=== PATIENT | male | born 1960 | race Hispanic/Latino ===

== ENCOUNTER 2017-11-11 20:33 | Inpatient (IN) | payer MEDICAID, OTHER ==
[2017-11-11 20:34] VITALS: BMI 37.0
--- NOTE | 2017-11-11 21:26 | ED PDOC ---
Arrival/HPI - General Chief Complaint: Psychiatric Evaluation Time Seen by Provider: 11/11/17 20:47 Historian: Patient, Other (med records) - History of Present Illness Narrative History of Present Illness (Text): 57yoM, depression, etoh use, recent evaluation for depression, who stated took mirtazipine 15mg x 15 tabs, and has thoughts to harm himself, feeling sad, but otherwise no thoughts to harm others/sob/chest pain/abdomen pain/numbness/ tingling/loss of limb function/pain with urination. 11/11/17 21:24 11/11/17 21:25 Time/Duration: Other (unknown time of ingestion of mirtazapine) Symptom Onset: Gradual Symptom Course: Unchanged Activities at Onset: Rest Context: Sitting Past Medical History - Provider Review Nursing Documentation Reviewed: Yes - Travel History Have you recently traveled outside [place] w/in the past 3 mons?: No - Infectious Disease Hx of Infectious Diseases: None - Tetanus Immunization Tetanus Immunization: Up to Date - Past Medical History Past Medical History: No Previous - Cardiac Hx Cardiac Disorders: No Hx Angina: No Hx Atrial Fibrillation: No Hx Cardiac Arrhythmia: No Hx Circulatory Problems: No Hx Congestive Heart Failure: No Hx RI: No Hx Heart Murmur: No Hx Heart Transplant: No Hx Hypertension: Yes Hx Hypotension: No Hx Internal Defibrillator: No Hx Mitral Valve Prolapse: No Hx Pacemaker: No Hx Peripheral Edema: No - Pulmonary Hx Respiratory Disorders: Yes Hx Asthma: No Hx Bronchitis: No Hx Chronic Obstructive Pulmonary Disease (COPD): Yes Hx Emphysema: No Hx Lung Cancer: No Hx Pneumonia: No Hx Pulmonary Edema: No Hx Pulmonary Embolism: No Hx Respiratory Aspiration: No Hx Respiratory Tract Infection: No Hx Sleep Apnea: No Hx Tuberculosis: No - Neurological Hx Neurological Disorder: Yes Hx Alzheimer's Disease: No HX Cerebrovascular Accident: No - HEENT Hx HEENT Disorder: Yes Hx Cataracts: No Hx Deafness: No Hx Difficulty Chewing: No Hx Epistaxis: No Hx Glaucoma: No Other/Comment: retina detachment - Renal Hx Renal Disorder: No Hx Dialysis: No Hx Kidney Stones: No Hx Neurogenic Bladder: No Hx Pyelonephritis: No Hx Renal Cancer: No Hx Renal Failure: Yes - Endocrine/Metabolic Hx Endocrine Disorders: No Hx Adrenal Cancer: No Hx Diabetes Insipidus: No Hx Diabetes Mellitus Type 1: No Hx Diabetes Mellitus Type 2: No Hx Hyperthyroidism: No Hx Hypothyroidism: No Hx Systemic Lupus Erythematosus: No - Hematological/Oncological Hx AIDS: No Hx Anemia: No Hx Blood Transfusions: Yes Hx Blood Transfusion Reaction: No Hx Bruising: No Hx Cancer: No Hx Chemotherapy: No Hx Cirrhosis: No Hx Gum Bleeding: No Hx Hemophilia: No Hx Hepatitis B: Yes Hx Hepatitis C: Yes Hx Leukemia: No Hx Metastasis: No Hx Shingles: No Hx Sickle Cell Disease: No Hx Unexplained Bleeding: No Hx von Willebrand's Disease: No - Integumentary Hx Dermatological Disorder: Yes Hx Basal Cell Carcinoma: No Hx Delarosa: No Hx Cellulitis: No Hx Eczema: No Hx Melanoma: No Hx Psoriasis: Yes Hx Squamous Cell Carcinoma: No - Musculoskeletal/Rheumatological Hx Musculoskeletal Disorders: Yes Hx Arthritis: No Hx Back Pain: No Hx Degenerative Joint Disease: No Hx Falls: Yes Hx Fractures: Yes (NASAL SURGERY) Hx Gout: No Hx Herniated Disk: No Hx Myasthenia Gravis: No Hx Osteoarthritis: No Hx Osteomyelitis: No Hx Osteoporosis: No Hx Rhabdomyolysis: No Hx Rheumatoid Arthritis: No Hx Spinal Stenosis: No Hx Unsteady Gait: No - Gastrointestinal Hx Gastrointestinal Disorders: Yes Hx Bowel Surgery: No Hx Clostridium Difficile: No Hx Colitis: No Hx Colostomy: No Hx Constipation: No Hx Crohn's Disease: No Hx Diarrhea: No Hx Diverticulitis: No Hx Esophageal Varices: No Hx Fatty Liver Disease: No Hx Gall Bladder Disease: No Hx Gastritis: No Hx Gastroesophageal Reflux: No Hx Hemorrhoids: No Hx Ileostomy: No Hx Irritable Bowel: No Hx Liver Failure: Yes Hx Nausea: No Hx Pancreatitis: Yes HX Swallowing Problems: No Hx Vomiting: No Other/Comment: ascites - Genitourinary/Gynecological Hx Genitourinary Disorders: No Hx Bladder Cancer: No Hx Bladder Stone: No Hx Hematuria: No Hx Incontinence: No Hx Prostate Cancer: No Hx Prostate Problems: No Hx Reproductive Disorders: No Hx Sexually Transmitted Diseases: No Hx Urinary Tract Infection: No - Psychiatric Hx Psychophysiologic Disorder: Yes Hx Emotional Abuse: No Hx Physical Abuse: No Hx Sexual Abuse: No Hx Substance Use: No (history of alcohol) - Past Surgical History Past Surgical History: No Previous - Surgical History Other/Comment: TIPPS. Nasal surgery. - Anesthesia Hx Anesthesia: Yes Hx Anesthesia Reactions: No Hx Malignant Hyperthermia: No - Suicidal Assessment Feels Threatened In Home Enviroment: No Family/Social History - Physician Review Nursing Documentation Reviewed: Yes Family/Social History: No Known Family HX Smoking Status: Light Smoker < 10 Cigarettes Daily Hx Alcohol Use: Yes (history) Amount per day: 3 Hx Substance Use: No (history of alcohol) Hx Substance Use Treatment: No Allergies/Home Meds Allergies/Adverse Reactions: Allergies No Known Allergies Allergy (Verified 11/08/17 17:35) Home Medications: Home Meds Medication Instructions Recorded Confirmed Tiotropium [Spiriva] 1 cap NEB HS 11/11/17 11/11/17 Review of Systems - Review of Systems Constitutional: Normal Eyes: Normal ENT: Normal Respiratory: Normal Cardiovascular: Normal Gastrointestinal: Normal Genitourinary Male: Normal Musculoskeletal: Normal Skin: Normal Neurological: Normal Endocrine: Normal Hemo/Lymphatic: Normal Psychiatric: Depression, Suicidal Ideation Physical Exam Vital Signs Reviewed: Yes Vital Signs Temp Pulse Resp BP Pulse Ox 11/11/17 22:53 104 H 16 120/69 11/11/17 20:45 97.8 F 120 H 17 143/93 H 95 Temperature: Afebrile Blood Pressure: Hypertensive Pulse: Tachycardic Respiratory Rate: Normal Appearance: Positive for: Unkept Pain Distress: None Mental Status: Positive for: Alert and Oriented X 3 - Systems Exam Head: Present: Atraumatic, Normocephalic Pupils: Present: PERRL Extroacular Muscles: Present: EOMI Conjunctiva: Present: Normal Ears: Present: Normal Mouth: Present: Moist Mucous Membranes Pharnyx: Present: Normal Nose (External): Present: Atraumatic Nose (Internal): Present: Normal Inspection Neck: Present: Normal Range of Motion Respiratory/Chest: Present: Clear to Auscultation, Good Air Exchange Cardiovascular: Present: Regular Rate and Rhythm Abdomen: No: Tenderness, Distention, Normal Bowel Sounds, Peritoneal Signs, Rebound, Guarding, McBurney's Point Tender, Rovsing's Sign Present, Hernias, Feeding Tubes, Ostomy Tubes, Mass/Organomegaly, Scars, Other Back: Present: Normal Inspection Upper Extremity: Present: Normal Inspection Lower Extremity: Present: Normal Inspection Neurological: Present: GCS=15, CN II-XII Intact, Speech Normal, Motor Func Grossly Intact Skin: Present: Warm, Normal Color Psychiatric: Present: Alert, Oriented x 3, Depressed Mood, Suicidal Ideation Medical Decision Making ED Course and Treatment: 57yoM, depression, etoh use, recent evaluation for depression, who stated took mirtazipine 15mg x 15 tabs, and has thoughts to harm himself, feeling sad, but otherwise no thoughts to harm others/sob/chest pain/abdomen pain/numbness/ tingling/loss of limb function/pain with urination. 11/11/17 21:28 nurse Angela called poison control and discussed case and pt to be observed. ECG: sinus tachycardia 11/11/17 21:29 11/12/17 00:59 CXR no acute, similar to 11/05/17 11/12/17 00:59 wbc 11.5 hb 15 plts 213 tox negative ua negative 11/12/17 01:29 tbili 2.4 within range of 1.4 11/09/17, 2.1 11/06/17 trop < 0.01 11/12/17 01:30 awaiting PES - Lab Interpretations Lab Results: 11/11/17 21:37 11/12/17 00:20 Lab Results 11/12/17 00:20: Sodium 145, Potassium 4.4, Chloride 108 H, Carbon Dioxide 22, Anion Gap 19, BUN 10, Creatinine 0.9, Est GFR ( Amer) > 60, Est GFR (Non- Af Amer) > 60, Random Glucose 107, Calcium 10.6 H, Total Bilirubin 2.2 H, AST 74 H, ALT 47, Alkaline Phosphatase 124, Troponin I < 0.01, Total Protein 8.8 H, Albumin 4.2, Globulin 4.6, Albumin/Globulin Ratio 0.9 L 11/11/17 22:57: Urine Opiates Screen Negative, Urine Methadone Screen Negative, Ur Barbiturates Screen Negative, Ur Phencyclidine Scrn Negative, Ur Amphetamines Screen Negative, U Benzodiazepines Scrn Negative, U Oth Cocaine Metabols Negative, U Cannabinoids Screen Negative 11/11/17 22:57: Urine Color Yellow, Urine Appearance Clear, Urine pH 6.5, Ur Specific [place] 1.010, Urine Protein Trace H, Urine Glucose (UA) Negative, Urine Ketones Negative, Urine Blood Negative, Urine Nitrate Negative, Urine Bilirubin Negative, Urine Urobilinogen 0.2, Ur Leukocyte Esterase Negative, Urine RBC 2 - 5, Urine WBC 0 - 2, Ur Epithelial Cells 0 - 2, Urine Bacteria Many , Hyaline Casts 0 - 2 11/11/17 21:37: Alcohol, Quantitative < 10 11/11/17 21:37: Salicylates < 1 L, Acetaminophen < 10.0 L 11/11/17 21:37: WBC 11.5 H D, RBC 5.47, Hgb 15.6 D, Hct 46.7, MCV 85.4, MCH 28.5, MCHC 33.4, RDW 18.1 H, Plt Count 213, MPV 12.2 H, Gran % 75.3 H, Lymph % ( Auto) 13.0 L, [place] % (Auto) 10.6 H, Eos % (Auto) 0.7 L, Baso % (Auto) 0.4, Gran # 8.65 H, Lymph # (Auto) 1.5, [place] # (Auto) 1.2 H, Eos # (Auto) 0.1, Baso # ( Auto) 0.05 - RAD Interpretation Radiology Orders: 11/11/17 21:21 CHEST PORTABLE [RAD] Stat Pocket Setter: ED Physician (CXR no acute, similar to 11/05/17) - EKG Interpretation Interpreted by ED Physician: Yes (sinus tachycardia, flipped t waves avr, v1) Type: 12 lead EKG - Medication Orders Current Medication Orders: Discontinued Medications Sodium Chloride (Sodium Chloride 0.9%) 1,000 mls @ 999 mls/hr IV .Q1H1M STA Stop: 11/11/17 22:29 Last Admin: 11/11/17 21:48 Dose: 999 mls/hr eMAR Start Stop Document 11/11/17 21:48 MS (Rec: 11/11/17 21:49 [place] [facility] [id number] Intravenous Solution Start Date 11/11/17 Start Time 21:48 End Date 11/11/17 End time 22:48 Total Infusion Time 60 Disposition/Present on Arrival - Present on Arrival History of DVT/PE: No History of Uncontrolled Diabetes: No Urinary Catheter: No History of Decub. Ulcer: No History Surgical Site Infection Following: None - Disposition Referrals: [facility] Brenda Mclean, [Primary Care Provider] - Follow up with primary Forms: [employer] (Kazakh)
[2017-11-11] MEDS ORDERED: Sodium Chloride 0.9% 1,000 ML IV STA (21:29)
[2017-11-11 22:22] LABS: ACETAMINOPHEN < 10.0 ug/ml (10.0-20.0)
[2017-11-11 22:25] LABS: BASO # 0.05 K/mm3 (0.0-2.0); BASO % 0.4 % (0.0-3.0); EOS # 0.1 (0.0-0.7); EOS % 0.7 % (1.5-5.0); GRAN # 8.65 (1.4-6.5); GRAN % 75.3 % (50.0-68.0); HEMOGLOBIN 15.6 g/dL (14.0-18.0); LYMPH # 1.5 (1.2-3.4); MEAN CELL VOLUME 85.4 fl (80.0-105.0); MEAN CORPUSCULAR HEMOGLOBIN 28.5 pg (25.0-35.0); MEAN CORPUSCULAR HGB CONC 33.4 g/dl (31.0-37.0); MEAN PLATELET VOLUME 12.2 fl (7.0-11.0); MONO # 1.2 (0.1-0.6); MONO % 10.6 % (1.0-6.0); RBC 5.47 10^6/uL (3.5-6.1); RED CELL DISTRIBUTION WIDTH 18.1 % (11.5-14.5); SALICYLATE < 1 mg/dL (2.0-20.0); WHITE BLOOD COUNT 11.5 10^3/ul (4.5-11.0)
[2017-11-11 23:05] LABS: PH,URINE 6.5 (4.7-8.0); URINE BILIRUBIN NEGATIVE (NEGATIVE); URINE BLOOD NEGATIVE (NEGATIVE); URINE GLUCOSE (UA) NEGATIVE (NEGATIVE); URINE LEUKOCYTE ESTERASE NEGATIVE Leu/uL (NEGATIVE); URINE NITRATE NEGATIVE (NEGATIVE); URINE PROTEIN TRACE mg/dL (<30 mg/dL); URINE UROBILINOGEN 0.2 E.U./dL (<1 E.U./dL)
[2017-11-11 23:10] LABS: URINE APPEARANCE CLEAR (CLEAR); URINE COLOR YELLOW (YELLOW)
[2017-11-11 23:27] LABS: BARBITURATES, UR NEGATIVE (NEGATIVE); BENZODIAZEPINES, UR NEGATIVE (NEGATIVE); OPIATES, UR NEGATIVE (NEGATIVE); PHENCYCLIDINE, UR NEGATIVE (NEGATIVE)
[2017-11-11 23:37] LABS: URINE BACTERIA MANY (NEG); URINE EPITHELIAL CELLS 0 - 2 /hpf (0-5); URINE HYALINE CAST 0 - 2 /hpf; URINE WBC 0 - 2 /hpf (0-6)
[2017-11-12 01:01] LABS: ALB/GLOB RATIO 0.9 (1.1-1.8); ALBUMIN 4.2 g/dL (3.0-4.8); ALT/SGPT 47 U/L (7-56); AST/SGOT 74 U/L (17-59); BLOOD UREA NITROGEN 10 mg/dL (7-21); CALCIUM 10.6 mg/dL (8.4-10.5); GFR AFRICAN-AMERICAN > 60; GFR NON-AFRICAN AMERICAN > 60; TROPONIN I < 0.01 ng/mL
--- NOTE | 2017-11-12 07:40 | ED PDOC ---
Physical Exam Vital Signs Temp Pulse Resp BP Pulse Ox 11/12/17 04:38 96 H 16 120/69 92 L 11/12/17 00:59 94 H 16 126/82 97 11/11/17 22:53 104 H 16 120/69 11/11/17 20:45 97.8 F 120 H 17 143/93 H 95 Medical Decision Making ED Course and Treatment: 11/12/17 07:00 Case signed out to me by Dr. Mckeon. Patient is a 57 year old male, whose past medical history includes epression, and ETOH abuse. Patient presents to the emergency department complaining of SI with no HI. Pending PES. 11/12/17 08:03 Case was discussed with Dr. Meyers who will admit for Depression NOS under Dr. Nilda Merlos - Lab Interpretations Lab Results: 11/11/17 21:37 11/12/17 00:20 Lab Results 11/12/17 00:20: Sodium 145, Potassium 4.4, Chloride 108 H, Carbon Dioxide 22, Anion Gap 19, BUN 10, Creatinine 0.9, Est GFR ( Amer) > 60, Est GFR (Non- Af Amer) > 60, Random Glucose 107, Calcium 10.6 H, Total Bilirubin 2.2 H, AST 74 H, ALT 47, Alkaline Phosphatase 124, Troponin I < 0.01, Total Protein 8.8 H, Albumin 4.2, Globulin 4.6, Albumin/Globulin Ratio 0.9 L 11/11/17 22:57: Urine Opiates Screen Negative, Urine Methadone Screen Negative, Ur Barbiturates Screen Negative, Ur Phencyclidine Scrn Negative, Ur Amphetamines Screen Negative, U Benzodiazepines Scrn Negative, U Oth Cocaine Metabols Negative, U Cannabinoids Screen Negative 11/11/17 22:57: Urine Color Yellow, Urine Appearance Clear, Urine pH 6.5, Ur Specific [place] 1.010, Urine Protein Trace H, Urine Glucose (UA) Negative, Urine Ketones Negative, Urine Blood Negative, Urine Nitrate Negative, Urine Bilirubin Negative, Urine Urobilinogen 0.2, Ur Leukocyte Esterase Negative, Urine RBC 2 - 5, Urine WBC 0 - 2, Ur Epithelial Cells 0 - 2, Urine Bacteria Many , Hyaline Casts 0 - 2 11/11/17 21:37: Alcohol, Quantitative < 10 11/11/17 21:37: Salicylates < 1 L, Acetaminophen < 10.0 L 11/11/17 21:37: WBC 11.5 H D, RBC 5.47, Hgb 15.6 D, Hct 46.7, MCV 85.4, MCH 28.5, MCHC 33.4, RDW 18.1 H, Plt Count 213, MPV 12.2 H, Gran % 75.3 H, Lymph % ( Auto) 13.0 L, [place] % (Auto) 10.6 H, Eos % (Auto) 0.7 L, Baso % (Auto) 0.4, Gran # 8.65 H, Lymph # (Auto) 1.5, [place] # (Auto) 1.2 H, Eos # (Auto) 0.1, Baso # ( Auto) 0.05 - RAD Interpretation Radiology Orders: 11/11/17 21:21 CHEST PORTABLE [RAD] Stat - Medication Orders Current Medication Orders: Discontinued Medications Sodium Chloride (Sodium Chloride 0.9%) 1,000 mls @ 999 mls/hr IV .Q1H1M STA Stop: 11/11/17 22:29 Last Admin: 11/11/17 21:48 Dose: 999 mls/hr eMAR Start Stop Document 11/11/17 21:48 MS (Rec: 11/11/17 21:49 [place] [facility] [id number] Intravenous Solution Start Date 11/11/17 Start Time 21:48 End Date 11/11/17 End time 22:48 Total Infusion Time 60 Disposition/Present on Arrival - Present on Arrival Any Indicators Present on Arrival: No History of DVT/PE: No History of Uncontrolled Diabetes: No Urinary Catheter: No History of Decub. Ulcer: No History Surgical Site Infection Following: None - Disposition Have Diagnosis and Disposition been Completed?: Yes Diagnosis: Depression, Overdose Disposition: HOSPITALIZED Disposition Time: 08:04 Patient Plan: Admission Patient Problems: Current Active Problems Problem Status Onset Depression Acute Overdose Acute Condition: GUARDED
--- NOTE | 2017-11-12 09:45 | RAD ---
HISTORY: Overdose. COMPARISON: . FINDINGS: LUNGS: No active pulmonary disease. PLEURA: No significant pleural effusion identified, no pneumothorax apparent. CARDIOVASCULAR: No radiographic findings to suggest acute or significant cardiovascular disease. OSSEOUS STRUCTURES: No significant abnormalities. VISUALIZED UPPER ABDOMEN: Normal. OTHER FINDINGS: None. IMPRESSION: No active disease. No significant interval change compared to the prior examination(s).
[2017-11-12 10:03] VITALS: O2SAT 95
[2017-11-12] MEDS ORDERED: Alum-Mag Hydrox-Simethicone Susp (30 mL) PO PRN (11:47)
[2017-11-12] MEDS ORDERED: Magnesium Hydroxide Susp 30 ml UD PO PRN (11:48)
--- NOTE | 2017-11-12 15:25 | PCM.BM ---
<Kuldeep Gaming - Last Filed: 11/12/17 15:22> Treatment Plan Problems - Problems identified on initial assessmt depression suicidal ideation Date Initiated: 11/12/17 Time Initiated: 12:00 Assessment reference: AT, NA Status: Active Priority: 1 Comment: suicidal medical issues Date Initiated: 11/12/17 Time Initiated: 12:00 Assessment reference: NA Status: Active Priority: 2 Comment: COPD,Hep b and c Disposition Date Initiated: 11/12/17 Time Initiated: 12:00 Assessment reference: NA Status: Active Priority: 3 Comment: Homeless Treatment assets and liabiliti Patient Assests: cooperative, ADL independent, negotiates basic needs, cognitively intact Patient Liabilities: live alone, poor support system, medical problems - Milieu Protocol Maintain good personal hygiene: daily Encourage regular showers, daily Assist patient to perform ADL's, every shift Remind patient to perform daily oral care Conduct patient checks and document Observation sheet: Q15 minutes Maintain personal safety: every shift Educate patient to report safety concerns to staff, every shift Monitor environment for contraband/sharps Medication safety: Monitor for expected outcome, potential side effects: every shift, Assess barriers to learning: every shift, Assess readiness for medication education: every shift Discharge/Continuing Care - Education Needs Education Needs: Patient Medication, Patient Diagnosis/Disease Process, Patient Coping Skills, Patient Placement options, Patient Community resources, Patient Activities of Daily Living, Patient Nutrition, Patient Health Practices/Safety, Patient Personal Hygiene/Grooming, Patient Aftercare Safety Plan - Discharge Discharge Criteria: Free of Suicidal thoughts, Normal sleep pattern <Chaya Meyers - Last Filed: 11/13/17 16:34> - Diagnosis (1) Depression Status: Chronic Interventions: manager student services and counseling regarding current homelessness 11/13/17 16:34 <Melanie Sanford - Last Filed: 11/14/17 16:14>
--- NOTE | 2017-11-12 16:46 | CARD ---
APPROVED REPORT EKG Measurement Heart [id number] <Conclusion> Sinus tachycardia Cannot rule out Inferior infarct, age undetermined Abnormal ECG
--- NOTE | 2017-11-13 16:34 | PCM.PYCHPN ---
Psychiatric Progress Note - Psychiatric Progress Note Patient seen today, length of contact: 25 min Patient Chief Complaint: "doesn't want to stay at a homeless halfway and would rather , no one wants to help me--they all pass the knight". Problems Identified/Issues Discussed: Patient is a homeless, single 57 year old white male with a history of Major Depressive Disorder who was just discharged from [facility] on , prescribed Remeron 15 mg po HS #14 who returned to [facility] s/p suicide attempt by ingesting supply of Remeron given to him upon discharge earlier in the day. Please refer to Initial Psychiatric Evaluation by Maranda Martínez APN on 11/09/17 for full assessment. Patient was seen in the ER by this provider on 11/12/17 and again at bedside this morning 11/13/17. He is unkempt, irritable and reluctantly engages in my interview. Reports that he is depressed and complains that he was not ready for discharge on Tuesday. Indicates that he was still suicidal (though Maranda Martínez 's discharge note indicates that he was not suicidal or homicidal even at admission). Patient reports that he "doesn't want to stay at a homeless halfway and would rather , no one wants to help me--they all pass the knight". Indicates that shelters are dangerous and fears that his property will get stolen. Denies any drug or alcohol use in the short interim. Patient has been in fair control on the unit thus far, though noted by staff to be irritable, arrogant and entitled (which this provider has also observed). He denies having any further complaints or concerns at this time. He is coherent and doesn't demonstrate any psychotic symptoms. Denies pain or discomfort. Patients sleep was "up and down with sonata last night. Diagnostic Results: Major depressive disorder without psychotic features Likely amplification of symptoms for secondary gain Mental Status Examination - Cognitive Function Orientation: Person, Place, Situation Attention: WNL Concentration: Poor Fund of Knowledge: Poor - Mood Mood: Depressed ("doesn't want to stay at a homeless halfway and would rather , no one wants to help me--they all pass the knight". ) - Affect Affect: Constricted, Other (Irritable) - Speech Speech: Appropriate - Formal Thought Process Formal Thought Process: No Impairment - Suicidal Ideation Suicidal Ideation: No - Homicidal Ideation Homicidal Ideation: No Goal/Treatment Plan - Goal/Treatment Plan Progress Toward Problem(s) and Goals/Treatment Plan: * group, milieu and supportive tx * Sonata 5 mg po HS prn: insomnia * Awaiting medical consult * Vitals reviewed and noted below: Selected Entries 11/12/17 11/12/17 11/13/17 10:35 11:12 07:23 Temperature 98.9 F 98.6 F Pulse Rate 101 H 85 Pulse Rate [ 101 H Right Radial] Respiratory 17 17 20 Rate Blood Pressure 128/68 95/57 L [facility] Laboratory Tests 11/11/17 11/11/17 11/11/17 21:37 21:37 21:37 WBC 11.5 H D RBC 5.47 Hgb 15.6 D Hct 46.7 MCV 85.4 MCH 28.5 MCHC 33.4 RDW 18.1 H Plt Count 213 MPV 12.2 H Gran % 75.3 H Lymph % (Auto) 13.0 L [place] % (Auto) 10.6 H Eos % (Auto) 0.7 L Baso % (Auto) 0.4 Gran # 8.65 H Lymph # (Auto) 1.5 [place] # (Auto) 1.2 H Eos # (Auto) 0.1 Baso # (Auto) 0.05 Sodium Potassium Chloride Carbon Dioxide Anion Gap BUN Creatinine Est GFR ( Amer) Est GFR (Non-Af Amer) Random Glucose Calcium Total Bilirubin AST ALT Alkaline Phosphatase Troponin I Total Protein Albumin Globulin Albumin/Globulin Ratio Urine Color Urine Appearance Urine pH Ur Specific [place] Urine Protein Urine Glucose (UA) Urine Ketones Urine Blood Urine Nitrate Urine Bilirubin Urine Urobilinogen Ur Leukocyte Esterase Urine RBC Urine WBC Ur Epithelial Cells Urine Bacteria Hyaline Casts Salicylates < 1 L Urine Opiates Screen Urine Methadone Screen Acetaminophen < 10.0 L Ur Barbiturates Screen Ur Phencyclidine Scrn Ur Amphetamines Screen U Benzodiazepines Scrn U Oth Cocaine Metabols U Cannabinoids Screen Alcohol, Quantitative < 10 11/11/17 11/11/17 11/12/17 22:57 22:57 00:20 WBC RBC Hgb Hct MCV MCH MCHC RDW Plt Count MPV Gran % Lymph % (Auto) [place] % (Auto) Eos % (Auto) Baso % (Auto) Gran # Lymph # (Auto) [place] # (Auto) Eos # (Auto) Baso # (Auto) Sodium 145 Potassium 4.4 Chloride 108 H Carbon Dioxide 22 Anion Gap 19 BUN 10 Creatinine 0.9 Est GFR ( Amer) > 60 Est GFR (Non-Af Amer) > 60 Random Glucose 107 Calcium 10.6 H Total Bilirubin 2.2 H AST 74 H ALT 47 Alkaline Phosphatase 124 Troponin I < 0.01 Total Protein 8.8 H Albumin 4.2 Globulin 4.6 Albumin/Globulin Ratio 0.9 L Urine Color Yellow Urine Appearance Clear Urine pH 6.5 Ur Specific [place] 1.010 Urine Protein Trace H Urine Glucose (UA) Negative Urine Ketones Negative Urine Blood Negative Urine Nitrate Negative Urine Bilirubin Negative Urine Urobilinogen 0.2 Ur Leukocyte Esterase Negative Urine RBC 2 - 5 Urine WBC 0 - 2 Ur Epithelial Cells 0 - 2 Urine Bacteria Many Hyaline Casts 0 - 2 Salicylates Urine Opiates Screen Negative Urine Methadone Screen Negative Acetaminophen Ur Barbiturates Screen Negative Ur Phencyclidine Scrn Negative Ur Amphetamines Screen Negative U Benzodiazepines Scrn Negative U Oth Cocaine Metabols Negative U Cannabinoids Screen Negative Alcohol, Quantitative
--- NOTE | 2017-11-13 16:53 | CP.PCM.CON ---
History of Present Illness - History of Present Illness History of Present Illness: MEDICINE CONSULT NOTE: Mr. Palacios is a 56 year old male with a past medical history significant for COPD, unclassified prior seizure, hepatitis C with associated liver cirrhosis and questionable hepatitis B who presents for depression and apparent attempted suicide by taking 15 tablets of Mirtazipine. Patient reports that he has suffered from depression his entire life. Of note, patient was largely uncooperative with HPI interview. He denies any complaints at this time, including fevers, chills, headache, sore throat, chest pain, palpitations, syncope, vertigo, SOB, cough, wheezing, abdominal pain, diarrhea, constipation, urinary symptoms, skin changes or any numbness/tingling/weakness of any extremity. PMH: COPD, unclassified prior seizure, hepatitis C with associated liver cirrhosis and questionable hepatitis B PSH: Tonsillectomy, TIPS procedure Family History: Mother-Emphysema Social History: Current smoker with 30 year pack smoking history, history of alcohol abuse but quit 3 years ago, and former user of heroin; Currently homeless Allergies: NKDA Home Medications: As per MAR Review of Systems - Review of Systems Review of Systems: As per HPI, otherwise negative Past Patient History - Infectious Disease Hx of Infectious Diseases: None - Tetanus Immunizations Tetanus Immunization: Up to Date - Past Medical History & Family History Past Medical History?: Yes - Past Social History Smoking Status: Light Smoker < 10 Cigarettes Daily - CARDIAC Hx Cardiac Disorders: No Hx Angina: No Hx Hypertension: Yes - PULMONARY Hx Respiratory Disorders: Yes Hx Chronic Obstructive Pulmonary Disease (COPD): Yes Hx Tuberculosis: No - NEUROLOGICAL Hx Neurological Disorder: No HX Cerebrovascular Accident: No - HEENT Hx HEENT Problems: Yes Hx Cataracts: No Hx Deafness: No Hx Difficulty Chewing: No Hx Epistaxis: No Hx Glaucoma: No Other/Comment: retina detachment - RENAL Hx Chronic Kidney Disease: No Hx Dialysis: No Hx Kidney Stones: No Hx Neurogenic Bladder: No Hx Pyelonephritis: No Hx Renal (Kidney) Cancer: No Hx Renal Failure: Yes - ENDOCRINE/METABOLIC Hx Endocrine Disorders: No Hx Adrenal Cancer: No Hx Diabetes Insipidus: No Hx Diabetes Mellitus Type 1: No Hx Diabetes Mellitus Type 2: No Hx Hyperthyroidism: No Hx Hypothyroidism: No Hx Systemic Lupus Erythematosus: No - HEMATOLOGICAL/ONCOLOGICAL Hx Blood Disorders: No Hx Cancer: No - INTEGUMENTARY Hx Dermatological Problems: Yes Hx Basil Cell: No Hx Delarosa: No Hx Cellulitis: No Hx Eczema: No Hx Melanoma: No Hx Psoriasis: Yes Hx Squamous Cell: No - MUSCULOSKELETAL/RHEUMATOLOGICAL Hx Musculoskeletal Disorders: Yes Hx Arthritis: No Hx Back Pain: No Hx Degenerative Joint Disease: No Hx Falls: Yes Hx Fractures: Yes (NASAL SURGERY) Hx Gout: No Hx Herniated Disk: No Hx Myasthenia Gravis: No Hx Osteoarthritis: No Hx Osteomyelitis: No Hx Osteoporosis: No Hx Rhabdomyolysis: No Hx Rheumatoid Arthritis: No Hx Spinal Stenosis: No Hx Unsteady Gait: No - GASTROINTESTINAL Hx Gastrointestinal Disorders: Yes Hx Bowel Surgery: No Hx Clostridium Difficile: No Hx Colitis: No Hx Colostomy: No Hx Constipation: No Hx Crohn's Disease: No Hx Diarrhea: No Hx Diverticulitis: No Hx Esophageal Varices: No Hx Fatty Liver Disease: No Hx Gall Bladder Disease: No Hx Gastritis: No Hx Gastroesophageal Reflux: No Hx Hemorrhoids: No Hx Ileostomy: No Hx Irritable Bowel: No Hx Liver Failure: Yes Hx Nausea: No Hx Pancreatitis: Yes HX Swallowing Problems: No Hx Vomiting: No Other/Comment: ascites - GENITOURINARY/GYNECOLOGICAL Hx Genitourinary Disorders: No Hx Sexually Transmitted Disorders: No - PSYCHIATRIC Hx Anxiety: Yes Hx Bipolar Disorder: Yes Hx Depression: Yes Hx Substance Use: Yes - SURGICAL HISTORY Hx Surgeries: Yes Other/Comment: TIPPS. Nasal surgery. - ANESTHESIA Hx Anesthesia: Yes Hx Anesthesia Reactions: No Hx Malignant Hyperthermia: No Meds Allergies/Adverse Reactions: Allergies Allergy/AdvReac Type Severity Reaction Status Date / Time No Known Allergies Allergy Verified 11/12/17 10:34 - Medications Medications: Current Medications Acetaminophen (Tylenol 325mg Tab) 650 mg PO Q6H PRN PRN Reason: Pain, moderate (4-7) Al Hydrox/Mg Hydrox/Simethicone (Maalox Plus 30 Ml) 30 ml PO DAILY PRN PRN Reason: Indigestion / Heartburn Albuterol/Ipratropium (Duoneb 3 Mg/0.5 Mg (3 Ml) Ud) 3 ml IH [id number] PRN PRN Reason: Shortness of Breath Magnesium Hydroxide (Milk Of Magnesia) 30 ml PO DAILY PRN PRN Reason: Constipation Zaleplon (Sonata) 5 mg PO HS PRN PRN Reason: Insomnia Last Admin: 11/12/17 21:12 Dose: 5 mg Physical Exam - Constitutional Appears: Well, Non-toxic, No Acute Distress - Head Exam Head Exam: ATRAUMATIC, NORMAL INSPECTION, NORMOCEPHALIC - Eye Exam Eye Exam: EOMI, Normal appearance, PERRL - ENT Exam ENT Exam: Mucous Membranes Moist, Normal Exam - Neck Exam Neck exam: Positive for: Full Rom, Normal Inspection. Negative for: Lymphadenopathy - Respiratory Exam Respiratory Exam: Clear to Auscultation Bilateral, NORMAL BREATHING PATTERN. absent: Rales, Rhonchi, Wheezes - Cardiovascular Exam Cardiovascular Exam: REGULAR RHYTHM, RRR, +S1, +S2 - GI/Abdominal Exam GI & Abdominal Exam: Normal Bowel Sounds, Soft. absent: Tenderness - Extremities Exam Extremities exam: Positive for: full ROM, normal capillary refill, normal inspection, pedal pulses present. Negative for: calf tenderness, joint swelling , pedal edema, tenderness - Back Exam Back exam: NORMAL INSPECTION - Neurological Exam Neurological exam: Alert, CN II-XII Intact, Normal Gait, Oriented x3, Reflexes Normal - Skin Skin Exam: Dry, Intact, Normal Color, Warm Results - Vital Signs Recent Vital Signs: Last Vital Signs Temp 98.6 F 11/13/17 07:23 Pulse 85 11/13/17 07:23 Resp 20 11/13/17 07:23 BP 95/57 L 11/13/17 07:23 Pulse Ox 95 11/12/17 10:02 - Labs Result Diagrams: 11/11/17 21:37 11/12/17 00:20 Assessment & Plan - Assessment and Plan (Free Text) Assessment: 56 year old male with a past medical history significant for COPD, unclassified prior seizure, hepatitis C with associated liver cirrhosis and questionable hepatitis B who presents for depression and apparent attempted suicide by taking 15 tablets of Mirtazipine. Patient found to have mild asymptomatic hypercalcemia to 10.6 on CMP. Plan: 1. Asymptomatic Hypercalcemia -Calcium at 10.6 -Continue and maintain adequate oral hydration -Further interventions not indicated at this time Patient seen and case discussed with attending, Dr. Sewell. Patient medically optimized for inpatient treatment in Behavioral Health Unit. Please reconsult as needed. - Date & Time Date: 11/13/17 Time: 16:55
[2017-11-13] MEDS: Albuterol-Ipratrop 3 mg / 0.5 (3 ml) UD IH PRN (21:22)
--- NOTE | 2017-11-14 11:03 | PCM.PYCHPN ---
Psychiatric Progress Note - Psychiatric Progress Note Patient seen today, length of contact: 25 min Patient Chief Complaint: "This time I won't mess up, I will buy 4-5 bags of dope and that will be it" Problems Identified/Issues Discussed: Patient is a 57 year old male, never , with one grown son, admitted to the unit within 12 hours after discharge from this unit. On his prior admission he had been admitted from the medical unit, then spent 3 days on the psychiatric unit. He was started on an antidepressant and discharged with referrals to the community for shelters and follow up care. Patient indicates this admission he did not even get into the cab to go to his referral, he "walked around" and then took all his mirtazepine that he had picked up from the [facility] pharmacy on his way out of the hospital. He currently has no income, no interpersonal support, and is adamant he does not want to be in a long term. There appears to be a secondary gain to this admission. Patient was seen today in treatment team, is angry and belligerent indicates he is a blind person and they must have a place for him that is not a long term. He denies that he has any family members that would care so will not give permission to speak to anyone for help/ collateral. He was in [facility] once for 8 months due to a placement issue. He was given a guardian and placed in [facility] where he stayed for 3 years before he left there. He petitioned the court to "get rid" of his guardian successfully, but not after he claimed his guardian "messed up" his disability and "stole money" from him. He is angry , takes no responsibility for his present difficulties and is unrealistic regarding his goal for treatment which is that we will find him a place to live. It was clearly explained to him that we can only offer a long term and a connection with a caser up who will work with him on a more permanent solution outpatient but patient refuses this as a treatment plan. Will discuss further with Dr Camarillo, [employer]. Patient started on Seroquel for complaints of anxiety and racing thoughts. Nicotine patch ordered for smoke cessation. He was encouraged to spend time out of his room and take part in groups and activities. Medical Problems: COPD Hep B, Hep C Cirrhosis Diagnostic Results: Laboratory Tests 11/11/17 11/11/17 11/11/17 21:37 21:37 21:37 WBC 11.5 H D RBC 5.47 Hgb 15.6 D Hct 46.7 MCV 85.4 MCH 28.5 MCHC 33.4 RDW 18.1 H Plt Count 213 MPV 12.2 H Gran % 75.3 H Lymph % (Auto) 13.0 L Antelope % (Auto) 10.6 H Eos % (Auto) 0.7 L Baso % (Auto) 0.4 Gran # 8.65 H Lymph # (Auto) 1.5 Antelope # (Auto) 1.2 H Eos # (Auto) 0.1 Baso # (Auto) 0.05 Sodium Potassium Chloride Carbon Dioxide Anion Gap BUN Creatinine Est GFR ( Amer) Est GFR (Non-Af Amer) Random Glucose Calcium Total Bilirubin AST ALT Alkaline Phosphatase Troponin I Total Protein Albumin Globulin Albumin/Globulin Ratio Urine Color Urine Appearance Urine pH Ur Specific [place] Urine Protein Urine Glucose (UA) Urine Ketones Urine Blood Urine Nitrate Urine Bilirubin Urine Urobilinogen Ur Leukocyte Esterase Urine RBC Urine WBC Ur Epithelial Cells Urine Bacteria Hyaline Casts Salicylates < 1 L Urine Opiates Screen Urine Methadone Screen Acetaminophen < 10.0 L Ur Barbiturates Screen Ur Phencyclidine Scrn Ur Amphetamines Screen U Benzodiazepines Scrn U Oth Cocaine Metabols U Cannabinoids Screen Alcohol, Quantitative < 10 11/11/17 11/11/17 11/12/17 22:57 22:57 00:20 WBC RBC Hgb Hct MCV MCH MCHC RDW Plt Count MPV Gran % Lymph % (Auto) [place]elope % (Auto) Eos % (Auto) Baso % (Auto) Gran # Lymph # (Auto) [place]elope # (Auto) Eos # (Auto) Baso # (Auto) Sodium 145 Potassium 4.4 Chloride 108 H Carbon Dioxide 22 Anion Gap 19 BUN 10 Creatinine 0.9 Est GFR ( Amer) > 60 Est GFR (Non-Af Amer) > 60 Random Glucose 107 Calcium 10.6 H Total Bilirubin 2.2 H AST 74 H ALT 47 Alkaline Phosphatase 124 Troponin I < 0.01 Total Protein 8.8 H Albumin 4.2 Globulin 4.6 Albumin/Globulin Ratio 0.9 L Urine Color Yellow Urine Appearance Clear Urine pH 6.5 Ur Specific [place] 1.010 Urine Protein Trace H Urine Glucose (UA) Negative Urine Ketones Negative Urine Blood Negative Urine Nitrate Negative Urine Bilirubin Negative Urine Urobilinogen 0.2 Ur Leukocyte Esterase Negative Urine RBC 2 - 5 Urine WBC 0 - 2 Ur Epithelial Cells 0 - 2 Urine Bacteria Many Hyaline Casts 0 - 2 Salicylates Urine Opiates Screen Negative Urine Methadone Screen Negative Acetaminophen Ur Barbiturates Screen Negative Ur Phencyclidine Scrn Negative Ur Amphetamines Screen Negative U Benzodiazepines Scrn Negative U Oth Cocaine Metabols Negative U Cannabinoids Screen Negative Alcohol, Quantitative Temp Pulse Resp BP Pulse Ox 98.6 F 82 20 113/63 95 11/14/17 07:21 11/14/17 07:21 11/14/17 07:21 11/14/17 07:21 11/12/17 10:02 Medication Change: Yes (Started on Seroquel, nicotine patch ordered) Medical Record Reviewed: Yes Consults ordered or reviewed: Medical consult reviewed, thank you Mental Status Examination - Cognitive Function Orientation: Person, Place, Situation Attention: WNL Concentration: Poor Fund of Knowledge: Poor - Mood Mood: Depressed ("doesn't want to stay at a homeless long term and would rather , no one wants to help me--they all pass the knight". ) - Affect Affect: Constricted, Other (Irritable) - Speech Speech: Appropriate - Formal Thought Process Formal Thought Process: No Impairment - Suicidal Ideation Suicidal Ideation: No - Homicidal Ideation Homicidal Ideation: No
--- NOTE | 2017-11-15 13:24 | PCM.PYCHPN ---
Psychiatric Progress Note - Psychiatric Progress Note Patient seen today, length of contact: 25 min Patient Chief Complaint: "I feel better on this medication " Problems Identified/Issues Discussed: Patient is a 57 year old male, never , with one grown son, admitted to the unit within 12 hours after discharge from this unit. On his prior admission he had been admitted from the medical unit, then spent 3 days on the psychiatric unit. He was started on an antidepressant and discharged with referrals to the community for shelters and follow up care. Patient indicates this admission he did not even get into the cab to go to his referral, he "walked around" and then took all his mirtazepine that he had picked up from the [facility] pharmacy on his way out of the hospital. He currently has no income, no interpersonal support, and is adamant he does not want to be in a prison. There appears to be a secondary gain to this admission. Patient was seen today in a common area of the unit. Hygiene and grooming are adequate, he is not overtly angry or hostile today. He feels the medication change has helped him, he has some range of affect today. He is spending time outside of his room and participating in groups. He continues to resist the idea that there is an alternative to shelters at discharge, I was clear with him that there are no other alternatives available at this time for the homeless and that the discharge plan would be the same whenever he goes. He brings up loss of his fiancee 6 years ago, indicating his time with her was the happiest time of his life, followed by the worst time in his life. He continues suicidal without a plan. Medical Problems: COPD Hep B, Hep C Cirrhosis Diagnostic Results: Laboratory Tests 11/11/17 11/11/17 11/11/17 21:37 21:37 21:37 WBC 11.5 H D RBC 5.47 Hgb 15.6 D Hct 46.7 MCV 85.4 MCH 28.5 MCHC 33.4 RDW 18.1 H Plt Count 213 MPV 12.2 H Gran % 75.3 H Lymph % (Auto) 13.0 L [place] % (Auto) 10.6 H Eos % (Auto) 0.7 L Baso % (Auto) 0.4 Gran # 8.65 H Lymph # (Auto) 1.5 [place] # (Auto) 1.2 H Eos # (Auto) 0.1 Baso # (Auto) 0.05 Sodium Potassium Chloride Carbon Dioxide Anion Gap BUN Creatinine Est GFR ( Amer) Est GFR (Non-Af Amer) Random Glucose Calcium Total Bilirubin AST ALT Alkaline Phosphatase Troponin I Total Protein Albumin Globulin Albumin/Globulin Ratio Urine Color Urine Appearance Urine pH Ur Specific [place] Urine Protein Urine Glucose (UA) Urine Ketones Urine Blood Urine Nitrate Urine Bilirubin Urine Urobilinogen Ur Leukocyte Esterase Urine RBC Urine WBC Ur Epithelial Cells Urine Bacteria Hyaline Casts Salicylates < 1 L Urine Opiates Screen Urine Methadone Screen Acetaminophen < 10.0 L Ur Barbiturates Screen Ur Phencyclidine Scrn Ur Amphetamines Screen U Benzodiazepines Scrn U Oth Cocaine Metabols U Cannabinoids Screen Alcohol, Quantitative < 10 11/11/17 11/11/17 11/12/17 22:57 22:57 00:20 WBC RBC Hgb Hct MCV MCH MCHC RDW Plt Count MPV Gran % Lymph % (Auto) [place] % (Auto) Eos % (Auto) Baso % (Auto) Gran # Lymph # (Auto) [place] # (Auto) Eos # (Auto) Baso # (Auto) Sodium 145 Potassium 4.4 Chloride 108 H Carbon Dioxide 22 Anion Gap 19 BUN 10 Creatinine 0.9 Est GFR ( Amer) > 60 Est GFR (Non-Af Amer) > 60 Random Glucose 107 Calcium 10.6 H Total Bilirubin 2.2 H AST 74 H ALT 47 Alkaline Phosphatase 124 Troponin I < 0.01 Total Protein 8.8 H Albumin 4.2 Globulin 4.6 Albumin/Globulin Ratio 0.9 L Urine Color Yellow Urine Appearance Clear Urine pH 6.5 Ur Specific [place] 1.010 Urine Protein Trace H Urine Glucose (UA) Negative Urine Ketones Negative Urine Blood Negative Urine Nitrate Negative Urine Bilirubin Negative Urine Urobilinogen 0.2 Ur Leukocyte Esterase Negative Urine RBC 2 - 5 Urine WBC 0 - 2 Ur Epithelial Cells 0 - 2 Urine Bacteria Many Hyaline Casts 0 - 2 Salicylates Urine Opiates Screen Negative Urine Methadone Screen Negative Acetaminophen Ur Barbiturates Screen Negative Ur Phencyclidine Scrn Negative Ur Amphetamines Screen Negative U Benzodiazepines Scrn Negative U Oth Cocaine Metabols Negative U Cannabinoids Screen Negative Alcohol, Quantitative Temp Pulse Resp BP Pulse Ox 98.6 F 82 20 113/63 95 11/14/17 07:21 11/14/17 07:21 11/14/17 07:21 11/14/17 07:21 02/10/18 10:02 Medication Change: No Medical Record Reviewed: Yes Consults ordered or reviewed: Medical consult reviewed, thank you Mental Status Examination - Cognitive Function Orientation: Person, Place, Situation Attention: WNL Concentration: Poor Fund of Knowledge: Poor - Mood Mood: Depressed ("doesn't want to stay at a homeless prison and would rather , no one wants to help me--they all pass the knight". ) - Affect Affect: Constricted, Other (Irritable) - Speech Speech: Appropriate - Formal Thought Process Formal Thought Process: No Impairment - Suicidal Ideation Suicidal Ideation: No - Homicidal Ideation Homicidal Ideation: No
[2017-11-15] MEDS: Albuterol-Ipratrop 3 mg / 0.5 (3 ml) UD IH PRN (23:15)
--- NOTE | 2017-11-16 11:04 | PCM.PYCHPN ---
<Maranda Martínez - Last Filed: 11/16/17 11:18> Psychiatric Progress Note - Psychiatric Progress Note Patient seen today, length of contact: 25 min Patient Chief Complaint: "I'm doing ok " Problems Identified/Issues Discussed: Patient is a 57 year old male, never , with one grown son, admitted to the unit within 12 hours after discharge from this unit. On his prior admission he had been admitted from the medical unit, then spent 3 days on the psychiatric unit. He was started on an antidepressant and discharged with referrals to the community for shelters and follow up care. Patient indicates this admission he did not even get into the cab to go to his referral, he "walked around" and then took all his mirtazepine that he had picked up from the [facility] pharmacy on his way out of the hospital. He currently has no income, no interpersonal support, and is adamant he does not want to be in a intermediate. There appears to be a secondary gain to this admission. Patient was seen today in treatment team, Dr Morejon present. Patient indicates that he is doing"OK", continues to express concern about being in a intermediate "as a blind man". Patient was informed that his social service needs other than the immediate, have to be handled by outpatient social service agencies. There is the possibility he will qualify for temporary placement or funds of some type but he needs to actually go to the appointment and see how they can help him and that it will take time for all of his issues to be resolved. He agrees to go to the appointment tomorrow as he will be discharged then. He feels he is still depressed but not suicidal at this time. Continues to blame others for his present difficulties, but also appears to have a better understanding of what services are available to him and what he needs to do to access them. Medical Problems: COPD Hep B, Hep C Cirrhosis Diagnostic Results: Laboratory Tests 11/11/17 11/11/17 11/11/17 21:37 21:37 21:37 WBC 11.5 H D RBC 5.47 Hgb 15.6 D Hct 46.7 MCV 85.4 MCH 28.5 MCHC 33.4 RDW 18.1 H Plt Count 213 MPV 12.2 H Gran % 75.3 H Lymph % (Auto) 13.0 L [place] % (Auto) 10.6 H Eos % (Auto) 0.7 L Baso % (Auto) 0.4 Gran # 8.65 H Lymph # (Auto) 1.5 [place] # (Auto) 1.2 H Eos # (Auto) 0.1 Baso # (Auto) 0.05 Sodium Potassium Chloride Carbon Dioxide Anion Gap BUN Creatinine Est GFR ( Amer) Est GFR (Non-Af Amer) Random Glucose Calcium Total Bilirubin AST ALT Alkaline Phosphatase Troponin I Total Protein Albumin Globulin Albumin/Globulin Ratio Urine Color Urine Appearance Urine pH Ur Specific [place] Urine Protein Urine Glucose (UA) Urine Ketones Urine Blood Urine Nitrate Urine Bilirubin Urine Urobilinogen Ur Leukocyte Esterase Urine RBC Urine WBC Ur Epithelial Cells Urine Bacteria Hyaline Casts Salicylates < 1 L Urine Opiates Screen Urine Methadone Screen Acetaminophen < 10.0 L Ur Barbiturates Screen Ur Phencyclidine Scrn Ur Amphetamines Screen U Benzodiazepines Scrn U Oth Cocaine Metabols U Cannabinoids Screen Alcohol, Quantitative < 10 11/11/17 11/11/17 11/12/17 22:57 22:57 00:20 WBC RBC Hgb Hct MCV MCH MCHC RDW Plt Count MPV Gran % Lymph % (Auto) [place] % (Auto) Eos % (Auto) Baso % (Auto) Gran # Lymph # (Auto) [place] # (Auto) Eos # (Auto) Baso # (Auto) Sodium 145 Potassium 4.4 Chloride 108 H Carbon Dioxide 22 Anion Gap 19 BUN 10 Creatinine 0.9 Est GFR ( Amer) > 60 Est GFR (Non-Af Amer) > 60 Random Glucose 107 Calcium 10.6 H Total Bilirubin 2.2 H AST 74 H ALT 47 Alkaline Phosphatase 124 Troponin I < 0.01 Total Protein 8.8 H Albumin 4.2 Globulin 4.6 Albumin/Globulin Ratio 0.9 L Urine Color Yellow Urine Appearance Clear Urine pH 6.5 Ur Specific [place] 1.010 Urine Protein Trace H Urine Glucose (UA) Negative Urine Ketones Negative Urine Blood Negative Urine Nitrate Negative Urine Bilirubin Negative Urine Urobilinogen 0.2 Ur Leukocyte Esterase Negative Urine RBC 2 - 5 Urine WBC 0 - 2 Ur Epithelial Cells 0 - 2 Urine Bacteria Many Hyaline Casts 0 - 2 Salicylates Urine Opiates Screen Negative Urine Methadone Screen Negative Acetaminophen Ur Barbiturates Screen Negative Ur Phencyclidine Scrn Negative Ur Amphetamines Screen Negative U Benzodiazepines Scrn Negative U Oth Cocaine Metabols Negative U Cannabinoids Screen Negative Alcohol, Quantitative Temp Pulse Resp BP Pulse Ox 98.6 F 82 20 113/63 95 11/14/17 07:21 11/14/17 07:21 11/14/17 07:21 11/14/17 07:21 11/12/17 10:02 Temp Pulse Resp BP Pulse Ox 98.9 F 20 L 19 107/61 95 11/16/17 07:20 11/16/17 07:20 11/15/17 07:06 11/16/17 07:20 11/12/17 10:02 Medication Change: Yes (Medication moved to only, preparation for discharge) Medical Record Reviewed: Yes Consults ordered or reviewed: Medical consult reviewed, thank you Mental Status Examination - Cognitive Function Orientation: Person, Place, Situation Attention: WNL Concentration: Poor Fund of Knowledge: Poor - Mood Mood: Depressed ("doesn't want to stay at a homeless intermediate and would rather , no one wants to help me--they all pass the knight". ) - Affect Affect: Constricted, Other (Irritable) - Speech Speech: Appropriate - Formal Thought Process Formal Thought Process: No Impairment - Suicidal Ideation Suicidal Ideation: No - Homicidal Ideation Homicidal Ideation: No <Nilda Farah - Last Filed: 11/16/17 16:15> Psychiatric Progress Note - Psychiatric Progress Note DSM 5 Symptoms Update: pt was seen at tx team today pt presented to be irritable and annoyed pt said his symptoms are related to the social problems and medical issues. pt said that he does not want to be homeless and his plan is to obtain his disability again pt is looking for comfort, and wants to stay in the hospital as long as possible pt stayed in the [facility] medical side for 4months because of problems to d/c him. as per SW there are nothing could be done in regards of the homelessness or ssd pt needs to f/u with ICMS+try to obtain disability and find and aprt. pt is not suicidal or homicidal when was asked about the reason for this admission "I wanted to overdose on medications", when was asked did he overdosed, pt denied. pt is unreliable historian and secondary gain cannot be excluded. as per staff pt eats "double portions", interested in ONLY watching tv and sleep. pt agreed with d/c plan tomorrow.
[2017-11-16] MEDS: Albuterol-Ipratrop 3 mg / 0.5 (3 ml) UD IH PRN (20:44)
[2017-11-17 07:19] VITALS: BP 137/76; PULSE 84; RESP 20; TEMP 98.2
--- NOTE | 2017-11-17 14:42 | PCM.PYCHDC ---
Mental Status Examination - Mental Status Examination Orientation: Person, Place, Situation, Time Memory: Intact Mood: Neutral Affect: Constricted Speech: Loud Attention: WNL Concentration: WNL Association: WNL Fund of Knowledge: WNL Formal Thought Process: No Impairment Description of patient's judgement and insight: Patient denies being suicidal or homicidal, appears in no imminent danger of hurting himself or others. Psychotic Thoughts and Behaviors: Patient denies the presence of hallucinations, delusions and paranoia. Suicidal Ideation: No Current Homicidal Ideation?: No Discharge Summary - Discharge Note Reason for Hospitalization: Patient is a 57 year old male, never , with one grown son, admitted to the unit within 12 hours after discharge from this unit. On his prior admission he had been admitted from the medical unit, then spent 3 days on the psychiatric unit. He was started on an antidepressant and discharged with referrals to the community for shelters and follow up care. Patient indicates this admission he did not even get into the cab to go to his referral, he "walked around" and then took all his mirtazepine that he had picked up from the [facility] pharmacy on his way out of the hospital. He currently has no income, no interpersonal support, and is adamant he does not want to be in a residential. There appears to be a secondary gain to this admission. Laboratory Data: Laboratory Tests 11/11/17 11/11/17 11/11/17 21:37 21:37 21:37 WBC 11.5 H D RBC 5.47 Hgb 15.6 D Hct 46.7 MCV 85.4 MCH 28.5 MCHC 33.4 RDW 18.1 H Plt Count 213 MPV 12.2 H Gran % 75.3 H Lymph % (Auto) 13.0 L [place] % (Auto) 10.6 H Eos % (Auto) 0.7 L Baso % (Auto) 0.4 Gran # 8.65 H Lymph # (Auto) 1.5 Gaines # (Auto) 1.2 H Eos # (Auto) 0.1 Baso # (Auto) 0.05 Sodium Potassium Chloride Carbon Dioxide Anion Gap BUN Creatinine Est GFR ( Amer) Est GFR (Non-Af Amer) Random Glucose Calcium Total Bilirubin AST ALT Alkaline Phosphatase Troponin I Total Protein Albumin Globulin Albumin/Globulin Ratio Urine Color Urine Appearance Urine pH Ur Specific [place] Urine Protein Urine Glucose (UA) Urine Ketones Urine Blood Urine Nitrate Urine Bilirubin Urine Urobilinogen Ur Leukocyte Esterase Urine RBC Urine WBC Ur Epithelial Cells Urine Bacteria Hyaline Casts Salicylates < 1 L Urine Opiates Screen Urine Methadone Screen Acetaminophen < 10.0 L Ur Barbiturates Screen Ur Phencyclidine Scrn Ur Amphetamines Screen U Benzodiazepines Scrn U Oth Cocaine Metabols U Cannabinoids Screen Alcohol, Quantitative < 10 11/11/17 11/11/17 11/12/17 22:57 22:57 00:20 WBC RBC Hgb Hct MCV MCH MCHC RDW Plt Count MPV Gran % Lymph % (Auto) [place]aines % (Auto) Eos % (Auto) Baso % (Auto) Gran # Lymph # (Auto) [place]aines # (Auto) Eos # (Auto) Baso # (Auto) Sodium 145 Potassium 4.4 Chloride 108 H Carbon Dioxide 22 Anion Gap 19 BUN 10 Creatinine 0.9 Est GFR ( Amer) > 60 Est GFR (Non-Af Amer) > 60 Random Glucose 107 Calcium 10.6 H Total Bilirubin 2.2 H AST 74 H ALT 47 Alkaline Phosphatase 124 Troponin I < 0.01 Total Protein 8.8 H Albumin 4.2 Globulin 4.6 Albumin/Globulin Ratio 0.9 L Urine Color Yellow Urine Appearance Clear Urine pH 6.5 Ur Specific [place] 1.010 Urine Protein Trace H Urine Glucose (UA) Negative Urine Ketones Negative Urine Blood Negative Urine Nitrate Negative Urine Bilirubin Negative Urine Urobilinogen 0.2 Ur Leukocyte Esterase Negative Urine RBC 2 - 5 Urine WBC 0 - 2 Ur Epithelial Cells 0 - 2 Urine Bacteria Many Hyaline Casts 0 - 2 Salicylates Urine Opiates Screen Negative Urine Methadone Screen Negative Acetaminophen Ur Barbiturates Screen Negative Ur Phencyclidine Scrn Negative Ur Amphetamines Screen Negative U Benzodiazepines Scrn Negative U Oth Cocaine Metabols Negative U Cannabinoids Screen Negative Alcohol, Quantitative Temp Pulse Resp BP Pulse Ox 98.2 F 84 20 137/76 95 11/17/17 07:18 11/17/17 07:18 11/17/17 07:18 11/17/17 07:18 11/12/17 10:02 Consultations:: List each consultation separately and include: 1. Reason for request. 2. Findings. 3. Follow-up Consultations: Medical consult reviewed, thank you Summary of Hospital Course include:: 1. Description of specific treatment plan utilized for patients during their course of treatmen. 2. Summarize the time- course for resolution of acute symptoms and/or regressed behaviors. 3. Describe issues identified and worked on during hospitalization. 4. Describe medication utilized. 5. Describe medical problems identified and treated. 6. Reassessment of suicide risk Summary of Hospital Course: Patient is a 57 year old male, never , with one grown son, admitted to the unit within 12 hours after discharge from this unit. On his prior admission he had been admitted from the medical unit, then spent 3 days on the psychiatric unit. He was started on an antidepressant and discharged with referrals to the community for shelters and follow up care. Patient indicates this admission he did not even get into the cab to go to his referral, he "walked around" and then took all his mirtazepine that he had picked up from the [facility] pharmacy on his way out of the hospital. He currently has no income, no interpersonal support, and is adamant he does not want to be in a residential. There appears to be a secondary gain to this admission. During the patient's hospital stay his hygiene was good, he spent time out on the unit socializing with peers and watching TV. Mirtazepine was discontinued and Seroquel was started as patient was angry and hostile on admission which improved his mood and the quality of his interactions. 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 His admission to the unit appears more for secondary gain as when I asked the patient how hospitalization has helped him he indicated that it "kept him out of the weather ". He indicates he has "been depressed his whole life", indicates he is not suicidal or homicidal at this time. On discharge indicates that he was missing some "important papers" that someone in the ER took them and did not return them. Was taken to the ER to ask about these on discharge. He was strongly encouraged to follow up on his referrals. He was given one weeks worth of medication with 3 refills. - Diagnosis (1) Depression Status: Chronic Priority: Medium - Final Diagnosis (DSM 5) Condition upon Discharge: GUARDED Disposition: HOME/ ROUTINE Follow-up Treatment Plan: Patient referred to [facility] for outpatient services for his homelessness and lack of money. Referred also to [facility] for housing and psychiatric follow up. Prescriptions/Medication Reconciliation: Nicotine [Nicoderm Cq] 14 mg TD DAILY #7 ml QUEtiapine [Seroquel] 100 mg PO HS #7 tab - Smoking Cessation Smoking Cessation Medication prescribed: Yes - Antipsychotic Medications Pt discharged on 2 or more routine antipsychotic medications: No
== END 2017-11-17 15:21 | disposition home or self-care (01) | DRG 426 ==
LOC: ED 20:33 → ERH 11-12 07:35 → PSYC 11-12 10:23
PROVIDERS: ADMIT Psychiatry & Neurology Psychiatry; ATTEND Psychiatry & Neurology Psychiatry
PROC: GZ3ZZZZ Medication Management (ICD-10-PCS; principal; 2017-11-14)
DX: F32.9 Major depressive disorder, single episode, unspecified (principal); R56.9 Unspecified convulsions; K74.60 Unspecified cirrhosis of liver; E83.52 Hypercalcemia; B19.20 Unspecified viral hepatitis C without hepatic coma; J44.9 Chronic obstructive pulmonary disease, unspecified; F41.9 Anxiety disorder, unspecified; F17.210 Nicotine dependence, cigarettes, uncomplicated; Z59.0 Homelessness; Z91.5 Personal history of self-harm

== ENCOUNTER 2017-11-17 22:42 | Emergency (ER) | payer MEDICAID ==
[2017-11-17 22:42] VITALS: BMI 37.0
[2017-11-18 00:16] VITALS: TEMP 98.2
--- NOTE | 2017-11-18 00:24 | ED PDOC ---
Arrival/HPI - General Chief Complaint: Abdominal Pain Time Seen by Provider: 11/17/17 23:00 Historian: Patient - History of Present Illness Narrative History of Present Illness (Text): 11/18/17 00:21 A 57 year old male, whose past medical history includes depression and ETOH use , presents to the emergency department complaining of right upper abdominal pain. The patient states that his "liver hurts" and that the pain is worsened when moving from side to side on the stretcher. The patient denies fevers, chills, headache, dizziness, chest pain, shortness of breath, dyspnea on exertion, cough, nausea, vomiting, diarrhea, back pain, neck pain, urinary/ bowel changes, or any other complaint. Time/Duration: Other (Today) Symptom Onset: Sudden Symptom Course: Unchanged Activities at Onset: Rest, Light Context: Home Past Medical History - Provider Review Nursing Documentation Reviewed: Yes - Infectious Disease Hx of Infectious Diseases: None - Tetanus Immunization Tetanus Immunization: Up to Date - Past Medical History Past Medical History: No Previous - Cardiac Hx Cardiac Disorders: No Hx Angina: No Hx Hypertension: Yes - Pulmonary Hx Respiratory Disorders: Yes Hx Chronic Obstructive Pulmonary Disease (COPD): Yes Hx Tuberculosis: No - Neurological Hx Neurological Disorder: No HX Cerebrovascular Accident: No - HEENT Hx HEENT Disorder: Yes Hx Cataracts: No Hx Deafness: No Hx Difficulty Chewing: No Hx Epistaxis: No Hx Glaucoma: No Other/Comment: retina detachment - Renal Hx Renal Disorder: No Hx Dialysis: No Hx Kidney Stones: No Hx Neurogenic Bladder: No Hx Pyelonephritis: No Hx Renal Cancer: No Hx Renal Failure: Yes - Endocrine/Metabolic Hx Endocrine Disorders: No Hx Adrenal Cancer: No Hx Diabetes Insipidus: No Hx Diabetes Mellitus Type 1: No Hx Diabetes Mellitus Type 2: No Hx Hyperthyroidism: No Hx Hypothyroidism: No Hx Systemic Lupus Erythematosus: No - Hematological/Oncological Hx Blood Disorders: No Hx Cancer: No - Integumentary Hx Dermatological Disorder: Yes Hx Basal Cell Carcinoma: No Hx Delarosa: No Hx Cellulitis: No Hx Eczema: No Hx Melanoma: No Hx Psoriasis: Yes Hx Squamous Cell Carcinoma: No - Musculoskeletal/Rheumatological Hx Musculoskeletal Disorders: Yes Hx Arthritis: No Hx Back Pain: No Hx Degenerative Joint Disease: No Hx Falls: Yes Hx Fractures: Yes (NASAL SURGERY) Hx Gout: No Hx Herniated Disk: No Hx Myasthenia Gravis: No Hx Osteoarthritis: No Hx Osteomyelitis: No Hx Osteoporosis: No Hx Rhabdomyolysis: No Hx Rheumatoid Arthritis: No Hx Spinal Stenosis: No Hx Unsteady Gait: No - Gastrointestinal Hx Gastrointestinal Disorders: Yes Hx Bowel Surgery: No Hx Clostridium Difficile: No Hx Colitis: No Hx Colostomy: No Hx Constipation: No Hx Crohn's Disease: No Hx Diarrhea: No Hx Diverticulitis: No Hx Esophageal Varices: No Hx Fatty Liver Disease: No Hx Gall Bladder Disease: No Hx Gastritis: No Hx Gastroesophageal Reflux: No Hx Hemorrhoids: No Hx Ileostomy: No Hx Irritable Bowel: No Hx Liver Failure: Yes Hx Nausea: No Hx Pancreatitis: Yes HX Swallowing Problems: No Hx Vomiting: No Other/Comment: ascites - Genitourinary/Gynecological Hx Genitourinary Disorders: No Hx Sexually Transmitted Diseases: No - Psychiatric Hx Anxiety: Yes Hx Bipolar Disorder: Yes Hx Depression: Yes Hx Substance Use: No - Past Surgical History Past Surgical History: No Previous - Surgical History Other/Comment: TIPPS. Nasal surgery. - Anesthesia Hx Anesthesia: Yes Hx Anesthesia Reactions: No Hx Malignant Hyperthermia: No - Suicidal Assessment Feels Threatened In Home Enviroment: No Family/Social History - Physician Review Nursing Documentation Reviewed: Yes Family/Social History: No Known Family HX Smoking Status: Light Smoker < 10 Cigarettes Daily Hx Alcohol Use: No (Hx) Amount per day: 3 Hx Substance Use: No Hx Substance Use Treatment: No Allergies/Home Meds Allergies/Adverse Reactions: Allergies No Known Allergies Allergy (Verified 11/18/17 22:08) Review of Systems - Physician Review All systems were reviewed & negative as marked: Yes - Review of Systems Constitutional: absent: Fevers, Night Sweats Respiratory: absent: SOB, Cough Cardiovascular: absent: Chest Pain Gastrointestinal: Abdominal Pain (right upper abdominal pain. "Liver pain"). absent: Stool Changes, Diarrhea, Nausea, Vomiting Neurological: absent: Headache, Dizziness Physical Exam Vital Signs Reviewed: Yes Vital Signs Temp Pulse Resp BP Pulse Ox 11/18/17 06:42 79 19 132/75 97 11/18/17 04:42 83 18 134/76 97 11/18/17 02:42 82 19 132/77 96 11/18/17 00:42 85 18 135/78 97 11/18/17 00:06 98.2 F 88 20 143/85 96 Temperature: Afebrile Blood Pressure: Normal Pulse: Regular Respiratory Rate: Normal Appearance: Positive for: Well-Appearing, Non-Toxic, Comfortable Pain Distress: None Mental Status: Positive for: Alert and Oriented X 3 - Systems Exam Head: Present: Atraumatic, Normocephalic Pupils: Present: PERRL Extroacular Muscles: Present: EOMI Conjunctiva: Present: Normal Mouth: Present: Moist Mucous Membranes Neck: Present: Normal Range of Motion Respiratory/Chest: Present: Clear to Auscultation, Good Air Exchange. No: Respiratory Distress, Accessory Muscle Use Cardiovascular: Present: Regular Rate and Rhythm, Normal S1, S2. No: Murmurs Abdomen: Present: Normal Bowel Sounds. No: Tenderness, Distention, Peritoneal Signs Back: Present: Normal Inspection Upper Extremity: Present: Normal Inspection. No: Cyanosis, Edema Lower Extremity: Present: Normal Inspection. No: Edema Neurological: Present: GCS=15, CN II-XII Intact, Speech Normal Skin: Present: Warm, Dry, Normal Color. No: Rashes Psychiatric: Present: Alert, Oriented x 3, Normal Insight, Normal Concentration Medical Decision Making ED Course and Treatment: 11/18/17 00:23 Impression: A 57 year old male presents to the emergency department complaining of right upper abdominal pain. Patient states that his "liver hurts". Plan: -- Abdomen/Pelvis CT -- Labs -- Reassess and disposition Progress Notes: CT Abdomen and Pelvis With Intravenous Contrast Dictated and Authenticated by: Santo Rodriguez MD 11/18/2017 3:59 AM Eastern Time ([place] & [place]) IMPRESSION: 1. Cirrhosis. 2. Mild colitis vs underdistention. Favor underdistention. Clinical correlation is needed. 3. Incidental/non-acute findings are described above. - Lab Interpretations Lab Results: 11/18/17 01:20 11/18/17 01:20 Lab Results 11/18/17 01:20: WBC 10.3, RBC 4.59, Hgb 12.5 L D, Hct 38.6 L, MCV 84.1, MCH 27.2 , MCHC 32.4, RDW 17.8 H, Plt Count 240, MPV 12.5 H, Gran % 66.6, Lymph % (Auto) 20.3 L, [place] % (Auto) 10.0 H, Eos % (Auto) 2.2, Baso % (Auto) 0.9, Gran # 6.84 H , Lymph # (Auto) 2.1, [place] # (Auto) 1.0 H, Eos # (Auto) 0.2, Baso # (Auto) 0.09 11/18/17 01:20: Sodium 139, Potassium 3.9, Chloride 108 H, Carbon Dioxide 23, Anion Gap 12, BUN 10, Creatinine 0.9, Est GFR ( Amer) > 60, Est GFR (Non- Af Amer) > 60, Random Glucose 89, Calcium 9.4, Total Bilirubin 1.4 H, AST 93 H D , ALT 63 H, Alkaline Phosphatase 93, Total Protein 7.3, Albumin 3.4, Globulin 3.9, Albumin/Globulin Ratio 0.9 L, Lipase 132 I have reviewed the lab results: Yes - RAD Interpretation Radiology Orders: 11/18/17 00:22 ABD & PELVIS IV CONTRAST ONLY [CT] Stat - Scribe Statement The provider has reviewed the documentation as recorded by the Scribe Elizabeth Goetz Provider Scribe Attestation: All medical record entries made by the Scribe were at my direction and personally dictated by me. I have reviewed the chart and agree that the record accurately reflects my personal performance of the history, physical exam, medical decision making, and the department course for this patient. I have also personally directed, reviewed, and agree with the discharge instructions and disposition. Disposition/Present on Arrival - Present on Arrival Any Indicators Present on Arrival: No History of DVT/PE: No History of Uncontrolled Diabetes: No Urinary Catheter: No History of Decub. Ulcer: No History Surgical Site Infection Following: None - Disposition Have Diagnosis and Disposition been Completed?: Yes Diagnosis: Abdominal pain Disposition: HOME/ ROUTINE Disposition Time: 07:00 Patient Problems: Current Active Problems Problem Status Onset Suicidal ideation Acute Depression Chronic Condition: GOOD Discharge Instructions (ExitCare): Acute Abdomen (Belly Pain) Referrals: [facility] [Outside] - Follow up with primary Forms: Clinical Data (Swedish)
[2017-11-18 01:51] LABS: ALB/GLOB RATIO 0.9 (1.1-1.8); ALBUMIN 3.4 g/dL (3.0-4.8); ALT/SGPT 63 U/L (7-56); AST/SGOT 93 U/L (17-59); BLOOD UREA NITROGEN 10 mg/dL (7-21); CALCIUM 9.4 mg/dL (8.4-10.5); GFR AFRICAN-AMERICAN > 60; GFR NON-AFRICAN AMERICAN > 60; LIPASE 132 U/L (23-300)
[2017-11-18 01:54] LABS: BASO # 0.09 K/mm3 (0.0-2.0); BASO % 0.9 % (0.0-3.0); EOS # 0.2 (0.0-0.7); EOS % 2.2 % (1.5-5.0); GRAN # 6.84 (1.4-6.5); GRAN % 66.6 % (50.0-68.0); LYMPH # 2.1 (1.2-3.4); LYMPH % 20.3 % (22.0-35.0); MEAN CELL VOLUME 84.1 fl (80.0-105.0); MEAN CORPUSCULAR HEMOGLOBIN 27.2 pg (25.0-35.0); MEAN CORPUSCULAR HGB CONC 32.4 g/dl (31.0-37.0); MEAN PLATELET VOLUME 12.5 fl (7.0-11.0); RBC 4.59 10^6/uL (3.5-6.1); RED CELL DISTRIBUTION WIDTH 17.8 % (11.5-14.5); WHITE BLOOD COUNT 10.3 10^3/ul (4.5-11.0)
[2017-11-18 02:02] LABS: HEMOGLOBIN 12.5 g/dL (14.0-18.0)
[2017-11-18] MEDS ORDERED: Iohexol 350 MG/100 ML VIAL ONE (02:12)
--- NOTE | 2017-11-18 03:59 | CT ---
EXAM: CT Abdomen and Pelvis With Intravenous Contrast CLINICAL HISTORY: 57 years old, male; Pain; Abdominal pain; Additional info: Abd pain TECHNIQUE: Axial computed tomography images of the abdomen and pelvis with intravenous contrast. All CT scans at this facility use one or more dose reduction techniques, viz.: automated exposure control; ma/kV adjustment per patient size (including targeted exams where dose is matched to indication; i.e. head); or iterative reconstruction technique. Coronal and sagittal reformatted images were created and reviewed. CONTRAST: 96 mL of omni 350 administered intravenously. COMPARISON: CT - ABD PELVIS IV CONTRAST ONLY 2017-11-05 18:25 FINDINGS: Limitations: Motion artifact - mild. Lower thorax: Minimal atelectasis/scarring. Mild mural thickening vs underdistention of distal esophagus. ABDOMEN: Liver: Lobulated contour. Stable subcentimeter hypodensity. Patent TIPS. Gallbladder and bile ducts: Tiny gallstone. No significant ductal dilation. Pancreas: No ductal dilation. No mass. Spleen: Mildly enlarged. Adrenals: No mass. Kidneys and ureters: No mass. No hydronephrosis. Stomach and bowel: Segmental areas of mild mural thickening vs underdistention of descending, sigmoid colon. No associated inflammatory stranding. No obstruction. Appendix: Normal caliber. No inflammation. PELVIS: Bladder: Unremarkable. Reproductive: Unremarkable as visualized. ABDOMEN and PELVIS: Intraperitoneal space: No significant fluid collection. No free air. Bones/joints: Mild degenerative changes of spine. No acute fracture. Soft tissues: Small umbilical hernia containing fat. Few small ill-defined nodular densities within anterior abdominal wall, nonspecific. Tiny LEFT inguinal hernia containing fat. Vasculature: Mild atherosclerotic disease. No aneurysm. Retroaortic LEFT renal vein. Lymph nodes: No pathologically enlarged lymph nodes. IMPRESSION: 1. Cirrhosis. 2. Mild colitis vs underdistention. Favor underdistention. Clinical correlation is needed. 3. Incidental/non-acute findings are described above.
[2017-11-18 07:05] VITALS: BP 132/75; PULSE 79; RESP 19; O2SAT 97
== END 2017-11-18 06:56 | disposition home or self-care (01) ==
LOC: ED 22:42
DX: R10.9 Unspecified abdominal pain (principal); I10 Essential (primary) hypertension; F17.210 Nicotine dependence, cigarettes, uncomplicated

== ENCOUNTER 2017-11-18 21:19 | Emergency (ER) | payer MEDICAID ==
[2017-11-18 21:19] VITALS: BMI 37.0
[2017-11-18 22:09] VITALS: BP 135/74; PULSE 86; RESP 18; TEMP 98.4; O2SAT 97
== END 2017-11-19 01:51 | disposition left against medical advice (07) ==
LOC: ED 21:19
DX: Z02.89 Encounter for other administrative examinations (principal); Z00.8 Encounter for other general examination

== ENCOUNTER 2017-11-19 01:52 | Emergency (ER) | payer MEDICAID ==
[2017-11-19 01:53] VITALS: BMI 37.0
--- NOTE | 2017-11-19 02:45 | ED PDOC ---
Arrival/HPI - General Chief Complaint: Medical Clearance Time Seen by Provider: 11/19/17 02:23 Historian: Patient - History of Present Illness Narrative History of Present Illness (Text): 11/19/17 02:39 A 57 year old male, whose past medical history includes depression and alcohol abuse, presents to the emergency department for psych evaluation. Patient states "my body feels fine but my mind is not". Patient notes feeling depressed and suicidal at times.No specific plan at present time. Patient denies any drug or alcohol use. Patient denies any fever, chills, nausea, vomiting, abdominal pain, chest pain, shortness of breath, headache, dizziness, homicidal ideation, hallucinations or any other complaint. Past Medical History - Provider Review Nursing Documentation Reviewed: Yes - Infectious Disease Hx of Infectious Diseases: None - Tetanus Immunization Tetanus Immunization: Up to Date - Past Medical History Past Medical History: No Previous - Cardiac Hx Cardiac Disorders: No Hx Angina: No Hx Hypertension: Yes - Pulmonary Hx Respiratory Disorders: Yes Hx Chronic Obstructive Pulmonary Disease (COPD): Yes Hx Tuberculosis: No - Neurological Hx Neurological Disorder: No HX Cerebrovascular Accident: No - HEENT Hx HEENT Disorder: Yes Hx Cataracts: No Hx Deafness: No Hx Difficulty Chewing: No Hx Epistaxis: No Hx Glaucoma: No Other/Comment: retina detachment - Renal Hx Renal Disorder: No Hx Dialysis: No Hx Kidney Stones: No Hx Neurogenic Bladder: No Hx Pyelonephritis: No Hx Renal Cancer: No Hx Renal Failure: Yes - Endocrine/Metabolic Hx Endocrine Disorders: No Hx Adrenal Cancer: No Hx Diabetes Insipidus: No Hx Diabetes Mellitus Type 1: No Hx Diabetes Mellitus Type 2: No Hx Hyperthyroidism: No Hx Hypothyroidism: No Hx Systemic Lupus Erythematosus: No - Hematological/Oncological Hx Blood Disorders: No Hx Cancer: No - Integumentary Hx Dermatological Disorder: Yes Hx Basal Cell Carcinoma: No Hx Delarosa: No Hx Cellulitis: No Hx Eczema: No Hx Melanoma: No Hx Psoriasis: Yes Hx Squamous Cell Carcinoma: No - Musculoskeletal/Rheumatological Hx Musculoskeletal Disorders: Yes Hx Arthritis: No Hx Back Pain: No Hx Degenerative Joint Disease: No Hx Falls: Yes Hx Fractures: Yes (NASAL SURGERY) Hx Gout: No Hx Herniated Disk: No Hx Myasthenia Gravis: No Hx Osteoarthritis: No Hx Osteomyelitis: No Hx Osteoporosis: No Hx Rhabdomyolysis: No Hx Rheumatoid Arthritis: No Hx Spinal Stenosis: No Hx Unsteady Gait: No - Gastrointestinal Hx Gastrointestinal Disorders: Yes Hx Bowel Surgery: No Hx Clostridium Difficile: No Hx Colitis: No Hx Colostomy: No Hx Constipation: No Hx Crohn's Disease: No Hx Diarrhea: No Hx Diverticulitis: No Hx Esophageal Varices: No Hx Fatty Liver Disease: No Hx Gall Bladder Disease: No Hx Gastritis: No Hx Gastroesophageal Reflux: No Hx Hemorrhoids: No Hx Ileostomy: No Hx Irritable Bowel: No Hx Liver Failure: Yes Hx Nausea: No Hx Pancreatitis: Yes HX Swallowing Problems: No Hx Vomiting: No Other/Comment: ascites - Genitourinary/Gynecological Hx Genitourinary Disorders: No Hx Sexually Transmitted Diseases: No - Psychiatric Hx Anxiety: Yes Hx Bipolar Disorder: Yes Hx Depression: Yes Hx Substance Use: No - Past Surgical History Past Surgical History: No Previous - Surgical History Other/Comment: TIPPS. Nasal surgery. - Anesthesia Hx Anesthesia: Yes Hx Anesthesia Reactions: No Hx Malignant Hyperthermia: No - Suicidal Assessment Feels Threatened In Home Enviroment: No Family/Social History - Physician Review Nursing Documentation Reviewed: Yes Family/Social History: No Known Family HX Smoking Status: Light Smoker < 10 Cigarettes Daily Hx Alcohol Use: No (Hx) Amount per day: 3 Hx Substance Use: No Hx Substance Use Treatment: No Allergies/Home Meds Allergies/Adverse Reactions: Allergies No Known Allergies Allergy (Verified 11/18/17 22:08) Review of Systems - Physician Review All systems were reviewed & negative as marked: Yes - Review of Systems Constitutional: absent: Fevers, Night Sweats Respiratory: absent: SOB Cardiovascular: absent: Chest Pain Gastrointestinal: absent: Abdominal Pain, Nausea, Vomiting Neurological: absent: Headache, Dizziness Psychiatric: Depression, Suicidal Ideation (not currently) Physical Exam Vital Signs Temp Pulse Resp BP Pulse Ox 11/19/17 03:53 97.9 F 79 15 139/72 99 11/19/17 01:53 97.9 F 81 15 143/80 98 Appearance: Positive for: Well-Appearing, Non-Toxic, Comfortable Pain Distress: None Mental Status: Positive for: Alert and Oriented X 3 - Systems Exam Head: Present: Atraumatic, Normocephalic Pupils: Present: PERRL Extroacular Muscles: Present: EOMI Conjunctiva: Present: Normal Mouth: Present: Moist Mucous Membranes Neck: Present: Normal Range of Motion Respiratory/Chest: Present: Clear to Auscultation, Good Air Exchange. No: Respiratory Distress, Accessory Muscle Use Cardiovascular: Present: Regular Rate and Rhythm, Normal S1, S2. No: Murmurs Abdomen: Present: Normal Bowel Sounds. No: Tenderness, Distention, Peritoneal Signs Back: Present: Normal Inspection Upper Extremity: Present: Normal Inspection. No: Cyanosis, Edema Lower Extremity: Present: Normal Inspection. No: Edema Neurological: Present: GCS=15, CN II-XII Intact, Speech Normal Skin: Present: Warm, Dry, Normal Color. No: Rashes Psychiatric: Present: Alert, Oriented x 3, Depressed Mood Medical Decision Making ED Course and Treatment: 11/19/17 02:39 Impression: A 57 year old male with depression Plan: -- Chest xray -- EKG -- Labs -- Reassess and disposition Progress Notes: EKG shows NSR at [address]/T changes. Interpreted by me. Chest xray read and interpreted by me shows no acute process. - Lab Interpretations Lab Results: 11/19/17 03:30 11/19/17 03:30 Lab Results 11/19/17 03:30: WBC 7.0 D, RBC 4.70, Hgb 13.1 L, Hct 39.8 L, MCV 84.7, MCH 27.9 , MCHC 32.9, RDW 17.9 H, Plt Count 233, MPV 11.5 H 11/19/17 03:30: Alcohol, Quantitative < 10 11/19/17 03:30: Sodium 141, Potassium 4.2, Chloride 107, Carbon Dioxide 21, Anion Gap 18, BUN 13, Creatinine 1.0, Est GFR ( Amer) > 60, Est GFR (Non- Af Amer) > 60, Random Glucose 83, Calcium 9.8, Total Bilirubin 2.1 H, AST 82 H, ALT 56, Alkaline Phosphatase 90, Total Protein 7.6, Albumin 3.6, Globulin 4.0, Albumin/Globulin Ratio 0.9 L I have reviewed the lab results: Yes - RAD Interpretation Radiology Orders: 11/19/17 02:45 CHEST PORTABLE [RAD] Stat - Transfer of Care Patient signed out to Dr:: Kelsea Other: PES evaluation/reassess/final disposition - Scribe Statement The provider has reviewed the documentation as recorded by the Scribgloria Contreras Provider Scribe Attestation: All medical record entries made by the Scribe were at my direction and personally dictated by me. I have reviewed the chart and agree that the record accurately reflects my personal performance of the history, physical exam, medical decision making, and the department course for this patient. I have also personally directed, reviewed, and agree with the discharge instructions and disposition. Disposition/Present on Arrival - Present on Arrival Any Indicators Present on Arrival: No History of DVT/PE: No History of Uncontrolled Diabetes: No Urinary Catheter: No History of Decub. Ulcer: No History Surgical Site Infection Following: None - Disposition Have Diagnosis and Disposition been Completed?: No Diagnosis: Depression, Suicidal ideation Disposition Time: 07:00 Patient Problems: Current Active Problems Problem Status Onset Suicidal ideation Acute Depression Chronic Condition: STABLE Forms: [employer] (Turkish)
[2017-11-19 03:41] LABS: HEMOGLOBIN 13.1 g/dL (14.0-18.0); MEAN CELL VOLUME 84.7 fl (80.0-105.0); MEAN CORPUSCULAR HEMOGLOBIN 27.9 pg (25.0-35.0); MEAN CORPUSCULAR HGB CONC 32.9 g/dl (31.0-37.0); MEAN PLATELET VOLUME 11.5 fl (7.0-11.0); RBC 4.7 10^6/uL (3.5-6.1); RED CELL DISTRIBUTION WIDTH 17.9 % (11.5-14.5)
[2017-11-19 04:07] LABS: ALB/GLOB RATIO 0.9 (1.1-1.8); ALBUMIN 3.6 g/dL (3.0-4.8); ALT/SGPT 56 U/L (7-56); AST/SGOT 82 U/L (17-59); BLOOD UREA NITROGEN 13 mg/dL (7-21); CALCIUM 9.8 mg/dL (8.4-10.5); GFR AFRICAN-AMERICAN > 60; GFR NON-AFRICAN AMERICAN > 60
--- NOTE | 2017-11-19 07:13 | ED PDOC ---
Physical Exam Vital Signs Temp Pulse Resp BP Pulse Ox 11/19/17 13:18 97.8 F 81 18 110/63 98 11/19/17 11:10 97.9 F 70 18 110/75 99 11/19/17 08:06 98 F 71 18 106/68 95 11/19/17 05:00 97.8 F 86 16 141/72 98 11/19/17 03:53 97.9 F 79 15 139/72 99 11/19/17 01:53 97.9 F 81 15 143/80 98 Medical Decision Making ED Course and Treatment: 11/19/17 07:12 Patient endorsed to me from previous shift awaiting PES evaluation. On re-evaluation, not tremulous or tachycardic. Resting comfortably. Denies acute pain or discomfort. No respiratory distress. No headache or neuro deficits. Labs reviewed. Denies abdominal pain. Pending PES evaluation. 11/19/17 12:01 Patient is medically cleared for admission for current evaluation. 11/19/17 18:58 Patient not tremulous. No acute neuro deficits. No chest pain or sob. Awaiting disposition by mental health. Case endorsed to Dr. Perez for serial exams, final dispostion. - Lab Interpretations Lab Results: 11/19/17 03:30 11/19/17 03:30 Lab Results 11/19/17 06:40: Urine Opiates Screen Negative, Urine Methadone Screen Negative, Ur Barbiturates Screen Negative, Ur Phencyclidine Scrn Negative, Ur Amphetamines Screen Negative, U Benzodiazepines Scrn Negative, U Oth Cocaine Metabols Negative, U Cannabinoids Screen Negative 11/19/17 03:30: WBC 7.0 D, RBC 4.70, Hgb 13.1 L, Hct 39.8 L, MCV 84.7, MCH 27.9 , MCHC 32.9, RDW 17.9 H, Plt Count 233, MPV 11.5 H 11/19/17 03:30: Alcohol, Quantitative < 10 11/19/17 03:30: Sodium 141, Potassium 4.2, Chloride 107, Carbon Dioxide 21, Anion Gap 18, BUN 13, Creatinine 1.0, Est GFR ( Amer) > 60, Est GFR (Non- Af Amer) > 60, Random Glucose 83, Calcium 9.8, Total Bilirubin 2.1 H, AST 82 H, ALT 56, Alkaline Phosphatase 90, Total Protein 7.6, Albumin 3.6, Globulin 4.0, Albumin/Globulin Ratio 0.9 L - RAD Interpretation Radiology Orders: 11/19/17 02:45 CHEST PORTABLE [RAD] Stat - Medication Orders Current Medication Orders: Quetiapine Fumarate (Seroquel) 50 mg PO HS RORY PRN Reason: Protocol Disposition/Present on Arrival - Present on Arrival Any Indicators Present on Arrival: No History of DVT/PE: No History of Uncontrolled Diabetes: No Urinary Catheter: No History of Decub. Ulcer: No History Surgical Site Infection Following: None - Disposition Have Diagnosis and Disposition been Completed?: No Diagnosis: Depression, Suicidal ideation Disposition Time: 19:00 Patient Problems: Current Active Problems Problem Status Onset Suicidal ideation Acute Depression Chronic Condition: STABLE Forms: [employer] (Kyrgyz)
[2017-11-19 07:28] LABS: BARBITURATES, UR NEGATIVE (NEGATIVE); BENZODIAZEPINES, UR NEGATIVE (NEGATIVE); OPIATES, UR NEGATIVE (NEGATIVE); PHENCYCLIDINE, UR NEGATIVE (NEGATIVE)
--- NOTE | 2017-11-19 08:49 | RAD ---
HISTORY: medical clearance COMPARISON: 11/11/2017 FINDINGS: LUNGS: No active pulmonary disease. PLEURA: No significant pleural effusion identified, no pneumothorax apparent. CARDIOVASCULAR: Normal. OSSEOUS STRUCTURES: No significant abnormalities. VISUALIZED UPPER ABDOMEN: Normal. OTHER FINDINGS: None. IMPRESSION: No active disease.
--- NOTE | 2017-11-19 10:26 | CARD ---
APPROVED REPORT EKG Measurement Heart [id number] <Conclusion> Normal sinus rhythm RVCD PRWP No change except the rate is slower and the QTC is mildly prolonged.
--- NOTE | 2017-11-19 20:08 | ED PDOC ---
Physical Exam - Physical Exam Narrative Physical Exam (Text): 11/19/17 20:06 Pt. reendorsed back to me from .Awaiting completion of PES evaluation.Pt. resting comfortably.No complaints offered. Vital Signs Temp Pulse Resp BP Pulse Ox 11/19/17 22:40 85 18 107/70 95 11/19/17 20:04 98.0 F 79 17 115/62 98 11/19/17 13:18 97.8 F 81 18 110/63 98 11/19/17 11:10 97.9 F 70 18 110/75 99 11/19/17 08:06 98 F 71 18 106/68 95 11/19/17 05:00 97.8 F 86 16 141/72 98 11/19/17 03:53 97.9 F 79 15 139/72 99 11/19/17 01:53 97.9 F 81 15 143/80 98 Medical Decision Making - Lab Interpretations Lab Results: 11/19/17 03:30 11/19/17 03:30 Lab Results 11/20/17 03:50: Urine Color Yellow, Urine Appearance Clear, Urine pH 7.0, Ur Specific [place] 1.010, Urine Protein Negative, Urine Glucose (UA) Negative, Urine Ketones Negative, Urine Blood Negative, Urine Nitrate Negative, Urine Bilirubin Negative, Urine Urobilinogen 1.0 H, Ur Leukocyte Esterase Negative 11/19/17 06:40: Urine Opiates Screen Negative, Urine Methadone Screen Negative, Ur Barbiturates Screen Negative, Ur Phencyclidine Scrn Negative, Ur Amphetamines Screen Negative, U Benzodiazepines Scrn Negative, U Oth Cocaine Metabols Negative, U Cannabinoids Screen Negative 11/19/17 03:30: WBC 7.0 D, RBC 4.70, Hgb 13.1 L, Hct 39.8 L, MCV 84.7, MCH 27.9 , MCHC 32.9, RDW 17.9 H, Plt Count 233, MPV 11.5 H 11/19/17 03:30: Alcohol, Quantitative < 10 11/19/17 03:30: Sodium 141, Potassium 4.2, Chloride 107, Carbon Dioxide 21, Anion Gap 18, BUN 13, Creatinine 1.0, Est GFR ( Amer) > 60, Est GFR (Non- Af Amer) > 60, Random Glucose 83, Calcium 9.8, Total Bilirubin 2.1 H, AST 82 H, ALT 56, Alkaline Phosphatase 90, Total Protein 7.6, Albumin 3.6, Globulin 4.0, Albumin/Globulin Ratio 0.9 L - RAD Interpretation Radiology Orders: 11/19/17 02:45 CHEST PORTABLE [RAD] Stat - Medication Orders Current Medication Orders: Quetiapine Fumarate (Seroquel) 50 mg PO HS RORY PRN Reason: Protocol Last Admin: 11/19/17 22:58 Dose: 50 mg - Transfer of Care Patient signed out to Dr:: TAYLOR Other: Pending bed availability/final disposition Disposition/Present on Arrival - Present on Arrival Any Indicators Present on Arrival: No History of DVT/PE: No History of Uncontrolled Diabetes: No Urinary Catheter: No History of Decub. Ulcer: No History Surgical Site Infection Following: None - Disposition Have Diagnosis and Disposition been Completed?: No Diagnosis: Depression, Suicidal ideation Disposition Time: 07:00 Patient Problems: Current Active Problems Problem Status Onset Suicidal ideation Acute Depression Chronic Condition: STABLE Forms: [employer] (Kiswahili)
[2017-11-20 04:19] LABS: URINE BILIRUBIN NEGATIVE (NEGATIVE); URINE BLOOD NEGATIVE (NEGATIVE); URINE GLUCOSE (UA) NEGATIVE (NEGATIVE); URINE LEUKOCYTE ESTERASE NEGATIVE Leu/uL (NEGATIVE); URINE NITRATE NEGATIVE (NEGATIVE); URINE PROTEIN NEGATIVE mg/dL (<30 mg/dL)
[2017-11-20 04:26] LABS: URINE APPEARANCE CLEAR (CLEAR); URINE COLOR YELLOW (YELLOW)
[2017-11-20 10:57] VITALS: TEMP 98
[2017-11-20 11:23] LABS: ACETAMINOPHEN < 10.0 ug/ml (10.0-20.0); SALICYLATE < 1 mg/dL (2.0-20.0)
--- NOTE | 2017-11-20 11:37 | ED PDOC ---
Physical Exam Vital Signs Temp Pulse Resp BP Pulse Ox 11/20/17 15:30 98 F 79 18 144/88 97 11/20/17 08:00 98 F 79 18 129/78 98 11/20/17 06:43 82 17 112/62 95 11/19/17 22:40 85 18 107/70 95 11/19/17 20:04 98.0 F 79 17 115/62 98 11/19/17 13:18 97.8 F 81 18 110/63 98 11/19/17 11:10 97.9 F 70 18 110/75 99 11/19/17 08:06 98 F 71 18 106/68 95 11/19/17 05:00 97.8 F 86 16 141/72 98 11/19/17 03:53 97.9 F 79 15 139/72 99 11/19/17 01:53 97.9 F 81 15 143/80 98 Medical Decision Making ED Course and Treatment: 11/20/17 11:36 Patient endorsed to me from previous shift. He is sleeping, easily arousable. Denies pain or discomfort. Not tremulous. No vomiting. Not tachycardic. Awaiting final disposition from mental health [facility]. 11/20/17 19:22 Patient comfortable. No vomiting. Not tremulous. Denies pain or dizziness or lightheadedness. Vitals stable. Awaiting final disposition from mental health. 11/20/17 19:[address] Perez pending final disposition, serial exams. - Lab Interpretations Lab Results: 11/19/17 03:30 11/19/17 03:30 Lab Results 11/20/17 10:40: Salicylates < 1 L, Acetaminophen < 10.0 L 11/20/17 03:50: Urine Color Yellow, Urine Appearance Clear, Urine pH 7.0, Ur Specific [place] 1.010, Urine Protein Negative, Urine Glucose (UA) Negative, Urine Ketones Negative, Urine Blood Negative, Urine Nitrate Negative, Urine Bilirubin Negative, Urine Urobilinogen 1.0 H, Ur Leukocyte Esterase Negative 11/19/17 06:40: Urine Opiates Screen Negative, Urine Methadone Screen Negative, Ur Barbiturates Screen Negative, Ur Phencyclidine Scrn Negative, Ur Amphetamines Screen Negative, U Benzodiazepines Scrn Negative, U Oth Cocaine Metabols Negative, U Cannabinoids Screen Negative 11/19/17 03:30: WBC 7.0 D, RBC 4.70, Hgb 13.1 L, Hct 39.8 L, MCV 84.7, MCH 27.9 , MCHC 32.9, RDW 17.9 H, Plt Count 233, MPV 11.5 H 11/19/17 03:30: Alcohol, Quantitative < 10 11/19/17 03:30: Sodium 141, Potassium 4.2, Chloride 107, Carbon Dioxide 21, Anion Gap 18, BUN 13, Creatinine 1.0, Est GFR ( Amer) > 60, Est GFR (Non- Af Amer) > 60, Random Glucose 83, Calcium 9.8, Total Bilirubin 2.1 H, AST 82 H, ALT 56, Alkaline Phosphatase 90, Total Protein 7.6, Albumin 3.6, Globulin 4.0, Albumin/Globulin Ratio 0.9 L - RAD Interpretation Radiology Orders: 11/19/17 02:45 CHEST PORTABLE [RAD] Stat - Medication Orders Current Medication Orders: Quetiapine Fumarate (Seroquel) 50 mg PO HS RORY PRN Reason: Protocol Last Admin: 11/19/17 22:58 Dose: 50 mg Disposition/Present on Arrival - Present on Arrival Any Indicators Present on Arrival: No History of DVT/PE: No History of Uncontrolled Diabetes: No Urinary Catheter: No History of Decub. Ulcer: No History Surgical Site Infection Following: None - Disposition Have Diagnosis and Disposition been Completed?: No Diagnosis: Depression, Suicidal ideation Disposition Time: 19:00 Patient Problems: Current Active Problems Problem Status Onset Suicidal ideation Acute Depression Chronic Condition: STABLE Forms: [employer] (Turkish)
--- NOTE | 2017-11-20 20:13 | ED PDOC ---
Physical Exam - Physical Exam Narrative Physical Exam (Text): 11/20/17 20:12 Case re-endorsed back to me from .Pt. resting comfortably.Still awaiting final disposition from PES. Vital Signs Temp Pulse Resp BP Pulse Ox 11/20/17 15:30 98 F 79 18 144/88 97 11/20/17 08:00 98 F 79 18 129/78 98 11/20/17 06:43 82 17 112/62 95 11/19/17 22:40 85 18 107/70 95 11/19/17 20:04 98.0 F 79 17 115/62 98 11/19/17 13:18 97.8 F 81 18 110/63 98 11/19/17 11:10 97.9 F 70 18 110/75 99 11/19/17 08:06 98 F 71 18 106/68 95 11/19/17 05:00 97.8 F 86 16 141/72 98 11/19/17 03:53 97.9 F 79 15 139/72 99 11/19/17 01:53 97.9 F 81 15 143/80 98 Medical Decision Making ED Course and Treatment: 11/21/17 06:21 Case endorsed to .Pt. resting comfortably awaiting bed availability - Lab Interpretations Lab Results: 11/19/17 03:30 11/19/17 03:30 Lab Results 11/20/17 10:40: Salicylates < 1 L, Acetaminophen < 10.0 L 11/20/17 03:50: Urine Color Yellow, Urine Appearance Clear, Urine pH 7.0, Ur Specific [place] 1.010, Urine Protein Negative, Urine Glucose (UA) Negative, Urine Ketones Negative, Urine Blood Negative, Urine Nitrate Negative, Urine Bilirubin Negative, Urine Urobilinogen 1.0 H, Ur Leukocyte Esterase Negative 11/19/17 06:40: Urine Opiates Screen Negative, Urine Methadone Screen Negative, Ur Barbiturates Screen Negative, Ur Phencyclidine Scrn Negative, Ur Amphetamines Screen Negative, U Benzodiazepines Scrn Negative, U Oth Cocaine Metabols Negative, U Cannabinoids Screen Negative 11/19/17 03:30: WBC 7.0 D, RBC 4.70, Hgb 13.1 L, Hct 39.8 L, MCV 84.7, MCH 27.9 , MCHC 32.9, RDW 17.9 H, Plt Count 233, MPV 11.5 H 11/19/17 03:30: Alcohol, Quantitative < 10 11/19/17 03:30: Sodium 141, Potassium 4.2, Chloride 107, Carbon Dioxide 21, Anion Gap 18, BUN 13, Creatinine 1.0, Est GFR ( Amer) > 60, Est GFR (Non- Af Amer) > 60, Random Glucose 83, Calcium 9.8, Total Bilirubin 2.1 H, AST 82 H, ALT 56, Alkaline Phosphatase 90, Total Protein 7.6, Albumin 3.6, Globulin 4.0, Albumin/Globulin Ratio 0.9 L - RAD Interpretation Radiology Orders: 11/19/17 02:45 CHEST PORTABLE [RAD] Stat - Medication Orders Current Medication Orders: Quetiapine Fumarate (Seroquel) 50 mg PO HS RORY PRN Reason: Protocol Last Admin: 11/21/17 02:12 Dose: 50 mg Disposition/Present on Arrival - Present on Arrival Any Indicators Present on Arrival: No History of DVT/PE: No History of Uncontrolled Diabetes: No Urinary Catheter: No History of Decub. Ulcer: No History Surgical Site Infection Following: None - Disposition Have Diagnosis and Disposition been Completed?: No Diagnosis: Depression, Suicidal ideation Disposition Time: 07:00 Patient Problems: Current Active Problems Problem Status Onset Suicidal ideation Acute Depression Chronic Condition: STABLE Forms: [employer] (Occitan)
--- NOTE | 2017-11-21 07:14 | ED PDOC ---
Physical Exam Vital Signs Reviewed: Yes Vital Signs Temp Pulse Resp BP Pulse Ox 11/20/17 15:30 98 F 79 18 144/88 97 11/20/17 08:00 98 F 79 18 129/78 98 11/20/17 06:43 82 17 112/62 95 11/19/17 22:40 85 18 107/70 95 11/19/17 20:04 98.0 F 79 17 115/62 98 11/19/17 13:18 97.8 F 81 18 110/63 98 11/19/17 11:10 97.9 F 70 18 110/75 99 11/19/17 08:06 98 F 71 18 106/68 95 11/19/17 05:00 97.8 F 86 16 141/72 98 11/19/17 03:53 97.9 F 79 15 139/72 99 11/19/17 01:53 97.9 F 81 15 143/80 98 Temperature: Afebrile Blood Pressure: Normal Pulse: Regular Respiratory Rate: Normal Appearance: Positive for: Well-Appearing, Non-Toxic, Comfortable Pain Distress: None Mental Status: Positive for: Alert and Oriented X 3 Medical Decision Making ED Course and Treatment: 11/21/17 07:13 Case signed out to me by Dr. Perez. Pending bed availability. 11/21/17 15:[address] thong parker. now advised pt will be dc home. - Lab Interpretations Lab Results: 11/19/17 03:30 11/19/17 03:30 Lab Results 11/20/17 10:40: Salicylates < 1 L, Acetaminophen < 10.0 L 11/20/17 03:50: Urine Color Yellow, Urine Appearance Clear, Urine pH 7.0, Ur Specific [place] 1.010, Urine Protein Negative, Urine Glucose (UA) Negative, Urine Ketones Negative, Urine Blood Negative, Urine Nitrate Negative, Urine Bilirubin Negative, Urine Urobilinogen 1.0 H, Ur Leukocyte Esterase Negative 11/19/17 06:40: Urine Opiates Screen Negative, Urine Methadone Screen Negative, Ur Barbiturates Screen Negative, Ur Phencyclidine Scrn Negative, Ur Amphetamines Screen Negative, U Benzodiazepines Scrn Negative, U Oth Cocaine Metabols Negative, U Cannabinoids Screen Negative 11/19/17 03:30: WBC 7.0 D, RBC 4.70, Hgb 13.1 L, Hct 39.8 L, MCV 84.7, MCH 27.9 , MCHC 32.9, RDW 17.9 H, Plt Count 233, MPV 11.5 H 11/19/17 03:30: Alcohol, Quantitative < 10 11/19/17 03:30: Sodium 141, Potassium 4.2, Chloride 107, Carbon Dioxide 21, Anion Gap 18, BUN 13, Creatinine 1.0, Est GFR ( Amer) > 60, Est GFR (Non- Af Amer) > 60, Random Glucose 83, Calcium 9.8, Total Bilirubin 2.1 H, AST 82 H, ALT 56, Alkaline Phosphatase 90, Total Protein 7.6, Albumin 3.6, Globulin 4.0, Albumin/Globulin Ratio 0.9 L I have reviewed the lab results: Yes - RAD Interpretation Radiology Orders: 11/19/17 02:45 CHEST PORTABLE [RAD] Stat - Medication Orders Current Medication Orders: Quetiapine Fumarate (Seroquel) 50 mg PO HS RORY PRN Reason: Protocol Last Admin: 11/21/17 02:12 Dose: 50 mg - Scribe Statement The provider has reviewed the documentation as recorded by the Domitila Foss Provider Scribe Attestation: All medical record entries made by the Domitila were at my direction and personally dictated by me. I have reviewed the chart and agree that the record accurately reflects my personal performance of the history, physical exam, medical decision making, and the department course for this patient. I have also personally directed, reviewed, and agree with the discharge instructions and disposition. Disposition/Present on Arrival - Present on Arrival Any Indicators Present on Arrival: No History of DVT/PE: No History of Uncontrolled Diabetes: No Urinary Catheter: No History of Decub. Ulcer: No History Surgical Site Infection Following: None - Disposition Have Diagnosis and Disposition been Completed?: Yes Diagnosis: Depression, Suicidal ideation Disposition: HOME/ ROUTINE Disposition Time: 03:30 Condition: STABLE Discharge Instructions (ExitCare): Depression Additional Instructions: please follow up with your doctor. return to er with worsening symptoms or concerns. Forms: [employer] (Azeri)
[2017-11-21 11:07] VITALS: BP 126/79; PULSE 79; RESP 17; O2SAT 97
--- NOTE | 2017-11-21 21:52 | CON ---
DATE: HISTORY OF PRESENT ILLNESS: Shortly, the patient is a 57-year-old male with reported history of mood spectrum disorder, possible antisocial personality disorder, alcohol use disorder and polysubstance abuse in the past. The patient has two [id number] admissions to the Psychiatric Inpatient Unit here in [place] in 11/08. The patient was discharged on 11/11. The patient came back to the hospital on 11/12, was discharged on 11/17 with a plan for intensive outpatient program as well as [facility] program. The patient came back to the hospital on 11/17 and was discharged on 11/18. He came back to the hospital on 11/18 and discharged on 11/19 for depression and the patient came back to the hospital on 11/19 saying that he is depressed and requested admission, and at the present moment, the patient is in the emergency room. Over the weekend, [facility] unit was full and decided to transfer the patient in [facility] for observation, but the patient was reluctant to go there, requested to be admitted to [facility]. For hopeless/depressed as well as ?suicidal patient it is highly unlikely to decline help from other facility who was willing to accept patient. This grant writer had [id number] evaluation in the emergency room. The patient presented to be irritable, guarded. The patient seems to be very angry. The patient said that he came to the hospital because he cannot stay on the streets and needs "place to sleep" because he is homeless. At the same time, the patient made decision about signing himself out of the prison, fired his legal guardian and pt was proclaimed to be competent to make his own decisions. At the present moment, the patient is facing a lot of problems including homelessness as well as the patient has multiple medical issues which seems to be chronic and poor social support. The patient was making vague suicidal statements such as overdosing on medication and thoughts of harming himself over the weekend. During the evaluation with this grant writer, the patient denied thoughts of killing himself, denied thoughts of killing others at the moment of the interview. This grant writer educated the patient about discharge from the hospital, but the patient was verbalizing thoughts of harming himself by overdosing on medication. The patient finally agreed to go to [facility] but at the same [facility] wants to have narrative report why pt required admission to the psych unit, that is why this grant writer wanted to observe pt in ED. this grant writer personally assessed pt last admission to psychiatric inpatient unit here at [place] which was less than a week ago, pt had tendency of watching TV all day long, was not interested to go to the groups, had increased appetite and sleep, no signs of psychosis, at the same time was giving attitude to the nurses and SW as well to this grant writer. This grant writer, treatment team as well as BEAN SNAPPER all had impression pt is not in danger to self or others and secondary gain was prominent. Medications adjusted, pt tolerated meds well, no side effects observed or reported. pt was provided with information about temporary rental assistance, [facility] Program and [facility] info was provided, all possible help was offered (see SW previous note). Pt had impression that he needs to be transferred from the hospital to the housing apartment (unfortunately it is not the case). pt was refusing to go to the custodial and was not participating in aftercare plan. Pt was seen again at 3pm to make final decision. as per ED nursing staff pt does not have any aggressive or agitated behavior, pt ate 100% of his meal, pt made statement that "I need to have a place to sleep "[address] . pt was seen with ED director , pt said "I don't want to kill myself or others", at this point this grant writer had impression that pt does not meet a criteria for admission and when this grant writer let pt know about it pt became angry and said "throw me on streets, nobody cares", pt has tendency of blaming others and being unsatisfied with services in psychiatric/medical floor. Pt has future oriented plans to "go to the [facility] program", f/u appt at [facility] on Tuesday11/23/17. said that he has angry feeling towards his previous legal guardian, "I am going to harm him", pt refused to give the name, pt said that he does not know where he lives, moreover pt has visual problems and a lot of medical issues. PES was advised to find the name of a previous legal guardian and notify police to warn that person. ROBLES Moffett contacted previous legal guardian/POA Kaelb Patrick, Esq., as pt. had made threat to harm/kill his "previous legal guardian" but did not provide the name of whom to staff members. Attempted contact at [office] and [cell], no answer at either number, requesting a call back. Police was notified at [phone] to inform of incident. This grant writer spoke to the morals squad police officer Manuela, from this grant writer pt was making angry statements at the moment when was facing discharge out of anger. PHYSICAL EXAMINATION VITAL SIGNS: Stable. The patient is afebrile, 98. Pulse is 80, blood pressure 132/80, respiration 18, oxygen saturation is 96. MEDICATIONS: Reviewed. The patient is on Seroquel 50 mg at the nighttime. LABORATORY DATA: Labs reviewed. Chemistry reviewed. Urinalysis reviewed. Toxicology reviewed. Microbiology reviewed. Reports reviewed. MENTAL STATUS EXAMINATION: The patient seems to be irritable and angry. No eye contact. Speech was loud, underproductive, short answers. Mood described "I am fucking tired". Affect is irritable and angry, mood congruent. Thought process concrete. Thought content; the patient reported being depressed, reported that he had thoughts of harming himself by overdose on medications if he will be discharged from the hospital. Denied hearing voices, denied seeing things. Insight and judgment seems to be fare, impulses are well controlled. IMPRESSION: As per history, mood spectrum disorder, rule out antisocial personality disorder, history of alcohol use disorder, rule out malingering. In conclusion: pt has social stress which cannot be solved by psychiatric admission, but worsen pt's anxiety and dependence on the hospital pt was provided with information for [facility] program, appt 11/22/17 pt has all prescriptions for his meds, only seven days supply was given and three refills At the present moment pt pose no imminent danger to self or others. Pt does not meet a criteria for psych admission or screening pt was observed in ED at least for 48 hours, had good appetite, did not have signs of psychosis, no agitation or aggression. pt will be d/c from the ED I was involved in high complexity decision making with frequent reevaluations, consultations with other physicians, old records. management of this case took more than 1hour. pt has prescriptions for all of his psychotropic and other medications Thank you very much for letting me participate in care of your patient. Should you have any questions, give me a call back. Nilda Farah MD [facility]UE[facility]
== END 2017-11-21 15:20 | disposition home or self-care (01) ==
LOC: ED 01:52
DX: F32.9 Major depressive disorder, single episode, unspecified (principal); R45.851 Suicidal ideations

== ENCOUNTER 2017-11-24 00:35 | Emergency (ER) | payer MEDICAID ==
[2017-11-24 00:35] VITALS: BMI 37.0
[2017-11-24 00:45] VITALS: BP 135/76; PULSE 85; RESP 18; TEMP 98.2; O2SAT 97
--- NOTE | 2017-11-24 01:41 | ED PDOC ---
Arrival/HPI - General Chief Complaint: Medical Clearance Time Seen by Provider: 11/24/17 00:46 Historian: Patient - History of Present Illness Narrative History of Present Illness (Text): 11/24/17 01:39 Hemant Palacios is a 57 year old male, whose past medical history includes alcohol abuse, mood disorder, and antisocial personality disorder, who presents to the Emergency department for alcohol abuse. Patient admits to drinking alcohol this evening, states he needs a place to sleep/stay for the night. Patient denies any suicidal/homicidal ideation,chest pain, shortness of breath, nausea, vomiting, back pain, neck pain, headache, dizziness, or any other complaints. Time/Duration: Other (tonight) Symptom Onset: Gradual Symptom Course: Unchanged Activities at Onset: Light Context: Street Past Medical History - Provider Review Nursing Documentation Reviewed: Yes - Infectious Disease Hx of Infectious Diseases: None - Tetanus Immunization Tetanus Immunization: Up to Date - Past Medical History Past Medical History: No Previous - Cardiac Hx Cardiac Disorders: No Hx Hypertension: Yes - Pulmonary Hx Tuberculosis: No - Neurological HX Cerebrovascular Accident: No - HEENT Hx HEENT Disorder: Yes Hx Cataracts: No Hx Deafness: No Hx Difficulty Chewing: No Hx Epistaxis: No Hx Glaucoma: No Other/Comment: retina detachment - Renal Hx Renal Disorder: No Hx Dialysis: No Hx Kidney Stones: No Hx Neurogenic Bladder: No Hx Pyelonephritis: No Hx Renal Cancer: No Hx Renal Failure: Yes - Endocrine/Metabolic Hx Endocrine Disorders: No Hx Adrenal Cancer: No Hx Diabetes Insipidus: No Hx Diabetes Mellitus Type 1: No Hx Diabetes Mellitus Type 2: No Hx Hyperthyroidism: No Hx Hypothyroidism: No Hx Systemic Lupus Erythematosus: No - Hematological/Oncological Hx Cancer: No - Integumentary Hx Dermatological Disorder: Yes Hx Basal Cell Carcinoma: No Hx Delarosa: No Hx Cellulitis: No Hx Eczema: No Hx Melanoma: No Hx Psoriasis: Yes Hx Squamous Cell Carcinoma: No - Musculoskeletal/Rheumatological Hx Musculoskeletal Disorders: Yes Hx Arthritis: No Hx Back Pain: No Hx Degenerative Joint Disease: No Hx Falls: Yes Hx Fractures: Yes (NASAL SURGERY) Hx Gout: No Hx Herniated Disk: No Hx Myasthenia Gravis: No Hx Osteoarthritis: No Hx Osteomyelitis: No Hx Osteoporosis: No Hx Rhabdomyolysis: No Hx Rheumatoid Arthritis: No Hx Spinal Stenosis: No Hx Unsteady Gait: No - Gastrointestinal Hx Gastrointestinal Disorders: Yes Hx Bowel Surgery: No Hx Clostridium Difficile: No Hx Colitis: No Hx Colostomy: No Hx Constipation: No Hx Crohn's Disease: No Hx Diarrhea: No Hx Diverticulitis: No Hx Esophageal Varices: No Hx Fatty Liver Disease: No Hx Gall Bladder Disease: No Hx Gastritis: No Hx Gastroesophageal Reflux: No Hx Hemorrhoids: No Hx Ileostomy: No Hx Irritable Bowel: No Hx Liver Failure: Yes Hx Nausea: No Hx Pancreatitis: Yes HX Swallowing Problems: No Hx Vomiting: No Other/Comment: ascites - Genitourinary/Gynecological Hx Sexually Transmitted Diseases: No - Psychiatric Hx Anxiety: Yes Hx Bipolar Disorder: Yes Hx Depression: Yes Hx Substance Use: No - Past Surgical History Past Surgical History: No Previous - Surgical History Other/Comment: TIPPS. Nasal surgery. - Anesthesia Hx Anesthesia: Yes Hx Anesthesia Reactions: No Hx Malignant Hyperthermia: No - Suicidal Assessment Feels Threatened In Home Enviroment: No Family/Social History - Physician Review Nursing Documentation Reviewed: Yes Family/Social History: Unknown Family HX Smoking Status: Light Smoker < 10 Cigarettes Daily Hx Alcohol Use: No (Hx) Amount per day: 3 Hx Substance Use: No Hx Substance Use Treatment: No Allergies/Home Meds Allergies/Adverse Reactions: Allergies No Known Allergies Allergy (Verified 11/18/17 22:08) Review of Systems - Physician Review All systems were reviewed & negative as marked: Yes - Review of Systems Constitutional: Normal. absent: Fevers Eyes: Normal ENT: Normal Respiratory: Normal. absent: SOB, Cough Cardiovascular: Normal. absent: Chest Pain Gastrointestinal: Normal. absent: Abdominal Pain, Diarrhea, Nausea, Vomiting Genitourinary Male: Normal. absent: Dysuria, Frequency, Hematuria, Urinary Output Changes Musculoskeletal: Normal. absent: Back Pain, Neck Pain Skin: Normal. absent: Rash Neurological: Normal. absent: Headache, Dizziness Endocrine: Normal Hemo/Lymphatic: Normal Psychiatric: Normal. absent: Suicidal Ideation Physical Exam Vital Signs Reviewed: Yes Vital Signs Temp Pulse Resp BP Pulse Ox 11/24/17 00:44 98.2 F 85 18 135/76 97 Temperature: Afebrile Blood Pressure: Normal Pulse: Regular Respiratory Rate: Normal Appearance: Positive for: Well-Appearing, Comfortable Pain Distress: None Mental Status: Positive for: Alert and Oriented X 3, other (Inebriated) - Systems Exam Head: Present: Atraumatic, Normocephalic Pupils: Present: PERRL Extroacular Muscles: Present: EOMI Conjunctiva: Present: Normal Mouth: Present: Moist Mucous Membranes Neck: Present: Normal Range of Motion. No: Meningeal Signs, MIDLINE TENDERNESS , Paraspinal Tenderness Respiratory/Chest: Present: Clear to Auscultation, Good Air Exchange. No: Respiratory Distress, Accessory Muscle Use Cardiovascular: Present: Regular Rate and Rhythm, Normal S1, S2. No: Murmurs Abdomen: Present: Normal Bowel Sounds. No: Tenderness, Distention, Peritoneal Signs Back: Present: Normal Inspection Upper Extremity: Present: Normal Inspection. No: Cyanosis, Edema Lower Extremity: Present: Normal Inspection. No: Edema Neurological: Present: GCS=15, CN II-XII Intact, Speech Normal Skin: Present: Warm, Dry, Normal Color. No: Rashes Psychiatric: Present: Alert, Oriented x 3, Normal Insight, Normal Concentration , Intoxicated Medical Decision Making ED Course and Treatment: 11/24/17 01:39 Impression: 57 year old male presents for alcohol abuse, requesting place to stay for the night. Plan: -- Reassess and disposition Prior Visits: Notes and results from previous visits were reviewed. Progress Notes: 11/24/17 07:00 Pt. sober for discharge. - Scribe Statement The provider has reviewed the documentation as recorded by the Scribe Nena Bernstein All medical record entries made by the Scribe were at my direction and personally dictated by me. I have reviewed the chart and agree that the record accurately reflects my personal performance of the history, physical exam, medical decision making, and the department course for this patient. I have also personally directed, reviewed, and agree with the discharge instructions and disposition. Disposition/Present on Arrival - Present on Arrival Any Indicators Present on Arrival: No History of DVT/PE: No History of Uncontrolled Diabetes: No Urinary Catheter: No History of Decub. Ulcer: No History Surgical Site Infection Following: None - Disposition Have Diagnosis and Disposition been Completed?: Yes Diagnosis: Alcohol abuse Disposition: HOME/ ROUTINE Disposition Time: 07:00 Patient Plan: Discharge Condition: GOOD Referrals: Alcoholics Anonymous [Outside] - Follow up with primary Forms: [employer] ([employer])
== END 2017-11-24 07:22 | disposition home or self-care (01) ==
LOC: ED 00:35
DX: F10.10 Alcohol abuse, uncomplicated (principal); Y90.9 Presence of alcohol in blood, level not specified

== ENCOUNTER 2017-11-25 23:03 | Emergency (ER) | payer MEDICAID ==
[2017-11-25 23:24] VITALS: BMI 37.9
--- NOTE | 2017-11-25 23:41 | ED PDOC ---
Arrival/HPI <Derek Salinas - Last Filed: 11/26/17 06:02> <Hemant Beaver - Last Filed: 11/26/17 06:16> - General Chief Complaint: Abdominal Pain Time Seen by Provider: 11/25/17 23:31 - History of Present Illness Narrative History of Present Illness (Text): 11/25/17 23:41 Pt is a 57 yo M with PMH of COPD, seizure, cirrhosis s/p TIPS procedure, PUD, GI bleeding, HBV/HCV, esophageal varices and hx of pancreatitis presents to ED with a 1 day history of right sided abdominal pain. 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 Pt complains of nausea and NBNB vomiting x3 and non-bloody loose stools. Pt was recently in ED for similar complaints, workup was negative at that time. Pt denied CB, SOB, fever, GOMEZ, dizziness, or dysuria. (Derek Salinas) Past Medical History - Provider Review Nursing Documentation Reviewed: Yes - Infectious Disease Hx of Infectious Diseases: None - Tetanus Immunization Tetanus Immunization: Up to Date - Past Medical History Past Medical History: No Previous - Cardiac Hx Cardiac Disorders: No Hx Hypertension: Yes - Pulmonary Hx Tuberculosis: No - Neurological HX Cerebrovascular Accident: No - HEENT Hx HEENT Disorder: Yes Hx Cataracts: No Hx Deafness: No Hx Difficulty Chewing: No Hx Epistaxis: No Hx Glaucoma: No Other/Comment: retina detachment - Renal Hx Renal Disorder: No Hx Dialysis: No Hx Kidney Stones: No Hx Neurogenic Bladder: No Hx Pyelonephritis: No Hx Renal Cancer: No Hx Renal Failure: Yes - Endocrine/Metabolic Hx Endocrine Disorders: No Hx Adrenal Cancer: No Hx Diabetes Insipidus: No Hx Diabetes Mellitus Type 1: No Hx Diabetes Mellitus Type 2: No Hx Hyperthyroidism: No Hx Hypothyroidism: No Hx Systemic Lupus Erythematosus: No - Hematological/Oncological Hx Cancer: No - Integumentary Hx Dermatological Disorder: Yes Hx Basal Cell Carcinoma: No Hx Delarosa: No Hx Cellulitis: No Hx Eczema: No Hx Melanoma: No Hx Psoriasis: Yes Hx Squamous Cell Carcinoma: No - Musculoskeletal/Rheumatological Hx Musculoskeletal Disorders: Yes Hx Arthritis: No Hx Back Pain: No Hx Degenerative Joint Disease: No Hx Falls: Yes Hx Fractures: Yes (NASAL SURGERY) Hx Gout: No Hx Herniated Disk: No Hx Myasthenia Gravis: No Hx Osteoarthritis: No Hx Osteomyelitis: No Hx Osteoporosis: No Hx Rhabdomyolysis: No Hx Rheumatoid Arthritis: No Hx Spinal Stenosis: No Hx Unsteady Gait: No - Gastrointestinal Hx Gastrointestinal Disorders: Yes Hx Bowel Surgery: No Hx Clostridium Difficile: No Hx Colitis: No Hx Colostomy: No Hx Constipation: No Hx Crohn's Disease: No Hx Diarrhea: No Hx Diverticulitis: No Hx Esophageal Varices: No Hx Fatty Liver Disease: No Hx Gall Bladder Disease: No Hx Gastritis: No Hx Gastroesophageal Reflux: No Hx Hemorrhoids: No Hx Ileostomy: No Hx Irritable Bowel: No Hx Liver Failure: Yes Hx Nausea: No Hx Pancreatitis: Yes HX Swallowing Problems: No Hx Vomiting: No Other/Comment: ascites - Genitourinary/Gynecological Hx Sexually Transmitted Diseases: No - Psychiatric Hx Anxiety: Yes Hx Bipolar Disorder: Yes Hx Depression: Yes Hx Substance Use: No - Past Surgical History Past Surgical History: No Previous - Surgical History Other/Comment: TIPPS. Nasal surgery. - Anesthesia Hx Anesthesia: Yes Hx Anesthesia Reactions: No Hx Malignant Hyperthermia: No - Suicidal Assessment Feels Threatened In Home Enviroment: No <Derek Salinas - Last Filed: 11/26/17 06:02> Family/Social History - Physician Review Nursing Documentation Reviewed: Yes Family/Social History: No Known Family HX Smoking Status: Light Smoker < 10 Cigarettes Daily Hx Alcohol Use: No (Hx) Amount per day: 3 Hx Substance Use: No Hx Substance Use Treatment: No <Derek Salinas - Last Filed: 11/26/17 06:02> Allergies/Home Meds <Derek Salinas - Last Filed: 11/26/17 06:02> <Hemant Beaver - Last Filed: 11/26/17 06:16> Allergies/Adverse Reactions: Allergies No Known Allergies Allergy (Verified 11/25/17 23:21) Review of Systems - Review of Systems Constitutional: Normal Eyes: Normal ENT: Normal Respiratory: Normal Cardiovascular: Normal Gastrointestinal: Abdominal Pain, Diarrhea, Nausea, Vomiting. absent: Hematochezia, Hematemesis, Food Intolerance Genitourinary Male: Normal Musculoskeletal: Normal Skin: Normal Neurological: Normal Endocrine: Normal Hemo/Lymphatic: Normal Psychiatric: Normal <Derek Salinas - Last Filed: 11/26/17 06:02> Physical Exam Vital Signs Reviewed: Yes Temperature: Afebrile Blood Pressure: Normal Pulse: Tachycardic Respiratory Rate: Normal Appearance: Positive for: Comfortable Pain Distress: Moderate Mental Status: Positive for: Alert and Oriented X 3 - Systems Exam Head: Present: Atraumatic, Normocephalic Extroacular Muscles: Present: EOMI Mouth: Present: Moist Mucous Membranes Nose (External): Present: Atraumatic Neck: Present: Normal Range of Motion Respiratory/Chest: Present: Clear to Auscultation. No: Respiratory Distress, Accessory Muscle Use, Wheezes, Rales, Rhonchi Cardiovascular: Present: Regular Rate and Rhythm, Normal S1, S2. No: Murmurs, Rub, Muffled Abdomen: Present: Tenderness (right sided/flank). No: Distention, Peritoneal Signs, Rebound, Guarding, Hernias Back: Present: Normal Inspection Upper Extremity: Present: Normal Inspection Lower Extremity: Present: Normal Inspection Neurological: Present: GCS=15, CN II-XII Intact, Speech Normal Skin: Present: Warm, Dry, Normal Color Psychiatric: Present: Alert, Oriented x 3 <Derek Salinas - Last Filed: 11/26/17 06:02> Vital Signs Temp Pulse Resp BP Pulse Ox 11/26/17 05:04 96 H 18 119/79 97 11/26/17 01:03 98 F 98 H 18 120/81 100 11/25/17 23:21 98.1 F 102 H 20 121/81 94 L Medical Decision Making <Derek Salinas - Last Filed: 11/26/17 06:02> <Hemant Beaver - Last Filed: 11/26/17 06:16> ED Course and Treatment: 11/25/17 23:52 Assessment: 57 yo male presents with right sided abdominal pain. Pt was recently evaluated multiple times in ED for similar complaint with negative workup. Pt exhibiting drug seeking behavior. Plan: - Observation (Derek Salinas) Impression: Pt seen and evaluated with certified ophthalmic medical technician. Aware and agree with HPI, clinical findings, plan, and management. Pt, whose past medjical history includes COPD, seizure, liver cirrhosis s/p TIPS, peptic ulcer disease, GI bleeding, Hepatitis B/C, esophageal varices, and pancreatitis, presented for right-sided abdominal pain, nausea, and vomiting. Pt well known to ER from multiple previous visits for similar complaint and discharged home following negative work-up. Plan: -- Reassess and disposition (Hemant Beaver) - PA / CONCRETE MIXER / Resident Statement /DO has reviewed & agrees with the documentation as recorded. / has examined the patient and agrees with the treatment plan. <Hemant Beaver - Last Filed: 11/26/17 06:16> Disposition/Present on Arrival - Present on Arrival Any Indicators Present on Arrival: No History of DVT/PE: No History of Uncontrolled Diabetes: No Urinary Catheter: No History of Decub. Ulcer: No History Surgical Site Infection Following: None - Disposition Have Diagnosis and Disposition been Completed?: Yes Disposition Time: 06:03 <Derek Salinas - Last Filed: 11/26/17 06:02> - Present on Arrival Any Indicators Present on Arrival: No - Disposition Have Diagnosis and Disposition been Completed?: Yes <Hemant Beaver - Last Filed: 11/26/17 06:16> - Disposition Diagnosis: Chronic abdominal pain Disposition: HOME/ ROUTINE Patient Problems: Current Active Problems Problem Status Onset Chronic abdominal pain Acute Condition: STABLE Discharge Instructions (ExitCare): Chronic Pain (DC), Acute Abdomen (Belly Pain ), Nausea and Vomiting, Adult Forms: [facility] (Citizen [place])
[2017-11-26 01:45] VITALS: TEMP 98
[2017-11-26 07:03] VITALS: BP 122/84; PULSE 98; RESP 20; O2SAT 98
== END 2017-11-26 07:03 | disposition home or self-care (01) ==
LOC: ED 23:03
DX: R10.9 Unspecified abdominal pain (principal)

== ENCOUNTER 2017-11-27 05:11 | Emergency (ER) | payer MEDICAID ==
[2017-11-27 05:13] VITALS: BMI 37.9
[2017-11-27 05:50] VITALS: BP 142/84; PULSE 84; RESP 18; TEMP 98.2; O2SAT 99
--- NOTE | 2017-11-27 06:29 | ED PDOC ---
Arrival/HPI - General Chief Complaint: Abdominal Pain Time Seen by Provider: 11/27/17 05:23 Historian: Patient - Critical Care Narrative Critical Care (Text): 11/27/17 06:32 RUQ abdominal pain which patient says he knows is from liver disease. Took dilaudid with moderate relief. Patient says he has no place to go and he is suicidal "because that is the surest way to get a bed and something to eat", as per patient's own words. No vomiting. Has had multiple previous evaluations. Patient has no suicidal plan and no attempts. Last alcoholic drink yesterday. Past Medical History - Travel History Have you recently traveled outside [place] w/in the past 3 mons?: No - Patient History Narrative Patient History: alcoholism cirrhosis depression substance abuse - Infectious Disease Hx of Infectious Diseases: None - Tetanus Immunization Tetanus Immunization: Up to Date - Past Medical History Past Medical History: No Previous - Cardiac Hx Cardiac Disorders: No Hx Hypertension: Yes - Pulmonary Hx Tuberculosis: No - Neurological HX Cerebrovascular Accident: No - HEENT Hx HEENT Disorder: Yes Hx Cataracts: No Hx Deafness: No Hx Difficulty Chewing: No Hx Epistaxis: No Hx Glaucoma: No Other/Comment: retina detachment - Renal Hx Renal Disorder: No Hx Dialysis: No Hx Kidney Stones: No Hx Neurogenic Bladder: No Hx Pyelonephritis: No Hx Renal Cancer: No Hx Renal Failure: Yes - Endocrine/Metabolic Hx Endocrine Disorders: No Hx Adrenal Cancer: No Hx Diabetes Insipidus: No Hx Diabetes Mellitus Type 1: No Hx Diabetes Mellitus Type 2: No Hx Hyperthyroidism: No Hx Hypothyroidism: No Hx Systemic Lupus Erythematosus: No - Hematological/Oncological Hx Cancer: No - Integumentary Hx Dermatological Disorder: Yes Hx Basal Cell Carcinoma: No Hx Delarosa: No Hx Cellulitis: No Hx Eczema: No Hx Melanoma: No Hx Psoriasis: Yes Hx Squamous Cell Carcinoma: No - Musculoskeletal/Rheumatological Hx Musculoskeletal Disorders: Yes Hx Arthritis: No Hx Back Pain: No Hx Degenerative Joint Disease: No Hx Falls: Yes Hx Fractures: Yes (NASAL SURGERY) Hx Gout: No Hx Herniated Disk: No Hx Myasthenia Gravis: No Hx Osteoarthritis: No Hx Osteomyelitis: No Hx Osteoporosis: No Hx Rhabdomyolysis: No Hx Rheumatoid Arthritis: No Hx Spinal Stenosis: No Hx Unsteady Gait: No - Gastrointestinal Hx Gastrointestinal Disorders: Yes Hx Bowel Surgery: No Hx Clostridium Difficile: No Hx Colitis: No Hx Colostomy: No Hx Constipation: No Hx Crohn's Disease: No Hx Diarrhea: No Hx Diverticulitis: No Hx Esophageal Varices: No Hx Fatty Liver Disease: No Hx Gall Bladder Disease: No Hx Gastritis: No Hx Gastroesophageal Reflux: No Hx Hemorrhoids: No Hx Ileostomy: No Hx Irritable Bowel: No Hx Liver Failure: Yes Hx Nausea: No Hx Pancreatitis: Yes HX Swallowing Problems: No Hx Vomiting: No Other/Comment: ascites - Genitourinary/Gynecological Hx Sexually Transmitted Diseases: No - Psychiatric Hx Anxiety: Yes Hx Bipolar Disorder: Yes Hx Depression: Yes Hx Substance Use: No - Past Surgical History Past Surgical History: No Previous - Surgical History Other/Comment: TIPPS. Nasal surgery. - Anesthesia Hx Anesthesia: Yes Hx Anesthesia Reactions: No Hx Malignant Hyperthermia: No - Suicidal Assessment Feels Threatened In Home Enviroment: No Family/Social History Family/Social History: No Known Family HX Smoking Status: Heavy Smoker > 10 Cigarettes Daily Hx Alcohol Use: Yes (Hx) Frequency of alcohol use: Daily Amount per day: 3 Hx Substance Use: Yes Hx Substance Use Treatment: No Allergies/Home Meds Allergies/Adverse Reactions: Allergies No Known Allergies Allergy (Verified 11/25/17 23:21) Review of Systems - Physician Review All systems were reviewed & negative as marked: Yes - Review of Systems Constitutional: Fatigue, Weight Change ENT: Normal Respiratory: Cough Cardiovascular: Chest Pain Gastrointestinal: Abdominal Pain Genitourinary Male: Normal Skin: Normal Neurological: Dizziness Hemo/Lymphatic: Normal Psychiatric: Depression, Suicidal Ideation Physical Exam Vital Signs Temp Pulse Resp BP Pulse Ox 11/27/17 05:42 98.2 F 84 18 142/84 99 Temperature: Afebrile Blood Pressure: Normal Pulse: Regular Respiratory Rate: Normal Appearance: Positive for: Unkept Pain Distress: None Mental Status: Positive for: Alert and Oriented X 3 - Systems Exam Head: Present: Atraumatic, Normocephalic Pupils: Present: PERRL Mouth: Present: Moist Mucous Membranes Pharnyx: Present: Normal Neck: Present: Normal Range of Motion Respiratory/Chest: Present: Clear to Auscultation Cardiovascular: Present: Regular Rate and Rhythm Abdomen: No: Tenderness Skin: Present: Warm, Dry. No: Rashes Psychiatric: Present: Alert, Oriented x 3, Normal Concentration, Normal Affect Disposition/Present on Arrival - Present on Arrival Any Indicators Present on Arrival: No History of DVT/PE: No History of Uncontrolled Diabetes: No Urinary Catheter: No History of Decub. Ulcer: No History Surgical Site Infection Following: None - Disposition Have Diagnosis and Disposition been Completed?: Yes Diagnosis: Cirrhosis, Abdominal pain, Substance abuse Disposition: HOME/ ROUTINE Disposition Time: 06:30 Patient Plan: Discharge Patient Problems: Current Active Problems Problem Status Onset Cirrhosis Acute Abdominal pain Acute Substance abuse Acute Condition: STABLE Discharge Instructions (ExitCare): Cirrhosis Referrals: PCP,NO [Primary Care Provider] - Follow up with primary Forms: [employer] (Serbian)
== END 2017-11-27 06:44 | disposition home or self-care (01) ==
LOC: ED 05:11
DX: K74.60 Unspecified cirrhosis of liver (principal); F19.10 Other psychoactive substance abuse, uncomplicated; R10.9 Unspecified abdominal pain

== ENCOUNTER 2017-11-28 20:57 | Emergency (ER) | payer MEDICAID ==
[2017-11-28 20:57] VITALS: BMI 37.9
[2017-11-28 21:26] VITALS: PULSE 78; RESP 18; TEMP 98.1; O2SAT 99
== END 2017-11-28 22:57 | disposition left against medical advice (07) ==
LOC: ED 20:57
DX: Z02.89 Encounter for other administrative examinations (principal); M10.9 Gout, unspecified

== ENCOUNTER 2017-11-29 20:54 | Emergency (ER) | payer MEDICAID ==
[2017-11-29 21:18] VITALS: RESP 18; TEMP 98; BMI 32.5
--- NOTE | 2017-11-29 21:26 | ED PDOC ---
Arrival/HPI - General Historian: Patient - History of Present Illness Time/Duration: Other (see hpi) Context: Home <Macey Taylor - Last Filed: 11/29/17 21:28> <Hong Perez - Last Filed: 11/29/17 23:03> - General Chief Complaint: Lower Extremity Problem/Injury Time Seen by Provider: 11/29/17 21:14 - History of Present Illness Narrative History of Present Illness (Text): 11/29/17 21:23 Pt is a 57 yo M with PMH of COPD, cirrhosis s/p TIPS procedure, esophageal varices and hx of pancreatitis presents to ED c/o chronic bilateral leg pain. Patient denies sob, cp, dizziness, weakness, paresthesias, diplopia, dysarthria , fever, skin rash or abnormal gait. (Macey Taylor) Past Medical History - Provider Review Nursing Documentation Reviewed: Yes - Infectious Disease Hx of Infectious Diseases: None - Tetanus Immunization Tetanus Immunization: Up to Date - Past Medical History Past Medical History: No Previous - Cardiac Hx Cardiac Disorders: No Hx Hypertension: Yes - Pulmonary Hx Tuberculosis: No - Neurological HX Cerebrovascular Accident: No - HEENT Hx HEENT Disorder: Yes Hx Cataracts: No Hx Deafness: No Hx Difficulty Chewing: No Hx Epistaxis: No Hx Glaucoma: No Other/Comment: retina detachment - Renal Hx Renal Disorder: No Hx Dialysis: No Hx Kidney Stones: No Hx Neurogenic Bladder: No Hx Pyelonephritis: No Hx Renal Cancer: No Hx Renal Failure: Yes - Endocrine/Metabolic Hx Endocrine Disorders: No Hx Adrenal Cancer: No Hx Diabetes Insipidus: No Hx Diabetes Mellitus Type 1: No Hx Diabetes Mellitus Type 2: No Hx Hyperthyroidism: No Hx Hypothyroidism: No Hx Systemic Lupus Erythematosus: No - Hematological/Oncological Hx Cancer: No - Integumentary Hx Dermatological Disorder: Yes Hx Basal Cell Carcinoma: No Hx Delarosa: No Hx Cellulitis: No Hx Eczema: No Hx Melanoma: No Hx Psoriasis: Yes Hx Squamous Cell Carcinoma: No - Musculoskeletal/Rheumatological Hx Musculoskeletal Disorders: Yes Hx Arthritis: No Hx Back Pain: No Hx Degenerative Joint Disease: No Hx Falls: Yes Hx Fractures: Yes (NASAL SURGERY) Hx Gout: No Hx Herniated Disk: No Hx Myasthenia Gravis: No Hx Osteoarthritis: No Hx Osteomyelitis: No Hx Osteoporosis: No Hx Rhabdomyolysis: No Hx Rheumatoid Arthritis: No Hx Spinal Stenosis: No Hx Unsteady Gait: No - Gastrointestinal Hx Gastrointestinal Disorders: Yes Hx Bowel Surgery: No Hx Clostridium Difficile: No Hx Colitis: No Hx Colostomy: No Hx Constipation: No Hx Crohn's Disease: No Hx Diarrhea: No Hx Diverticulitis: No Hx Esophageal Varices: No Hx Fatty Liver Disease: No Hx Gall Bladder Disease: No Hx Gastritis: No Hx Gastroesophageal Reflux: No Hx Hemorrhoids: No Hx Ileostomy: No Hx Irritable Bowel: No Hx Liver Failure: Yes Hx Nausea: No Hx Pancreatitis: Yes HX Swallowing Problems: No Hx Vomiting: No Other/Comment: ascites - Genitourinary/Gynecological Hx Sexually Transmitted Diseases: No - Psychiatric Hx Anxiety: Yes Hx Bipolar Disorder: Yes Hx Depression: Yes Hx Substance Use: Yes - Past Surgical History Past Surgical History: No Previous - Surgical History Other/Comment: TIPPS. Nasal surgery. - Anesthesia Hx Anesthesia: Yes Hx Anesthesia Reactions: No Hx Malignant Hyperthermia: No - Suicidal Assessment Feels Threatened In Home Enviroment: No <Macey Taylor - Last Filed: 11/29/17 21:28> Family/Social History - Physician Review Nursing Documentation Reviewed: Yes Family/Social History: Other (noncontributory) Smoking Status: Heavy Smoker > 10 Cigarettes Daily Hx Alcohol Use: Yes (Hx) Amount per day: 3 Hx Substance Use: Yes Hx Substance Use Treatment: No <Macey Taylor - Last Filed: 11/29/17 21:28> Allergies/Home Meds <Macey Taylor - Last Filed: 11/29/17 21:28> <Hong Perez - Last Filed: 11/29/17 23:03> Allergies/Adverse Reactions: Allergies No Known Allergies Allergy (Verified 11/29/17 21:04) Review of Systems - Review of Systems Constitutional: Normal. absent: Fatigue, Weight Change, Fevers Eyes: Normal ENT: Normal. absent: Sore Throat, Rhinorrhea Respiratory: Normal. absent: SOB, Cough Cardiovascular: Normal. absent: Chest Pain Gastrointestinal: Normal. absent: Abdominal Pain, Nausea, Vomiting Genitourinary Male: Normal. absent: Dysuria, Frequency, Hematuria Musculoskeletal: Other (chronic leg pain for several months as per pt) Skin: Normal. absent: Rash, Pruritis, Skin Lesions, Laceration, Abscess, Ulcer , Cellulitis Neurological: Normal. absent: Headache, Dizziness, Focal Weakness, Gait Changes , Speech Changes, Facial Droop, Disequilibrium, Seizure Endocrine: Normal Hemo/Lymphatic: Normal Psychiatric: Normal <Macey Taylor Elma - Last Filed: 11/29/17 21:28> Physical Exam Temperature: Afebrile Blood Pressure: Normal Pulse: Regular Respiratory Rate: Normal Appearance: Positive for: Well-Appearing, Non-Toxic, Comfortable Pain Distress: None Mental Status: Positive for: Alert and Oriented X 3 - Systems Exam Head: Present: Atraumatic, Normocephalic Pupils: Present: PERRL Extroacular Muscles: Present: EOMI Conjunctiva: Present: Normal Mouth: Present: Moist Mucous Membranes Neck: Present: Normal Range of Motion Respiratory/Chest: Present: Clear to Auscultation, Good Air Exchange. No: Respiratory Distress, Accessory Muscle Use Cardiovascular: Present: Regular Rate and Rhythm, Normal S1, S2. No: Murmurs Abdomen: Present: Normal Bowel Sounds. No: Tenderness, Distention, Peritoneal Signs, Rebound, Guarding Back: Present: Normal Inspection. No: CVA Tenderness Upper Extremity: Present: Normal Inspection, Normal ROM, NORMAL PULSES. No: Cyanosis, Edema Lower Extremity: Present: Normal Inspection, Normal ROM. No: Edema, CALF TENDERNESS, Erythema, Temperature Abnormalties Neurological: Present: GCS=15, CN II-XII Intact, Speech Normal, Motor Func Grossly Intact, Normal Sensory Function, Normal Cerebellar Funct, Gait Normal Skin: Present: Warm, Dry, Normal Color. No: Rashes Psychiatric: Present: Alert, Oriented x 3, Normal Insight, Normal Concentration. No: Suicidal Ideation, Homicidal Ideation, Delusional, Hallucinations, Intoxicated <Macey Taylor Elma - Last Filed: 11/29/17 21:28> Vital Signs Temp Pulse Resp BP Pulse Ox 11/29/17 21:04 98.0 F 78 18 130/78 99 Medical Decision Making Re-evaluation Time: 21:28 Reassessment Condition: Re-examined, Improved <Macey Taylor Elma - Last Filed: 11/29/17 21:28> <Hong Perez - Last Filed: 11/29/17 23:03> ED Course and Treatment: 11/29/17 21:28 Re-evaluation. Patient feels better. Discussed results and plan with patient who expresses understanding. All questions answered and there is agreement with the plan to discharge home with instructions. Patient stable for discharge. Return if symptoms persist or worsen. (Macey Taylor) - Medication Orders Current Medication Orders: Discontinued Medications Ketorolac Tromethamine (Toradol) 30 mg IM STAT STA Stop: 11/29/17 21:27 Last Admin: 11/29/17 21:40 Dose: 30 mg MAR Pain Assessment Document 11/29/17 21:40 AD (Rec: 11/29/17 21:40 AD [place] [id number]) Pain Reassessment Is this a pain reassessment? 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 <Hong Perez - Last Filed: 11/29/17 23:03> Disposition/Present on Arrival - Present on Arrival Any Indicators Present on Arrival: No History of DVT/PE: No History of Uncontrolled Diabetes: No Urinary Catheter: No History of Decub. Ulcer: No History Surgical Site Infection Following: None - Disposition Have Diagnosis and Disposition been Completed?: Yes Disposition Time: 21:29 Patient Plan: Discharge <Macey Taylor - Last Filed: 11/29/17 21:28> <Hong Perez - Last Filed: 11/29/17 23:03> - Disposition Diagnosis: Chronic leg pain Disposition: HOME/ ROUTINE Condition: GOOD Discharge Instructions (ExitCare): Chronic Pain (DC) Additional Instructions: You need to call clinic for follow up visit, and for further evaluation of your chronic leg pain. Take medication as instructed. Return to emergency if symptoms worsen. Good luck Prescriptions: Ibuprofen [Motrin] 600 mg PO Q8 PRN #20 tab PRN Reason: Pain, Severe (8-10) Referrals: Suzi Mclean, [Primary Care Provider] - Follow up with primary [facility] [Outside] - Follow up with primary [facility] [Outside] - Follow up with primary Forms: [email or web address] (Tajik)
[2017-11-29] MEDS ORDERED: Promethazine 6.25 MG/5 ML CUP PO STA (21:27)
[2017-11-29 23:19] VITALS: BP 128/82; PULSE 80; O2SAT 100
== END 2017-11-29 22:45 | disposition home or self-care (01) ==
LOC: ED 20:54
DX: M79.605 Pain in left leg (principal); M79.604 Pain in right leg; G89.29 Other chronic pain
CPT/HCPCS: 96372; 99284; J1885

== ENCOUNTER 2017-12-12 23:12 | Emergency (ER) | payer MEDICAID ==
[2017-12-12 23:13] VITALS: BMI 37.9
[2017-12-13 01:45] VITALS: RESP 18; O2SAT 99
[2017-12-13 03:20] VITALS: BP 138/74; PULSE 78; TEMP 98.1
--- NOTE | 2017-12-13 05:01 | ED PDOC ---
Arrival/HPI - General Chief Complaint: Medical Clearance Time Seen by Provider: 12/13/17 02:26 Historian: Patient - History of Present Illness Narrative History of Present Illness (Text): 12/13/17 03:02 57 year old male, whose past medical history includes COPD, alcohol cirrhosis, pancreatitis, and chronic leg pain, presents to the emergency department complaining of chronic leg discomfort. Patient is requesting a place to rest for the night. He denies any alcohol use. Patient denies any fever, chills, chest pain, shortness of breath, nausea, vomiting, diarrhea, urinary symptoms, back pain, neck pain, headache, dizziness, or any other complaints. Symptom Onset: Gradual Symptom Course: Unchanged Activities at Onset: Light Context: Other (homeless) Past Medical History - Provider Review Nursing Documentation Reviewed: Yes - Infectious Disease Hx of Infectious Diseases: None - Tetanus Immunization Tetanus Immunization: Up to Date - Past Medical History Past Medical History: No Previous - Cardiac Hx Cardiac Disorders: No Hx Hypertension: Yes - Pulmonary Hx Tuberculosis: No - Neurological HX Cerebrovascular Accident: No - HEENT Hx HEENT Disorder: Yes Hx Cataracts: No Hx Deafness: No Hx Difficulty Chewing: No Hx Epistaxis: No Hx Glaucoma: No Other/Comment: retina detachment - Renal Hx Renal Disorder: No Hx Dialysis: No Hx Kidney Stones: No Hx Neurogenic Bladder: No Hx Pyelonephritis: No Hx Renal Cancer: No Hx Renal Failure: Yes - Endocrine/Metabolic Hx Endocrine Disorders: No Hx Adrenal Cancer: No Hx Diabetes Insipidus: No Hx Diabetes Mellitus Type 1: No Hx Diabetes Mellitus Type 2: No Hx Hyperthyroidism: No Hx Hypothyroidism: No Hx Systemic Lupus Erythematosus: No - Hematological/Oncological Hx Cancer: No - Integumentary Hx Dermatological Disorder: Yes Hx Basal Cell Carcinoma: No Hx Delarosa: No Hx Cellulitis: No Hx Eczema: No Hx Melanoma: No Hx Psoriasis: Yes Hx Squamous Cell Carcinoma: No - Musculoskeletal/Rheumatological Hx Musculoskeletal Disorders: Yes Hx Arthritis: No Hx Back Pain: No Hx Degenerative Joint Disease: No Hx Falls: Yes Hx Fractures: Yes (NASAL SURGERY) Hx Gout: No Hx Herniated Disk: No Hx Myasthenia Gravis: No Hx Osteoarthritis: No Hx Osteomyelitis: No Hx Osteoporosis: No Hx Rhabdomyolysis: No Hx Rheumatoid Arthritis: No Hx Spinal Stenosis: No Hx Unsteady Gait: No - Gastrointestinal Hx Gastrointestinal Disorders: Yes Hx Bowel Surgery: No Hx Clostridium Difficile: No Hx Colitis: No Hx Colostomy: No Hx Constipation: No Hx Crohn's Disease: No Hx Diarrhea: No Hx Diverticulitis: No Hx Esophageal Varices: No Hx Fatty Liver Disease: No Hx Gall Bladder Disease: No Hx Gastritis: No Hx Gastroesophageal Reflux: No Hx Hemorrhoids: No Hx Ileostomy: No Hx Irritable Bowel: No Hx Liver Failure: Yes Hx Nausea: No Hx Pancreatitis: Yes HX Swallowing Problems: No Hx Vomiting: No Other/Comment: ascites - Genitourinary/Gynecological Hx Sexually Transmitted Diseases: No - Psychiatric Hx Anxiety: Yes Hx Bipolar Disorder: Yes Hx Depression: Yes Hx Substance Use: Yes - Past Surgical History Past Surgical History: No Previous - Surgical History Other/Comment: TIPPS. Nasal surgery. - Anesthesia Hx Anesthesia: Yes Hx Anesthesia Reactions: No Hx Malignant Hyperthermia: No - Suicidal Assessment Feels Threatened In Home Enviroment: No Family/Social History - Physician Review Nursing Documentation Reviewed: Yes Family/Social History: No Known Family HX Smoking Status: Heavy Smoker > 10 Cigarettes Daily Hx Alcohol Use: Yes (Hx) Amount per day: 3 Hx Substance Use: Yes Hx Substance Use Treatment: No Allergies/Home Meds Allergies/Adverse Reactions: Allergies No Known Allergies Allergy (Verified 11/29/17 21:04) Review of Systems - Physician Review All systems were reviewed & negative as marked: Yes - Review of Systems Constitutional: absent: Fevers, Other (Chills) Respiratory: absent: SOB Cardiovascular: absent: Chest Pain Gastrointestinal: absent: Diarrhea, Nausea, Vomiting Genitourinary Male: absent: Dysuria, Frequency, Hematuria Musculoskeletal: Other (Chronic leg pain). absent: Back Pain, Neck Pain Neurological: absent: Headache, Dizziness Physical Exam Vital Signs Reviewed: Yes Vital Signs Temp Pulse Resp BP Pulse Ox 12/13/17 03:18 98.1 F 78 18 138/74 99 12/13/17 01:41 98.2 F 88 18 99 Temperature: Afebrile Blood Pressure: Normal Pulse: Regular Respiratory Rate: Normal Appearance: Positive for: Well-Appearing, Non-Toxic, Comfortable Pain Distress: None Mental Status: Positive for: Alert and Oriented X 3 - Systems Exam Head: Present: Atraumatic, Normocephalic Pupils: Present: PERRL Extroacular Muscles: Present: EOMI Conjunctiva: Present: Normal Mouth: Present: Moist Mucous Membranes Neck: Present: Normal Range of Motion Respiratory/Chest: Present: Clear to Auscultation, Good Air Exchange. No: Respiratory Distress, Accessory Muscle Use Cardiovascular: Present: Regular Rate and Rhythm, Normal S1, S2. No: Murmurs Abdomen: Present: Normal Bowel Sounds. No: Tenderness, Distention, Peritoneal Signs Back: Present: Normal Inspection Upper Extremity: Present: Normal Inspection. No: Cyanosis, Edema Lower Extremity: Present: Normal Inspection, Normal ROM, Neurovascularly Intact. No: Edema, CALF TENDERNESS, Cyanosis Neurological: Present: GCS=15, CN II-XII Intact, Speech Normal. No: Other (No Focal Neurological deficits) Skin: Present: Warm, Dry, Normal Color. No: Rashes Psychiatric: Present: Alert, Oriented x 3, Normal Insight, Normal Concentration Medical Decision Making ED Course and Treatment: 12/13/17 003:12 Impression: 57 year old male presents complaining of chronic leg discomfort and requesting a place to rest for the night. Patient is homeless. Plan: -- Reassess and disposition Prior Visits: Notes and results from previous visits were reviewed. Patient was last seen in the emergency department on 11/29/17 presents complaining of chronic bilateral leg pain. Patient was discharged. Progress Notes: - Scribe Statement The provider has reviewed the documentation as recorded by the Domitila Alves Provider Scribe Attestation: All medical record entries made by the Domitila were at my direction and personally dictated by me. I have reviewed the chart and agree that the record accurately reflects my personal performance of the history, physical exam, medical decision making, and the department course for this patient. I have also personally directed, reviewed, and agree with the discharge instructions and disposition. Disposition/Present on Arrival - Present on Arrival Any Indicators Present on Arrival: No History of DVT/PE: No History of Uncontrolled Diabetes: No Urinary Catheter: No History of Decub. Ulcer: No History Surgical Site Infection Following: None - Disposition Have Diagnosis and Disposition been Completed?: Yes Diagnosis: Chronic leg pain, Muscle strain Disposition: HOME/ ROUTINE Disposition Time: 06:00 Patient Plan: Discharge Patient Problems: Current Active Problems Problem Status Onset Chronic leg pain Acute Muscle strain Acute Condition: GOOD Additional Instructions: Rest/no strenuous physical activity/advil as directed/follow up with your doctor Referrals: PCP,NO [Primary Care Provider] - Follow up with primary Forms: [employer] (Spanish)
== END 2017-12-13 06:41 | disposition home or self-care (01) ==
LOC: ED 23:12
DX: S86.919A Strain of unspecified muscle(s) and tendon(s) at lower leg level, unspecified leg, initial encounter (principal); X58.XXXA Exposure to other specified factors, initial encounter; Y92.9 Unspecified place or not applicable; M79.606 Pain in leg, unspecified; G89.29 Other chronic pain

== ENCOUNTER 2017-12-13 06:42 | Emergency (ER) | payer MEDICAID ==
[2017-12-13 06:42] VITALS: BMI 37.9
[2017-12-13 06:50] VITALS: RESP 18
[2017-12-13] MEDS ORDERED: Albuterol-Ipratrop 3 mg / 0.5 (3 ml) UD IH STA (07:04)
--- NOTE | 2017-12-13 07:07 | ED PDOC ---
Arrival/HPI - General Chief Complaint: Lower Extremity Problem/Injury Time Seen by Provider: 12/13/17 06:55 Historian: Patient - History of Present Illness Narrative History of Present Illness (Text): 12/13/17 07:04 A 57 year old male, whose past medical history includes asthma, emphysema, COPD , pancreatitis, alcohol cirrhosis and chronic leg pain, presents to the emergency department complaining of shortness of breath. Patient notes associated cough and congestion. Patient denies any fever, chills, nausea, vomiting, abdominal pain, chest pain or any other complaints. He has no new complaints with this legs. He had this issue addressed on his previous visit today. No PMD Past Medical History - Provider Review Nursing Documentation Reviewed: Yes - Infectious Disease Hx of Infectious Diseases: None - Tetanus Immunization Tetanus Immunization: Up to Date - Past Medical History Past Medical History: No Previous - Cardiac Hx Cardiac Disorders: No Hx Hypertension: Yes - Pulmonary Hx Tuberculosis: No - Neurological HX Cerebrovascular Accident: No - HEENT Hx HEENT Disorder: Yes Hx Cataracts: No Hx Deafness: No Hx Difficulty Chewing: No Hx Epistaxis: No Hx Glaucoma: No Other/Comment: retina detachment - Renal Hx Renal Disorder: No Hx Dialysis: No Hx Kidney Stones: No Hx Neurogenic Bladder: No Hx Pyelonephritis: No Hx Renal Cancer: No Hx Renal Failure: Yes - Endocrine/Metabolic Hx Endocrine Disorders: No Hx Adrenal Cancer: No Hx Diabetes Insipidus: No Hx Diabetes Mellitus Type 1: No Hx Diabetes Mellitus Type 2: No Hx Hyperthyroidism: No Hx Hypothyroidism: No Hx Systemic Lupus Erythematosus: No - Hematological/Oncological Hx Cancer: No - Integumentary Hx Dermatological Disorder: Yes Hx Basal Cell Carcinoma: No Hx Delarosa: No Hx Cellulitis: No Hx Eczema: No Hx Melanoma: No Hx Psoriasis: Yes Hx Squamous Cell Carcinoma: No - Musculoskeletal/Rheumatological Hx Musculoskeletal Disorders: Yes Hx Arthritis: No Hx Back Pain: No Hx Degenerative Joint Disease: No Hx Falls: Yes Hx Fractures: Yes (NASAL SURGERY) Hx Gout: No Hx Herniated Disk: No Hx Myasthenia Gravis: No Hx Osteoarthritis: No Hx Osteomyelitis: No Hx Osteoporosis: No Hx Rhabdomyolysis: No Hx Rheumatoid Arthritis: No Hx Spinal Stenosis: No Hx Unsteady Gait: No - Gastrointestinal Hx Gastrointestinal Disorders: Yes Hx Bowel Surgery: No Hx Clostridium Difficile: No Hx Colitis: No Hx Colostomy: No Hx Constipation: No Hx Crohn's Disease: No Hx Diarrhea: No Hx Diverticulitis: No Hx Esophageal Varices: No Hx Fatty Liver Disease: No Hx Gall Bladder Disease: No Hx Gastritis: No Hx Gastroesophageal Reflux: No Hx Hemorrhoids: No Hx Ileostomy: No Hx Irritable Bowel: No Hx Liver Failure: Yes Hx Nausea: No Hx Pancreatitis: Yes HX Swallowing Problems: No Hx Vomiting: No Other/Comment: ascites - Genitourinary/Gynecological Hx Sexually Transmitted Diseases: No - Psychiatric Hx Anxiety: Yes Hx Bipolar Disorder: Yes Hx Depression: Yes Hx Substance Use: Yes - Past Surgical History Past Surgical History: No Previous - Surgical History Other/Comment: TIPPS. Nasal surgery. - Anesthesia Hx Anesthesia: Yes Hx Anesthesia Reactions: No Hx Malignant Hyperthermia: No - Suicidal Assessment Feels Threatened In Home Enviroment: No Family/Social History - Physician Review Nursing Documentation Reviewed: Yes Family/Social History: No Known Family HX Smoking Status: Heavy Smoker > 10 Cigarettes Daily Hx Alcohol Use: Yes (Hx) Amount per day: 3 Hx Substance Use: Yes Hx Substance Use Treatment: No Allergies/Home Meds Allergies/Adverse Reactions: Allergies No Known Allergies Allergy (Verified 11/29/17 21:04) Review of Systems - Physician Review All systems were reviewed & negative as marked: Yes - Review of Systems Constitutional: absent: Fevers, Night Sweats ENT: Sinus Congestion Respiratory: SOB, Cough Cardiovascular: absent: Chest Pain Gastrointestinal: absent: Abdominal Pain, Nausea, Vomiting Physical Exam Vital Signs Reviewed: Yes Vital Signs Temp Pulse Resp BP Pulse Ox 12/13/17 08:42 98 F 77 18 107/67 95 12/13/17 07:31 18 100 12/13/17 06:43 98.2 F 84 18 144/86 95 Temperature: Afebrile Blood Pressure: Normal Pulse: Regular Respiratory Rate: Normal Appearance: Positive for: Well-Appearing, Non-Toxic, Comfortable Pain Distress: None Mental Status: Positive for: Alert and Oriented X 3 - Systems Exam Head: Present: Atraumatic, Normocephalic Pupils: Present: PERRL Extroacular Muscles: Present: EOMI Conjunctiva: Present: Normal Mouth: Present: Moist Mucous Membranes Respiratory/Chest: Present: Clear to Auscultation, Good Air Exchange. No: Respiratory Distress, Accessory Muscle Use, Retracting Cardiovascular: Present: Regular Rate and Rhythm, Normal S1, S2. No: Murmurs Abdomen: Present: Normal Bowel Sounds. No: Tenderness, Distention, Peritoneal Signs Upper Extremity: Present: Normal Inspection. No: Cyanosis, Edema Lower Extremity: Present: Normal Inspection. No: Edema Neurological: Present: GCS=15, CN II-XII Intact, Speech Normal Skin: Present: Warm, Dry, Normal Color. No: Rashes Psychiatric: Present: Alert, Oriented x 3, Normal Insight, Normal Concentration Medical Decision Making ED Course and Treatment: 12/13/17 07:04 Impression: A 57 year old male with shortness of breath. Patient notes cough and congestion. No chest pain. Differential Diagnosis included but are not limited to: Bronchitis vs. Asthma Plan: -- Duoneb -- Reassess and disposition Prior Visits: Notes and results from previous visits were reviewed. Patient last seen in the ED on 12/12/17 for chronic leg pain and discharged home. Progress Notes: 12/13/17 08:47 Patient feels better. Lungs clear. No w/r/r. No tachypnea. Speaking in full sentences. He was advised to fill the prescription for his pump and to follow up with the [facility]. He was advised to return to the ED if symptoms worsen or any other concern. - Medication Orders Current Medication Orders: Discontinued Medications Albuterol/Ipratropium (Duoneb 3 Mg/0.5 Mg (3 Ml) Ud) 3 ml IH STAT STA Stop: 12/13/17 07:05 Last Admin: 12/13/17 07:17 Dose: 3 ml - Scribe Statement The provider has reviewed the documentation as recorded by the Domitila Contreras Provider Scribe Attestation: All medical record entries made by the Dionibgloria were at my direction and personally dictated by me. I have reviewed the chart and agree that the record accurately reflects my personal performance of the history, physical exam, medical decision making, and the department course for this patient. I have also personally directed, reviewed, and agree with the discharge instructions and disposition. Disposition/Present on Arrival - Present on Arrival Any Indicators Present on Arrival: No History of DVT/PE: No History of Uncontrolled Diabetes: No Urinary Catheter: No History of Decub. Ulcer: No History Surgical Site Infection Following: None - Disposition Have Diagnosis and Disposition been Completed?: Yes Diagnosis: Asthma, Bronchitis Disposition: HOME/ ROUTINE Disposition Time: 08:48 Patient Plan: Discharge Condition: IMPROVED Discharge Instructions (ExitCare): Acute Bronchitis Additional Instructions: Mr Palacios, thank you for letting us take care of you today. Your provider was Dr. Garcia. You were treated for . The emergency medical care you received today was directed at your acute symptoms. If you were prescribed any medication , please fill it and take as directed. It may take several days for your symptoms to resolve. Return to the Emergency Department if your symptoms worsen , do not improve, or if you have any other problems. Please contact your doctor or call one of the physicians/clinics you have been referred to that are listed on the Patient Visit Information form that is included in your discharge packet. Bring any paperwork you were given at discharge with you along with any medications you are taking to your follow up visit. Our treatment cannot replace ongoing medical care by a primary care provider (PCP) outside of the emergency department. Thank you for allowing the [facility] team to be part of your care today. If you had an X-Ray or CT scan: A Radiologist will review the ED reading if any change in treatment is needed we will contact you. If you had a blood, urine, or wound culture: It will take several days for the results, if any change in treatment is needed we will contact you. If you had an STI test: It will take 48 hours for the results. Please call after 1 week if you have not heard back. Prescriptions: Albuterol HFA [Ventolin HFA 90 mcg/actuation (8 g)] 2 puff IH Q4 #1 puff Referrals: at [facility] [Outside] - Follow up with primary Forms: [employer]
[2017-12-13 08:43] VITALS: BP 107/67; PULSE 77; TEMP 98; O2SAT 95
== END 2017-12-13 08:44 | disposition home or self-care (01) ==
LOC: ED 06:42
DX: J45.909 Unspecified asthma, uncomplicated (principal); F17.210 Nicotine dependence, cigarettes, uncomplicated

== ENCOUNTER 2017-12-16 20:55 | Emergency (ER) | payer MEDICAID ==
[2017-12-16 21:05] VITALS: BMI 27.8
[2017-12-16 21:10] VITALS: RESP 18; TEMP 98.3
--- NOTE | 2017-12-16 21:50 | ED PDOC ---
Arrival/HPI - General Chief Complaint: Lower Extremity Problem/Injury Time Seen by Provider: 12/16/17 21:17 - History of Present Illness Narrative History of Present Illness (Text): 57 y/o M c PMHx COPD, pancreatitis, alcohol cirrhosis, chronic leg pain p/w bilateral lower extremity edema and thickening of toe nails. Patient states he has had these symptoms many times before. He states he does not follow up with any primary care. He is asking for help with his chronic leg edema but does not want any medication. He denies fever, chills, chest pain, dyspnea, nausea, vomiting. Past Medical History - Infectious Disease Hx of Infectious Diseases: None - Tetanus Immunization Tetanus Immunization: Up to Date - Past Medical History Past Medical History: No Previous - Cardiac Hx Cardiac Disorders: No Hx Hypertension: Yes - Pulmonary Hx Tuberculosis: No - Neurological HX Cerebrovascular Accident: No - HEENT Hx HEENT Disorder: Yes Hx Cataracts: No Hx Deafness: No Hx Difficulty Chewing: No Hx Epistaxis: No Hx Glaucoma: No Other/Comment: retina detachment - Renal Hx Renal Disorder: No Hx Dialysis: No Hx Kidney Stones: No Hx Neurogenic Bladder: No Hx Pyelonephritis: No Hx Renal Cancer: No Hx Renal Failure: Yes - Endocrine/Metabolic Hx Endocrine Disorders: No Hx Adrenal Cancer: No Hx Diabetes Insipidus: No Hx Diabetes Mellitus Type 1: No Hx Diabetes Mellitus Type 2: No Hx Hyperthyroidism: No Hx Hypothyroidism: No Hx Systemic Lupus Erythematosus: No - Hematological/Oncological Hx Cancer: No - Integumentary Hx Dermatological Disorder: Yes Hx Basal Cell Carcinoma: No Hx Delarosa: No Hx Cellulitis: No Hx Eczema: No Hx Melanoma: No Hx Psoriasis: Yes Hx Squamous Cell Carcinoma: No - Musculoskeletal/Rheumatological Hx Musculoskeletal Disorders: Yes Hx Arthritis: No Hx Back Pain: No Hx Degenerative Joint Disease: No Hx Falls: Yes Hx Fractures: Yes (NASAL SURGERY) Hx Gout: No Hx Herniated Disk: No Hx Myasthenia Gravis: No Hx Osteoarthritis: No Hx Osteomyelitis: No Hx Osteoporosis: No Hx Rhabdomyolysis: No Hx Rheumatoid Arthritis: No Hx Spinal Stenosis: No Hx Unsteady Gait: No - Gastrointestinal Hx Gastrointestinal Disorders: Yes Hx Bowel Surgery: No Hx Clostridium Difficile: No Hx Colitis: No Hx Colostomy: No Hx Constipation: No Hx Crohn's Disease: No Hx Diarrhea: No Hx Diverticulitis: No Hx Esophageal Varices: No Hx Fatty Liver Disease: No Hx Gall Bladder Disease: No Hx Gastritis: No Hx Gastroesophageal Reflux: No Hx Hemorrhoids: No Hx Ileostomy: No Hx Irritable Bowel: No Hx Liver Failure: Yes Hx Nausea: No Hx Pancreatitis: Yes HX Swallowing Problems: No Hx Vomiting: No Other/Comment: ascites - Genitourinary/Gynecological Hx Sexually Transmitted Diseases: No - Psychiatric Hx Anxiety: Yes Hx Bipolar Disorder: Yes Hx Depression: Yes Hx Substance Use: Yes - Past Surgical History Past Surgical History: No Previous - Surgical History Other/Comment: TIPPS. Nasal surgery. - Anesthesia Hx Anesthesia: Yes Hx Anesthesia Reactions: No Hx Malignant Hyperthermia: No - Suicidal Assessment Feels Threatened In Home Enviroment: No Family/Social History Family/Social History: No Known Family HX Smoking Status: Heavy Smoker > 10 Cigarettes Daily Hx Alcohol Use: Yes (Hx) Amount per day: 3 Hx Substance Use: Yes Hx Substance Use Treatment: No Allergies/Home Meds Allergies/Adverse Reactions: Allergies No Known Allergies Allergy (Verified 12/16/17 21:05) Review of Systems - Physician Review All systems were reviewed & negative as marked: Yes - Review of Systems Constitutional: absent: Fevers Respiratory: absent: SOB Cardiovascular: absent: Chest Pain Physical Exam - Physical Exam Narrative Physical Exam (Text): Gen: NAD Head: NC Eyes: No scleral icterus ENT: MMM Neck: Supple. No JVD. Chest: No tenderness CV: Regular rate. No S3. Lungs: CTA b/l. No crackles. Abd: Soft, NT Back: No CVA tenderness Extremities: Bilateral pitting edema of lower extremities. Toes with thickening and yellow discoloration. Skin: No rash. No erythema of legs. Neuro: Alert, no focal deficit Vital Signs Temp Pulse Resp BP Pulse Ox 12/16/17 21:06 98.3 F 100 H 18 130/84 98 Medical Decision Making ED Course and Treatment: Advised patient to pursue primary care, compressive stockings/socks, elevation. Also educated on diuretics but again, patient does not want medication. HUY wraps applied, referral information given. Disposition/Present on Arrival - Present on Arrival Any Indicators Present on Arrival: No History of DVT/PE: No History of Uncontrolled Diabetes: No Urinary Catheter: No History of Decub. Ulcer: No History Surgical Site Infection Following: None - Disposition Have Diagnosis and Disposition been Completed?: Yes Diagnosis: Pedal edema, Onychomycosis Disposition: HOME/ ROUTINE Disposition Time: 21:52 Patient Plan: Discharge Condition: STABLE Discharge Instructions (ExitCare): Fungal Nail Infections, Dependent Edema (DC) Referrals: [facility] at [facility] [Outside] - Follow up with primary Podiatry Clinic [Outside] - Follow up with primary
[2017-12-16 22:22] VITALS: BP 132/78; PULSE 78; O2SAT 96
== END 2017-12-16 22:22 | disposition home or self-care (01) ==
LOC: ED 20:55
DX: B35.1 Tinea unguium (principal); R60.0 Localized edema; I10 Essential (primary) hypertension; F17.210 Nicotine dependence, cigarettes, uncomplicated

== ENCOUNTER 2017-12-24 01:56 | Emergency (ER) | payer MEDICAID ==
[2017-12-24 02:05] VITALS: BMI 27.9
[2017-12-24 02:10] VITALS: TEMP 97.8
--- NOTE | 2017-12-24 02:23 | ED PDOC ---
Arrival/HPI - General Historian: Patient - History of Present Illness Time/Duration: > week, < month Symptom Onset: Gradual Symptom Course: Worsening Quality: Pressure <Jesse Cheek - Last Filed: 12/24/17 04:44> <Hong Perez - Last Filed: 12/24/17 05:45> - General Chief Complaint: Lower Extremity Problem/Injury Time Seen by Provider: 12/24/17 02:01 - History of Present Illness Narrative History of Present Illness (Text): 12/24/17 02:20 Patient is a 57M with a PMH of COPD, hypertension, Chronic b/l lower extremity edema who presents to Emergency department after two weeks of worsening lower extremity edema. He states that he has been taking a water pill as prescribed but the swelling has not resolved. Patient also complaining in pain in the lower extremity, Left greater than right. Patient has not seen a PMD in 3.5 years. No fever, chills, chest pain, SOB. No nausea, vomiting. 12/24/17 04:38 Doppler negative for DVT. Patient encouraged to wrap leggs with compressive stocking and raise his legs above the level of his heart for 1 hour 4-5x daily. Patient expressed understanding. I wrapped his legs with geraldine wrap in the Emergency department. (Jesse Cheek) Past Medical History - Infectious Disease Hx of Infectious Diseases: None - Tetanus Immunization Tetanus Immunization: Up to Date - Past Medical History Past Medical History: No Previous - Cardiac Hx Cardiac Disorders: No Hx Hypertension: Yes - Pulmonary Hx Tuberculosis: No - Neurological HX Cerebrovascular Accident: No - HEENT Hx HEENT Disorder: Yes Hx Cataracts: No Hx Deafness: No Hx Difficulty Chewing: No Hx Epistaxis: No Hx Glaucoma: No Other/Comment: retina detachment - Renal Hx Renal Disorder: No Hx Dialysis: No Hx Kidney Stones: No Hx Neurogenic Bladder: No Hx Pyelonephritis: No Hx Renal Cancer: No Hx Renal Failure: Yes - Endocrine/Metabolic Hx Endocrine Disorders: No Hx Adrenal Cancer: No Hx Diabetes Insipidus: No Hx Diabetes Mellitus Type 1: No Hx Diabetes Mellitus Type 2: No Hx Hyperthyroidism: No Hx Hypothyroidism: No Hx Systemic Lupus Erythematosus: No - Hematological/Oncological Hx Cancer: No - Integumentary Hx Dermatological Disorder: Yes Hx Basal Cell Carcinoma: No Hx Delarosa: No Hx Cellulitis: No Hx Eczema: No Hx Melanoma: No Hx Psoriasis: Yes Hx Squamous Cell Carcinoma: No - Musculoskeletal/Rheumatological Hx Musculoskeletal Disorders: Yes Hx Arthritis: No Hx Back Pain: No Hx Degenerative Joint Disease: No Hx Falls: Yes Hx Fractures: Yes (NASAL SURGERY) Hx Gout: No Hx Herniated Disk: No Hx Myasthenia Gravis: No Hx Osteoarthritis: No Hx Osteomyelitis: No Hx Osteoporosis: No Hx Rhabdomyolysis: No Hx Rheumatoid Arthritis: No Hx Spinal Stenosis: No Hx Unsteady Gait: No - Gastrointestinal Hx Gastrointestinal Disorders: Yes Hx Bowel Surgery: No Hx Clostridium Difficile: No Hx Colitis: No Hx Colostomy: No Hx Constipation: No Hx Crohn's Disease: No Hx Diarrhea: No Hx Diverticulitis: No Hx Esophageal Varices: No Hx Fatty Liver Disease: No Hx Gall Bladder Disease: No Hx Gastritis: No Hx Gastroesophageal Reflux: No Hx Hemorrhoids: No Hx Ileostomy: No Hx Irritable Bowel: No Hx Liver Failure: Yes Hx Nausea: No Hx Pancreatitis: Yes HX Swallowing Problems: No Hx Vomiting: No Other/Comment: ascites - Genitourinary/Gynecological Hx Sexually Transmitted Diseases: No - Psychiatric Hx Anxiety: Yes Hx Bipolar Disorder: Yes Hx Depression: Yes Hx Substance Use: Yes - Past Surgical History Past Surgical History: No Previous - Surgical History Other/Comment: TIPPS. Nasal surgery. - Anesthesia Hx Anesthesia: Yes Hx Anesthesia Reactions: No Hx Malignant Hyperthermia: No - Suicidal Assessment Feels Threatened In Home Enviroment: No <Jesse Cheek - Last Filed: 12/24/17 04:44> - Provider Review Nursing Documentation Reviewed: Yes <Hong Perez - Last Filed: 12/24/17 05:45> Family/Social History Family/Social History: Unknown Family HX Smoking Status: Heavy Smoker > 10 Cigarettes Daily Hx Alcohol Use: Yes (Hx) Amount per day: 3 Hx Substance Use: Yes Hx Substance Use Treatment: No <Jesse Cheek - Last Filed: 12/24/17 04:44> - Physician Review Nursing Documentation Reviewed: Yes <Hong Perez - Last Filed: 12/24/17 05:45> Allergies/Home Meds <Jesse Cheek - Last Filed: 12/24/17 04:44> <Hong Perez - Last Filed: 12/24/17 05:45> Allergies/Adverse Reactions: Allergies No Known Allergies Allergy (Verified 03/16/18 21:05) Review of Systems - Review of Systems Constitutional: Normal Eyes: Normal ENT: Normal Respiratory: Normal Cardiovascular: Normal. absent: Chest Pain Gastrointestinal: Normal Genitourinary Male: Normal Musculoskeletal: Other (bilateral lower extrem edema) Skin: Normal Neurological: Normal Endocrine: Normal Hemo/Lymphatic: Normal Psychiatric: Normal <HamJesse - Last Filed: 12/24/17 04:44> - Physician Review All systems were reviewed & negative as marked: Yes <ChrisHong - Last Filed: 12/24/17 05:45> Physical Exam Vital Signs Reviewed: Yes Temperature: Afebrile Blood Pressure: Normal Pulse: Tachycardic Respiratory Rate: Normal Appearance: Positive for: Well-Appearing, Non-Toxic, Comfortable Pain Distress: None Mental Status: Positive for: Alert and Oriented X 3 - Systems Exam Head: Present: Atraumatic, Normocephalic Pupils: Present: PERRL Extroacular Muscles: Present: EOMI Conjunctiva: Present: Normal Mouth: Present: Moist Mucous Membranes Neck: Present: Normal Range of Motion Respiratory/Chest: Present: Clear to Auscultation, Good Air Exchange. No: Respiratory Distress, Accessory Muscle Use Cardiovascular: Present: Regular Rate and Rhythm, Normal S1, S2. No: Murmurs Abdomen: Present: Normal Bowel Sounds. No: Tenderness, Distention, Peritoneal Signs Upper Extremity: Present: Normal Inspection. No: Cyanosis, Edema Lower Extremity: Present: Edema (3+ pitting edema bilaterally, no evidence of infection. No skin tears) Neurological: Present: GCS=15, CN II-XII Intact, Speech Normal Skin: Present: Warm, Dry, Rashes, Normal Color Psychiatric: Present: Alert, Oriented x 3 <HamJesse - Last Filed: 12/24/17 04:44> <ChrisHong - Last Filed: 12/24/17 05:45> Vital Signs Temp Pulse Resp BP Pulse Ox 12/24/17 02:09 97.8 F 109 H 18 131/80 95 Medical Decision Making <HamJesse - Last Filed: 12/24/17 04:44> - Lab Interpretations I have reviewed the lab results: Yes <Hong Perez - Last Filed: 12/24/17 05:45> ED Course and Treatment: 12/24/17 02:25 Bilateral LE US to r/o DVT 12/24/17 04:40 Duplex negative for DVT Patient encouraged to wrap legs with compressive stocking and raise his legs above the level of his heart for 1 hour 4-5x daily. Patient expressed understanding. I wrapped his legs with geraldine wrap in the Emergency department. ( Jesse Cheek) Patient Seen With Resident: In agreement with resident note which contains more details about the patient. Patient was seen and evaluated with resident. Came up with plan and treatment together. 57 year old male presents complaining of worsening lower extremity edema. Plan: -- Labs -- Duplex US -- Reassess and disposition (Hong Perez) - Lab Interpretations Lab Results: 12/24/17 02:15 12/24/17 02:15 Lab Results 12/24/17 02:15: Sodium 146, Potassium 3.7, Chloride 108 H, Carbon Dioxide 25, Anion Gap 18, BUN 10, Creatinine 0.9, Est GFR ( Amer) > 60, Est GFR (Non- Af Amer) > 60, Random Glucose 91, Calcium 9.6, Magnesium 1.7, Total Bilirubin 1.0, AST 122 H D, ALT 54, Alkaline Phosphatase 121, Total Protein 8.2, Albumin 3.9, Globulin 4.3, Albumin/Globulin Ratio 0.9 L 12/24/17 02:15: WBC 5.3 D, RBC 4.62, Hgb 12.9 L, Hct 38.6 L, MCV 83.5, MCH 27.9 , MCHC 33.4, RDW 17.4 H, Plt Count 117 L, MPV 10.2, Gran % 38.8 L, Lymph % (Auto ) 41.6 H, [place] % (Auto) 13.9 H, Eos % (Auto) 4.6, Baso % (Auto) 1.1, Gran # 2.04 , Lymph # (Auto) 2.2, [place] # (Auto) 0.7 H, Eos # (Auto) 0.2, Baso # (Auto) 0.06 - RAD Interpretation Radiology Orders: 12/24/17 02:17 DUPLEX LOWER EXTRM VEIN BILAT [US] Stat 12/24/17 03:56 CHEST PORTABLE [RAD] Stat - PA / WAITER/WAITRESS CLUB / Resident Statement LAN has reviewed & agrees with the documentation as recorded. / has examined the patient and agrees with the treatment plan. <Jesse Cheek - Last Filed: 12/24/17 04:44> - PA / WAITER/WAITRESS CLUB / Resident Statement LAN has reviewed & agrees with the documentation as recorded. / has examined the patient and agrees with the treatment plan. - Scribe Statement The provider has reviewed the documentation as recorded by the Scribe <Hong Perez - Last Filed: 12/24/17 05:45> - Scribe Statement [place] Provider Scribe Attestation: All medical record entries made by the Scribe were at my direction and personally dictated by me. I have reviewed the chart and agree that the record accurately reflects my personal performance of the history, physical exam, medical decision making, and the department course for this patient. I have also personally directed, reviewed, and agree with the discharge instructions and disposition. (Hong Perez) Disposition/Present on Arrival - Present on Arrival Any Indicators Present on Arrival: No History of DVT/PE: No History of Uncontrolled Diabetes: No Urinary Catheter: No History of Decub. Ulcer: No History Surgical Site Infection Following: None - Disposition Have Diagnosis and Disposition been Completed?: Yes Disposition Time: 04:59 Patient Plan: Discharge <Jesse Cheek - Last Filed: 12/24/17 04:44> <Hong Perez - Last Filed: 12/24/17 05:45> - Disposition Diagnosis: Lower extremity edema Disposition: HOME/ ROUTINE Patient Problems: Current Active Problems Problem Status Onset Lower extremity edema Acute Condition: STABLE Additional Instructions: Compressive stocking/geraldine wrap daily from the ankle to below the knee Elevated the legs to above the level of your heart for 1 hour 3-4 times daily If you develop a fever, chest pain or shortness of breath, please seek medical attention Mr. Palacios, thank you for letting us take care of you today. The emergency medical care you received today was directed at your acute symptoms. If you were prescribed any medication, please fill it and take as directed. It may take several days for your symptoms to resolve. Return to the Emergency Department if your symptoms worsen, do not improve, or if you have any other problems. Please contact your doctor or call one of the physicians/clinics you have been referred to that are listed on the Patient Visit Information form that is included in your discharge packet. Bring any paperwork you were given at discharge with you along with any medications you are taking to your follow up visit. Our treatment cannot replace ongoing medical care by a primary care provider (PCP) outside of the emergency department. Thank you for allowing the [facility] team to be part of your care today. If you had an X-Ray or CT scan: A Radiologist will review the ED reading if any change in treatment is needed we will contact you. If you had a blood, urine, or wound culture: It will take several days for the results, if any change in treatment is needed we will contact you. If you had an STI test: It will take 48 hours for the results. Please call after 1 week if you have not heard back. Forms: [employer] (Yi)
[2017-12-24 02:45] LABS: BASO # 0.06 K/mm3 (0.0-2.0); BASO % 1.1 % (0.0-3.0); EOS # 0.2 (0.0-0.7); EOS % 4.6 % (1.5-5.0); GRAN # 2.04 (1.4-6.5); GRAN % 38.8 % (50.0-68.0); HEMOGLOBIN 12.9 g/dL (14.0-18.0); LYMPH # 2.2 (1.2-3.4); LYMPH % 41.6 % (22.0-35.0); MEAN CELL VOLUME 83.5 fl (80.0-105.0); MEAN CORPUSCULAR HEMOGLOBIN 27.9 pg (25.0-35.0); MEAN CORPUSCULAR HGB CONC 33.4 g/dl (31.0-37.0); MEAN PLATELET VOLUME 10.2 fl (7.0-11.0); MONO # 0.7 (0.1-0.6); MONO % 13.9 % (1.0-6.0); RBC 4.62 10^6/uL (3.5-6.1); RED CELL DISTRIBUTION WIDTH 17.4 % (11.5-14.5); WHITE BLOOD COUNT 5.3 10^3/ul (4.5-11.0)
[2017-12-24 02:58] LABS: ALB/GLOB RATIO 0.9 (1.1-1.8); ALBUMIN 3.9 g/dL (3.0-4.8); ALT/SGPT 54 U/L (7-56); AST/SGOT 122 U/L (17-59); BLOOD UREA NITROGEN 10 mg/dL (7-21); CALCIUM 9.6 mg/dL (8.4-10.5); GFR AFRICAN-AMERICAN > 60; GFR NON-AFRICAN AMERICAN > 60
[2017-12-24 06:35] VITALS: BP 142/88; PULSE 98; RESP 16; O2SAT 99
--- NOTE | 2017-12-24 08:37 | RAD ---
HISTORY: Worsening peripheral edema COMPARISON: Portable chest 11/19/2017. FINDINGS: LUNGS: No active pulmonary disease. PLEURA: No significant pleural effusion identified, no pneumothorax apparent. CARDIOVASCULAR: Cardiac silhouette appears prominent. Frontal technique magnifies true size though cardiomegaly is not completely excluded. No definite pulmonary vascular derangement appreciable. OSSEOUS STRUCTURES: No significant abnormalities. VISUALIZED UPPER ABDOMEN: Normal. OTHER FINDINGS: None. IMPRESSION: No acute infiltrate or pleural effusion bilaterally. Cardiac silhouette appears somewhat prominent as discussed above. No pulmonary vascular derangement.
--- NOTE | 2017-12-25 09:50 | US ---
HISTORY: Leg pain and swelling. Evaluate for DVT PHYSICIAN(S): Scott Aden MD. TECHNIQUE: Duplex sonography and color-flow Doppler with graded compression were used to evaluate the deep venous systems of both lower extremities. FINDINGS: The visualized deep venous systems of both lower extremities are sonographically normal and compressible. Normal wave forms and augmentation are seen. There is no sonographic evidence for deep venous thrombosis in the visualized segments of both lower extremities. IMPRESSION: No sonographic evidence for deep venous thrombosis in the visualized segments of both lower extremities.
== END 2017-12-24 06:35 | disposition home or self-care (01) ==
LOC: ED 01:56
DX: R60.0 Localized edema (principal); I10 Essential (primary) hypertension; F17.210 Nicotine dependence, cigarettes, uncomplicated

== ENCOUNTER 2017-12-31 02:07 | Emergency (ER) | payer MEDICAID ==
[2017-12-31 02:24] VITALS: BMI 35.7
[2017-12-31 02:28] VITALS: RESP 18; O2SAT 96
--- NOTE | 2017-12-31 02:28 | ED PDOC ---
Arrival/HPI - General Chief Complaint: Trauma Time Seen by Provider: 12/31/17 02:23 - History of Present Illness Narrative History of Present Illness (Text): 12/31/17 02:27 57 year old male, whose past medical history includes asthma, emphysema, COPD, pancreatitis, alcohol cirrhosis, chronic leg pain presents to the emergency department s/p tripping over the sidewalk and falling. Patient reports he hit his head. Patient reports vomiting and thoracic pain after the fall and notes he did drink alcohol today, but denies any fever, chills, abdominal pain, LOC, neck pain, dizziness, or any other complaints/injuries. Past Medical History - Provider Review Nursing Documentation Reviewed: Yes - Infectious Disease Hx of Infectious Diseases: None - Tetanus Immunization Tetanus Immunization: Up to Date - Past Medical History Past Medical History: No Previous - Cardiac Hx Cardiac Disorders: No Hx Hypertension: Yes - Pulmonary Hx Tuberculosis: No - Neurological HX Cerebrovascular Accident: No - HEENT Hx HEENT Disorder: Yes Hx Cataracts: No Hx Deafness: No Hx Difficulty Chewing: No Hx Epistaxis: No Hx Glaucoma: No Other/Comment: retina detachment - Renal Hx Renal Disorder: No Hx Dialysis: No Hx Kidney Stones: No Hx Neurogenic Bladder: No Hx Pyelonephritis: No Hx Renal Cancer: No Hx Renal Failure: Yes - Endocrine/Metabolic Hx Endocrine Disorders: No Hx Adrenal Cancer: No Hx Diabetes Insipidus: No Hx Diabetes Mellitus Type 1: No Hx Diabetes Mellitus Type 2: No Hx Hyperthyroidism: No Hx Hypothyroidism: No Hx Systemic Lupus Erythematosus: No - Hematological/Oncological Hx Cancer: No - Integumentary Hx Dermatological Disorder: Yes Hx Basal Cell Carcinoma: No Hx Delarosa: No Hx Cellulitis: No Hx Eczema: No Hx Melanoma: No Hx Psoriasis: Yes Hx Squamous Cell Carcinoma: No - Musculoskeletal/Rheumatological Hx Musculoskeletal Disorders: Yes Hx Arthritis: No Hx Back Pain: No Hx Degenerative Joint Disease: No Hx Falls: Yes Hx Fractures: Yes (NASAL SURGERY) Hx Gout: No Hx Herniated Disk: No Hx Myasthenia Gravis: No Hx Osteoarthritis: No Hx Osteomyelitis: No Hx Osteoporosis: No Hx Rhabdomyolysis: No Hx Rheumatoid Arthritis: No Hx Spinal Stenosis: No Hx Unsteady Gait: No - Gastrointestinal Hx Gastrointestinal Disorders: Yes Hx Bowel Surgery: No Hx Clostridium Difficile: No Hx Colitis: No Hx Colostomy: No Hx Constipation: No Hx Crohn's Disease: No Hx Diarrhea: No Hx Diverticulitis: No Hx Esophageal Varices: No Hx Fatty Liver Disease: No Hx Gall Bladder Disease: No Hx Gastritis: No Hx Gastroesophageal Reflux: No Hx Hemorrhoids: No Hx Ileostomy: No Hx Irritable Bowel: No Hx Liver Failure: Yes Hx Nausea: No Hx Pancreatitis: Yes HX Swallowing Problems: No Hx Vomiting: No Other/Comment: ascites - Genitourinary/Gynecological Hx Sexually Transmitted Diseases: No - Psychiatric Hx Anxiety: Yes Hx Bipolar Disorder: Yes Hx Depression: Yes Hx Substance Use: Yes - Past Surgical History Past Surgical History: No Previous - Surgical History Other/Comment: TIPPS. Nasal surgery. - Anesthesia Hx Anesthesia: Yes Hx Anesthesia Reactions: No Hx Malignant Hyperthermia: No - Suicidal Assessment Feels Threatened In Home Enviroment: No Family/Social History - Physician Review Nursing Documentation Reviewed: Yes Family/Social History: No Known Family HX Smoking Status: Heavy Smoker > 10 Cigarettes Daily Hx Alcohol Use: Yes (Hx) Amount per day: 3 Hx Substance Use: Yes Hx Substance Use Treatment: No Allergies/Home Meds Allergies/Adverse Reactions: Allergies No Known Allergies Allergy (Verified 12/16/17 21:05) Home Medications: Home Meds Medication Instructions Recorded Confirmed No Known Home Med 12/31/17 12/31/17 Review of Systems - Physician Review All systems were reviewed & negative as marked: Yes - Review of Systems Constitutional: absent: Fevers Respiratory: absent: SOB Gastrointestinal: Vomiting Physical Exam - Physical Exam Narrative Physical Exam (Text): Constitutional: No acute distress. Head: Normocephalic. Atraumatic. No tenderness of bilateral zygomatic arches. Eyes: PERRL. ENT: Moist mucous membranes. Neck: Supple. No midline tenderness. Cardiovascular: Regular rate. Chest: Right sided reproducible tenderness Respiratory: Clear to auscultation bilaterally. GI: Soft. Nontender. Nondistended. Back: No CVA tenderness. No midline tenderness. Musculoskeletal: FROM x 4. No tenderness or swelling of extremities. Skin: No rash. Neurologic: Alert, no focal deficit. Vital Signs Temp Pulse Resp BP Pulse Ox 12/31/17 02:28 97.9 F 112 H 18 142/92 H 96 Medical Decision Making ED Course and Treatment: 12/31/17 02:36 Plan: -- CT Head w/o contrast -- Chest two views -- Reassess and disposition Progress Notes: 12/31/17 02:53 CXR Impression: As read by me, no pneumothorax, no rib fracture, no pleural effusion, no pneumomediastinum. 12/31/17 02:55 EXAM:CT Head Without Intravenous Contrast Dictated and Authenticated by: Chichi Valerio MD 12/31/2017 2:52 AM IMPRESSION: 1. No acute intracranial findings. 2. Deformity of the right zygomatic arch is suspicious for a fracture. The age is unknown Discharged home, f/u primary care, return to ED for worsening pain, vision change, vomiting, dyspnea, or any other problem. - RAD Interpretation Radiology Orders: 12/31/17 02:24 HEAD W/O CONTRAST [CT] Stat CHEST TWO VIEWS (PA/LAT) [RAD] Stat Disposition/Present on Arrival - Present on Arrival Any Indicators Present on Arrival: No History of DVT/PE: No History of Uncontrolled Diabetes: No Urinary Catheter: No History of Decub. Ulcer: No History Surgical Site Infection Following: None - Disposition Have Diagnosis and Disposition been Completed?: Yes Diagnosis: Fall Disposition: HOME/ ROUTINE Disposition Time: 03:19 Patient Plan: Discharge Condition: STABLE Discharge Instructions (ExitCare): Preventing Falls Forms: [email or web address] ([place])
[2017-12-31 03:58] VITALS: BP 142/89; PULSE 98; TEMP 98.2
--- NOTE | 2017-12-31 09:28 | CT ---
PROCEDURE: CT HEAD WITHOUT CONTRAST. HISTORY: fall,headstrike COMPARISON: 08/10/2014 TECHNIQUE: Axial computed tomography images were obtained through the head/brain without intravenous contrast. Coronal and sagittal reconstructed images. Radiation dose: Total exam DLP = 905.69 mGy-cm. This CT exam was performed using one or more of the following dose reduction techniques: Automated exposure control, adjustment of the mA and/or kV according to patient size, and/or use of iterative reconstruction technique. FINDINGS: HEMORRHAGE: No intracranial hemorrhage. BRAIN: No mass effect or edema. No atrophy or chronic microvascular ischemic changes. VENTRICLES: Unremarkable. No hydrocephalus. CALVARIUM: Unremarkable. PARANASAL SINUSES: Unremarkable as visualized. No significant inflammatory changes. MASTOID AIR CELLS: Unremarkable as visualized. No inflammatory changes. OTHER FINDINGS: None. IMPRESSION: No acute intracranial abnormalities. No significant findings to account for the clinical presentation. No significant interval change compared to the prior examination(s). Concordant results (preliminary interpretation) provided by [employer] Procedure Completed: 02:38 Preliminary (vRad) Report: Dictated and Authenticated: 02:52 Final Interpretation: 09:27 December 31, 2017.
--- NOTE | 2017-12-31 10:30 | RAD ---
HISTORY: fall, R sided thoracic pain COMPARISON: 12/24/2017 TECHNIQUE: Chest PA and lateral FINDINGS: LUNGS: No active pulmonary disease. PLEURA: No significant pleural effusion identified. No pneumothorax apparent. CARDIOVASCULAR: No radiographic findings to suggest acute or significant cardiovascular disease. OSSEOUS STRUCTURES: No significant abnormalities. VISUALIZED UPPER ABDOMEN: Normal. OTHER FINDINGS: None. IMPRESSION: No active disease. No significant interval change compared to the prior examination(s).
== END 2017-12-31 03:58 | disposition home or self-care (01) ==
LOC: ED 02:07
DX: Z04.3 Encounter for examination and observation following other accident (principal); W01.0XXA Fall on same level from slipping, tripping and stumbling without subsequent striking against object, initial encounter; Y92.480 Sidewalk as the place of occurrence of the external cause

== ENCOUNTER 2018-01-05 02:34 | Emergency (ER) | payer MEDICAID ==
[2018-01-05 03:09] VITALS: TEMP 98.3; O2SAT 95; BMI 36.6
--- NOTE | 2018-01-05 03:22 | ED PDOC ---
Arrival/HPI - General Chief Complaint: Lower Extremity Problem/Injury Time Seen by Provider: 01/05/18 02:35 Historian: Patient - History of Present Illness Narrative History of Present Illness (Text): 01/05/18 03:22 Hemant Palacios is a 57 year old male, whose past medical history includes alcohol abuse, mood disorder, COPD, chronic leg pain, and antisocial personality disorder, who presents to the Emergency department requesting a place to sleep for tonight. Patient is well-known to ER staff with multiple evaluations for chronic leg pain, most recent on 12/24/2017. Labs and US of Duplex Lower Extremities were performed and were unremarkable. Patient currently sleeping, was seen ambulating in ER earlier in no acute distress. Patient denies any fever , chills, chest pain, shortness of breath, nausea, vomiting, diarrhea, urinary symptoms, back pain, neck pain, headache, dizziness, or any other complaints. Time/Duration: Other (tonight) Symptom Onset: Gradual Symptom Course: Unchanged Activities at Onset: Light Past Medical History - Provider Review Nursing Documentation Reviewed: Yes - Infectious Disease Hx of Infectious Diseases: None - Tetanus Immunization Tetanus Immunization: Up to Date - Past Medical History Past Medical History: No Previous - Cardiac Hx Cardiac Disorders: Yes Hx Hypertension: Yes - Pulmonary Hx Respiratory Disorders: No - Neurological Hx Neurological Disorder: No - HEENT Hx HEENT Disorder: Yes Other/Comment: retina detachment - Renal Hx Renal Disorder: Yes Hx Renal Failure: Yes - Endocrine/Metabolic Hx Endocrine Disorders: No - Hematological/Oncological Hx Blood Disorders: No - Integumentary Hx Dermatological Disorder: Yes Hx Psoriasis: Yes - Musculoskeletal/Rheumatological Hx Musculoskeletal Disorders: Yes Hx Falls: Yes Hx Fractures: Yes (NASAL SURGERY) - Gastrointestinal Hx Gastrointestinal Disorders: Yes Hx Liver Failure: Yes Other/Comment: ascites - Genitourinary/Gynecological Hx Genitourinary Disorders: No - Psychiatric Hx Psychophysiologic Disorder: Yes Hx Anxiety: Yes Hx Bipolar Disorder: Yes Hx Depression: Yes Hx Substance Use: Yes - Past Surgical History Past Surgical History: No Previous - Surgical History Other/Comment: TIPPS. Nasal surgery. - Anesthesia Hx Anesthesia: Yes Hx Anesthesia Reactions: No Hx Malignant Hyperthermia: No - Suicidal Assessment Feels Threatened In Home Enviroment: No Family/Social History - Physician Review Nursing Documentation Reviewed: Yes Family/Social History: Unknown Family HX Smoking Status: Heavy Smoker > 10 Cigarettes Daily Hx Alcohol Use: Yes (Hx) Amount per day: 3 Hx Substance Use: Yes Hx Substance Use Treatment: No Allergies/Home Meds Allergies/Adverse Reactions: Allergies No Known Allergies Allergy (Verified 01/05/18 03:09) Home Medications: Home Meds Medication Instructions Recorded Confirmed No Known Home Med 12/31/17 01/05/18 Review of Systems - Physician Review All systems were reviewed & negative as marked: Yes - Review of Systems Constitutional: Normal. absent: Fevers Eyes: Normal ENT: Normal Respiratory: Normal. absent: SOB, Cough Cardiovascular: Normal. absent: Chest Pain Gastrointestinal: Normal. absent: Abdominal Pain, Diarrhea, Nausea, Vomiting Genitourinary Male: Normal. absent: Dysuria, Frequency, Hematuria, Urinary Output Changes Musculoskeletal: Normal. absent: Back Pain, Neck Pain Skin: Normal. absent: Rash Neurological: Normal. absent: Headache, Dizziness Endocrine: Normal Hemo/Lymphatic: Normal Psychiatric: Normal Physical Exam Vital Signs Reviewed: Yes Vital Signs Temp Pulse Resp BP Pulse Ox 01/05/18 04:05 106 H 18 137/76 95 01/05/18 03:08 98.3 F 122 H 20 157/76 H 95 Temperature: Afebrile Blood Pressure: Normal Pulse: Regular Respiratory Rate: Normal Appearance: Positive for: Well-Appearing, Non-Toxic, Comfortable Pain Distress: None Mental Status: Positive for: Alert and Oriented X 3 - Systems Exam Head: Present: Atraumatic, Normocephalic Pupils: Present: PERRL Extroacular Muscles: Present: EOMI Conjunctiva: Present: Normal Mouth: Present: Moist Mucous Membranes Neck: Present: Normal Range of Motion Respiratory/Chest: Present: Clear to Auscultation, Good Air Exchange. No: Respiratory Distress, Accessory Muscle Use Cardiovascular: Present: Regular Rate and Rhythm, Normal S1, S2. No: Murmurs Abdomen: No: Tenderness, Distention, Peritoneal Signs Back: Present: Normal Inspection Upper Extremity: Present: Normal Inspection. No: Cyanosis, Edema Lower Extremity: Present: Normal Inspection. No: Edema Neurological: Present: GCS=15, CN II-XII Intact, Speech Normal Skin: Present: Warm, Dry, Normal Color. No: Rashes Psychiatric: Present: Alert, Oriented x 3, Normal Insight, Normal Concentration Medical Decision Making ED Course and Treatment: 01/05/18 03:22 Impression: 57 year old male requesting a place to stay for tonight. Plan: -- Reassess and disposition Prior Visits: Notes and results from previous visits were reviewed. On 12/24/2017, pt was seen in the Emergency department for bilateral lower extremity pain. US Duplex Lower Extremities performed were negative for DVT, labs were unremarkable. Pt was d/c home. Progress Notes: Pt is well-known to ER staff. Evaluated multiple times for chronic leg pain. Evaluation on 12/24/2017 was unremarkable. Pt sleeping, seen ambulating in Emergency department with no difficulty. 01/05/18 19:25 pt ambulated out of er in [facility]. - Lab Interpretations Lab Results: Lab Results 01/05/18 04:30: POC Glucose (mg/dL) 101 - Scribe Statement The provider has reviewed the documentation as recorded by the Domitila Bernstein Provider Scribe Attestation: All medical record entries made by the Scribe were at my direction and personally dictated by me. I have reviewed the chart and agree that the record accurately reflects my personal performance of the history, physical exam, medical decision making, and the department course for this patient. I have also personally directed, reviewed, and agree with the discharge instructions and disposition. Disposition/Present on Arrival - Present on Arrival Any Indicators Present on Arrival: No History of DVT/PE: No History of Uncontrolled Diabetes: No Urinary Catheter: No History of Decub. Ulcer: No History Surgical Site Infection Following: None - Disposition Have Diagnosis and Disposition been Completed?: Yes Diagnosis: Homeless Disposition: HOME/ ROUTINE Disposition Time: 07:00 Condition: STABLE Discharge Instructions (ExitCare): Lower Extremity Muscle Strain Referrals: Kaleb Guidry DO [Primary Care Provider] - Follow up with primary Forms: [employer] (Syriac)
[2018-01-05 05:18] VITALS: BP 137/76; PULSE 106; RESP 18
== END 2018-01-05 06:04 | disposition home or self-care (01) ==
LOC: ED 02:34
DX: Z59.0 Homelessness (principal); I10 Essential (primary) hypertension; F41.9 Anxiety disorder, unspecified; F17.210 Nicotine dependence, cigarettes, uncomplicated

== ENCOUNTER 2018-01-06 07:06 | Emergency (ER) | payer MEDICAID ==
--- NOTE | 2018-01-06 07:33 | ED PDOC ---
Arrival/HPI - General Time Seen by Provider: 01/06/18 07:17 Historian: Patient - History of Present Illness Narrative History of Present Illness (Text): 01/06/18 07:25 57 year old male, whose past medical history includes COPD, alcohol cirrhosis, pancreatitis, and chronic leg pain, presents to the emergency department complaining of chronic bilateral leg swelling, associated with difficulty ambulating. Patient notes he ran out of Lasix and is unsure of the last time he took his Lasix (40mg). Patient denies any fever, shortness of breath, chest pain , abdominal pain, or other complaints. PMD: None Time/Duration: Other (chronic) Symptom Onset: Gradual Symptom Course: Unchanged Past Medical History - Provider Review Nursing Documentation Reviewed: Yes - Infectious Disease Hx of Infectious Diseases: None - Tetanus Immunization Tetanus Immunization: Up to Date - Past Medical History Past Medical History: No Previous - Cardiac Hx Cardiac Disorders: Yes Hx Hypertension: Yes - Pulmonary Hx Respiratory Disorders: No - Neurological Hx Neurological Disorder: No - HEENT Hx HEENT Disorder: Yes Other/Comment: retina detachment - Renal Hx Renal Disorder: Yes Hx Renal Failure: Yes - Endocrine/Metabolic Hx Endocrine Disorders: No - Hematological/Oncological Hx Blood Disorders: No - Integumentary Hx Dermatological Disorder: Yes Hx Psoriasis: Yes - Musculoskeletal/Rheumatological Hx Musculoskeletal Disorders: Yes Hx Falls: Yes Hx Fractures: Yes (NASAL SURGERY) - Gastrointestinal Hx Gastrointestinal Disorders: Yes Hx Liver Failure: Yes Other/Comment: ascites - Genitourinary/Gynecological Hx Genitourinary Disorders: No - Psychiatric Hx Psychophysiologic Disorder: Yes Hx Anxiety: Yes Hx Bipolar Disorder: Yes Hx Depression: Yes Hx Substance Use: Yes - Past Surgical History Past Surgical History: No Previous - Surgical History Other/Comment: TIPPS. Nasal surgery. - Anesthesia Hx Anesthesia: Yes Hx Anesthesia Reactions: No Hx Malignant Hyperthermia: No - Suicidal Assessment Feels Threatened In Home Enviroment: No Family/Social History - Physician Review Nursing Documentation Reviewed: Yes Family/Social History: Unknown Family HX Smoking Status: Heavy Smoker > 10 Cigarettes Daily Hx Alcohol Use: Yes (Hx) Amount per day: 3 Hx Substance Use: Yes Hx Substance Use Treatment: No Allergies/Home Meds Allergies/Adverse Reactions: Allergies No Known Allergies Allergy (Verified 01/05/18 03:09) Review of Systems - Review of Systems Constitutional: absent: Fevers ENT: absent: Sore Throat Respiratory: absent: SOB Cardiovascular: absent: Chest Pain Gastrointestinal: absent: Abdominal Pain Genitourinary Male: absent: Dysuria, Frequency Musculoskeletal: Other (bilateral leg pain and swelling). absent: Back Pain Skin: absent: Rash Neurological: absent: Headache Endocrine: absent: Diaphoresis Physical Exam Vital Signs Reviewed: Yes Vital Signs Temp Pulse Resp BP Pulse Ox 01/06/18 07:39 155/84 H 01/06/18 07:29 98.2 F 106 H 18 155/94 H 95 Temperature: Afebrile Blood Pressure: Hypertensive Pulse: Tachycardic Respiratory Rate: Normal Appearance: Positive for: Non-Toxic, Comfortable, Unkept (foul odor) Pain Distress: None Mental Status: Positive for: Alert and Oriented X 3 - Systems Exam Head: Present: Atraumatic, Normocephalic Pupils: Present: PERRL Extroacular Muscles: Present: EOMI Conjunctiva: Present: Normal Mouth: Present: Moist Mucous Membranes Respiratory/Chest: Present: Clear to Auscultation, Good Air Exchange. No: Respiratory Distress, Accessory Muscle Use, Wheezes, Rales, Retracting, Rhonchi Cardiovascular: Present: Regular Rate and Rhythm, Normal S1, S2. No: Murmurs Abdomen: No: Tenderness, Distention, Peritoneal Signs, Rebound, Guarding Lower Extremity: Present: Edema, NORMAL PULSES (+2 pedal pulses), Normal ROM, Swelling, Neurovascularly Intact. No: Normal Inspection, Erythema, Deformity, Temperature Abnormalties Neurological: Present: GCS=15, CN II-XII Intact, Speech Normal Skin: Present: Warm, Dry, Normal Color. No: Rashes Psychiatric: Present: Alert, Oriented x 3, Normal Insight, Normal Concentration Medical Decision Making ED Course and Treatment: 01/06/18 Impression: 57 year old male with bilateral +2 edema in lower extremities complaining of chronic bilateral leg swelling and discomfort. Differential Diagnosis included but are not limited to: Chronic leg pain and swelling Plan: -- Lasix and Motrin -- Reassess and disposition Prior Visits: Notes and results from previous visits were reviewed. Patient was last seen in the emergency department on 01/05/18. Progress Notes: 01/06/18 lower extremity ultrasound was negative on 12/24/17. Patient was advised that he needs to make sure he takes his medications and to follow up with clinic. - Medication Orders Current Medication Orders: Discontinued Medications Furosemide (Lasix) 40 mg PO STAT STA Stop: 01/06/18 07:33 Last Admin: 01/06/18 07:39 Dose: 40 mg MAR Blood Pressure Document 01/06/18 07:39 SRE (Rec: 01/06/18 07:40 [id number] [id number]) Blood Pressure Blood Pressure (100/60-150/90) 155/84 Ibuprofen (Motrin Tab) 600 mg PO STAT STA Stop: 01/06/18 07:36 Last Admin: 01/06/18 07:41 Dose: 600 mg MAR Pain/Vitals Document 01/06/18 07:41 SRE (Rec: 01/06/18 07:42 SRE [id number]) Pain Reassessment Is This A Pain ReAssessment? Yes Sleep Is patient sleeping during reassessment? No Presence of Pain Presence of Pain Yes Pain Scale Used Pain Scale Used Numeric Location Left, Right or Bilateral Bilateral Pain Location Body Site legs Description Intermittent - Scribe Statement The provider has reviewed the documentation as recorded by the Darie Padmini Turpin Provider Scribe Attestation: All medical record entries made by the Scribe were at my direction and personally dictated by me. I have reviewed the chart and agree that the record accurately reflects my personal performance of the history, physical exam, medical decision making, and the department course for this patient. I have also personally directed, reviewed, and agree with the discharge instructions and disposition. Disposition/Present on Arrival - Present on Arrival Any Indicators Present on Arrival: No History of DVT/PE: No History of Uncontrolled Diabetes: No Urinary Catheter: No History Surgical Site Infection Following: None - Disposition Have Diagnosis and Disposition been Completed?: Yes Diagnosis: Leg pain, Leg swelling Disposition: HOME/ ROUTINE Disposition Time: 07:49 Patient Plan: Discharge Condition: IMPROVED Additional Instructions: Mr Palacios, thank you for letting us take care of you today. Your provider was Dr. Garcia. You were treated for Leg Pain and Swelling. The emergency medical care you received today was directed at your acute symptoms. If you were prescribed any medication, please fill it and take as directed. It may take several days for your symptoms to resolve. Return to the Emergency Department if your symptoms worsen, do not improve, or if you have any other problems. Please contact your doctor or call one of the physicians/clinics you have been referred to that are listed on the Patient Visit Information form that is included in your discharge packet. Bring any paperwork you were given at discharge with you along with any medications you are taking to your follow up visit. Our treatment cannot replace ongoing medical care by a primary care provider (PCP) outside of the emergency department. Thank you for allowing the [facility] team to be part of your care today. If you had an X-Ray or CT scan: A Radiologist will review the ED reading if any change in treatment is needed we will contact you. If you had a blood, urine, or wound culture: It will take several days for the results, if any change in treatment is needed we will contact you. If you had an STI test: It will take 48 hours for the results. Please call after 1 week if you have not heard back. Prescriptions: Furosemide [Lasix] 40 mg PO DAILY #20 tablet Referrals: [facility] at [facility] [Outside] - Follow up with primary Forms: [employer] (Telugu)
[2018-01-06 07:35] VITALS: PULSE 106; RESP 18; TEMP 98.2; O2SAT 95; BMI 36.3
[2018-01-06 07:43] VITALS: BP 155/84
== END 2018-01-06 07:49 | disposition home or self-care (01) ==
LOC: ED 07:06
DX: M79.89 Other specified soft tissue disorders (principal); M79.605 Pain in left leg; M79.604 Pain in right leg

== ENCOUNTER 2018-01-07 03:48 | Inpatient (IN) | payer MEDICAID ==
[2018-01-07 04:00] VITALS: BMI 36.6
--- NOTE | 2018-01-07 04:21 | ED PDOC ---
Arrival/HPI - General Chief Complaint: Alcohol Ingestion Time Seen by Provider: 01/07/18 03:59 Historian: Patient - History of Present Illness Narrative History of Present Illness (Text): 01/07/18 04:17 A 57 year old male, whose past medical history includes COPD, alcohol cirrhosis , pancreatitis, and chronic leg pain, presents to the emergency department expressing suicidal ideation. The patient notes that he feels like he wants to jump in front of a light rail train. He admits to alcohol use this evening. The patient denies fevers, chills, headache, dizziness, chest pain, shortness of breath, dyspnea on exertion, cough, abdominal pain, nausea, vomiting, diarrhea, back pain, neck pain, urinary/bowel changes, or any other complaint. Time/Duration: Prior to Arrival Symptom Onset: Sudden Symptom Course: Unchanged Activities at Onset: Rest, Light Context: Home Past Medical History - Provider Review Nursing Documentation Reviewed: Yes - Infectious Disease Hx of Infectious Diseases: None - Tetanus Immunization Tetanus Immunization: Up to Date - Past Medical History Past Medical History: No Previous - Cardiac Hx Cardiac Disorders: Yes Hx Hypertension: Yes - Pulmonary Hx Respiratory Disorders: No - Neurological Hx Neurological Disorder: No - HEENT Hx HEENT Disorder: Yes Other/Comment: retina detachment - Renal Hx Renal Disorder: Yes Hx Renal Failure: Yes - Endocrine/Metabolic Hx Endocrine Disorders: No - Hematological/Oncological Hx Blood Disorders: No - Integumentary Hx Dermatological Disorder: Yes Hx Psoriasis: Yes - Musculoskeletal/Rheumatological Hx Musculoskeletal Disorders: Yes Hx Falls: Yes Hx Fractures: Yes (NASAL SURGERY) - Gastrointestinal Hx Gastrointestinal Disorders: Yes Hx Liver Failure: Yes Other/Comment: ascites - Genitourinary/Gynecological Hx Genitourinary Disorders: No - Psychiatric Hx Psychophysiologic Disorder: Yes Hx Anxiety: Yes Hx Bipolar Disorder: Yes Hx Depression: Yes Hx Substance Use: Yes - Past Surgical History Past Surgical History: No Previous - Surgical History Other/Comment: TIPPS. Nasal surgery. - Anesthesia Hx Anesthesia: Yes Hx Anesthesia Reactions: No Hx Malignant Hyperthermia: No - Suicidal Assessment Feels Threatened In Home Enviroment: No Family/Social History - Physician Review Nursing Documentation Reviewed: Yes Family/Social History: No Known Family HX Smoking Status: Heavy Smoker > 10 Cigarettes Daily Hx Alcohol Use: Yes (Hx) Amount per day: 3 Hx Substance Use: Yes Hx Substance Use Treatment: No Allergies/Home Meds Allergies/Adverse Reactions: Allergies No Known Allergies Allergy (Verified 01/05/18 03:09) Review of Systems - Physician Review All systems were reviewed & negative as marked: Yes - Review of Systems Respiratory: absent: SOB, Cough Cardiovascular: absent: Chest Pain, PASTRANA Gastrointestinal: absent: Abdominal Pain, Diarrhea, Nausea, Vomiting Musculoskeletal: absent: Back Pain, Neck Pain Neurological: absent: Headache, Dizziness Psychiatric: Suicidal Ideation Physical Exam Vital Signs Reviewed: Yes Vital Signs Temp Pulse Resp BP Pulse Ox 01/07/18 17:26 118/72 01/07/18 16:16 82 18 126/80 96 01/07/18 13:38 94 H 18 112/65 94 L 01/07/18 11:29 82 18 108/70 96 01/07/18 08:50 72 18 108/71 96 01/07/18 07:00 70 18 110/70 97 01/07/18 04:16 97.9 F 71 18 108/67 97 Temperature: Afebrile Blood Pressure: Normal Pulse: Regular Respiratory Rate: Normal Appearance: Positive for: Well-Appearing, Non-Toxic, Comfortable Pain Distress: None Mental Status: Positive for: Alert and Oriented X 3 - Systems Exam Head: Present: Atraumatic, Normocephalic Pupils: Present: PERRL Extroacular Muscles: Present: EOMI Conjunctiva: Present: Normal Mouth: Present: Moist Mucous Membranes Neck: Present: Normal Range of Motion Respiratory/Chest: Present: Clear to Auscultation, Good Air Exchange. No: Respiratory Distress, Accessory Muscle Use Cardiovascular: Present: Regular Rate and Rhythm, Normal S1, S2. No: Murmurs Abdomen: No: Tenderness, Distention, Peritoneal Signs Back: Present: Normal Inspection Upper Extremity: Present: Normal Inspection. No: Cyanosis, Edema Lower Extremity: Present: Normal Inspection. No: Edema Neurological: Present: GCS=15, CN II-XII Intact, Speech Normal Skin: Present: Warm, Dry, Normal Color. No: Rashes Psychiatric: Present: Alert, Oriented x 3, Normal Insight, Normal Concentration Medical Decision Making ED Course and Treatment: 01/07/18 04:20 Impression: A 57 year old male presents to the emergency department expressing suicidal ideation and admitting to alcohol use this evening. Plan: -- Labs -- Urinalysis -- Reassess and disposition Progress Notes: 01/07/18 04:20: PES worker has been paged. - Lab Interpretations Lab Results: 01/07/18 04:23 01/07/18 04:23 Lab Results 01/07/18 14:55: Urine Opiates Screen Negative, Urine Methadone Screen Negative, Ur Barbiturates Screen Negative, Ur Phencyclidine Scrn Negative, Ur Amphetamines Screen Negative, U Benzodiazepines Scrn Negative, U Oth Cocaine Metabols Negative, U Cannabinoids Screen Negative 01/07/18 13:34: Lactate Dehydrogenase 731 H, Total Creatine Kinase 366 H, CK-MB (CK-2) 3.0, CK-MB (CK-2) % Cancelled, Troponin I < 0.01, NT-Pro-B Natriuret Pep 48.7 01/07/18 04:23: Alcohol, Quantitative 294 H 01/07/18 04:23: Salicylates < 1 L, Acetaminophen < 10.0 L 01/07/18 04:23: Sodium 144, Potassium 3.6, Chloride 106, Carbon Dioxide 24, Anion Gap 18, BUN 10, Creatinine 0.9, Est GFR ( Amer) > 60, Est GFR (Non- Af Amer) > 60, Random Glucose 87, Calcium 9.3, Total Bilirubin 1.1, AST 148 H D , ALT 60 H, Alkaline Phosphatase 107, Total Protein 8.0, Albumin 3.7, Globulin 4.3, Albumin/Globulin Ratio 0.9 L 01/07/18 04:23: Urine Color Yellow, Urine Appearance Sl cloudy, Urine pH 6.0, Ur Specific [place] 1.015, Urine Protein 100 H, Urine Glucose (UA) Negative, Urine Ketones Negative, Urine Blood Small H, Urine Nitrate Negative, Urine Bilirubin Negative, Urine Urobilinogen 0.2, Ur Leukocyte Esterase Negative, Urine RBC 1 - 3, Urine WBC 0 - 2, Ur Epithelial Cells 0 - 2, Urine Bacteria Occ 01/07/18 04:23: WBC 4.0 L D, RBC 4.52, Hgb 12.4 L, Hct 37.1 L, MCV 82.1, MCH 27.4, MCHC 33.4, RDW 16.1 H, Plt Count 90 L, MPV 10.4, Gran % 36.7 L, Lymph % ( Auto) 39.6 H, [place] % (Auto) 15.8 H, Eos % (Auto) 6.2 H, Baso % (Auto) 1.7, Gran # 1.48, Lymph # (Auto) 1.6, [place] # (Auto) 0.6, Eos # (Auto) 0.3, Baso # (Auto) 0.07 01/07/18 04:10: POC Glucose (mg/dL) 71 I have reviewed the lab results: Yes - RAD Interpretation Radiology Orders: 01/07/18 12:15 CHEST PORTABLE [RAD] Stat - Medication Orders Current Medication Orders: Diphenhydramine HCl (Benadryl) 25 mg PO HS PRN PRN Reason: Insomnia Enoxaparin Sodium (Lovenox) 40 mg SC DAILY RORY PRN Reason: Protocol Last Admin: 01/08/18 09:08 Dose: 40 mg Subcutaneous Administrations Document 01/08/18 09:08 BOBBY (Rec: 01/08/18 09:09 [facility] Injection Site MAR Injection Site Right Abdomen Charges for Administration # of Subcutaneous Administrations 1 Furosemide (Lasix) 40 mg PO DAILY [facility] Last Admin: 01/08/18 09:12 Dose: 40 mg MAR Blood Pressure Document 01/08/18 09:12 BOBBY (Rec: 01/08/18 09:12 [facility]) Blood Pressure Blood Pressure (100/60-150/90) 142/82 Lorazepam (Ativan) 1 mg IVP Q4H RORY PRN Reason: Protocol Last Admin: 01/09/18 08:05 Dose: 1 mg IVP Administration Document 01/09/18 08:05 SOUSV (Rec: 01/09/18 08:06 SOUSV [id number]) Charges for Administration # of IVP Administrations 1 Behavioural Document 01/09/18 08:05 SOUSV (Rec: 01/09/18 08:06 SOUSV [id number]) Maintenance Maintenance Dose No Nonmedicinal Nonmedicinal Interventions Redirect Therapeutic Communication Behavior Behavior for Medication: Continuous pacing/restlessness Behavior Comment ETOH WD tremors Pantoprazole Sodium (Protonix Ec Tab) 40 mg PO 0600 [facility] Last Admin: 01/09/18 05:21 Dose: 40 mg Potassium Chloride (K-Dur 20 Meq Er Tab) 40 meq PO BRK [facility] Last Admin: 04/09/18 08:05 Dose: 40 meq Ziprasidone (Geodon Inj) 20 mg IM Q12H PRN; Protocol PRN Reason: Agitation Discontinued Medications Chlordiazepoxide (Librium) 50 mg PO STAT STA PRN Reason: Protocol Stop: 01/07/18 17:15 Last Admin: 01/07/18 17:27 Dose: 50 mg Re-Assess: Reassess Psych Meds Document 01/07/18 18:27 BOBBY (Rec: 01/07/18 18:35 BOBBY [id number]) Reassess Psych Med Effective Furosemide (Lasix) 40 mg PO STAT STA Stop: 01/07/18 17:12 Last Admin: 01/07/18 17:26 Dose: 40 mg MAR Blood Pressure Document 01/07/18 17:26 RR (Rec: 01/07/18 17:27 RR [id number]) Blood Pressure Blood Pressure (100/60-150/90) 118/72 Multivitamins/Vitamin C 10 ml/Thiamine HCl 100 mg/ Folic Acid 1 mg/ Dextrose 1, 011.2 mls @ 1,000 mls/hr IV .Q1H1M ONE Stop: 01/07/18 13:57 Last Admin: 01/07/18 13:36 Dose: 1,000 mls/hr eMAR Start Stop Document 01/07/18 13:36 RR (Rec: 01/07/18 13:36 RR [id number]) Intravenous Solution Start Date 01/07/18 Start Time 13:36 End Date 01/07/18 End time 14:36 Total Infusion Time 60 Multivitamins/Vitamin C 10 ml/Thiamine HCl 100 mg/ Folic Acid 1 mg/ Sodium Chloride 1,011.2 mls @ 100 mls/hr IV .Q10H7M ONE Stop: 01/08/18 04:47 Last Admin: 01/07/18 21:00 Dose: 100 mls/hr eMAR Start Stop Document 01/07/18 21:00 SG (Rec: 01/07/18 23:16 SG [id number]) Intravenous Solution Start Date 01/07/18 Start Time 21:00 Lorazepam (Ativan) 1 mg IVP Q4H PRN; Protocol PRN Reason: Symptoms of alcohol withdrawl Last Admin: 01/08/18 09:09 Dose: 1 mg IVP Administration Document 01/08/18 09:09 BOBBY (Rec: 01/08/18 09:09 [facility] Charges for Administration # of IVP Administrations 1 Behavioural Document 01/08/18 09:09 BOBBY (Rec: 01/08/18 09:09 BOBBY [facility]) Maintenance Maintenance Dose Yes Behavior Behavior for Medication: Anxiety Re-Assess: Reassess Psych Meds Document 01/08/18 09:39 BOBBY (Rec: 01/08/18 10:25 BOBBY [facility]) Reassess Psych Med Effective Lorazepam (Ativan) 1 mg IVP Q4H RORY PRN Reason: Protocol Ondansetron HCl (Zofran Inj) 4 mg IVP ONCE ONE Stop: 01/08/18 05:06 Last Admin: 01/08/18 05:15 Dose: 4 mg IVP Administration Document 01/08/18 05:15 SG (Rec: 01/08/18 05:15 SG [facility]) Charges for Administration # of IVP Administrations 1 - Scribe Statement The provider has reviewed the documentation as recorded by the Dionibgloria Goetz Provider Scribe Attestation: All medical record entries made by the Scribe were at my direction and personally dictated by me. I have reviewed the chart and agree that the record accurately reflects my personal performance of the history, physical exam, medical decision making, and the department course for this patient. I have also personally directed, reviewed, and agree with the discharge instructions and disposition. Disposition/Present on Arrival - Present on Arrival Any Indicators Present on Arrival: No History of DVT/PE: No History of Uncontrolled Diabetes: No Urinary Catheter: No History of Decub. Ulcer: No History Surgical Site Infection Following: None - Disposition Have Diagnosis and Disposition been Completed?: Yes Diagnosis: Alcohol intoxication, Depression, Alcohol withdrawal, Leg pain, Leg edema Disposition: HOSPITALIZED Disposition Time: 07:00 Patient Problems: Current Active Problems Problem Status Onset Alcohol intoxication Acute Alcohol withdrawal syndrome Acute Depression Acute Leg edema Acute Leg pain Acute Condition: FAIR
[2018-01-07 04:46] LABS: URINE BILIRUBIN NEGATIVE (NEGATIVE); URINE BLOOD SMALL (NEGATIVE); URINE GLUCOSE (UA) NEGATIVE (NEGATIVE); URINE LEUKOCYTE ESTERASE NEGATIVE Leu/uL (NEGATIVE); URINE PROTEIN 100 mg/dL (<30 mg/dL); URINE UROBILINOGEN 0.2 E.U./dL (<1 E.U./dL)
[2018-01-07 04:52] LABS: ACETAMINOPHEN < 10.0 ug/ml (10.0-20.0); SALICYLATE < 1 mg/dL (2.0-20.0)
[2018-01-07 04:53] LABS: BASO # 0.07 K/mm3 (0.0-2.0); BASO % 1.7 % (0.0-3.0); EOS # 0.3 (0.0-0.7); EOS % 6.2 % (1.5-5.0); GRAN # 1.48 (1.4-6.5); GRAN % 36.7 % (50.0-68.0); HEMOGLOBIN 12.4 g/dL (14.0-18.0); LYMPH # 1.6 (1.2-3.4); LYMPH % 39.6 % (22.0-35.0); MEAN CELL VOLUME 82.1 fl (80.0-105.0); MEAN CORPUSCULAR HEMOGLOBIN 27.4 pg (25.0-35.0); MEAN CORPUSCULAR HGB CONC 33.4 g/dl (31.0-37.0); MEAN PLATELET VOLUME 10.4 fl (7.0-11.0); MONO # 0.6 (0.1-0.6); MONO % 15.8 % (1.0-6.0); RBC 4.52 10^6/uL (3.5-6.1); RED CELL DISTRIBUTION WIDTH 16.1 % (11.5-14.5)
[2018-01-07 04:54] LABS: URINE APPEARANCE SL CLOUDY (CLEAR); URINE COLOR YELLOW (YELLOW)
[2018-01-07 05:08] LABS: URINE EPITHELIAL CELLS 0 - 2 /hpf (0-5); URINE WBC 0 - 2 /hpf (0-6)
[2018-01-07 05:09] LABS: URINE BACTERIA OCC (NEG)
[2018-01-07 05:22] LABS: ALB/GLOB RATIO 0.9 (1.1-1.8); ALBUMIN 3.7 g/dL (3.0-4.8); ALT/SGPT 60 U/L (7-56); AST/SGOT 148 U/L (17-59); BLOOD UREA NITROGEN 10 mg/dL (7-21); CALCIUM 9.3 mg/dL (8.4-10.5); GFR AFRICAN-AMERICAN > 60; GFR NON-AFRICAN AMERICAN > 60
[2018-01-07] MEDS ORDERED: Multivitamin (MVI) 10 ML, Thiamine 100 MG, Folic Acid 1 MG in Dextrose 5% In Water 1,00... IV ONE (12:57)
--- NOTE | 2018-01-07 13:10 | RAD ---
HISTORY: sob COMPARISON: 12/31/2017 FINDINGS: LUNGS: No active pulmonary disease. PLEURA: No significant pleural effusion identified, no pneumothorax apparent. CARDIOVASCULAR: Mild cardiomegaly OSSEOUS STRUCTURES: No significant abnormalities. VISUALIZED UPPER ABDOMEN: Normal. OTHER FINDINGS: None. IMPRESSION: No active disease.
[2018-01-07 14:03] LABS: B-TYPE NATRIURETIC PEPTIDE 48.7 pg/mL (0-450); TROPONIN I < 0.01 ng/mL
--- NOTE | 2018-01-07 14:45 | ED PDOC ---
Physical Exam Vital Signs Temp Pulse Resp BP Pulse Ox 01/07/18 16:16 82 18 126/80 96 01/07/18 13:38 94 H 18 112/65 94 L 01/07/18 11:29 82 18 108/70 96 01/07/18 08:50 72 18 108/71 96 01/07/18 07:00 70 18 110/70 97 01/07/18 04:16 97.9 F 71 18 108/67 97 Medical Decision Making ED Course and Treatment: 01/07/18 14:42 Patient endorsed to me from previous shift. I re-examined patient a 0730 he is sleeping, easily arousable, states that he has been feeling depressed and drinking. Given elevated alcohol level, patient monitored in ED with serial exams. At 1100, patient sleeping, easily arousable. Denies headache or chest pain or shortness of breath. Denies ACUTE visual symptoms. Reports pain to both legs "for years", denies worsening of pain or swelling. I did review RECENT ultrasound report last month which was negative for DVT. He denies any change in character or location of leg pain. Denies cough or shortness of breath. At 14:00, alert, no slurred speech. Denies chest pain or shortness of breath. For CURRENT exam, patient was medically cleared for PES evaluation. 01/07/18 13:12 Chest X-ray Creator : Frank Hsieh MD FINDINGS: LUNGS: No active pulmonary disease. PLEURA: No significant pleural effusion identified, no pneumothorax apparent. CARDIOVASCULAR: Mild cardiomegaly OSSEOUS STRUCTURES: No significant abnormalities. VISUALIZED UPPER ABDOMEN: Normal. IMPRESSION: No active disease. 01/07/18 17:16 Re-exam. Patient awake, conversive. Tachycardic. Mildly tremulous. Denies chest pain or abdominal pain. Denies acute visual changes. Afebrile. Has not taken his lasix. Oral lasix ordered. Librium ordered. Case d/w hospitalist will admit for impending alcohol withdrawal, monitoring of symptoms, psychiatric consultation. - Lab Interpretations Lab Results: 01/07/18 04:23 01/07/18 04:23 Lab Results 01/07/18 14:55: Urine Opiates Screen Negative, Urine Methadone Screen Negative, Ur Barbiturates Screen Negative, Ur Phencyclidine Scrn Negative, Ur Amphetamines Screen Negative, U Benzodiazepines Scrn Negative, U Oth Cocaine Metabols Negative, U Cannabinoids Screen Negative 01/07/18 13:34: Lactate Dehydrogenase 731 H, Total Creatine Kinase 366 H, CK-MB (CK-2) 3.0, CK-MB (CK-2) % Cancelled, Troponin I < 0.01, NT-Pro-B Natriuret Pep 48.7 01/07/18 04:23: Alcohol, Quantitative 294 H 01/07/18 04:23: Salicylates < 1 L, Acetaminophen < 10.0 L 01/07/18 04:23: Sodium 144, Potassium 3.6, Chloride 106, Carbon Dioxide 24, Anion Gap 18, BUN 10, Creatinine 0.9, Est GFR ( Amer) > 60, Est GFR (Non- Af Amer) > 60, Random Glucose 87, Calcium 9.3, Total Bilirubin 1.1, AST 148 H D , ALT 60 H, Alkaline Phosphatase 107, Total Protein 8.0, Albumin 3.7, Globulin 4.3, Albumin/Globulin Ratio 0.9 L 01/07/18 04:23: Urine Color Yellow, Urine Appearance Sl cloudy, Urine pH 6.0, Ur Specific [place] 1.015, Urine Protein 100 H, Urine Glucose (UA) Negative, Urine Ketones Negative, Urine Blood Small H, Urine Nitrate Negative, Urine Bilirubin Negative, Urine Urobilinogen 0.2, Ur Leukocyte Esterase Negative, Urine RBC 1 - 3, Urine WBC 0 - 2, Ur Epithelial Cells 0 - 2, Urine Bacteria Occ 01/07/18 04:23: WBC 4.0 L D, RBC 4.52, Hgb 12.4 L, Hct 37.1 L, MCV 82.1, MCH 27.4, MCHC 33.4, RDW 16.1 H, Plt Count 90 L, MPV 10.4, Gran % 36.7 L, Lymph % ( Auto) 39.6 H, [place] % (Auto) 15.8 H, Eos % (Auto) 6.2 H, Baso % (Auto) 1.7, Gran # 1.48, Lymph # (Auto) 1.6, [place] # (Auto) 0.6, Eos # (Auto) 0.3, Baso # (Auto) 0.07 01/07/18 04:10: POC Glucose (mg/dL) 71 - RAD Interpretation Radiology Orders: 01/07/18 12:15 CHEST PORTABLE [RAD] Stat Watch Dial Printer: Radiologist - EKG Interpretation EKG Interpretation (Text): 01/07/18 14:44 EKG sinus tachycardia with premature atrial complexes Interpreted by ED Physician: Yes Type: 12 lead EKG - Medication Orders Current Medication Orders: Chlordiazepoxide (Librium) 50 mg PO STAT STA PRN Reason: Protocol Stop: 01/07/18 17:15 Discontinued Medications Furosemide (Lasix) 40 mg PO STAT STA Stop: 01/07/18 17:12 Multivitamins/Vitamin C 10 ml/Thiamine HCl 100 mg/ Folic Acid 1 mg/ Dextrose 1, 011.2 mls @ 1,000 mls/hr IV .Q1H1M ONE Stop: 01/07/18 13:57 Last Admin: 01/07/18 13:36 Dose: 1,000 mls/hr eMAR Start Stop Document 01/07/18 13:36 RR (Rec: 01/07/18 13:36 RR [id number]) Intravenous Solution Start Date 01/07/18 Start Time 13:36 End Date 01/07/18 End time 14:36 Total Infusion Time 60 Disposition/Present on Arrival - Present on Arrival Any Indicators Present on Arrival: No History of DVT/PE: No History of Uncontrolled Diabetes: No Urinary Catheter: No History of Decub. Ulcer: No History Surgical Site Infection Following: None - Disposition Have Diagnosis and Disposition been Completed?: Yes Diagnosis: Alcohol intoxication, Depression, Alcohol withdrawal, Leg pain, Leg edema Disposition: HOSPITALIZED Disposition Time: 17:18 Patient Plan: Admission, Telemetry Patient Problems: Current Active Problems Problem Status Onset Alcohol intoxication Acute Depression Acute Condition: FAIR Referrals: Kaleb Guidry DO [Primary Care Provider] - Follow up with primary Forms: [employer] ([place])
--- NOTE | 2018-01-07 15:59 | CARD ---
APPROVED REPORT EKG Measurement Heart [id number] CT [id number] <Conclusion> Sinus tachycardia with PVCs Indeterminate axis Borderline ECG
[2018-01-07 16:00] LABS: BARBITURATES, UR NEGATIVE (NEGATIVE); BENZODIAZEPINES, UR NEGATIVE (NEGATIVE); OPIATES, UR NEGATIVE (NEGATIVE); PHENCYCLIDINE, UR NEGATIVE (NEGATIVE)
--- NOTE | 2018-01-07 18:22 | CP.PCM.HP ---
<Cristiano Trevino - Last Filed: 01/07/18 18:33> History of Present Illness - History of Present Illness History of Present Illness: 56 year old male, whose past medical history includes COPD, cirrhosis s/p TIPS procedure, PUD, GI bleeding, HBV/HCV, esophageal varices, pancreatitis, chronic lower extremity edema/venous stasis, alcohol abuse, homelessness who presented to the ED after a long stay on the streets. Patient reports leg pain, drinking 10 beers and a pint of vodka, and feeling depressed enough to think about jumping on a train track. He denies any nausea, vomiting, palpitations, chest pain, diaphoresis, cough, fever, chills, diarrhea, blood per rectum. In the ED he was found to have an blood alcohol level of 250+. He admits to being a burden on society and waiting for his checks to come through from the [employer] government. Otherwise 12 point review is negative. PMH: COPD, seizure, hepatitis C, hepatitis B, alcohol abuse, pancreatitis, and chronic lower extremity edema PSH: Tonsillectomy, TIPPS procedure Family: Mother- emphysema Social: Reports 20 year pack history, history of chronic alcohol abuse, and denies illicit drug use currently but admits to using in the past; [place] [address] Allergy: NKDA Home Meds: Denies, but chart review indicated Lasix 40 mg PO daily Present on Admission - Present on Admission Any Indicators Present on Admission: No Review of Systems - Review of Systems All systems: reviewed and no additional remarkable complaints except (as per HPI ) Past Patient History - Infectious Disease Hx of Infectious Diseases: None - Tetanus Immunizations Tetanus Immunization: Up to Date - Past Medical History & Family History Past Medical History?: Yes - Past Social History Smoking Status: Heavy Smoker > 10 Cigarettes Daily - CARDIAC Hx Cardiac Disorders: Yes Hx Hypertension: Yes - PULMONARY Hx Respiratory Disorders: No - NEUROLOGICAL Hx Neurological Disorder: No - HEENT Hx HEENT Problems: Yes Other/Comment: retina detachment - RENAL Hx Chronic Kidney Disease: Yes Hx Renal Failure: Yes - ENDOCRINE/METABOLIC Hx Endocrine Disorders: No - HEMATOLOGICAL/ONCOLOGICAL Hx Blood Disorders: No - INTEGUMENTARY Hx Dermatological Problems: Yes Hx Psoriasis: Yes - MUSCULOSKELETAL/RHEUMATOLOGICAL Hx Musculoskeletal Disorders: Yes Hx Falls: Yes Hx Fractures: Yes (NASAL SURGERY) - GASTROINTESTINAL Hx Gastrointestinal Disorders: Yes Hx Liver Failure: Yes Other/Comment: ascites - GENITOURINARY/GYNECOLOGICAL Hx Genitourinary Disorders: No - PSYCHIATRIC Hx Psychophysiologic Disorder: Yes Hx Anxiety: Yes Hx Bipolar Disorder: Yes Hx Depression: Yes Hx Substance Use: Yes - SURGICAL HISTORY Other/Comment: TIPPS. Nasal surgery. - ANESTHESIA Hx Anesthesia: Yes Hx Anesthesia Reactions: No Hx Malignant Hyperthermia: No Meds Allergies/Adverse Reactions: Allergies Allergy/AdvReac Type Severity Reaction Status Date / Time No Known Allergies Allergy Verified 01/05/18 03:09 Physical Exam - Constitutional Appears: Unkempt - Head Exam Head Exam: ATRAUMATIC, NORMOCEPHALIC - Eye Exam Eye Exam: EOMI, Periorbital swelling - ENT Exam ENT Exam: Mucous Membranes Moist, Normal Oropharynx - Neck Exam Additional comments: JVD - Respiratory Exam Respiratory Exam: Prolonged Expiratory Phase, NORMAL BREATHING PATTERN. absent : Accessory Muscle Use - Cardiovascular Exam Cardiovascular Exam: Tachycardia, +S1, +S2 - GI/Abdominal Exam GI & Abdominal Exam: Normal Bowel Sounds, Soft. absent: Guarding - Extremities Exam Extremities exam: Negative for: calf tenderness Additional comments: non-pitting edema, swollen and chronic venous stasis - Back Exam Back exam: NORMAL INSPECTION. absent: CVA tenderness (L), CVA tenderness (R) - Neurological Exam Neurological exam: Alert, Oriented x3 - Psychiatric Exam Psychiatric exam: Normal Affect, Normal Mood - Skin Skin Exam: Dry, Intact, Normal Color, Warm Results - Vital Signs Recent Vital Signs: Last Vital Signs Temp 97.9 F 01/07/18 04:16 Pulse 82 01/07/18 16:16 Resp 18 01/07/18 16:16 BP 118/72 01/07/18 17:26 Pulse Ox 96 01/07/18 16:16 - Labs Result Diagrams: 01/07/18 04:23 01/07/18 04:23 Assessment & Plan - Assessment and Plan (Free Text) Assessment: 57 year old homeless male presenting acutely intoxicated with a blood alcohol level of 294 and with claims of suicidal ideation. He will be monitored for alcohol withdrawal, depression, and suicidal ideation. Plan: 1) Alcohol Withdrawal with suicidal ideation in a homeless male - 1:1 for suicide prevention - Psychiatry consulted - Ativan 1 mg q4h PRN - CIWA, fall, seizure precautions - Geodon PRN for agitation - Thiamine, folic acid, multivitamin 2) Chronic lower extremity edema - Lasix 40 - HHD 3) DVT/GI prophylaxis - Lovenox - Protonix - Date & Time Date: 01/07/18 Time: 18:46 <Camila Sewell - Last Filed: 01/08/18 13:58> Results - Vital Signs Recent Vital Signs: Last Vital Signs Temp 99.3 F 01/08/18 07:26 Pulse 102 H 01/08/18 07:26 Resp 22 01/08/18 07:26 BP 142/82 01/08/18 09:12 Pulse Ox 93 L 01/08/18 07:26 - Labs Result Diagrams: 01/08/18 06:00 01/08/18 06:00 Labs: Laboratory Results - last 24 hr 01/08/18 01/08/18 06:00 06:00 WBC 4.4 L RBC 4.34 Hgb 11.7 L Hct 36.0 L MCV 82.9 MCH 27.0 MCHC 32.5 RDW 15.9 H Plt Count 85 L Gran % 52.7 Lymph % (Auto) 23.4 [place] % (Auto) 20.5 H Eos % (Auto) 2.3 Baso % (Auto) 1.1 Gran # 2.32 Lymph # (Auto) 1.0 L [place] # (Auto) 0.9 H Eos # (Auto) 0.1 Baso # (Auto) 0.05 Neutrophils % (Manual) 49 L Lymphocytes % (Manual) 22 Monocytes % (Manual) 24 H Eosinophils % (Manual) 4 H Basophils % (Manual) 1 Platelet Evaluation Low Sodium 139 Potassium 3.2 L Chloride 102 Carbon Dioxide 29 Anion Gap 11 BUN 11 Creatinine 0.8 Est GFR ( Amer) > 60 Est GFR (Non-Af Amer) > 60 Random Glucose 91 Calcium 8.7 Total Bilirubin 1.7 H AST 133 H ALT 52 Alkaline Phosphatase 112 Total Protein 7.2 Albumin 3.3 Globulin 4.0 Albumin/Globulin Ratio 0.8 L Attending/Attestation - Attestation I have personally seen and examined this patient.: Yes I have fully participated in the care of the patient.: Yes I have reviewed all pertinent clinical information: Yes Notes (Text): 01/08/18 13:56 Medical record note made by the resident after discussion with my direction and input after the patient was personally seen and examined by me. I have reviewed the chart and agree that the record accurately reflects by personal performance of the history, physical exam, data review, and medical decision-making, in the course for the patient. I have also personally directed the plan of care. 56 year old homeless male with past medical history of COPD, hepatitis C, cirrhosis s/p TIPS, history of alcohol abuse, chronic venous stasis of both lower legs and non compliance is admitted for alcohol withdrawal and depression , he is on 1.1 due to suicidal ideation. We will monitor patient for alcohol withdrawal. We will also get .Psych evaluation . Management plan was discussed in detail with patient. Education was provided.
[2018-01-07] MEDS ORDERED: Multivitamin (MVI) 10 ML, Thiamine 100 MG, Folic Acid 1 MG in Sodium Chloride 0.9% 1,00... IV ONE (18:41)
[2018-01-07] MEDS ORDERED: DiphenhydrAMINE 12.5 mg/5 ml LIQ UD (5 ml) PO PRN (18:43)
[2018-01-08] MEDS: Pantoprazole 40 mg EC Tab PO SCH (04:59)
[2018-01-08 07:30] LABS: BASO # 0.05 K/mm3 (0.0-2.0); BASO % 1.1 % (0.0-3.0); EOS # 0.1 (0.0-0.7); EOS % 2.3 % (1.5-5.0); GRAN # 2.32 (1.4-6.5); GRAN % 52.7 % (50.0-68.0); HEMOGLOBIN 11.7 g/dL (14.0-18.0); LYMPH % 23.4 % (22.0-35.0); MEAN CELL VOLUME 82.9 fl (80.0-105.0); MEAN CORPUSCULAR HGB CONC 32.5 g/dl (31.0-37.0); MONO # 0.9 (0.1-0.6); MONO % 20.5 % (1.0-6.0); PLATELET COUNT 85 10^3/uL (120.0-450.0); RBC 4.34 10^6/uL (3.5-6.1); RED CELL DISTRIBUTION WIDTH 15.9 % (11.5-14.5); WHITE BLOOD COUNT 4.4 10^3/ul (4.5-11.0)
[2018-01-08 07:37] LABS: ALB/GLOB RATIO 0.8 (1.1-1.8); ALBUMIN 3.3 g/dL (3.0-4.8); ALT/SGPT 52 U/L (7-56); AST/SGOT 133 U/L (17-59); BLOOD UREA NITROGEN 11 mg/dL (7-21); CALCIUM 8.7 mg/dL (8.4-10.5); GFR AFRICAN-AMERICAN > 60; GFR NON-AFRICAN AMERICAN > 60
[2018-01-08 08:02] LABS: BASOPHIL 1 % (0.0-1.0); EOSINOPHIL 4 % (0.0-3.0); LYMPHOCYTE 22 % (22.0-35.0); MONOCYTE 24 % (1.0-6.0); NEUTROPHIL 49 % (50.0-70.0); PLATELET ESTIMATE LOW (NORMAL)
[2018-01-08] MEDS: Enoxaparin 40 mg Syringe SC SCH (09:08)
[2018-01-08] MEDS: Potassium Chloride 20 mEq ER Tab PO SCH (10:26)
--- NOTE | 2018-01-08 16:45 | CP.PCM.PN ---
Subjective - Date & Time of Evaluation Date of Evaluation: 01/08/18 Time of Evaluation: 08:30 - Subjective Subjective: Patient required doses of Ativan overnight. Patient is resting comfortably, endorses no complaints. Nurse reports no events overnight. Objective - Vital Signs/Intake and Output Vital Signs (last 24 hours): Temp Pulse Resp BP Pulse Ox 99.3 F 102 H 22 142/82 93 L 01/08/18 07:26 01/08/18 07:26 01/08/18 07:26 01/08/18 09:12 01/08/18 07:26 Intake and Output: 01/08/18 01/08/18 06:59 18:59 Intake Total 840 Balance 840 - Medications Medications: Current Medications Diphenhydramine HCl (Benadryl) 25 mg PO HS PRN PRN Reason: Insomnia Enoxaparin Sodium (Lovenox) 40 mg SC DAILY [facility] PRN Reason: Protocol Last Admin: 01/08/18 09:08 Dose: 40 mg Furosemide (Lasix) 40 mg PO DAILY [facility] Last Admin: 01/08/18 09:12 Dose: 40 mg Lorazepam (Ativan) 1 mg IVP Q4H [facility] PRN Reason: Protocol Last Admin: 01/08/18 16:25 Dose: 1 mg Pantoprazole Sodium (Protonix Ec Tab) 40 mg PO 0600 [facility] Last Admin: 01/08/18 04:59 Dose: 40 mg Potassium Chloride (K-Dur 20 Meq Er Tab) 40 meq PO BRK [facility] Last Admin: 01/08/18 10:26 Dose: 40 meq Ziprasidone (Geodon Inj) 20 mg IM Q12H PRN; Protocol PRN Reason: Agitation - Labs Labs: 01/08/18 06:00 01/08/18 06:00 - Constitutional Appears: Well, Non-toxic - Head Exam Head Exam: ATRAUMATIC, NORMOCEPHALIC - Eye Exam Eye Exam: Periorbital swelling - ENT Exam ENT Exam: Mucous Membranes Moist, Normal Oropharynx - Neck Exam Neck Exam: Normal Inspection - Respiratory Exam Respiratory Exam: Clear to Ausculation Bilateral, NORMAL BREATHING PATTERN. absent: Accessory Muscle Use - Cardiovascular Exam Cardiovascular Exam: RRR, +S1, +S2 - GI/Abdominal Exam GI & Abdominal Exam: Soft, Normal Bowel Sounds - Extremities Exam Additional comments: swollen, non-pitting edema - Neurological Exam Neurological Exam: Awake - Psychiatric Exam Psychiatric exam: Normal Affect, Normal Mood - Skin Skin Exam: Dry, Normal Color, Warm Assessment and Plan - Assessment and Plan (Free Text) Assessment: 57 year old homeless male presenting acutely intoxicated with a blood alcohol level of 294 and with claims of suicidal ideation. He will be monitored for alcohol withdrawal, depression, and suicidal ideation. Plan: 1) Alcohol Withdrawal with suicidal ideation in a homeless male - 1:1 for suicide prevention - Psychiatry consulted - Ativan 1 mg q4h PRN - CIWA, fall, seizure precautions - Geodon PRN for agitation - Thiamine, folic acid, multivitamin 2) Chronic lower extremity edema - Lasix 40 - HHD 3) DVT/GI prophylaxis - Lovenox - Protonix
[2018-01-09] MEDS: Pantoprazole 40 mg EC Tab PO SCH (05:21)
[2018-01-09 06:41] LABS: BASO # 0.06 K/mm3 (0.0-2.0); BASO % 1.4 % (0.0-3.0); EOS # 0.2 (0.0-0.7); EOS % 5.6 % (1.5-5.0); GRAN # 1.77 (1.4-6.5); GRAN % 42.8 % (50.0-68.0); HEMOGLOBIN 11.7 g/dL (14.0-18.0); LYMPH # 1.3 (1.2-3.4); LYMPH % 30.4 % (22.0-35.0); MEAN CELL VOLUME 83.6 fl (80.0-105.0); MEAN CORPUSCULAR HEMOGLOBIN 27.1 pg (25.0-35.0); MEAN CORPUSCULAR HGB CONC 32.4 g/dl (31.0-37.0); MONO # 0.8 (0.1-0.6); MONO % 19.8 % (1.0-6.0); PLATELET COUNT 85 10^3/uL (120.0-450.0); RBC 4.32 10^6/uL (3.5-6.1); RED CELL DISTRIBUTION WIDTH 15.8 % (11.5-14.5); WHITE BLOOD COUNT 4.1 10^3/ul (4.5-11.0)
[2018-01-09 07:34] LABS: ALBUMIN 3.2 g/dL (3.0-4.8); BLOOD UREA NITROGEN 13 mg/dL (7-21); CALCIUM 8.9 mg/dL (8.4-10.5); GFR AFRICAN-AMERICAN > 60; GFR NON-AFRICAN AMERICAN > 60
[2018-01-09 07:35] LABS: ALB/GLOB RATIO 0.8 (1.1-1.8); ALT/SGPT 44 U/L (7-56); AST/SGOT 103 U/L (17-59)
[2018-01-09] MEDS: Potassium Chloride 20 mEq ER Tab PO SCH (08:05)
[2018-01-09] MEDS: Enoxaparin 40 mg Syringe SC SCH (09:44)
--- NOTE | 2018-01-09 11:28 | CON ---
DATE: 01/08/2018 HISTORY OF PRESENT ILLNESS: The patient is a 57-year-old homeless white male, was admitted to the medical floor for treatment of chronic lower extremity edema, leg pain as well as alcohol withdrawal with reported suicidal thoughts. Psychiatry was consulted on this patient who is very well known for abusing psychiatric services due to his homelessness and alcohol addiction. I reviewed the notes and met with patient at bedside. Apparently, the patient was admitted to the ER on 01/05/2018 [address] a [address] to sleep, then on 01/06/2018 again he went to the ER requesting evaluation of lower extremity pain and then presented to the ER on 01/07/2018, indicating that he was suicidal with plan to jumping from a light rail train. Presently, the patient is in alcohol withdrawal; however, he is superficially cooperative with my questionings, he knows that it is January 2018, he is in [facility] and he knows the circumstances of his current admission. The patient reports that he is grateful for having a bed to sleep on since he has been sleeping on the street for the last month, any [facility], [facility] as well as [facility]. He states that his body has worn out. He has been homeless since his father kicked him out over "something stupidly argued about," about a month ago. The patient has been drinking pretty regularly, approximately ten 24-ounce beers daily as well as half a pint to a pint of vodka daily. He denies any drugs. He reports that he has issues, he does not have a place to stay. The patient wants to quit drinking; however, does not have a lot rumination . Right now, he is going through withdrawals and is requesting help for this discomfort. He reports he has a history of hallucination and withdrawal in the past. Currently, feeling nauseated and tired and a little confused. He also complaints about the shakes and very poor sleep. Presently, he denies having any suicidal thoughts. He denies having any homicidal thoughts. He feels safe on the medical floor. His anxiety levels are high due to his current homelessness and alcohol addiction. PHYSICAL EXAMINATION: Vital signs reviewed by this provider at 7:26 a.m., they are 99.3, 102, 138/83, and oxygen saturation is 93. LABORATORY DATA: Labs are also reviewed by this provider. UDS was negative on 01/07/2018 and the patient presented with an alcohol level of 294 4:00 am on 01/07/2018. PSYCHIATRY HISTORY: As noted, the patient has numerous psychiatric hospitalizations. Generally, does not follow up with recommended outpatient treatment or medications and when he is admitted he is abusive to staff members. Prior notes indicate that he has a tendency of watching TV all day long, not interested in groups, increased appetite with no signs of psychosis and giving an attitude to the staff members. This telegraphic typewriter operator chief's impression as well as the impression of the Dr. Farah's treatment team as well as DIABETOLOGIST that the patient was not a danger to himself or others and his primary reason to be on psychiatric unit was secondary gain. SOCIAL HISTORY: The patient was born and raised in [place]. He is single. He has never been . He has a 34-year-old son, who he speaks "here and there." Son owns a missile pad mechanic shop and does not speak to patient frequently. The patient used to live with his father; however, got in some argument with his father and father kicked him out and patient has been sleeping on the streets since then, which was approximately a month ago. The patient has a very long personal history of alcohol use and most recently has been drinking ten 24-ounce beers daily and about a half a pint to a pint of vodka daily. He denies any drug issues. Relevant psychiatric medications on the unit include Ativan 1 mg every 4 hours p.r.n., Geodon 20 mg IM every 12 hours p.r.n., and Benadryl 25 mg at bedtime p.r.n. IMPRESSION: Severe alcohol use disorder, alcohol withdrawal, mood disorder and a less likely substance induced mood disorder, likely amplification of symptoms for secondary gain consistent with malingering. RECOMMENDATIONS: I recommended the patient's alcohol use be treated around the clock with standing medications with hold parameters of systolic blood pressure less than a 100. I also recommend that the patient be treated with multivitamins, thiamine and folic acid supplements. There is no acute indication for an antidepressant at this time. The patient is being affected by alcoholism and the nature of the patient's mood disturbance cannot be elucidated until the patient has been sober for a period of time. I recommend the patient Dr. Farah. I do not believe that patient's source of stress can be solved by psychiatric admission and it might actually worsen his anxiety and dependence on the hospital and resources. I strongly recommend that the social sciences lecturer follow up with the patient and the patient be discharged into an extended rehab facility to deal with alcohol use considering his mood issues and likely presentation. The patient presented with chronic issues interventions at this time. Again, social sciences lecturer should follow up with the patient alcohol dependence. Chyaa Meyers MD
--- NOTE | 2018-01-09 13:59 | US ---
HISTORY: Leg pain and swelling. Evaluate for DVT PHYSICIAN(S): Scott Aden MD. TECHNIQUE: Duplex sonography and color-flow Doppler with graded compression were used to evaluate the deep venous systems of both lower extremities. The exam is somewhat limited by body habitus and edema. FINDINGS: The visualized deep venous systems of both lower extremities are sonographically normal and compressible. Normal wave forms and augmentation are seen. There is no sonographic evidence for deep venous thrombosis in the visualized segments of both lower extremities. IMPRESSION: No sonographic evidence for deep venous thrombosis in the visualized segments of both lower extremities.
--- NOTE | 2018-01-09 14:28 | CP.PCM.PN ---
<Derek Chirinos - Last Filed: 01/09/18 14:23> Subjective - Date & Time of Evaluation Date of Evaluation: 01/09/18 Time of Evaluation: 14:23 - Subjective Subjective: Patient seen and examined this AM at bedside. No acute events reported overnight. Patient with one to one sitter secondary to continued thoughts of suicidal ideation. Patient reports mid abdominal pain, depressive symptoms. Patient denies visual and auditory hallucinations. Patient denies sweats, chills , tremors. Objective - Vital Signs/Intake and Output Vital Signs (last 24 hours): Temp Pulse Resp BP Pulse Ox 99.3 F 95 H 19 144/84 90 L 01/09/18 07:48 01/09/18 10:00 01/09/18 07:48 01/09/18 09:45 01/09/18 07:48 Intake and Output: 01/09/18 01/09/18 06:59 18:59 Intake Total 840 Balance 840 - Medications Medications: Current Medications Diphenhydramine HCl (Benadryl) 25 mg PO HS PRN PRN Reason: Insomnia Enoxaparin Sodium (Lovenox) 40 mg SC DAILY [facility] PRN Reason: Protocol Last Admin: 01/09/18 09:44 Dose: 40 mg Furosemide (Lasix) 40 mg PO DAILY [facility] Last Admin: 01/09/18 09:45 Dose: 40 mg Lorazepam (Ativan) 0.5 mg IVP Q4 [facility] PRN Reason: Protocol Last Admin: 01/09/18 12:35 Dose: 0.5 mg Pantoprazole Sodium (Protonix Ec Tab) 40 mg PO 0600 [facility] Last Admin: 01/09/18 05:21 Dose: 40 mg Potassium Chloride (K-Dur 20 Meq Er Tab) 40 meq PO BRK [facility] Last Admin: 01/09/18 08:05 Dose: 40 meq Ziprasidone (Geodon Inj) 20 mg IM Q12H PRN; Protocol PRN Reason: Agitation - Labs Labs: 01/09/18 05:45 01/09/18 05:45 - Constitutional Appears: Non-toxic - Head Exam Head Exam: ATRAUMATIC, NORMAL INSPECTION, NORMOCEPHALIC - Eye Exam Eye Exam: EOMI, PERRL - ENT Exam ENT Exam: Mucous Membranes Moist - Respiratory Exam Respiratory Exam: Clear to Ausculation Bilateral, NORMAL BREATHING PATTERN. absent: Rhonchi, Wheezes - Cardiovascular Exam Cardiovascular Exam: REGULAR RHYTHM, +S1, +S2 - GI/Abdominal Exam GI & Abdominal Exam: Distended, Soft, Tenderness (mid epigastric ). absent: Guarding, Rigid - Extremities Exam Extremities Exam: Pedal Edema, Tenderness Additional comments: patient with bilateral swelling and darker redness of lower extremities - Neurological Exam Neurological Exam: Alert, Awake, Normal Gait, Oriented x3 - Psychiatric Exam Psychiatric exam: Depressed - Skin Skin Exam: Dry, Intact, Warm. absent: Diaphoretic, Pallor, Petechiae Assessment and Plan - Assessment and Plan (Free Text) Assessment: Patient is a 57 year old male with past medical history significant for COPD, Cirrhosis s/p TIPS, PUD, Gi bleeding, HBV, HCV, chronic pancreatitis , chronic LE edema, venous insufficiency, chronic alcohol abuse who presented [place] [facility] for acute alcohol intoxication and suicidal ideation. Patient was admitted for suicidal ideation and monitoring for alcohol withdrawal. Plan: Alcohol withdrawal Details: - On admission alcohol level of 294 - [facility] protocol in place, noted to be 4 this AM - continues to require Ativan Plan: - Ativan 0.5mg Q4H - [facility] protocol - Thiamine, Folic Acid, MV - Fall, Seizure precautions - Psych consulted, appreciate recs Suicidal Ideation Details: - Patient reports suicidal ideation - Psychiatry consulted with Dr. Meyers, psych signed off - Patient continues to complain of suicidal ideation Plan: - Psych re-consulted for further dispo planning - Continue 1:1 sitter Chronic Lower Extremity Edema - Lasix 40mg PO Hypokalemia - Replace potassium - Check Mg on morning labs Hx of Hypomagnesium - check levels and follow up Cirrhosis - Chronic in nature likely secondary to HBV/HCV hx vs. ETOH - INR f/u continue to monitor GI/DVT ppx - Lovenox - Protonix Case and plan discussed with attending Ana Rosa Chirinos PGY-1 <Antonio Ramirez - Last Filed: 01/09/18 16:07> Objective - Vital Signs/Intake and Output Vital Signs (last 24 hours): Temp Pulse Resp BP Pulse Ox 99.3 F 93 H 19 144/84 90 L 01/09/18 07:48 01/09/18 14:00 01/09/18 07:48 01/09/18 09:45 01/09/18 07:48 Intake and Output: 01/09/18 01/09/18 06:59 18:59 Intake Total 840 Balance 840 - Medications Medications: Current Medications Diphenhydramine HCl (Benadryl) 25 mg PO HS PRN PRN Reason: Insomnia Enoxaparin Sodium (Lovenox) 40 mg SC DAILY [facility] PRN Reason: Protocol Last Admin: 01/09/18 09:44 Dose: 40 mg Furosemide (Lasix) 40 mg PO DAILY [facility] Last Admin: 01/09/18 09:45 Dose: 40 mg Lorazepam (Ativan) 0.5 mg IVP Q4 [facility] PRN Reason: Protocol Last Admin: 01/09/18 12:35 Dose: 0.5 mg Pantoprazole Sodium (Protonix Ec Tab) 40 mg PO 0600 [facility] Last Admin: 01/09/18 05:21 Dose: 40 mg Potassium Chloride (K-Dur 20 Meq Er Tab) 40 meq PO BRK [facility] Last Admin: 01/09/18 08:05 Dose: 40 meq Ziprasidone (Geodon Inj) 20 mg IM Q12H PRN; Protocol PRN Reason: Agitation - Labs Labs: 01/09/18 05:45 01/09/18 05:45 Attending/Attestation - Attestation I have personally seen and examined this patient.: Yes I have fully participated in the care of the patient.: Yes I have reviewed all pertinent clinical information, including history, physical exam and plan: Yes Notes (Text): 01/09/18 16:03 57 year old male with past medical history of COPD, cirrhosis s/p TIPS, hepatitis B/C, and chronic ETOH abuse who presented with alcohol intoxication and SI. He is currently being treated for alcohol withdrawal. He is on ativan taper. Continue with multivitamin, folic acid and thiamine. He was counselled on alcohol abstinence. He was started on 1:1 and seen by psychiatrist. Will follow up with recommendations. PT evaluation is requested as well as hospital social worker for d/c planning. Antonio Ramirez MD Hospitalist.
[2018-01-10] MEDS: Pantoprazole 40 mg EC Tab PO SCH (05:22)
[2018-01-10 06:49] LABS: BASO # 0.07 K/mm3 (0.0-2.0); BASO % 1.5 % (0.0-3.0); EOS # 0.3 (0.0-0.7); EOS % 5.5 % (1.5-5.0); GRAN # 2.02 (1.4-6.5); GRAN % 42.8 % (50.0-68.0); LYMPH # 1.4 (1.2-3.4); LYMPH % 29.4 % (22.0-35.0); MEAN CELL VOLUME 83.4 fl (80.0-105.0); MEAN CORPUSCULAR HEMOGLOBIN 26.9 pg (25.0-35.0); MEAN CORPUSCULAR HGB CONC 32.3 g/dl (31.0-37.0); MONO % 20.8 % (1.0-6.0); RBC 4.46 10^6/uL (3.5-6.1); WHITE BLOOD COUNT 4.7 10^3/ul (4.5-11.0)
[2018-01-10 07:13] LABS: ALB/GLOB RATIO 0.8 (1.1-1.8); ALBUMIN 3.2 g/dL (3.0-4.8); ALT/SGPT 41 U/L (7-56); AST/SGOT 91 U/L (17-59); BLOOD UREA NITROGEN 13 mg/dL (7-21); CALCIUM 8.8 mg/dL (8.4-10.5); GFR AFRICAN-AMERICAN > 60; GFR NON-AFRICAN AMERICAN > 60
[2018-01-10 07:23] LABS: INR 1.18 (0.93-1.08); PROTHROMBIN TIME 13.6 SECONDS (9.4-12.5)
[2018-01-10] MEDS ORDERED: Potassium Chloride 20 mEq ER Tab PO ONE (08:11)
[2018-01-10] MEDS ORDERED: Magnesium Sulfate 2 GM in Sodium Chloride 0.9% 100 ML IVPB ONE (08:12)
[2018-01-10 08:45] LABS: PLATELET COUNT 110 10^3/uL (120.0-450.0)
[2018-01-10] MEDS: Multivitamin Therapeutic Tab PO SCH (09:25)
[2018-01-10] MEDS: Enoxaparin 40 mg Syringe SC SCH (09:25)
--- NOTE | 2018-01-10 15:42 | CP.PCM.PN ---
<Derek Chirinos - Last Filed: 01/10/18 15:39> Subjective - Date & Time of Evaluation Date of Evaluation: 01/10/18 Time of Evaluation: 15:39 - Subjective Subjective: Patient seen and examined this AM. No acute events reported overnight. Patient denies suicidal ideation at the time of interview. Reports continued mid- epigastric pain and bilateral lower extremitiy discomfort unchanged from admission. Patient denies visual and auditory hallucinations, sweats, chills, tremors. Patient appears more sedated and calm during this visit. Objective - Vital Signs/Intake and Output Vital Signs (last 24 hours): Temp Pulse Resp BP Pulse Ox 98.1 F 87 20 135/80 95 01/10/18 07:59 01/10/18 07:59 01/10/18 07:59 01/10/18 09:25 01/10/18 07:59 Intake and Output: 01/10/18 01/10/18 06:59 18:59 Intake Total 1200 800 Output Total 1300 3000 Balance -100 -2200 - Medications Medications: Current Medications Diphenhydramine HCl (Benadryl) 25 mg PO HS PRN PRN Reason: Insomnia Enoxaparin Sodium (Lovenox) 40 mg SC DAILY [facility] PRN Reason: Protocol Last Admin: 01/10/18 09:25 Dose: 40 mg Folic Acid (Folic Acid) 1 mg PO DAILY [facility] Last Admin: 01/10/18 09:25 Dose: 1 mg Furosemide (Lasix) 40 mg PO DAILY [facility] Last Admin: 01/10/18 09:25 Dose: 40 mg Ibuprofen (Motrin Tab) 600 mg PO Q6H PRN PRN Reason: Pain, moderate (4-7) Last Admin: 01/10/18 05:23 Dose: 600 mg Lorazepam (Ativan) 0.5 mg IVP Q6 PRN; Protocol PRN Reason: Agitation Multivitamins (Thera Tab) 1 tab PO 0800 [facility] Last Admin: 01/10/18 09:25 Dose: 1 tab Pantoprazole Sodium (Protonix Ec Tab) 40 mg PO 0600 [facility] Last Admin: 01/10/18 05:22 Dose: 40 mg Thiamine HCl (Vitamin B1 Tab) 100 mg PO DAILY [facility] Last Admin: 01/10/18 09:27 Dose: 100 mg Ziprasidone (Geodon Inj) 20 mg IM Q12H PRN; Protocol PRN Reason: Agitation - Labs Labs: 01/10/18 06:00 01/10/18 06:00 PT 13.6 SECONDS (9.4-12.5) H 01/10/18 06:00 INR 1.18 (0.93-1.08) H 01/10/18 06:00 - Constitutional Appears: No Acute Distress - Head Exam Head Exam: ATRAUMATIC, NORMAL INSPECTION, NORMOCEPHALIC - Eye Exam Eye Exam: EOMI, PERRL - ENT Exam ENT Exam: Mucous Membranes Moist - Respiratory Exam Respiratory Exam: Clear to Ausculation Bilateral, NORMAL BREATHING PATTERN. absent: Rhonchi, Wheezes - Cardiovascular Exam Cardiovascular Exam: REGULAR RHYTHM, +S1, +S2 - GI/Abdominal Exam GI & Abdominal Exam: Distended, Soft, Tenderness (mild mid epigastric ), Normal Bowel Sounds - Extremities Exam Extremities Exam: Calf Tenderness, Pedal Edema Additional comments: erythema noted bilaterally - Neurological Exam Neurological Exam: Alert, Awake, Normal Gait (with assistance), Oriented x3 - Psychiatric Exam Psychiatric exam: Normal Affect, Normal Mood - Skin Skin Exam: Dry, Intact Assessment and Plan - Assessment and Plan (Free Text) Assessment: Patient is a 57 year old male with past medical history significant for COPD, Cirrhosis s/p TIPS, PUD, Gi bleeding, HBV, HCV, chronic pancreatitis , chronic LE edema, venous insufficiency, chronic alcohol abuse who presented [place] [facility] for acute alcohol intoxication and suicidal ideation. Patient was admitted for suicidal ideation and monitoring for alcohol withdrawal. Patient no longer reporting suicidal ideation. Plan: Alcohol withdrawal Details: - On admission alcohol level of 294 - [facility] protocol in place, noted to be 4 this AM - continues to require Ativan Plan: - Ativan 0.5mg Q6h prn - [facility] protocol - Thiamine, Folic Acid, MV - Fall, Seizure precautions - Psych consulted, appreciate recs Suicidal Ideation Details: - Patient reports suicidal ideation - Psychiatry consulted with Dr. Meyers, psych signed off - Patient denies suicidal ideation Plan: - Psych re-consulted for further dispo planning - discontinue 1:1 sitter Deconditioning - PT evaluation today recommending continued PT work with eventual home with services - conversation with PT indicates more time needed for adequate assessment due to patient presenting symptoms Chronic Lower Extremity Edema - Lasix 40mg PO Hypokalemia - Replace potassium - Check Mg on morning labs Hx of Hypomagnesium - check levels and follow up Cirrhosis - Chronic in nature likely secondary to HBV/HCV hx vs. ETOH - INR f/u continue to monitor GI/DVT ppx - Lovenox - Protonix dispo: PT evaluation showing patient appears to be unsteady on feet and Case and plan discussed with attending Ana Rosa Chirinos PGY-1 <Antonio Ramirez - Last Filed: 01/10/18 16:17> Objective - Vital Signs/Intake and Output Vital Signs (last 24 hours): Temp Pulse Resp BP Pulse Ox 98.1 F 86 20 135/80 95 01/10/18 07:59 01/10/18 14:00 01/10/18 07:59 01/10/18 09:25 01/10/18 07:59 Intake and Output: 01/10/18 01/10/18 06:59 18:59 Intake Total 1200 800 Output Total 1300 3000 Balance -100 -2200 - Medications Medications: Current Medications Diphenhydramine HCl (Benadryl) 25 mg PO HS PRN PRN Reason: Insomnia Enoxaparin Sodium (Lovenox) 40 mg SC DAILY [facility] PRN Reason: Protocol Last Admin: 01/10/18 09:25 Dose: 40 mg Folic Acid (Folic Acid) 1 mg PO DAILY [facility] Last Admin: 01/10/18 09:25 Dose: 1 mg Furosemide (Lasix) 40 mg PO DAILY [facility] Last Admin: 01/10/18 09:25 Dose: 40 mg Ibuprofen (Motrin Tab) 600 mg PO Q6H PRN PRN Reason: Pain, moderate (4-7) Last Admin: 01/10/18 05:23 Dose: 600 mg Lorazepam (Ativan) 0.5 mg IVP Q6 PRN; Protocol PRN Reason: Agitation Multivitamins (Thera Tab) 1 tab PO 0800 [facility] Last Admin: 01/10/18 09:25 Dose: 1 tab Pantoprazole Sodium (Protonix Ec Tab) 40 mg PO 0600 [facility] Last Admin: 01/10/18 05:22 Dose: 40 mg Thiamine HCl (Vitamin B1 Tab) 100 mg PO DAILY [facility] Last Admin: 01/10/18 09:27 Dose: 100 mg Ziprasidone (Geodon Inj) 20 mg IM Q12H PRN; Protocol PRN Reason: Agitation - Labs Labs: 01/10/18 06:00 01/10/18 06:00 PT 13.6 SECONDS (9.4-12.5) H 01/10/18 06:00 INR 1.18 (0.93-1.08) H 01/10/18 06:00 Attending/Attestation - Attestation I have personally seen and examined this patient.: Yes I have fully participated in the care of the patient.: Yes I have reviewed all pertinent clinical information, including history, physical exam and plan: Yes Notes (Text): 01/10/18 16:15 57 year old male with past medical history of COPD, cirrhosis s/p TIPS, hepatitis B/C, and chronic ETOH abuse who presented with alcohol intoxication and SI. He is currently being treated for alcohol withdrawal. Will continue to taper his ativan. He is also on multivitamin, folic acid and thiamine. He was counselled on alcohol abstinence. He is no longer complaining of suicidal ideation today. Discussed with psychiatrist; will discontinue 1:1. Will follow up with PT recommendations and discuss with test case developer / public health social worker regarding d/c planning. Antonio Ramirez MD Hospitalist.
[2018-01-11] MEDS: Pantoprazole 40 mg EC Tab PO SCH (05:54)
[2018-01-11] MEDS ORDERED: Magnesium Sulfate 2 GM in Sodium Chloride 0.9% 100 ML IVPB ONE (08:28)
[2018-01-11] MEDS ORDERED: Potassium Chloride 20 mEq ER Tab PO ONE (08:29)
[2018-01-11 08:38] LABS: BLOOD UREA NITROGEN 14 mg/dL (7-21); CALCIUM 8.9 mg/dL (8.4-10.5); GFR AFRICAN-AMERICAN > 60; GFR NON-AFRICAN AMERICAN > 60
[2018-01-11] MEDS: Enoxaparin 40 mg Syringe SC SCH (09:19)
[2018-01-11] MEDS: Multivitamin Therapeutic Tab PO SCH (09:20)
--- NOTE | 2018-01-11 15:49 | CP.PCM.PN ---
<TaranDerek - Last Filed: 01/11/18 15:44> Subjective - Date & Time of Evaluation Date of Evaluation: 01/11/18 Time of Evaluation: 07:30 - Subjective Subjective: Patient seen and evaluated today at bedside. Patient appears to be slightly lethargic. Patient continues to express mid abdominal discomfort. Overnight patient noted to have trouble getting to bathroom for evacuation of urine and subsequently urinated on himself. A condom catheter was placed. Patient denies any pain with urination, hematuria, difficulty starting or stoping his stream. Objective - Vital Signs/Intake and Output Vital Signs (last 24 hours): Temp Pulse Resp BP Pulse Ox 98 F 87 20 151/82 H 96 01/10/18 16:00 01/11/18 05:16 01/10/18 16:00 01/11/18 09:18 01/10/18 23:48 Intake and Output: 01/11/18 01/11/18 06:59 18:59 Intake Total 600 120 Output Total 500 Balance 600 -380 - Medications Medications: Current Medications Diphenhydramine HCl (Benadryl) 25 mg PO HS PRN PRN Reason: Insomnia Enoxaparin Sodium (Lovenox) 40 mg SC DAILY [facility] PRN Reason: Protocol Last Admin: 01/11/18 09:19 Dose: 40 mg Folic Acid (Folic Acid) 1 mg PO DAILY [facility] Last Admin: 01/11/18 09:17 Dose: 1 mg Furosemide (Lasix) 40 mg PO DAILY [facility] Last Admin: 01/11/18 09:18 Dose: 40 mg Ibuprofen (Motrin Tab) 600 mg PO Q6H PRN PRN Reason: Pain, moderate (4-7) Last Admin: 01/10/18 05:23 Dose: 600 mg Lorazepam (Ativan) 0.5 mg IVP Q6 PRN; Protocol PRN Reason: Agitation Last Admin: 01/11/18 06:04 Dose: 0.5 mg Multivitamins (Thera Tab) 1 tab PO 0800 [facility] Last Admin: 01/11/18 09:20 Dose: 1 tab Pantoprazole Sodium (Protonix Ec Tab) 40 mg PO 0600 [facility] Last Admin: 01/11/18 05:54 Dose: 40 mg Thiamine HCl (Vitamin B1 Tab) 100 mg PO DAILY [facility] Last Admin: 01/11/18 09:20 Dose: 100 mg Ziprasidone (Geodon Inj) 20 mg IM Q12H PRN; Protocol PRN Reason: Agitation - Labs Labs: 01/10/18 06:00 01/11/18 08:17 PT 13.6 SECONDS (9.4-12.5) H 01/10/18 06:00 INR 1.18 (0.93-1.08) H 01/10/18 06:00 - Constitutional Appears: No Acute Distress - Head Exam Head Exam: ATRAUMATIC, NORMAL INSPECTION, NORMOCEPHALIC - Eye Exam Eye Exam: EOMI, PERRL - ENT Exam ENT Exam: Mucous Membranes Moist - Respiratory Exam Respiratory Exam: Clear to Ausculation Bilateral, NORMAL BREATHING PATTERN - Cardiovascular Exam Cardiovascular Exam: REGULAR RHYTHM, +S1, +S2 - GI/Abdominal Exam GI & Abdominal Exam: Soft, Tenderness (mid abdominal mild ), Normal Bowel Sounds - Neurological Exam Neurological Exam: Alert, Awake, Oriented x3 - Psychiatric Exam Psychiatric exam: Normal Affect, Normal Mood - Skin Skin Exam: Dry, Intact Assessment and Plan - Assessment and Plan (Free Text) Assessment: Patient is a 57 year old male with past medical history significant for COPD, Cirrhosis s/p TIPS, PUD, Gi bleeding, HBV, HCV, chronic pancreatitis , chronic LE edema, venous insufficiency, chronic alcohol abuse who presented to [facility] ED for acute alcohol intoxication and suicidal ideation. Patient was admitted for suicidal ideation and monitoring for alcohol withdrawal. Patient no longer reporting suicidal ideation. Plan: Alcohol withdrawal Details: - On admission alcohol level of 294 - [facility] protocol - Ativan taper tolerated Plan: - Ativan 0.5mg Q6h prn - [facility] protocol - Thiamine, Folic Acid, MV - Fall, Seizure precautions Deconditioning - PT evaluation today continues to recommend continued PT work with eventual home with services - Patient able to ambulate with assistance with cane today - PT reports continued instability on feet - Plan for dispo once PT ok for discharge Chronic Lower Extremity Edema - Lasix 40mg PO Hypokalemia - Replace potassium - Check Mg on morning labs Hx of Hypomagnesium - check levels and follow up Cirrhosis - Chronic in nature likely secondary to HBV/HCV hx vs. ETOH - INR f/u continue to monitor GI/DVT ppx - Lovenox - Protonix dispo: PT evaluation showing patient appears to be unsteady on feet, will plan for discharge once patient deemed to be steady on feet and able to ambulate Case and plan discussed with attending Ana Rosa Chirinos PGY-1 <Antonio Ramirez - Last Filed: 01/11/18 15:57> Objective - Vital Signs/Intake and Output Vital Signs (last 24 hours): Temp Pulse Resp BP Pulse Ox 98 F 87 20 151/82 H 96 01/10/18 16:00 01/11/18 05:16 01/10/18 16:00 01/11/18 09:18 01/10/18 23:48 Intake and Output: 01/11/18 01/11/18 06:59 18:59 Intake Total 600 120 Output Total 500 Balance 600 -380 - Medications Medications: Current Medications Diphenhydramine HCl (Benadryl) 25 mg PO HS PRN PRN Reason: Insomnia Enoxaparin Sodium (Lovenox) 40 mg SC DAILY [facility] PRN Reason: Protocol Last Admin: 01/11/18 09:19 Dose: 40 mg Folic Acid (Folic Acid) 1 mg PO DAILY [facility] Last Admin: 01/11/18 09:17 Dose: 1 mg Furosemide (Lasix) 40 mg PO DAILY [facility] Last Admin: 01/11/18 09:18 Dose: 40 mg Ibuprofen (Motrin Tab) 600 mg PO Q6H PRN PRN Reason: Pain, moderate (4-7) Last Admin: 01/10/18 05:23 Dose: 600 mg Lorazepam (Ativan) 0.5 mg IVP Q6 PRN; Protocol PRN Reason: Agitation Last Admin: 01/11/18 06:04 Dose: 0.5 mg Multivitamins (Thera Tab) 1 tab PO 0800 [facility] Last Admin: 01/11/18 09:20 Dose: 1 tab Pantoprazole Sodium (Protonix Ec Tab) 40 mg PO 0600 [facility] Last Admin: 01/11/18 05:54 Dose: 40 mg Thiamine HCl (Vitamin B1 Tab) 100 mg PO DAILY [facility] Last Admin: 01/11/18 09:20 Dose: 100 mg Ziprasidone (Geodon Inj) 20 mg IM Q12H PRN; Protocol PRN Reason: Agitation - Labs Labs: 01/10/18 06:00 01/11/18 08:17 PT 13.6 SECONDS (9.4-12.5) H 01/10/18 06:00 INR 1.18 (0.93-1.08) H 01/10/18 06:00 Attending/Attestation - Attestation I have personally seen and examined this patient.: Yes I have fully participated in the care of the patient.: Yes I have reviewed all pertinent clinical information, including history, physical exam and plan: Yes Notes (Text): 01/11/18 15:55 57 year old male with past medical history of COPD, cirrhosis s/p TIPS, hepatitis B/C, and chronic ETOH abuse who presented with alcohol intoxication and SI. He is currently being treated for alcohol withdrawal which has improved with tapering ativan. He is also on multivitamin, folic acid and thiamine and was counselled on alcohol abstinence. He was seen by psychiatry for depressed mood and SI, which he is no longer complaining of. Will replete and repeat lytes. Continue with physical therapy for gait instability. D/c planning once patient is more steady. Antonio Ramirez MD Hospitalist.
[2018-01-12] MEDS: Pantoprazole 40 mg EC Tab PO SCH (06:04)
[2018-01-12 06:28] LABS: MEAN CELL VOLUME 83.3 fl (80.0-105.0); MEAN CORPUSCULAR HEMOGLOBIN 26.8 pg (25.0-35.0); MEAN CORPUSCULAR HGB CONC 32.2 g/dl (31.0-37.0); MEAN PLATELET VOLUME 11.4 fl (7.0-11.0); RBC 4.85 10^6/uL (3.5-6.1); WHITE BLOOD COUNT 6.2 10^3/ul (4.5-11.0)
[2018-01-12 06:46] LABS: BLOOD UREA NITROGEN 15 mg/dL (7-21); CALCIUM 9.1 mg/dL (8.4-10.5); GFR AFRICAN-AMERICAN > 60; GFR NON-AFRICAN AMERICAN > 60
[2018-01-12] MEDS: Multivitamin Therapeutic Tab PO SCH (07:55)
[2018-01-12 08:22] VITALS: RESP 20; TEMP 99.1; O2SAT 93
[2018-01-12] MEDS: Enoxaparin 40 mg Syringe SC SCH (09:25)
[2018-01-12 09:31] VITALS: BP 126/74
[2018-01-12 13:52] VITALS: PULSE 87
--- NOTE | 2018-01-12 14:10 | CP.PCM.DIS ---
<NancybeatrizDerek - Last Filed: 01/12/18 14:46> Provider - Provider Date of Admission: 01/07/18 17:20 Attending physician: Antonio Ramirez MD Primary care physician: Kaleb Guidry DO Consults: Psychiatry: Dr. Meyers Time Spent in preparation of Discharge (in minutes): 40 Diagnosis - Discharge Diagnosis (1) Alcohol intoxication Status: Acute (2) Alcohol withdrawal syndrome Status: Acute (3) Leg edema Status: Acute (4) Leg pain Status: Acute (5) Suicidal ideation Status: Acute Hospital Course - Lab Results Lab Results: Most Recent Lab Values WBC 6.2 10^3/ul (4.5-11.0) D 01/12/18 05:30 RBC 4.85 10^6/uL (3.5-6.1) 01/12/18 05:30 Hgb 13.0 g/dL (14.0-18.0) L 01/12/18 05:30 Hct 40.4 % (42.0-52.0) L 01/12/18 05:30 MCV 83.3 fl (80.0-105.0) 01/12/18 05:30 MCH 26.8 pg (25.0-35.0) 01/12/18 05:30 MCHC 32.2 g/dl (31.0-37.0) 01/12/18 05:30 RDW 16.0 % (11.5-14.5) H 01/12/18 05:30 Plt Count 166 10^3/uL (120.0-450.0) 01/12/18 05:30 MPV 11.4 fl (7.0-11.0) H 01/12/18 05:30 Gran % 42.8 % (50.0-68.0) L 01/10/18 06:00 Lymph % (Auto) 29.4 % (22.0-35.0) 01/10/18 06:00 [place] % (Auto) 20.8 % (1.0-6.0) H 01/10/18 06:00 Eos % (Auto) 5.5 % (1.5-5.0) H 01/10/18 06:00 Baso % (Auto) 1.5 % (0.0-3.0) 01/10/18 06:00 Gran # 2.02 (1.4-6.5) 01/10/18 06:00 Lymph # (Auto) 1.4 (1.2-3.4) 01/10/18 06:00 [place] # (Auto) 1.0 (0.1-0.6) H 01/10/18 06:00 Eos # (Auto) 0.3 (0.0-0.7) 01/10/18 06:00 Baso # (Auto) 0.07 K/mm3 (0.0-2.0) 01/10/18 06:00 Neutrophils % (Manual) 49 % (50.0-70.0) L 01/08/18 06:00 Lymphocytes % (Manual) 22 % (22.0-35.0) 01/08/18 06:00 Monocytes % (Manual) 24 % (1.0-6.0) H 01/08/18 06:00 Eosinophils % (Manual) 4 % (0.0-3.0) H 01/08/18 06:00 Basophils % (Manual) 1 % (0.0-1.0) 01/08/18 06:00 Platelet Evaluation Low (NORMAL) 01/08/18 06:00 PT 13.6 SECONDS (9.4-12.5) H 01/10/18 06:00 INR 1.18 (0.93-1.08) H 01/10/18 06:00 Sodium 141 mmol/L (132-148) 01/12/18 05:30 Potassium 3.8 mmol/L (3.6-5.0) 01/12/18 05:30 Chloride 106 mmol/L (98-107) 01/12/18 05:30 Carbon Dioxide 26 mmol/L (21-33) 01/12/18 05:30 Anion Gap 13 (10-20) 01/12/18 05:30 BUN 15 mg/dL (7-21) 01/12/18 05:30 Creatinine 1.0 mg/dl (0.8-1.5) 01/12/18 05:30 Est GFR ( Amer) > 60 01/12/18 05:30 Est GFR (Non-Af Amer) > 60 01/12/18 05:30 POC Glucose (mg/dL) 71 mg/dL (65-110) 01/07/18 04:10 Random Glucose 82 mg/dL (70-110) 01/12/18 05:30 Calcium 9.1 mg/dL (8.4-10.5) 01/12/18 05:30 Phosphorus 3.0 mg/dL (2.5-4.5) 01/10/18 06:00 Magnesium 1.7 mg/dL (1.7-2.2) 01/12/18 05:30 Total Bilirubin 1.3 mg/dL (0.2-1.3) 01/10/18 06:00 AST 91 U/L (17-59) H 01/10/18 06:00 ALT 41 U/L (7-56) 01/10/18 06:00 Alkaline Phosphatase 99 U/L (38-126) 01/10/18 06:00 Lactate Dehydrogenase 731 U/L (333-699) H 01/07/18 13:34 Total Creatine Kinase 366 U/L (35-230) H 01/07/18 13:34 CK-MB (CK-2) 3.0 ng/mL (0.0-3.6) 01/07/18 13:34 CK-MB (CK-2) % Cancelled 01/07/18 13:34 Troponin I < 0.01 ng/mL 01/07/18 13:34 NT-Pro-B Natriuret Pep 48.7 pg/mL (0-450) 01/07/18 13:34 Total Protein 7.4 g/dL (5.8-8.3) 01/10/18 06:00 Albumin 3.2 g/dL (3.0-4.8) 01/10/18 06:00 Globulin 4.2 gm/dL 01/10/18 06:00 Albumin/Globulin Ratio 0.8 (1.1-1.8) L 01/10/18 06:00 Urine Color Yellow (YELLOW) 01/07/18 04:23 Urine Appearance Sl cloudy (CLEAR) 01/07/18 04:23 Urine pH 6.0 (4.7-8.0) 01/07/18 04:23 Ur Specific [place] 1.015 (1.005-1.035) 01/07/18 04:23 Urine Protein 100 mg/dL (<30 mg/dL) H 01/07/18 04:23 Urine Glucose (UA) Negative mg/dL (NEGATIVE) 01/07/18 04:23 Urine Ketones Negative mg/dL (NEGATIVE) 01/07/18 04:23 Urine Blood Small (NEGATIVE) H 01/07/18 04:23 Urine Nitrate Negative (NEGATIVE) 01/07/18 04:23 Urine Bilirubin Negative (NEGATIVE) 01/07/18 04:23 Urine Urobilinogen 0.2 E.U./dL (<1 E.U./dL) 01/07/18 04:23 Ur Leukocyte Esterase Negative Mendel/uL (NEGATIVE) 01/07/18 04:23 Urine RBC 1 - 3 /hpf (0-2) 01/07/18 04:23 Urine WBC 0 - 2 /hpf (0-6) 01/07/18 04:23 Ur Epithelial Cells 0 - 2 /hpf (0-5) 01/07/18 04:23 Urine Bacteria Occ (NEG) 01/07/18 04:23 Salicylates < 1 mg/dL (2.0-20.0) L 01/07/18 04:23 Urine Opiates Screen Negative (NEGATIVE) 01/07/18 14:55 Urine Methadone Screen Negative (NEGATIVE) 01/07/18 14:55 Acetaminophen < 10.0 ug/ml (10.0-20.0) L 01/07/18 04:23 Ur Barbiturates Screen Negative (NEGATIVE) 01/07/18 14:55 Ur Phencyclidine Scrn Negative (NEGATIVE) 01/07/18 14:55 Ur Amphetamines Screen Negative (NEGATIVE) 01/07/18 14:55 U Benzodiazepines Scrn Negative (NEGATIVE) 01/07/18 14:55 U Oth Cocaine Metabols Negative (NEGATIVE) 01/07/18 14:55 U Cannabinoids Screen Negative (NEGATIVE) 01/07/18 14:55 Alcohol, Quantitative 294 mg/dL (0-10) H 01/07/18 04:23 - Hospital Course Hospital Course: Patient is a 56 year old male with past medical history that includes COPD, cirrhosis s/p TIPS procedure, PUD, GI bleeding, HBV/HCV, esophageal varices, pancreatitis, chronic lower extremity edema/venous stasis, alcohol abuse and homelessness who presented to the [facility] ED with suicidal ideation and alcoholic intoxication/withdrawal. Patient was evaluated by psychiatry and deemed to not qualify for inpatient admission and recommended outpatient care with [facility] for alcohol counseling and rehab. Patient was placed on 1:1 sitter while admitted. After 24 hours of admission patient denied suicidal ideation, homicidal ideation. 1;1 sitter was discontinued for patient. Patient was placed on CIWA protocol and medicated and monitored appropriately for withdrawal symptoms. Physical therapist evaluated the patient with recommendations of inpatient physical therapy work due to gait instability. After working with physical therapy patient was able to gain stability with the assistance of a cane and was recommended outpatient physical therapy. Patient was given a script for physical therapy upon discharge. Patient was educated on alcohol cessation. Patients medication were reconciled with utilization of medications to bed via [facility] pharmacy. Patient's discharge planning was discussed with patient in detail. At time of discharge patient was noted to be hemodynamically stable, without tremors, visual or auditory hallucinations and able to ambulate with assistance of cane. - Date & Time of H&P Date of H&P: 01/07/18 Time of H&P: 18:22 Discharge Exam - Head Exam Head Exam: ATRAUMATIC, NORMAL INSPECTION, NORMOCEPHALIC - Eye Exam Eye Exam: EOMI, PERRL - Respiratory Exam Respiratory Exam: Clear to PA & Lateral. absent: Rhonchi, Wheezes - Cardiovascular Exam Cardiovascular Exam: REGULAR RHYTHM, +S1, +S2 - GI/Abdominal Exam GI & Abdominal Exam: Normal Bowel Sounds, Soft, Tenderness (mild mid epigastric pain on palpation). absent: Firm, Guarding, Rigid - Extremities Exam Extremities exam: pedal edema (bilaterally, chronic), tenderness (bilaterally anterior lower extremities, chronic) - Neurological Exam Neurological exam: Alert, Oriented x3 - Psychiatric Exam Psychiatric exam: Normal Affect, Normal Mood - Skin Skin Exam: Dry, Intact, Warm Additional comments: chronic venous insufficiency discoloration noted bilaterally on lower extremities Discharge Plan - Discharge Medications Prescriptions: Folic Acid 1 mg PO DAILY #30 tab Furosemide [Lasix] 40 mg PO DAILY #20 tablet Multivitamin Therapeutic Tab [Thera Tab] 1 tab PO 0800 #30 tab Thiamine [Vitamin B1 Tab] 100 mg PO DAILY #30 tab - Follow Up Plan Condition: FAIR Disposition: HOME/ ROUTINE Instructions: Alcohol Withdrawal (DC), Alcohol Abuse and Alcoholism (DC), Effects of Alcohol on Your Health Additional Instructions: 1. Please refrain from alcohol use. 2. Take medication as prescribed. Referrals: Kaleb Guidry DO [Primary Care Provider] - <Antonio Ramirez - Last Filed: 01/13/18 08:13> Provider - Provider Date of Admission: 01/07/18 17:20 Attending physician: Antonio Ramirez MD Primary care physician: Kaleb Guidry DO Hospital Course - Lab Results Lab Results: Most Recent Lab Values WBC 6.2 10^3/ul (4.5-11.0) D 01/12/18 05:30 RBC 4.85 10^6/uL (3.5-6.1) 01/12/18 05:30 Hgb 13.0 g/dL (14.0-18.0) L 01/12/18 05:30 Hct 40.4 % (42.0-52.0) L 01/12/18 05:30 MCV 83.3 fl (80.0-105.0) 01/12/18 05:30 MCH 26.8 pg (25.0-35.0) 01/12/18 05:30 MCHC 32.2 g/dl (31.0-37.0) 01/12/18 05:30 RDW 16.0 % (11.5-14.5) H 01/12/18 05:30 Plt Count 166 10^3/uL (120.0-450.0) 01/12/18 05:30 MPV 11.4 fl (7.0-11.0) H 01/12/18 05:30 Gran % 42.8 % (50.0-68.0) L 01/10/18 06:00 Lymph % (Auto) 29.4 % (22.0-35.0) 01/10/18 06:00 [place] % (Auto) 20.8 % (1.0-6.0) H 01/10/18 06:00 Eos % (Auto) 5.5 % (1.5-5.0) H 01/10/18 06:00 Baso % (Auto) 1.5 % (0.0-3.0) 01/10/18 06:00 Gran # 2.02 (1.4-6.5) 01/10/18 06:00 Lymph # (Auto) 1.4 (1.2-3.4) 01/10/18 06:00 [place] # (Auto) 1.0 (0.1-0.6) H 01/10/18 06:00 Eos # (Auto) 0.3 (0.0-0.7) 01/10/18 06:00 Baso # (Auto) 0.07 K/mm3 (0.0-2.0) 01/10/18 06:00 Neutrophils % (Manual) 49 % (50.0-70.0) L 01/08/18 06:00 Lymphocytes % (Manual) 22 % (22.0-35.0) 01/08/18 06:00 Monocytes % (Manual) 24 % (1.0-6.0) H 01/08/18 06:00 Eosinophils % (Manual) 4 % (0.0-3.0) H 01/08/18 06:00 Basophils % (Manual) 1 % (0.0-1.0) 01/08/18 06:00 Platelet Evaluation Low (NORMAL) 01/08/18 06:00 PT 13.6 SECONDS (9.4-12.5) H 01/10/18 06:00 INR 1.18 (0.93-1.08) H 01/10/18 06:00 Sodium 141 mmol/L (132-148) 01/12/18 05:30 Potassium 3.8 mmol/L (3.6-5.0) 01/12/18 05:30 Chloride 106 mmol/L (98-107) 01/12/18 05:30 Carbon Dioxide 26 mmol/L (21-33) 01/12/18 05:30 Anion Gap 13 (10-20) 01/12/18 05:30 BUN 15 mg/dL (7-21) 01/12/18 05:30 Creatinine 1.0 mg/dl (0.8-1.5) 01/12/18 05:30 Est GFR ( Amer) > 60 01/12/18 05:30 Est GFR (Non-Af Amer) > 60 01/12/18 05:30 POC Glucose (mg/dL) 71 mg/dL (65-110) 01/07/18 04:10 Random Glucose 82 mg/dL (70-110) 01/12/18 05:30 Calcium 9.1 mg/dL (8.4-10.5) 01/12/18 05:30 Phosphorus 3.0 mg/dL (2.5-4.5) 01/10/18 06:00 Magnesium 1.7 mg/dL (1.7-2.2) 01/12/18 05:30 Total Bilirubin 1.3 mg/dL (0.2-1.3) 01/10/18 06:00 AST 91 U/L (17-59) H 01/10/18 06:00 ALT 41 U/L (7-56) 01/10/18 06:00 Alkaline Phosphatase 99 U/L (38-126) 01/10/18 06:00 Lactate Dehydrogenase 731 U/L (333-699) H 01/07/18 13:34 Total Creatine Kinase 366 U/L (35-230) H 01/07/18 13:34 CK-MB (CK-2) 3.0 ng/mL (0.0-3.6) 01/07/18 13:34 CK-MB (CK-2) % Cancelled 01/07/18 13:34 Troponin I < 0.01 ng/mL 01/07/18 13:34 NT-Pro-B Natriuret Pep 48.7 pg/mL (0-450) 01/07/18 13:34 Total Protein 7.4 g/dL (5.8-8.3) 01/10/18 06:00 Albumin 3.2 g/dL (3.0-4.8) 01/10/18 06:00 Globulin 4.2 gm/dL 01/10/18 06:00 Albumin/Globulin Ratio 0.8 (1.1-1.8) L 01/10/18 06:00 Urine Color Yellow (YELLOW) 01/07/18 04:23 Urine Appearance Sl cloudy (CLEAR) 01/07/18 04:23 Urine pH 6.0 (4.7-8.0) 01/07/18 04:23 Ur Specific [place] 1.015 (1.005-1.035) 01/07/18 04:23 Urine Protein 100 mg/dL (<30 mg/dL) H 01/07/18 04:23 Urine Glucose (UA) Negative mg/dL (NEGATIVE) 01/07/18 04:23 Urine Ketones Negative mg/dL (NEGATIVE) 01/07/18 04:23 Urine Blood Small (NEGATIVE) H 01/07/18 04:23 Urine Nitrate Negative (NEGATIVE) 01/07/18 04:23 Urine Bilirubin Negative (NEGATIVE) 01/07/18 04:23 Urine Urobilinogen 0.2 E.U./dL (<1 E.U./dL) 01/07/18 04:23 Ur Leukocyte Esterase Negative [place]el/uL (NEGATIVE) 01/07/18 04:23 Urine RBC 1 - 3 /hpf (0-2) 01/07/18 04:23 Urine WBC 0 - 2 /hpf (0-6) 01/07/18 04:23 Ur Epithelial Cells 0 - 2 /hpf (0-5) 01/07/18 04:23 Urine Bacteria Occ (NEG) 01/07/18 04:23 Salicylates < 1 mg/dL (2.0-20.0) L 01/07/18 04:23 Urine Opiates Screen Negative (NEGATIVE) 01/07/18 14:55 Urine Methadone Screen Negative (NEGATIVE) 01/07/18 14:55 Acetaminophen < 10.0 ug/ml (10.0-20.0) L 01/07/18 04:23 Ur Barbiturates Screen Negative (NEGATIVE) 01/07/18 14:55 Ur Phencyclidine Scrn Negative (NEGATIVE) 01/07/18 14:55 Ur Amphetamines Screen Negative (NEGATIVE) 01/07/18 14:55 U Benzodiazepines Scrn Negative (NEGATIVE) 01/07/18 14:55 U Oth Cocaine Metabols Negative (NEGATIVE) 01/07/18 14:55 U Cannabinoids Screen Negative (NEGATIVE) 01/07/18 14:55 Alcohol, Quantitative 294 mg/dL (0-10) H 01/07/18 04:23 Attending/Attestation - Attestation I have personally seen and examined this patient.: Yes I have fully participated in the care of the patient.: Yes I have reviewed all pertinent clinical information, including history, physical exam and plan: Yes Notes (Text): 01/12/18 57 year old male with past medical history of COPD, cirrhosis s/p TIPS, hepatitis B/C, and chronic ETOH abuse who presented with alcohol intoxication and SI. He was treated for alcohol withdrawal which improved with ativan taper. He was on multivitamin, folic acid and thiamine. He was counselled on alcohol abstinence. He was seen by psychiatry for depressed mood and SI, which he is no longer complaining of. He was being followed by physical therapy for gait instability which improved. Patient is discharged. Follow up with pmd. Counselled on alcohol abstinence. Follow up with [facility]. Antonio Ramirez MD Hospitalist.
== END 2018-01-12 16:44 | disposition home or self-care (01) | DRG 750 ==
LOC: ED 03:48 → ERH 17:20 → 3RNO 18:04
PROVIDERS: ADMIT Internal Medicine; ATTEND Internal Medicine
DX: F10.229 Alcohol dependence with intoxication, unspecified (principal); F10.239 Alcohol dependence with withdrawal, unspecified; K70.30 Alcoholic cirrhosis of liver without ascites; J44.9 Chronic obstructive pulmonary disease, unspecified; B19.20 Unspecified viral hepatitis C without hepatic coma; B19.10 Unspecified viral hepatitis B without hepatic coma; E87.6 Hypokalemia; G89.29 Other chronic pain; M79.606 Pain in leg, unspecified; I85.10 Secondary esophageal varices without bleeding; R45.851 Suicidal ideations; K86.1 Other chronic pancreatitis; I87.2 Venous insufficiency (chronic) (peripheral); E83.42 Hypomagnesemia; Y90.8 Blood alcohol level of 240 mg/100 ml or more; K27.9 Peptic ulcer, site unspecified, unspecified as acute or chronic, without hemorrhage or perforation; R26.9 Unspecified abnormalities of gait and mobility; F41.9 Anxiety disorder, unspecified; Z59.0 Homelessness

== ENCOUNTER 2018-01-12 23:21 | Emergency (ER) | payer MEDICAID ==
[2018-01-12 23:22] VITALS: BMI 36.6
== END 2018-01-13 01:33 | disposition left against medical advice (07) ==
LOC: ED 23:21
DX: Z02.89 Encounter for other administrative examinations (principal); Z00.00 Encounter for general adult medical examination without abnormal findings

== ENCOUNTER 2018-01-13 22:18 | Emergency (ER) | payer MEDICAID ==
[2018-01-13 22:40] VITALS: BMI 35.7
[2018-01-13 22:46] VITALS: TEMP 98.7
--- NOTE | 2018-01-14 00:15 | ED PDOC ---
Arrival/HPI <Hong Perez - Last Filed: 01/14/18 04:56> - General Historian: Patient - History of Present Illness Time/Duration: > month Symptom Course: Unchanged, Intermittent Quality: Aching, Pressure, Tightness Activities at Onset: Rest, Light, Significant Context: Sitting, Standing, Walking <JerrodKey - Last Filed: 01/14/18 06:54> - General Chief Complaint: Chest Pain Time Seen by Provider: 01/13/18 22:54 - History of Present Illness Narrative History of Present Illness (Text): 01/14/18 00:08 Patient is a 56 year old male with past medical history that includes COPD, cirrhosis s/p TIPS procedure, PUD, GI bleeding, HBV/HCV, esophageal varices, pancreatitis, chronic lower extremity edema/venous stasis, alcohol abuse and homelessness who presents to [facility] department brought by his nephew complaining of chest pain. Patient was recently discharged from [facility] 2 days ago, and reports that his pain has been constant since before he was discharged. Pain changes in location, occasionally right axillary, left axillary, mid- sternal, RUQ, LUQ, epigastric, and diffuse. Pain is worse with deep breaths. Pain is reproducible on palpation. He has this pain at baseline. Patient also reports baseline shortness of breath, unchanged. Patient reports mechanical fall , yesterday, after discharge, which exacerbated his pain. He denies diaphoresis , radiation of pain. He has not tried anything for the pain. Patient also complaining of homelessness, requesting to stay the night. He was reportedly kicked out by his 93 year old father, who he used to stay with. Later, upon reevaluation, patient's nephew and nephew's friend were at bedside, who provided same history as above. Patient also reports drinking two 24 oz beers today, last drink 4 hours prior to presentation (Key Elder) Past Medical History - Provider Review Nursing Documentation Reviewed: Yes - Travel History Have you recently traveled outside [place] w/in the past 3 mons?: No - Infectious Disease Hx of Infectious Diseases: None - Tetanus Immunization Tetanus Immunization: Up to Date - Past Medical History Past Medical History: No Previous - Cardiac Hx Cardiac Disorders: Yes Hx Hypertension: Yes Hx Peripheral Edema: Yes Hx Peripheral Vascular Disease: Yes - Pulmonary Hx Respiratory Disorders: Yes Hx Chronic Obstructive Pulmonary Disease (COPD): Yes - Neurological Hx Neurological Disorder: No - HEENT Hx HEENT Disorder: Yes Other/Comment: retina detachment - Renal Hx Renal Failure: Yes - Endocrine/Metabolic Hx Endocrine Disorders: No - Hematological/Oncological Hx Blood Disorders: Yes Hx Hepatitis B: Yes Hx Hepatitis C: Yes - Integumentary Hx Dermatological Disorder: Yes Hx Psoriasis: Yes - Musculoskeletal/Rheumatological Hx Musculoskeletal Disorders: Yes Hx Falls: Yes Hx Fractures: Yes (NASAL SURGERY) - Gastrointestinal Hx Gastrointestinal Disorders: Yes Hx Liver Failure: Yes Hx Pancreatitis: Yes Other/Comment: ascites - Genitourinary/Gynecological Hx Genitourinary Disorders: No - Psychiatric Hx Psychophysiologic Disorder: Yes Hx Anxiety: Yes Hx Bipolar Disorder: Yes Hx Depression: Yes Hx Substance Use: Yes - Surgical History Other/Comment: TIPPS. Nasal surgery. - Anesthesia Hx Anesthesia: Yes Hx Anesthesia Reactions: No Hx Malignant Hyperthermia: No <Key Elder - Last Filed: 01/14/18 06:54> Family/Social History - Physician Review Nursing Documentation Reviewed: Yes Family/Social History: Unknown Family HX Smoking Status: Heavy Smoker > 10 Cigarettes Daily Hx Alcohol Use: Yes (Hx) Amount per day: 3 Hx Substance Use: Yes Hx Substance Use Treatment: No <Key Elder - Last Filed: 01/14/18 06:54> Allergies/Home Meds <Hong Perez - Last Filed: 01/14/18 04:56> <Key Elder - Last Filed: 01/14/18 06:54> Allergies/Adverse Reactions: Allergies No Known Allergies Allergy (Verified 01/13/18 22:40) Home Medications: Home Meds Medication Instructions Recorded Confirmed Unobtainable 01/13/18 01/13/18 Review of Systems - Review of Systems Constitutional: Fatigue Eyes: Normal ENT: Normal Respiratory: SOB, Cough Cardiovascular: Chest Pain, Palpitations, Edema, Calf Pain, PASTRANA Gastrointestinal: Normal Genitourinary Male: Normal Musculoskeletal: Normal Skin: Normal Neurological: Disequilibrium Endocrine: Normal Hemo/Lymphatic: Normal Psychiatric: Normal <Key Elder - Last Filed: 01/14/18 06:54> Physical Exam Vital Signs Reviewed: Yes Temperature: Afebrile Blood Pressure: Hypertensive Pulse: Regular Respiratory Rate: Normal Appearance: Positive for: Well-Appearing, Non-Toxic, Comfortable, Unkept Pain Distress: Mild Mental Status: Positive for: Alert and Oriented X 3 - Systems Exam Head: Present: Atraumatic, Normocephalic Pupils: Present: PERRL Extroacular Muscles: Present: EOMI Conjunctiva: Present: Normal Mouth: Present: Moist Mucous Membranes Neck: Present: Normal Range of Motion Respiratory/Chest: Present: Decreased Breath Sounds, Tender to Palpation. No: Good Air Exchange, Respiratory Distress, Accessory Muscle Use, Wheezes, Rales, Rhonchi Cardiovascular: Present: Regular Rate and Rhythm, Normal S1, S2. No: Murmurs Abdomen: Present: Normal Bowel Sounds. No: Tenderness, Distention, Peritoneal Signs Upper Extremity: Present: Normal Inspection. No: Cyanosis, Edema Lower Extremity: Present: Edema, Erythema, Other (Warm. Chronic venous stasis changes). No: CALF TENDERNESS, Gloria's Sign Neurological: Present: GCS=15, CN II-XII Intact, Speech Normal Skin: Present: Warm, Dry, Normal Color Psychiatric: Present: Alert, Oriented x 3, Normal Insight, Normal Concentration. No: Suicidal Ideation, Homicidal Ideation <Key Elder - Last Filed: 01/14/18 06:54> Vital Signs Temp Pulse Resp BP Pulse Ox 01/14/18 02:18 72 18 123/72 96 01/14/18 00:18 84 18 120/70 95 01/13/18 22:41 98.7 F 87 19 121/73 93 L Medical Decision Making <Hong Perez - Last Filed: 01/14/18 04:56> - Lab Interpretations Interpretation: No sign. chg./baseline - EKG Interpretation Type: 12 lead EKG Comparison: Similar to previous EKG <Key Elder - Last Filed: 01/14/18 06:54> ED Course and Treatment: Impression: Pt seen and evaluated with medical technologist clinical. Aware and agree with HPI, clinical findings, plan, and management. Pt, whose past medical history includes COPD, cirrhosis s/p TIPS procedure, PUD, GI bleed, hepatitis B/C, esophageal varies, pancreatitis, and alcohol abuse, presented for chest pain. Pt also requesting a place to stay tonight. Plan: -- EKG -- CXR -- Labs, cardiac enzymes -- Reassess and disposition Progress Notes: (Hong Perez) 01/14/18 01:23 Impression: Chest pain Differential Diagnosis included but are not limited to: ACS, costochondritis 2/ 2 trauma or increased work of breathing 2/2 COPD Plan: -- Labs -- CXR -- Reassess and disposition Prior Visits: Notes and results from previous visits were reviewed. Patient was last seen in the emergency department on 01/07/18, admitted for alcohol withdrawal, psychiatric referral. Progress Notes: - Patient refusing CXR 01/14/18 06:48 - Patient resting comfortably, no further complaints of pain - Labs and EKG unremarkable - Patient reports new insurance, which he previously did not have. Patient will be discharged to home, instructed to follow up with PMD within one week, continue all medications as previously prescribed. (Key Elder) - Lab Interpretations Lab Results: 01/13/18 23:30 01/13/18 23:30 Lab Results 01/13/18 23:30: Sodium 134, Potassium 4.2, Chloride 102, Carbon Dioxide 18 L, Anion Gap 18, BUN 24 H, Creatinine 1.4, Est GFR ( Amer) > 60, Est GFR ( Non-Af Amer) 53, Random Glucose 94, Calcium 9.4, Total Bilirubin Cancelled, AST Cancelled, ALT Cancelled, Alkaline Phosphatase Cancelled, Lactate Dehydrogenase 727 H, Total Creatine Kinase 464 H, CK-MB (CK-2) 3.2, CK-MB (CK-2) % TEST NOT PERFORMED, Troponin I < 0.01, Total Protein Cancelled, Albumin Cancelled, Globulin Cancelled, Albumin/Globulin Ratio Cancelled 01/13/18 23:30: WBC 8.4 D, RBC 4.92, Hgb 13.4 L, Hct 39.9 L, MCV 81.1, MCH 27.2 , MCHC 33.6, RDW 15.9 H, Plt Count 195, MPV 10.9, Gran % 50.1, Lymph % (Auto) 32.7, Sterling % (Auto) 13.0 H, Eos % (Auto) 2.9, Baso % (Auto) 1.3, Gran # 4.20, Lymph # (Auto) 2.7, Sterling # (Auto) 1.1 H, Eos # (Auto) 0.2, Baso # (Auto) 0.11 - PA / OVERHEAD IRRIGATOR / Resident Statement / has reviewed & agrees with the documentation as recorded. / has examined the patient and agrees with the treatment plan. <Hong Perez - Last Filed: 01/14/18 04:56> Disposition/Present on Arrival <Hong Perez - Last Filed: 01/14/18 04:56> - Present on Arrival Any Indicators Present on Arrival: No History of DVT/PE: No History of Uncontrolled Diabetes: No Urinary Catheter: No History of Decub. Ulcer: No History Surgical Site Infection Following: None - Disposition Have Diagnosis and Disposition been Completed?: Yes Disposition Time: 06:51 Patient Plan: Discharge <Key Elder - Last Filed: 01/14/18 06:54> - Disposition Diagnosis: Musculoskeletal chest pain Disposition: HOME/ ROUTINE Condition: GUARDED Discharge Instructions (ExitCare): Chest Pain (ED) Additional Instructions: Follow up with PMD of your choice within one week Continue all medications as previously prescribed Use NSAIDs for musculoskeletal chest pain Referrals: Kaleb Guidry DO [Primary Care Provider] - Follow up with primary Forms: [employer] (Danish)
[2018-01-14 00:22] LABS: BLOOD UREA NITROGEN 24 mg/dL (7-21); CALCIUM 9.4 mg/dL (8.4-10.5); GFR AFRICAN-AMERICAN > 60; GFR NON-AFRICAN AMERICAN 53
[2018-01-14 00:50] LABS: BASO # 0.11 K/mm3 (0.0-2.0); BASO % 1.3 % (0.0-3.0); EOS # 0.2 (0.0-0.7); EOS % 2.9 % (1.5-5.0); GRAN # 4.2 (1.4-6.5); GRAN % 50.1 % (50.0-68.0); HEMOGLOBIN 13.4 g/dL (14.0-18.0); LYMPH # 2.7 (1.2-3.4); LYMPH % 32.7 % (22.0-35.0); MEAN CELL VOLUME 81.1 fl (80.0-105.0); MEAN CORPUSCULAR HEMOGLOBIN 27.2 pg (25.0-35.0); MEAN CORPUSCULAR HGB CONC 33.6 g/dl (31.0-37.0); MEAN PLATELET VOLUME 10.9 fl (7.0-11.0); MONO # 1.1 (0.1-0.6); RBC 4.92 10^6/uL (3.5-6.1); RED CELL DISTRIBUTION WIDTH 15.9 % (11.5-14.5); WHITE BLOOD COUNT 8.4 10^3/ul (4.5-11.0)
[2018-01-14 01:07] LABS: CK-MB 3.2 ng/mL (0.0-3.6)
[2018-01-14 01:35] LABS: TROPONIN I < 0.01 ng/mL
[2018-01-14 03:33] VITALS: RESP 18
[2018-01-14 06:41] VITALS: PULSE 88
[2018-01-14 07:19] VITALS: BP 126/72; O2SAT 97
--- NOTE | 2018-01-14 09:52 | CARD ---
APPROVED REPORT EKG Measurement Heart [id number] <Conclusion> Normal sinus rhythm Left axis deviation/LAHB RVCD No change
== END 2018-01-14 07:19 | disposition home or self-care (01) ==
LOC: ED 22:18
DX: R07.89 Other chest pain (principal); F17.210 Nicotine dependence, cigarettes, uncomplicated; I10 Essential (primary) hypertension; Z59.0 Homelessness

== ENCOUNTER 2018-01-14 23:46 | Emergency (ER) | payer MEDICAID ==
[2018-01-15 02:00] VITALS: BMI 29.3
[2018-01-15 02:16] VITALS: O2SAT 96
--- NOTE | 2018-01-15 04:21 | ED PDOC ---
Arrival/HPI - General Chief Complaint: Alcohol Ingestion Time Seen by Provider: 01/15/18 02:05 Historian: Patient - History of Present Illness Narrative History of Present Illness (Text): you were treated in the ED today for alcohol detoxification and had last drink about 2 days ago but otherwise without any nausea/vomiting/headache/dizziness/ abdomen pain/numbness/tingling/loss of limb function/pain with urination/drug use/travel/prior blood clots/prior cancer/thoughts to harm yourself or others or hallucinations. 01/15/18 04:18 01/15/18 04:20 Past Medical History - Provider Review Nursing Documentation Reviewed: Yes - Travel History Have you recently traveled outside [place] w/in the past 3 mons?: No - Infectious Disease Hx of Infectious Diseases: None - Tetanus Immunization Tetanus Immunization: Up to Date - Past Medical History Past Medical History: No Previous - Cardiac Hx Cardiac Disorders: Yes Hx Hypertension: Yes Hx Peripheral Edema: Yes Hx Peripheral Vascular Disease: Yes - Pulmonary Hx Respiratory Disorders: Yes Hx Chronic Obstructive Pulmonary Disease (COPD): Yes - Neurological Hx Neurological Disorder: No - HEENT Hx HEENT Disorder: Yes Other/Comment: retina detachment - Renal Hx Renal Failure: Yes - Endocrine/Metabolic Hx Endocrine Disorders: No - Hematological/Oncological Hx Blood Disorders: Yes Hx Hepatitis B: Yes Hx Hepatitis C: Yes - Integumentary Hx Dermatological Disorder: Yes Hx Psoriasis: Yes - Musculoskeletal/Rheumatological Hx Musculoskeletal Disorders: Yes Hx Falls: Yes Hx Fractures: Yes (NASAL SURGERY) - Gastrointestinal Hx Gastrointestinal Disorders: Yes Hx Liver Failure: Yes Hx Pancreatitis: Yes Other/Comment: ascites - Genitourinary/Gynecological Hx Genitourinary Disorders: No - Psychiatric Hx Psychophysiologic Disorder: Yes Hx Anxiety: Yes Hx Bipolar Disorder: Yes Hx Depression: Yes Hx Substance Use: Yes - Past Surgical History Past Surgical History: No Previous - Surgical History Other/Comment: TIPPS. Nasal surgery. - Anesthesia Hx Anesthesia: Yes Hx Anesthesia Reactions: No Hx Malignant Hyperthermia: No - Suicidal Assessment Feels Threatened In Home Enviroment: No Family/Social History - Physician Review Nursing Documentation Reviewed: Yes Family/Social History: No Known Family HX Smoking Status: Heavy Smoker > 10 Cigarettes Daily Hx Alcohol Use: Yes (Hx) Amount per day: 3 Hx Substance Use: Yes Hx Substance Use Treatment: No Allergies/Home Meds Allergies/Adverse Reactions: Allergies No Known Allergies Allergy (Verified 01/15/18 02:00) Home Medications: Home Meds Medication Instructions Recorded Confirmed Unobtainable 01/13/18 01/15/18 Review of Systems - Review of Systems Constitutional: Normal Eyes: Normal ENT: Normal Respiratory: Normal Cardiovascular: Normal Gastrointestinal: Normal Genitourinary Male: Normal Musculoskeletal: Normal Skin: Normal Neurological: Normal Endocrine: Normal Hemo/Lymphatic: Normal Psychiatric: Normal Physical Exam Vital Signs Reviewed: Yes Vital Signs Temp Pulse Resp BP Pulse Ox 01/15/18 01:00 98.0 F 70 16 144/74 96 Temperature: Afebrile Blood Pressure: Hypertensive Pulse: Regular Respiratory Rate: Normal Appearance: Positive for: Well-Appearing, Non-Toxic, Comfortable Pain Distress: None Mental Status: Positive for: Alert and Oriented X 3 - Systems Exam Head: Present: Atraumatic, Normocephalic Pupils: Present: PERRL Extroacular Muscles: Present: EOMI Conjunctiva: Present: Normal Mouth: Present: Moist Mucous Membranes Pharnyx: Present: Normal Nose (External): Present: Atraumatic Nose (Internal): Present: Normal Inspection, Other (no c-t-l spinal or paraspinal tenderness) Neck: Present: Normal Range of Motion Respiratory/Chest: Present: Clear to Auscultation, Good Air Exchange Cardiovascular: Present: Regular Rate and Rhythm Abdomen: No: Tenderness, Distention, Normal Bowel Sounds, Peritoneal Signs, Rebound, Guarding, McBurney's Point Tender, Rovsing's Sign Present, Hernias, Feeding Tubes, Ostomy Tubes, Mass/Organomegaly, Scars, Other Back: Present: Normal Inspection Upper Extremity: Present: Normal Inspection Lower Extremity: Present: Normal Inspection Neurological: Present: GCS=15, CN II-XII Intact, Speech Normal, Motor Func Grossly Intact Skin: Present: Warm, Dry, Rashes, Normal Color Psychiatric: Present: Alert, Oriented x 3, Normal Insight, Normal Concentration Medical Decision Making ED Course and Treatment: you were treated in the ED today for alcohol detoxification and had last drink about 2 days ago but otherwise without any nausea/vomiting/headache/dizziness/ abdomen pain/numbness/tingling/loss of limb function/pain with urination/drug use/travel/prior blood clots/prior cancer/thoughts to harm yourself or others or hallucinations. You were otherwise breathing easily, pink moist lips, talking easily, good strength/sensation, alert/oriented, walking easily, clear lungs, no abdomen tenderness, no spinal tenderness, no fever temp 98, stable heart rate 70, stable breathing rate 16, excellent oxygen level 96% room air, stable blood pressure 1044/74 which we recommend repeat in 2 days primary care office to determine further treatment, observation done in the ED with improvement, counselled to stop drinking alcohol and follow-up detoxification unit to stop drinking alcohol. 1. Recommend follow-up primary care 1-2 days to review symptoms, referral to alcohol detoxification clinic and counselled to stop drinking alcohol. 2. If any worsening pain, fever, chills, nausea, vomiting , difficulty breathing, numbness, loss of limb function, pain with urination or any medical condition then return to the ED. 01/15/18 04:22 Reassessment Condition: Re-examined, Improved Disposition/Present on Arrival - Present on Arrival Any Indicators Present on Arrival: No History of DVT/PE: No History of Uncontrolled Diabetes: No Urinary Catheter: No History of Decub. Ulcer: No History Surgical Site Infection Following: None - Disposition Have Diagnosis and Disposition been Completed?: Yes Diagnosis: Alcohol use disorder Disposition: HOME/ ROUTINE Disposition Time: 04:23 Patient Plan: Discharge Condition: IMPROVED Discharge Instructions (ExitCare): Alcohol Abuse and Alcoholism (DC) Additional Instructions: you were treated in the ED today for alcohol detoxification and had last drink about 2 days ago but otherwise without any nausea/vomiting/headache/dizziness/ abdomen pain/numbness/tingling/loss of limb function/pain with urination/drug use/travel/prior blood clots/prior cancer/thoughts to harm yourself or others or hallucinations. You were otherwise breathing easily, pink moist lips, talking easily, good strength/sensation, alert/oriented, walking easily, clear lungs, no abdomen tenderness, no spinal tenderness, no fever temp 98, stable heart rate 70, stable breathing rate 16, excellent oxygen level 96% room air, stable blood pressure 1044/74 which we recommend repeat in 2 days primary care office to determine further treatment, observation done in the ED with improvement, counselled to stop drinking alcohol and follow-up detoxification unit to stop drinking alcohol. 1. Recommend follow-up primary care 1-2 days to review symptoms, referral to alcohol detoxification clinic and counselled to stop drinking alcohol. 2. If any worsening pain, fever, chills, nausea, vomiting , difficulty breathing, numbness, loss of limb function, pain with urination or any medical condition then return to the ED. Referrals: Kaleb Guidry DO [Primary Care Provider] - Follow up with primary
[2018-01-15 06:25] VITALS: BP 132/78; PULSE 68; RESP 18; TEMP 98.2
== END 2018-01-15 06:35 | disposition home or self-care (01) ==
LOC: ED 23:46
DX: Z72.89 Other problems related to lifestyle (principal); F17.210 Nicotine dependence, cigarettes, uncomplicated; I10 Essential (primary) hypertension; J44.9 Chronic obstructive pulmonary disease, unspecified

== ENCOUNTER 2018-01-16 01:25 | Emergency (ER) | payer MEDICAID ==
[2018-01-16 01:49] VITALS: BMI 20.7
[2018-01-16 01:59] VITALS: TEMP 98
--- NOTE | 2018-01-16 03:12 | ED PDOC ---
Arrival/HPI - General Chief Complaint: Pain, Chronic Time Seen by Provider: 01/16/18 02:46 Historian: Patient - History of Present Illness Narrative History of Present Illness (Text): you were treated in the ED today for clarification of alcohol use and stated have had long standing lower extremity swelling without calf pain and you admitted wanting a place to rest/sleep and otherwise without any trauma/injury/ nausea/vomiting/headache/dizziness/difficulty breathing/chest pain/abdomen pain/ numbness/tingling/loss of limb function/pain with urination. 01/16/18 03:09 01/16/18 03:15 01/16/18 03:15 Time/Duration: 4-6 hours Symptom Onset: Gradual Symptom Course: Resolved Quality: Other (no pain) Activities at Onset: Rest Context: Sitting Past Medical History - Provider Review Nursing Documentation Reviewed: Yes - Travel History Have you recently traveled outside [place] w/in the past 3 mons?: No - Infectious Disease Hx of Infectious Diseases: None - Tetanus Immunization Tetanus Immunization: Up to Date - Past Medical History Past Medical History: No Previous - Cardiac Hx Cardiac Disorders: Yes Hx Hypertension: Yes Hx Peripheral Edema: Yes Hx Peripheral Vascular Disease: Yes - Pulmonary Hx Respiratory Disorders: Yes Hx Chronic Obstructive Pulmonary Disease (COPD): Yes - Neurological Hx Neurological Disorder: No - HEENT Hx HEENT Disorder: Yes Other/Comment: retina detachment - Renal Hx Renal Failure: Yes - Endocrine/Metabolic Hx Endocrine Disorders: No - Hematological/Oncological Hx Blood Disorders: Yes Hx Hepatitis B: Yes Hx Hepatitis C: Yes - Integumentary Hx Dermatological Disorder: Yes Hx Psoriasis: Yes - Musculoskeletal/Rheumatological Hx Musculoskeletal Disorders: Yes Hx Falls: Yes Hx Fractures: Yes (NASAL SURGERY) - Gastrointestinal Hx Gastrointestinal Disorders: Yes Hx Liver Failure: Yes Hx Pancreatitis: Yes Other/Comment: ascites - Genitourinary/Gynecological Hx Genitourinary Disorders: No - Psychiatric Hx Psychophysiologic Disorder: Yes Hx Anxiety: Yes Hx Bipolar Disorder: Yes Hx Depression: Yes Hx Substance Use: Yes - Past Surgical History Past Surgical History: No Previous - Surgical History Other/Comment: TIPPS. Nasal surgery. - Anesthesia Hx Anesthesia: Yes Hx Anesthesia Reactions: No Hx Malignant Hyperthermia: No - Suicidal Assessment Feels Threatened In Home Enviroment: No Family/Social History - Physician Review Nursing Documentation Reviewed: Yes Family/Social History: No Known Family HX Smoking Status: Heavy Smoker > 10 Cigarettes Daily Hx Alcohol Use: Yes (Hx) Amount per day: 3 Hx Substance Use: Yes Hx Substance Use Treatment: No Allergies/Home Meds Allergies/Adverse Reactions: Allergies No Known Allergies Allergy (Verified 01/16/18 01:49) Home Medications: Home Meds Medication Instructions Recorded Confirmed No Known Home Med 01/16/18 01/16/18 Review of Systems - Review of Systems Constitutional: Normal Eyes: Normal ENT: Normal Respiratory: Normal Cardiovascular: Normal Gastrointestinal: Normal Genitourinary Male: Normal Musculoskeletal: Arthralgias Skin: Normal Neurological: Normal Endocrine: Normal Hemo/Lymphatic: Normal Psychiatric: Normal Physical Exam Vital Signs Reviewed: Yes Vital Signs Temp Pulse Resp BP Pulse Ox 01/16/18 01:59 98 F 84 16 134/75 99 Temperature: Afebrile Blood Pressure: Hypertensive Pulse: Regular Respiratory Rate: Normal Appearance: Positive for: Well-Appearing, Non-Toxic, Comfortable Pain Distress: None Mental Status: Positive for: Alert and Oriented X 3 - Systems Exam Head: Present: Atraumatic, Normocephalic Pupils: Present: PERRL Extroacular Muscles: Present: EOMI Conjunctiva: Present: Normal Ears: Present: Normal Mouth: Present: Moist Mucous Membranes Pharnyx: Present: Normal Nose (External): Present: Atraumatic Nose (Internal): Present: Normal Inspection Neck: Present: Normal Range of Motion Respiratory/Chest: Present: Clear to Auscultation, Good Air Exchange Cardiovascular: Present: Regular Rate and Rhythm Abdomen: No: Tenderness, Distention, Normal Bowel Sounds, Peritoneal Signs, Rebound, Guarding, McBurney's Point Tender, Rovsing's Sign Present, Hernias, Feeding Tubes, Ostomy Tubes, Mass/Organomegaly, Scars, Other Back: Present: Normal Inspection Upper Extremity: Present: Normal Inspection Lower Extremity: Present: Edema, Other (b/l le mild swelling wo calf tenderness/ erythema/fluctuance/crepitus and otherwise pink/good distal pulses.) Neurological: Present: GCS=15, CN II-XII Intact, Speech Normal, Motor Func Grossly Intact Skin: Present: Warm, Normal Color Psychiatric: Present: Alert, Oriented x 3, Normal Insight, Normal Concentration Medical Decision Making ED Course and Treatment: you were treated in the ED today for clarification of alcohol use and stated have had long standing lower extremity swelling without calf pain and you admitted wanting a place to rest/sleep and otherwise without any trauma/injury/ nausea/vomiting/headache/dizziness/difficulty breathing/chest pain/abdomen pain/ numbness/tingling/loss of limb function/pain with urination/recent travel/prior blood clots/prior cancer/thoughts to harm yourself or others or hallucinations. You were otherwise breathing easily, pink moist lips, talking easily, good strength/sensation, alert/oriented, walking easily, clear lungs, no abdomen tenderness, no spinal tenderness, both lower extremities mild swelling without redness/calf tenderness and otherwise warm/sensation/good distal pulses, no fever temp 98, stable heart rate 84, stable breathing rate 16, excellent oxygen level 99% room air, elevated blood pressure 134/75 which we recommend repeat in 2-3 days primary care office to determine further treatment, radiology ultrasound negative for deep vein clot 12/24/17, observation done in the ED with improvement, counselled to stop drinking alcohol and thus discharged home. 1. Recommend follow-up primary care 2 days to review symptoms, referral to vascular surgery clinic and cardiology clinic to review symptoms. 4. If any worsening pain, fever, chills, nausea, vomiting, difficulty breathing, numbness , loss of limb function, pain with urination or any medical condition then return to the ED. 01/16/18 03:17 01/16/18 05:01 Reassessment Condition: Re-examined, Improved - RAD Interpretation [employer] Specialist: Radiologist (12/24/17 US b/l LE negative DVT) Disposition/Present on Arrival - Present on Arrival Any Indicators Present on Arrival: No History of DVT/PE: No History of Uncontrolled Diabetes: No Urinary Catheter: No History of Decub. Ulcer: No History Surgical Site Infection Following: None - Disposition Have Diagnosis and Disposition been Completed?: Yes Diagnosis: Alcohol abuse Disposition: HOME/ ROUTINE Disposition Time: 05:03 Patient Plan: Discharge Patient Problems: Current Active Problems Problem Status Onset Alcohol abuse Acute Condition: IMPROVED Additional Instructions: you were treated in the ED today for clarification of alcohol use and stated have had long standing lower extremity swelling without calf pain and you admitted wanting a place to rest/sleep and otherwise without any trauma/injury/ nausea/vomiting/headache/dizziness/difficulty breathing/chest pain/abdomen pain/ numbness/tingling/loss of limb function/pain with urination/recent travel/prior blood clots/prior cancer/thoughts to harm yourself or others or hallucinations. You were otherwise breathing easily, pink moist lips, talking easily, good strength/sensation, alert/oriented, walking easily, clear lungs, no abdomen tenderness, no spinal tenderness, both lower extremities mild swelling without redness/calf tenderness and otherwise warm/sensation/good distal pulses, no fever temp 98, stable heart rate 84, stable breathing rate 16, excellent oxygen level 99% room air, elevated blood pressure 134/75 which we recommend repeat in 2-3 days primary care office to determine further treatment, radiology ultrasound negative for deep vein clot 12/24/17, observation done in the ED with improvement, counselled to stop drinking alcohol and thus discharged home. 1. Recommend follow-up primary care 2 days to review symptoms, referral to vascular surgery clinic and cardiology clinic to review symptoms. 4. If any worsening pain, fever, chills, nausea, vomiting, difficulty breathing, numbness , loss of limb function, pain with urination or any medical condition then return to the ED. Forms: [employer] ([place])
[2018-01-16 05:05] VITALS: BP 154/80; PULSE 75; RESP 17; O2SAT 97
== END 2018-01-16 05:30 | disposition home or self-care (01) ==
LOC: ED 01:25
DX: F10.10 Alcohol abuse, uncomplicated (principal); F17.210 Nicotine dependence, cigarettes, uncomplicated; I10 Essential (primary) hypertension

== ENCOUNTER 2018-01-17 01:10 | Emergency (ER) | payer MEDICAID ==
[2018-01-17 01:11] VITALS: BMI 20.7
[2018-01-17 01:56] VITALS: BP 136/72; PULSE 77; RESP 20; TEMP 98.3; O2SAT 97
== END 2018-01-17 02:52 | disposition left against medical advice (07) ==
LOC: ED 01:10
DX: Z02.89 Encounter for other administrative examinations (principal); F10.129 Alcohol abuse with intoxication, unspecified

== ENCOUNTER 2018-01-17 04:57 | Emergency (ER) | payer MEDICAID ==
[2018-01-17 04:58] VITALS: BMI 20.7
[2018-01-17 06:50] VITALS: BP 137/76; PULSE 77; RESP 18; TEMP 98.2; O2SAT 96
--- NOTE | 2018-01-17 07:24 | ED PDOC ---
Arrival/HPI - General Chief Complaint: Lower Extremity Problem/Injury Time Seen by Provider: 01/17/18 07:15 - History of Present Illness Narrative History of Present Illness (Text): 01/17/18 07:23 A 57 year old male, with no significant past medical history, brought in for chronic leg pain. pt well known to er for malingering, bed seeking behavior. Patient is currently asleep at this time. No PMD 01/17/18 08:47 Past Medical History - Provider Review Nursing Documentation Reviewed: Yes - Infectious Disease Hx of Infectious Diseases: None - Tetanus Immunization Tetanus Immunization: Up to Date - Past Medical History Past Medical History: No Previous - Cardiac Hx Cardiac Disorders: Yes Hx Hypertension: Yes Hx Peripheral Edema: Yes Hx Peripheral Vascular Disease: Yes - Pulmonary Hx Respiratory Disorders: Yes Hx Chronic Obstructive Pulmonary Disease (COPD): Yes - Neurological Hx Neurological Disorder: No - HEENT Hx HEENT Disorder: Yes Other/Comment: retina detachment - Renal Hx Renal Failure: Yes - Endocrine/Metabolic Hx Endocrine Disorders: No - Hematological/Oncological Hx Blood Disorders: Yes Hx Hepatitis B: Yes Hx Hepatitis C: Yes - Integumentary Hx Dermatological Disorder: Yes Hx Psoriasis: Yes - Musculoskeletal/Rheumatological Hx Musculoskeletal Disorders: Yes Hx Falls: Yes Hx Fractures: Yes (NASAL SURGERY) - Gastrointestinal Hx Gastrointestinal Disorders: Yes Hx Liver Failure: Yes Hx Pancreatitis: Yes Other/Comment: ascites - Genitourinary/Gynecological Hx Genitourinary Disorders: No - Psychiatric Hx Psychophysiologic Disorder: Yes Hx Anxiety: Yes Hx Bipolar Disorder: Yes Hx Depression: Yes Hx Substance Use: Yes - Past Surgical History Past Surgical History: No Previous - Surgical History Other/Comment: TIPPS. Nasal surgery. - Anesthesia Hx Anesthesia: Yes Hx Anesthesia Reactions: No Hx Malignant Hyperthermia: No - Suicidal Assessment Feels Threatened In Home Enviroment: No Family/Social History - Physician Review Nursing Documentation Reviewed: Yes Family/Social History: No Known Family HX Smoking Status: Heavy Smoker > 10 Cigarettes Daily Hx Alcohol Use: Yes (Hx) Amount per day: 3 Hx Substance Use: Yes Hx Substance Use Treatment: No Allergies/Home Meds Allergies/Adverse Reactions: Allergies No Known Allergies Allergy (Verified 01/16/18 01:49) Home Medications: Home Meds Medication Instructions Recorded Confirmed No Known Home Med 01/16/18 01/17/18 Review of Systems - Review of Systems Systems not reviewed;Unavailable: Other (patient is asleep) Physical Exam - Physical Exam Physical Exam Limitations: Other (patient is asleep) Vital Signs Reviewed: Yes Vital Signs Temp Pulse Resp BP Pulse Ox 01/17/18 05:25 98.2 F 77 18 137/76 96 Temperature: Afebrile Blood Pressure: Normal Pulse: Regular Respiratory Rate: Normal Appearance: Positive for: Well-Appearing Pain Distress: None Mental Status: Positive for: other (patient is asleep ) Medical Decision Making ED Course and Treatment: 01/17/18 07:24 Impression: 57 year old male brought in . Patient is current asleep at this time and will be discharged. Plan: -- Reassess and disposition Progress Notes: 01/17/18 08:47 pt sleeping in nad. malingering. will dc - Scribe Statement The provider has reviewed the documentation as recorded by the Scribe Alejandrina Handy Provider Scribe Attestation: All medical record entries made by the Scribe were at my direction and personally dictated by me. I have reviewed the chart and agree that the record accurately reflects my personal performance of the history, physical exam, medical decision making, and the department course for this patient. I have also personally directed, reviewed, and agree with the discharge instructions and disposition. Disposition/Present on Arrival - Present on Arrival Any Indicators Present on Arrival: No History of DVT/PE: No History of Uncontrolled Diabetes: No Urinary Catheter: No History of Decub. Ulcer: No History Surgical Site Infection Following: None - Disposition Have Diagnosis and Disposition been Completed?: Yes Diagnosis: Malingering Disposition: HOME/ ROUTINE Disposition Time: 08:00 Patient Problems: Current Active Problems Problem Status Onset Malingering Acute Condition: STABLE Additional Instructions: return to er with worsening symptoms or concerns. Referrals: [facility] [Outside] - Follow up with primary [facility] [place] [facility] [place]] - Follow up with primary [facility] at [facility] [Outside] - Follow up with primary Forms: [employer] (Georgian)
== END 2018-01-17 08:00 | disposition home or self-care (01) ==
LOC: ED 04:57
DX: Z76.5 Malingerer [conscious simulation] (principal); F17.210 Nicotine dependence, cigarettes, uncomplicated; I10 Essential (primary) hypertension

== ENCOUNTER 2018-01-18 01:49 | Emergency (ER) | payer MEDICAID ==
[2018-01-18 01:50] VITALS: BMI 20.7
[2018-01-18 05:53] VITALS: TEMP 98.2; O2SAT 99
--- NOTE | 2018-01-18 05:59 | ED PDOC ---
Arrival/HPI - General Chief Complaint: Medical Clearance Time Seen by Provider: 01/18/18 02:31 Historian: Patient - History of Present Illness Narrative History of Present Illness (Text): 01/18/18 02:30 Hemant Palacios is a 57 year old male, whose past medical history chronic alcohol abuse and chronic leg pain, who presents to the Emergency department for alcohol intoxication tonight. Patient with a history of recurrent visits to the Emergency Department with malingering tenderness. Patient currently resting comfortably, in no acute distress. Patient denies any fever, chills, chest pain , shortness of breath, nausea, vomiting, back pain, neck pain, headache, dizziness, or any other complaints at this time. Time/Duration: Other (tonight) Symptom Onset: Gradual Symptom Course: Unchanged Activities at Onset: Light Past Medical History - Provider Review Nursing Documentation Reviewed: Yes - Infectious Disease Hx of Infectious Diseases: None - Tetanus Immunization Tetanus Immunization: Up to Date - Past Medical History Past Medical History: No Previous - Cardiac Hx Cardiac Disorders: Yes Hx Hypertension: Yes Hx Peripheral Edema: Yes Hx Peripheral Vascular Disease: Yes - Pulmonary Hx Respiratory Disorders: Yes Hx Chronic Obstructive Pulmonary Disease (COPD): Yes - Neurological Hx Neurological Disorder: No - HEENT Hx HEENT Disorder: Yes Other/Comment: retina detachment - Renal Hx Renal Failure: Yes - Endocrine/Metabolic Hx Endocrine Disorders: No - Hematological/Oncological Hx Blood Disorders: Yes Hx Hepatitis B: Yes Hx Hepatitis C: Yes - Integumentary Hx Dermatological Disorder: Yes Hx Psoriasis: Yes - Musculoskeletal/Rheumatological Hx Musculoskeletal Disorders: Yes Hx Falls: Yes Hx Fractures: Yes (NASAL SURGERY) - Gastrointestinal Hx Gastrointestinal Disorders: Yes Hx Liver Failure: Yes Hx Pancreatitis: Yes Other/Comment: ascites - Genitourinary/Gynecological Hx Genitourinary Disorders: No - Psychiatric Hx Psychophysiologic Disorder: Yes Hx Anxiety: Yes Hx Bipolar Disorder: Yes Hx Depression: Yes Hx Substance Use: Yes - Past Surgical History Past Surgical History: No Previous - Surgical History Other/Comment: TIPPS. Nasal surgery. - Anesthesia Hx Anesthesia: Yes Hx Anesthesia Reactions: No Hx Malignant Hyperthermia: No - Suicidal Assessment Feels Threatened In Home Enviroment: No Family/Social History - Physician Review Nursing Documentation Reviewed: Yes Family/Social History: Unknown Family HX Smoking Status: Heavy Smoker > 10 Cigarettes Daily Hx Alcohol Use: Yes (Hx) Amount per day: 3 Hx Substance Use: Yes Hx Substance Use Treatment: No Allergies/Home Meds Allergies/Adverse Reactions: Allergies No Known Allergies Allergy (Verified 01/16/18 01:49) Home Medications: Home Meds Medication Instructions Recorded Confirmed No Known Home Med 01/16/18 01/17/18 Review of Systems - Physician Review All systems were reviewed & negative as marked: Yes - Review of Systems Constitutional: Normal. absent: Fevers Eyes: Normal ENT: Normal Respiratory: Normal. absent: SOB, Cough Cardiovascular: Normal. absent: Chest Pain Gastrointestinal: Normal. absent: Abdominal Pain, Diarrhea, Nausea, Vomiting Genitourinary Male: Normal. absent: Dysuria, Frequency, Hematuria, Urinary Output Changes Musculoskeletal: Normal. absent: Back Pain, Neck Pain Skin: Normal. absent: Rash Neurological: Normal. absent: Headache, Dizziness Endocrine: Normal Hemo/Lymphatic: Normal Psychiatric: Normal Physical Exam Vital Signs Reviewed: Yes Vital Signs Temp Pulse Resp BP Pulse Ox 01/18/18 06:00 87 16 128/73 99 01/18/18 05:50 86 18 142/79 100 01/18/18 02:22 98.2 F 84 18 136/76 99 Temperature: Afebrile Blood Pressure: Normal Pulse: Regular Respiratory Rate: Normal Appearance: Positive for: Well-Appearing, Non-Toxic, Comfortable, Unkept Pain Distress: None Mental Status: Positive for: Alert and Oriented X 3 - Systems Exam Head: Present: Atraumatic, Normocephalic Pupils: Present: PERRL Extroacular Muscles: Present: EOMI Conjunctiva: Present: Normal Mouth: Present: Moist Mucous Membranes Neck: Present: Normal Range of Motion. No: Meningeal Signs, MIDLINE TENDERNESS , Paraspinal Tenderness Respiratory/Chest: Present: Clear to Auscultation, Good Air Exchange. No: Respiratory Distress, Accessory Muscle Use Cardiovascular: Present: Regular Rate and Rhythm, Normal S1, S2. No: Murmurs Abdomen: No: Tenderness, Distention, Peritoneal Signs Back: Present: Normal Inspection Upper Extremity: Present: Normal Inspection. No: Cyanosis, Edema Lower Extremity: Present: NORMAL PULSES, Normal ROM, Swelling (Chronic lower leg swelling), Neurovascularly Intact, Capillary Refill < 2 s. No: Edema, CALF TENDERNESS, Cyanosis, Gloria's Sign, Tenderness, Erythema, Deformity, Temperature Abnormalties Neurological: Present: GCS=15, CN II-XII Intact, Speech Normal Skin: Present: Warm, Dry, Normal Color. No: Rashes Psychiatric: Present: Alert, Oriented x 3, Normal Insight, Normal Concentration Medical Decision Making ED Course and Treatment: 01/18/18 02:30 Impression: 57 year old male brought in for alcohol intoxication tonight. Plan: -- Reassess and disposition Prior Visits: Notes and results from previous visits were reviewed. Pt well known to ER staff, pt seen on multiple occasions for similar complaint. Progress Notes: 01/18/18 06:00 Pt awake, alert, ambulating with steady gait. Clinically sober, in no acute distress. Pt stable for d/c. - Scribe Statement The provider has reviewed the documentation as recorded by the Domitila Bernstein Provider Scribe Attestation: All medical record entries made by the Scribe were at my direction and personally dictated by me. I have reviewed the chart and agree that the record accurately reflects my personal performance of the history, physical exam, medical decision making, and the department course for this patient. I have also personally directed, reviewed, and agree with the discharge instructions and disposition. Disposition/Present on Arrival - Present on Arrival Any Indicators Present on Arrival: No History of DVT/PE: No History of Uncontrolled Diabetes: No Urinary Catheter: No History of Decub. Ulcer: No History Surgical Site Infection Following: None - Disposition Have Diagnosis and Disposition been Completed?: Yes Diagnosis: Leg pain, Alcohol intoxication Disposition: HOME/ ROUTINE Disposition Time: 06:07 Patient Plan: Discharge Patient Problems: Current Active Problems Problem Status Onset Alcohol intoxication Acute Leg pain Acute Condition: GOOD Additional Instructions: Advil as directed/follow up in clinic this week Referrals: Kaleb Guidry DO [Primary Care Provider] - Follow up with primary [facility] [Outside] - Follow up with primary [facility] [Outside] - Follow up with primary Forms: [employer] (Serbian)
[2018-01-18 06:02] VITALS: BP 128/73; PULSE 87; RESP 16
== END 2018-01-18 06:28 | disposition home or self-care (01) ==
LOC: ED 01:49
DX: F10.129 Alcohol abuse with intoxication, unspecified (principal); M79.606 Pain in leg, unspecified; F17.210 Nicotine dependence, cigarettes, uncomplicated; I10 Essential (primary) hypertension

== ENCOUNTER 2018-01-21 00:50 | Emergency (ER) | payer MEDICAID ==
[2018-01-21 03:44] VITALS: BMI 35.4
[2018-01-21 03:49] VITALS: TEMP 98.2
[2018-01-21 05:31] VITALS: RESP 16; O2SAT 98
--- NOTE | 2018-01-21 06:03 | ED PDOC ---
Arrival/HPI - General Chief Complaint: Alcohol Ingestion Time Seen by Provider: 01/21/18 05:56 Historian: Patient - History of Present Illness Narrative History of Present Illness (Text): 01/21/18 05:57 57 year old male, whose past medical history chronic alcohol abuse and chronic leg pain, who presents to the Emergency department for alcohol intoxication tonight. Patient is well known to the Emergency room. Patient admits to drinking tonight. Patient is resting comfortably and denies any fever, chills, chest pain, shortness of breath, nausea, vomiting, diarrhea, urinary symptoms, back pain, neck pain, headache, dizziness, or any other complaints. Symptom Onset: Gradual Activities at Onset: Light Context: Street Past Medical History - Provider Review Nursing Documentation Reviewed: Yes - Infectious Disease Hx of Infectious Diseases: None - Tetanus Immunization Tetanus Immunization: Up to Date - Past Medical History Past Medical History: No Previous - Cardiac Hx Cardiac Disorders: Yes Hx Hypertension: Yes Hx Peripheral Edema: Yes Hx Peripheral Vascular Disease: Yes - Pulmonary Hx Respiratory Disorders: Yes Hx Chronic Obstructive Pulmonary Disease (COPD): Yes - Neurological Hx Neurological Disorder: No - HEENT Hx HEENT Disorder: Yes Other/Comment: retina detachment - Renal Hx Renal Failure: Yes - Endocrine/Metabolic Hx Endocrine Disorders: No - Hematological/Oncological Hx Blood Disorders: Yes Hx Hepatitis B: Yes Hx Hepatitis C: Yes - Integumentary Hx Dermatological Disorder: Yes Hx Psoriasis: Yes - Musculoskeletal/Rheumatological Hx Musculoskeletal Disorders: Yes Hx Falls: Yes Hx Fractures: Yes (NASAL SURGERY) - Gastrointestinal Hx Gastrointestinal Disorders: Yes Hx Liver Failure: Yes Hx Pancreatitis: Yes Other/Comment: ascites - Genitourinary/Gynecological Hx Genitourinary Disorders: No - Psychiatric Hx Psychophysiologic Disorder: Yes Hx Anxiety: Yes Hx Bipolar Disorder: Yes Hx Depression: Yes Hx Substance Use: Yes - Past Surgical History Past Surgical History: No Previous - Surgical History Other/Comment: TIPPS. Nasal surgery. - Anesthesia Hx Anesthesia: Yes Hx Anesthesia Reactions: No Hx Malignant Hyperthermia: No - Suicidal Assessment Feels Threatened In Home Enviroment: No Family/Social History - Physician Review Nursing Documentation Reviewed: Yes Family/Social History: No Known Family HX Smoking Status: Heavy Smoker > 10 Cigarettes Daily Hx Alcohol Use: Yes (Hx) Amount per day: 3 Hx Substance Use: Yes Hx Substance Use Treatment: No Allergies/Home Meds Allergies/Adverse Reactions: Allergies No Known Allergies Allergy (Verified 01/21/18 03:45) Home Medications: Home Meds Medication Instructions Recorded Confirmed No Known Home Med 01/16/18 01/21/18 Review of Systems - Physician Review All systems were reviewed & negative as marked: Yes - Review of Systems Constitutional: absent: Fevers, Other (Chills) Respiratory: absent: SOB Cardiovascular: absent: Chest Pain Gastrointestinal: absent: Diarrhea, Nausea, Vomiting Genitourinary Male: absent: Dysuria, Frequency, Hematuria Musculoskeletal: absent: Back Pain, Neck Pain Neurological: absent: Headache, Dizziness Physical Exam Vital Signs Reviewed: Yes Vital Signs Temp Pulse Resp BP Pulse Ox 01/21/18 05:00 98.2 F 75 16 129/75 98 01/21/18 02:00 98.2 F 81 15 144/75 96 Temperature: Afebrile Blood Pressure: Normal Pulse: Regular Respiratory Rate: Normal Appearance: Positive for: Well-Appearing, Non-Toxic, Comfortable, Other (AOB) Pain Distress: None Mental Status: Positive for: Alert and Oriented X 3 - Systems Exam Head: Present: Atraumatic, Normocephalic Pupils: Present: PERRL Extroacular Muscles: Present: EOMI Conjunctiva: Present: Normal Mouth: Present: Moist Mucous Membranes Neck: Present: Normal Range of Motion Respiratory/Chest: Present: Clear to Auscultation, Good Air Exchange. No: Respiratory Distress, Accessory Muscle Use Cardiovascular: Present: Regular Rate and Rhythm, Normal S1, S2. No: Murmurs Abdomen: No: Tenderness, Distention, Peritoneal Signs Back: Present: Normal Inspection Upper Extremity: Present: Normal Inspection. No: Cyanosis, Edema Lower Extremity: Present: Normal Inspection. No: Edema Neurological: Present: GCS=15, CN II-XII Intact, Speech Normal Skin: Present: Warm, Dry, Normal Color. No: Rashes Psychiatric: Present: Alert, Oriented x 3, Normal Insight, Normal Concentration Medical Decision Making ED Course and Treatment: 01/21/18 06:00 Impression: 57 year old male presents for alcohol intoxication. No other complaints present. Differential Diagnosis included but are not limited to: Alcohol dependency Plan: -- Reassess and disposition Prior Visits: Notes and results from previous visits were reviewed. Patient was last seen in the emergency department on 01/18/18 presents for alcohol intoxication. Patient was discharged. Progress Notes: 01/21/18 07:00 On re-evaluation, patient feels better and is in no acute distress. Patient is A &Ox3 and ambulatory with a steady gait. I have discussed the plan with the patient, who expresses understanding. Patient in agreement with plan to be discharged home. Patient is stable for discharge. Patient was instructed to follow up with physician or return if symptoms worsen or new concerning symptoms arise. - Scribe Statement The provider has reviewed the documentation as recorded by the Dionibgloria Alves Provider Scribe Attestation: All medical record entries made by the Dionibgloria were at my direction and personally dictated by me. I have reviewed the chart and agree that the record accurately reflects my personal performance of the history, physical exam, medical decision making, and the department course for this patient. I have also personally directed, reviewed, and agree with the discharge instructions and disposition. Disposition/Present on Arrival - Present on Arrival Any Indicators Present on Arrival: No History of DVT/PE: No History of Uncontrolled Diabetes: No Urinary Catheter: No History of Decub. Ulcer: No History Surgical Site Infection Following: None - Disposition Have Diagnosis and Disposition been Completed?: Yes Diagnosis: Alcohol intoxication Disposition: HOME/ ROUTINE Disposition Time: 06:33 Patient Plan: Discharge Condition: FAIR Forms: [employer] (Guatemalan)
[2018-01-21 06:56] VITALS: BP 122/72; PULSE 82
== END 2018-01-21 07:03 | disposition home or self-care (01) ==
LOC: ED 00:50
DX: F10.129 Alcohol abuse with intoxication, unspecified (principal)

== ENCOUNTER 2018-01-21 22:42 | Emergency (ER) | payer MEDICAID ==
[2018-01-21 22:49] VITALS: BMI 35.7
[2018-01-21 22:53] VITALS: TEMP 98.6
--- NOTE | 2018-01-21 23:24 | ED PDOC ---
Arrival/HPI - General Historian: Patient EM Caveat: Acuity of Condition - History of Present Illness Time/Duration: > month Symptom Onset: Gradual Symptom Course: Unchanged Quality: Aching, Pressure Severity Level: 6 Activities at Onset: Rest Context: Standing, Walking, Home <Deneen Cohen - Last Filed: 01/22/18 04:00> <Hong Perez - Last Filed: 01/22/18 05:27> - General Chief Complaint: Lower Extremity Problem/Injury Time Seen by Provider: 01/21/18 23:12 - History of Present Illness Narrative History of Present Illness (Text): Pt is a 57 year old male, whose past medical history includes chronic alcohol abuse, pancreatitis, and CHF, presents to the ER with bilateral leg pain x 1 day. Pt states he takes Lasix for his leg edema but ran out about 2 days ago. Patient is well known to the Emergency room and was evaluated a few days ago. Patient admits to difficulty walking because of his heavy, painful legs and drinking 2-3 large beer today. Patient denies fever, chills, chest pain, shortness of breath, nausea, vomiting, diarrhea, urinary symptoms, back pain, neck pain, headache, dizziness, or any other complaints. (Deneen Cohen) Past Medical History - Provider Review Nursing Documentation Reviewed: Yes - Travel History Have you recently traveled outside [place] w/in the past 3 mons?: No - Infectious Disease Hx of Infectious Diseases: None - Tetanus Immunization Tetanus Immunization: Up to Date - Past Medical History Past Medical History: No Previous - Cardiac Hx Cardiac Disorders: Yes Hx Hypertension: Yes Hx Peripheral Edema: Yes Hx Peripheral Vascular Disease: Yes - Pulmonary Hx Respiratory Disorders: Yes Hx Chronic Obstructive Pulmonary Disease (COPD): Yes - Neurological Hx Neurological Disorder: No - HEENT Hx HEENT Disorder: Yes Other/Comment: retina detachment - Renal Hx Renal Failure: Yes - Endocrine/Metabolic Hx Endocrine Disorders: No - Hematological/Oncological Hx Blood Disorders: Yes Hx Hepatitis B: Yes Hx Hepatitis C: Yes - Integumentary Hx Dermatological Disorder: Yes Hx Psoriasis: Yes - Musculoskeletal/Rheumatological Hx Musculoskeletal Disorders: Yes Hx Falls: Yes Hx Fractures: Yes (NASAL SURGERY) - Gastrointestinal Hx Gastrointestinal Disorders: Yes Hx Liver Failure: Yes Hx Pancreatitis: Yes Other/Comment: ascites - Genitourinary/Gynecological Hx Genitourinary Disorders: No - Psychiatric Hx Psychophysiologic Disorder: Yes Hx Anxiety: Yes Hx Bipolar Disorder: Yes Hx Depression: Yes Hx Substance Use: Yes - Past Surgical History Past Surgical History: No Previous - Surgical History Other/Comment: TIPPS. Nasal surgery. - Anesthesia Hx Anesthesia: Yes Hx Anesthesia Reactions: No Hx Malignant Hyperthermia: No - Suicidal Assessment Feels Threatened In Home Enviroment: No <Deneen Cohen - Last Filed: 01/22/18 04:00> Family/Social History - Physician Review Nursing Documentation Reviewed: Yes Family/Social History: Unknown Family HX Smoking Status: Heavy Smoker > 10 Cigarettes Daily Hx Alcohol Use: Yes (Hx) Amount per day: 3 Hx Substance Use: Yes Hx Substance Use Treatment: No <Deneen Cohen - Last Filed: 01/22/18 04:00> Allergies/Home Meds <Deneen Cohen - Last Filed: 01/22/18 04:00> <Hong Perez - Last Filed: 01/22/18 05:27> Allergies/Adverse Reactions: Allergies No Known Allergies Allergy (Verified 01/21/18 03:45) Home Medications: Home Meds Medication Instructions Recorded Confirmed No Known Home Med 01/16/18 01/21/18 Review of Systems - Physician Review All systems were reviewed & negative as marked: Yes - Review of Systems Systems not reviewed;Unavailable: Intoxicated Constitutional: Normal Eyes: Normal ENT: Normal Respiratory: Cough Cardiovascular: Normal, Edema, Calf Pain Gastrointestinal: Abdominal Pain Genitourinary Male: Normal Musculoskeletal: Normal Skin: Normal Neurological: Normal Endocrine: Normal Hemo/Lymphatic: Normal Psychiatric: Normal <Deneen Cohen - Last Filed: 01/22/18 04:00> Physical Exam Vital Signs Reviewed: Yes Temperature: Afebrile Blood Pressure: Normal Pulse: Tachycardic Respiratory Rate: Normal Appearance: Positive for: Ill-Appearing, Unkept, Uncomfortable Pain Distress: Mild Mental Status: Positive for: Alert and Oriented X 3 - Systems Exam Head: Present: Atraumatic, Normocephalic Pupils: Present: PERRL Extroacular Muscles: Present: EOMI Conjunctiva: Present: Injected Mouth: Present: Moist Mucous Membranes Neck: Present: Normal Range of Motion Respiratory/Chest: Present: Clear to Auscultation, Good Air Exchange, Rhonchi. No: Respiratory Distress, Accessory Muscle Use Cardiovascular: Present: Regular Rate and Rhythm, Normal S1, S2. No: Murmurs Abdomen: Present: Tenderness, Distention, Normal Bowel Sounds. No: Peritoneal Signs Genitourinary Male: Present: Normal External Genitalia, Circumcised Penis Back: Present: Normal Inspection Upper Extremity: Present: Normal Inspection. No: Cyanosis, Edema Lower Extremity: Present: Normal Inspection, CALF TENDERNESS, Tenderness, Swelling, Erythema, Temperature Abnormalties. No: Edema Neurological: Present: GCS=15, CN II-XII Intact Skin: Present: Warm, Dry, Normal Color. No: Rashes Psychiatric: Present: Alert, Oriented x 3, Normal Insight, Normal Concentration , Intoxicated <Deneen Cohen - Last Filed: 01/22/18 04:00> Vital Signs Temp Pulse Resp BP Pulse Ox 01/22/18 00:30 127/62 01/21/18 22:49 98.6 F 105 H 20 134/92 H 95 Medical Decision Making <Deneen Cohen - Last Filed: 01/22/18 04:00> <Hong Perez - Last Filed: 01/22/18 05:27> ED Course and Treatment: 01/21/18 23:59 Impression Pt is a 57 year old male, whose past medical history includes chronic alcohol abuse, pancreatitis, and CHF, presents to the ER intoxicated and with bilateral leg pain x 1 day. On exam, bilateral LE edema and erythema, mild rhonchi on lung auscultation, abdominal distension/ascites likely d/t cirrhosis. CIWA-AR score of 2; medication for w/d not indicated Plan Lasix and pain control assess and dispo 01/22/18 00:11 Progress note 01/22/18 01:59 Pt admits to wanting to stay here overnight as he is homeless Pt voided significant amt after Lasix given; Will monitor and assess for dispo in the morning Endorsed to Dr. Perez at 02:00 (Deneen Cohen) - Medication Orders Current Medication Orders: Discontinued Medications Furosemide (Lasix) 40 mg IVP STAT STA Stop: 01/22/18 00:11 Last Admin: 01/22/18 00:30 Dose: 40 mg MAR Blood Pressure Document 01/22/18 00:30 JOL (Rec: 01/22/18 00:44 JOL [id number]) Blood Pressure Blood Pressure (100/60-150/90 mm Hg) 127/62 IVP Administration Document 01/22/18 00:30 JOL (Rec: 01/22/18 00:44 JOL [id number]) Charges for Administration # of IVP Administrations 1 Ibuprofen (Motrin Tab) 600 mg PO STAT STA Stop: 01/22/18 00:11 Last Admin: 01/22/18 00:30 Dose: 600 mg MAR Pain/Vitals Document 01/22/18 00:30 JOL (Rec: 01/22/18 00:44 JOL [id number]) Pain Reassessment Is This A Pain ReAssessment? No Sleep Is patient sleeping during reassessment? No Presence of Pain Presence of Pain Yes Pain Scale Used Pain Scale Used Numeric Location Left, Right or Bilateral Bilateral Upper or Lower Lower Pain Location Body Site leg Description Constant Intensity 6 Scale Used Numeric - PA / SUSTAINABLE AGRICULTURE SPECIALIST / Resident Statement [facility] has reviewed & agrees with the documentation as recorded. / has examined the patient and agrees with the treatment plan. <Hong Perez - Last Filed: 01/22/18 05:27> Disposition/Present on Arrival - Present on Arrival Any Indicators Present on Arrival: Yes History of DVT/PE: No History of Uncontrolled Diabetes: No Urinary Catheter: No History of Decub. Ulcer: No History Surgical Site Infection Following: None - Disposition Have Diagnosis and Disposition been Completed?: Yes Disposition Time: 06:00 Patient Plan: Discharge <Deneen Cohen - Last Filed: 01/22/18 04:00> - Present on Arrival Any Indicators Present on Arrival: No - Disposition Have Diagnosis and Disposition been Completed?: Yes Patient Plan: Discharge <Hong Perez - Last Filed: 01/22/18 05:27> - Disposition Diagnosis: Leg edema, Leg pain, Alcohol intoxication Disposition: HOME/ ROUTINE Patient Problems: Current Active Problems Problem Status Onset Alcohol intoxication Acute Leg edema Acute Leg pain Acute Condition: STABLE Discharge Instructions (ExitCare): Dependent Edema (DC), Alcohol Abuse and Alcoholism (DC) Referrals: Kaleb Guidry DO [Primary Care Provider] - Follow up with primary Forms: [employer] (Croatian)
[2018-01-22 05:58] VITALS: RESP 18
[2018-01-22 06:45] VITALS: BP 125/74; PULSE 73; O2SAT 97
== END 2018-01-22 06:42 | disposition home or self-care (01) ==
LOC: ED 22:42
DX: R60.0 Localized edema (principal); M79.605 Pain in left leg; M79.604 Pain in right leg; F10.129 Alcohol abuse with intoxication, unspecified
CPT/HCPCS: 96374; 99285; J1940

== ENCOUNTER 2018-01-22 21:39 | Emergency (ER) | payer MEDICAID ==
[2018-01-22 21:39] VITALS: BMI 35.7
[2018-01-22 22:21] VITALS: TEMP 98.1
--- NOTE | 2018-01-22 23:15 | ED PDOC ---
Arrival/HPI - General Chief Complaint: Lower Extremity Problem/Injury Time Seen by Provider: 01/22/18 21:43 Historian: Patient - History of Present Illness Narrative History of Present Illness (Text): 01/22/18 23:14 Hemant Palacios is a 57 year old male, whose past medical history chronic alcohol abuse and chronic leg pain, who presents to the Emergency department requesting a place to stay for the night. Patient well known to ER, states he is homeless and is requesting a place to sleep tonight. Patient denies any fever, chills, chest pain, shortness of breath, nausea, vomiting, diarrhea, urinary symptoms, back pain, neck pain, headache, dizziness, or any other complaints. Patient denies any alcohol use. Symptom Onset: Gradual Symptom Course: Unchanged Activities at Onset: Light Context: Street Past Medical History - Provider Review Nursing Documentation Reviewed: Yes - Infectious Disease Hx of Infectious Diseases: None - Tetanus Immunization Tetanus Immunization: Up to Date - Past Medical History Past Medical History: No Previous - Cardiac Hx Cardiac Disorders: Yes Hx Hypertension: Yes Hx Peripheral Edema: Yes Hx Peripheral Vascular Disease: Yes - Pulmonary Hx Respiratory Disorders: Yes Hx Chronic Obstructive Pulmonary Disease (COPD): Yes - Neurological Hx Neurological Disorder: No - HEENT Hx HEENT Disorder: Yes Other/Comment: retina detachment - Renal Hx Renal Failure: Yes - Endocrine/Metabolic Hx Endocrine Disorders: No - Hematological/Oncological Hx Blood Disorders: Yes Hx Hepatitis B: Yes Hx Hepatitis C: Yes - Integumentary Hx Dermatological Disorder: Yes Hx Psoriasis: Yes - Musculoskeletal/Rheumatological Hx Musculoskeletal Disorders: Yes Hx Falls: Yes Hx Fractures: Yes (NASAL SURGERY) - Gastrointestinal Hx Gastrointestinal Disorders: Yes Hx Liver Failure: Yes Hx Pancreatitis: Yes Other/Comment: ascites - Genitourinary/Gynecological Hx Genitourinary Disorders: No - Psychiatric Hx Psychophysiologic Disorder: Yes Hx Anxiety: Yes Hx Bipolar Disorder: Yes Hx Depression: Yes Hx Substance Use: Yes - Past Surgical History Past Surgical History: No Previous - Surgical History Other/Comment: TIPPS. Nasal surgery. - Anesthesia Hx Anesthesia: Yes Hx Anesthesia Reactions: No Hx Malignant Hyperthermia: No - Suicidal Assessment Feels Threatened In Home Enviroment: No Family/Social History - Physician Review Nursing Documentation Reviewed: Yes Family/Social History: Unknown Family HX Smoking Status: Heavy Smoker > 10 Cigarettes Daily Hx Alcohol Use: Yes (Hx) Amount per day: 3 Hx Substance Use: Yes Hx Substance Use Treatment: No Allergies/Home Meds Allergies/Adverse Reactions: Allergies No Known Allergies Allergy (Verified 01/22/18 21:57) Home Medications: Home Meds Medication Instructions Recorded Confirmed No Known Home Med 01/16/18 01/22/18 Review of Systems - Physician Review All systems were reviewed & negative as marked: Yes - Review of Systems Constitutional: Normal. absent: Fevers Eyes: Normal ENT: Normal Respiratory: Normal. absent: SOB, Cough Cardiovascular: Normal. absent: Chest Pain Gastrointestinal: Normal. absent: Abdominal Pain, Diarrhea, Nausea, Vomiting Genitourinary Male: Normal. absent: Dysuria, Frequency, Hematuria, Urinary Output Changes Musculoskeletal: Normal. absent: Back Pain, Neck Pain Skin: Normal. absent: Rash Neurological: Normal. absent: Headache, Dizziness Endocrine: Normal Hemo/Lymphatic: Normal Psychiatric: Normal Physical Exam Vital Signs Reviewed: Yes Vital Signs Temp Pulse Resp BP Pulse Ox 01/23/18 03:00 89 18 112/75 97 01/23/18 01:00 82 18 112/82 96 01/22/18 21:39 98.1 F 89 20 118/79 95 Temperature: Afebrile Blood Pressure: Normal Pulse: Regular Respiratory Rate: Normal Appearance: Positive for: Well-Appearing, Non-Toxic, Comfortable Pain Distress: None Mental Status: Positive for: Alert and Oriented X 3 - Systems Exam Head: Present: Atraumatic, Normocephalic Pupils: Present: PERRL Extroacular Muscles: Present: EOMI Conjunctiva: Present: Normal Mouth: Present: Moist Mucous Membranes Neck: Present: Normal Range of Motion Respiratory/Chest: Present: Clear to Auscultation, Good Air Exchange. No: Respiratory Distress, Accessory Muscle Use Cardiovascular: Present: Regular Rate and Rhythm, Normal S1, S2. No: Murmurs Abdomen: No: Tenderness, Distention, Peritoneal Signs Back: Present: Normal Inspection Upper Extremity: Present: Normal Inspection. No: Cyanosis, Edema Lower Extremity: Present: NORMAL PULSES, Normal ROM, Swelling (Chronic bilateral leg swelling), Neurovascularly Intact. No: Edema, Cyanosis, Tenderness, Deformity, Temperature Abnormalties Neurological: Present: GCS=15, CN II-XII Intact, Speech Normal Skin: Present: Warm, Dry, Normal Color. No: Rashes Psychiatric: Present: Alert, Oriented x 3, Normal Insight, Normal Concentration Medical Decision Making ED Course and Treatment: 01/22/18 23:14 Impression: 57 year old male requesting a place to sleep tonight. Plan: -- Reassess and disposition Prior Visits: Notes and results from previous visits were reviewed. Progress Notes: - Scribe Statement The provider has reviewed the documentation as recorded by the Dionibgloria Bernstein Provider Scribe Attestation: All medical record entries made by the Scribe were at my direction and personally dictated by me. I have reviewed the chart and agree that the record accurately reflects my personal performance of the history, physical exam, medical decision making, and the department course for this patient. I have also personally directed, reviewed, and agree with the discharge instructions and disposition. Disposition/Present on Arrival - Present on Arrival Any Indicators Present on Arrival: No History of DVT/PE: No History of Uncontrolled Diabetes: No Urinary Catheter: No History of Decub. Ulcer: No History Surgical Site Infection Following: None - Disposition Have Diagnosis and Disposition been Completed?: Yes Diagnosis: Alcohol abuse, Chronic leg pain Disposition: HOME/ ROUTINE Disposition Time: 06:00 Patient Plan: Discharge Condition: GOOD Referrals: Alcoholics Anonymous [Outside] - Follow up with primary [facility] [Outside] - Follow up with primary Forms: [employer] ([place]rian)
[2018-01-23 05:34] VITALS: RESP 18
[2018-01-23 06:14] VITALS: BP 112/78; PULSE 78; O2SAT 96
== END 2018-01-23 06:14 | disposition home or self-care (01) ==
LOC: ED 21:39
DX: F10.10 Alcohol abuse, uncomplicated (principal); M79.605 Pain in left leg; M79.604 Pain in right leg; G89.29 Other chronic pain

== ENCOUNTER 2018-01-23 22:36 | Emergency (ER) | payer MEDICAID ==
[2018-01-23 22:36] VITALS: BMI 35.7
== END 2018-01-24 05:22 | disposition left against medical advice (07) ==
LOC: ED 22:36
DX: Z02.89 Encounter for other administrative examinations (principal); F10.10 Alcohol abuse, uncomplicated

== ENCOUNTER 2018-01-24 16:25 | Inpatient (IN) | payer MEDICAID ==
--- NOTE | 2018-01-24 17:09 | ED PDOC ---
Arrival/HPI - General Chief Complaint: Palpitations Time Seen by Provider: 01/24/18 16:51 Historian: Patient - History of Present Illness Narrative History of Present Illness (Text): 01/24/18 17:08 A 57 year old male, whose past medical history includes COPD, liver cirrhosis s/ p TIPS procedure, GI bleed, pancreatitis, chronic lower extremity edema, EtOH abuse, presents to the emergency department complaining of shortness of breath, bilateral leg swelling, and palpitations for 2 weeks. Patient has been in the ER for similar complaints multiple visits. Patient notes also experiencing intermittent pressure-like chest pain (worse when ambulating), and vomiting, but denies any fever, chills, or any other complaints at this time. Also, patient mentions having taken water pills at 10:00AM once every day, but has had no relief of symptoms. No PMD Past Medical History - Provider Review Nursing Documentation Reviewed: Yes - Infectious Disease Hx of Infectious Diseases: None - Tetanus Immunization Tetanus Immunization: Up to Date - Past Medical History Past Medical History: No Previous - Cardiac Hx Cardiac Disorders: Yes Hx Hypertension: Yes Hx Peripheral Edema: Yes Hx Peripheral Vascular Disease: Yes - Pulmonary Hx Respiratory Disorders: Yes Hx Chronic Obstructive Pulmonary Disease (COPD): Yes - Neurological Hx Neurological Disorder: No - HEENT Hx HEENT Disorder: Yes Other/Comment: retina detachment - Renal Hx Renal Failure: Yes - Endocrine/Metabolic Hx Endocrine Disorders: No - Hematological/Oncological Hx Blood Disorders: Yes Hx Hepatitis B: Yes Hx Hepatitis C: Yes - Integumentary Hx Dermatological Disorder: Yes Hx Psoriasis: Yes - Musculoskeletal/Rheumatological Hx Musculoskeletal Disorders: Yes Hx Falls: Yes Hx Fractures: Yes (NASAL SURGERY) - Gastrointestinal Hx Gastrointestinal Disorders: Yes Hx Liver Failure: Yes Hx Pancreatitis: Yes Other/Comment: ascites - Genitourinary/Gynecological Hx Genitourinary Disorders: No - Psychiatric Hx Psychophysiologic Disorder: Yes Hx Anxiety: Yes Hx Bipolar Disorder: Yes Hx Depression: Yes Hx Substance Use: Yes Other/Comment: ETOH - Past Surgical History Past Surgical History: No Previous - Surgical History Other/Comment: TIPPS. Nasal surgery. - Anesthesia Hx Anesthesia: Yes Hx Anesthesia Reactions: No Hx Malignant Hyperthermia: No - Suicidal Assessment Feels Threatened In Home Enviroment: No Family/Social History - Physician Review Nursing Documentation Reviewed: Yes Family/Social History: No Known Family HX Smoking Status: Heavy Smoker > 10 Cigarettes Daily Hx Alcohol Use: Yes Frequency of alcohol use: Daily Amount per day: 3 Hx Substance Use: Yes Hx Substance Use Treatment: No Allergies/Home Meds Allergies/Adverse Reactions: Allergies No Known Allergies Allergy (Verified 01/22/18 21:57) Home Medications: Home Meds Medication Instructions Recorded Confirmed Folic Acid [Folic Acid] 1 tab PO DAILY 01/24/18 01/24/18 Furosemide [Lasix] 1 tab PO DAILY 01/24/18 01/24/18 Lisinopril [Zestril] 1 tab PO DAILY 01/24/18 01/24/18 Mirtazapine [Remeron] 1 tab PO HS 01/24/18 01/24/18 Multivitamin [Honey Bears] 1 tab PO DAILY 01/24/18 01/24/18 QUEtiapine [SEROquel] 100 mg PO DAILY 01/24/18 01/24/18 Thiamine Mononitrate [Vitamin B-1] 1 tab PO DAILY 01/24/18 01/24/18 Tiotropium [Spiriva] 1 cap IH DAILY 01/24/18 01/24/18 Review of Systems - Physician Review All systems were reviewed & negative as marked: Yes - Review of Systems Constitutional: absent: Fevers, Night Sweats Cardiovascular: Chest Pain, Palpitations Gastrointestinal: Vomiting Musculoskeletal: Other (bilateral leg swelling) Physical Exam Vital Signs Reviewed: Yes Vital Signs Temp Pulse Resp BP Pulse Ox 01/24/18 17:37 145/81 01/24/18 17:00 98.9 F 100 H 25 H 145/81 95 Temperature: Afebrile Blood Pressure: Normal Pulse: Regular Respiratory Rate: Normal Appearance: Positive for: Well-Appearing Pain Distress: None Mental Status: Positive for: Alert and Oriented X 3 - Systems Exam Head: Present: Atraumatic, Normocephalic Pupils: Present: PERRL Extroacular Muscles: Present: EOMI Conjunctiva: Present: Normal Mouth: Present: Moist Mucous Membranes Neck: Present: Normal Range of Motion Respiratory/Chest: Present: Clear to Auscultation, Good Air Exchange. No: Respiratory Distress, Accessory Muscle Use Cardiovascular: Present: Regular Rate and Rhythm, Normal S1, S2. No: Murmurs Abdomen: No: Tenderness, Distention, Peritoneal Signs Back: Present: Normal Inspection Upper Extremity: Present: Normal Inspection. No: Cyanosis, Edema Lower Extremity: Present: Edema (+2 edema), Erythema (bilaterally lower legs). No: NORMAL PULSES (trace pulses bilaterally) Neurological: Present: GCS=15, CN II-XII Intact, Speech Normal Skin: Present: Warm (bilaterally lower legs) Psychiatric: Present: Alert, Oriented x 3, Normal Insight, Normal Concentration Medical Decision Making ED Course and Treatment: 01/24/18 17:10 Impression: 57 year old male with chest pain, palpitations, and bilateral leg swelling. Physical exam shows +2 bilateral lower extremity edema, bilateral leg warmth and redness to lower legs, trace pulses bilaterally. Differential Diagnosis included but are not limited to: Alcohol Induced CHF r/ o ACS vs. Chronic Lower Extremity Edema r/o Cellulitis Plan: -- EKG -- Chest X-ray -- Labs -- Blood Culture -- Venous Blood Gas -- Aspirin -- Lasix -- Reassess and disposition Prior Visits: Notes and results from previous visits were reviewed. Patient was last seen in the emergency department on Progress Notes: EKG: Ordered, reviewed, and independently interpreted the EKG. Rate : 98 BPM Rhythm : NSR Interpretation : With PACs. Comparison : No previous EKG for comparison. 01/24/2018 17:49 Chest X-ray IMPRESSION: No active disease. Dictator: Frank Fair MD 01/24/18 18:49 Labs reviewed. Chemistry pending. Signed out to Dr. Beaver to f/u labs and admit. - Lab Interpretations Lab Results: 01/24/18 17:38 Lab Results 01/24/18 17:38: pO2 95 H, VBG pH 7.39, VBG pCO2 44.0, VBG HCO3 26.6, VBG Total CO2 28.0, VBG O2 Sat (Calc) 98.6 H, VBG Base Excess 1.2, VBG Potassium 11.3 H*, Sodium 137.0, Chloride 110.0 H, Glucose 104, Lactate 2.2 H, FiO2 21.0, Venous Blood Potassium 11.3 H* 01/24/18 17:38: PT 12.1, INR 1.06, APTT 32.3 01/24/18 17:38: WBC 6.2 D, RBC 4.48, Hgb 12.1 L, Hct 36.5 L, MCV 81.5, MCH 27.0 , MCHC 33.2, RDW 17.3 H, Plt Count 323, MPV 11.7 H, Gran % 46.3 L, Lymph % (Auto ) 32.8, Loving % (Auto) 13.1 H, Eos % (Auto) 6.5 H, Baso % (Auto) 1.3, Gran # 2.85 , Lymph # (Auto) 2.0, Loving # (Auto) 0.8 H, Eos # (Auto) 0.4, Baso # (Auto) 0.08 - RAD Interpretation Radiology Orders: 01/24/18 17:11 CHEST PORTABLE [RAD] Stat - Medication Orders Current Medication Orders: Sodium Chloride (Sodium Chloride 0.9%) 500 mls @ 999 mls/hr IV .Q31M STA Stop: 01/24/18 19:20 Discontinued Medications Aspirin (Aspirin) 325 mg PO STAT STA Stop: 01/24/18 17:13 Last Admin: 01/24/18 17:37 Dose: 325 mg Furosemide (Lasix) 40 mg IVP STAT STA Stop: 01/24/18 17:10 Last Admin: 01/24/18 17:37 Dose: 40 mg MAR Blood Pressure Document 01/24/18 17:37 LA (Rec: 01/24/18 17:37 LA [id number]) Blood Pressure Blood Pressure (100/60-150/90) 145/81 IVP Administration Document 01/24/18 17:37 LA (Rec: 01/24/18 17:37 LA [id number]) Charges for Administration # of IVP Administrations 1 - Scribe Statement The provider has reviewed the documentation as recorded by the Domitila Handy Provider Scribe Attestation: All medical record entries made by the Scribgloria were at my direction and personally dictated by me. I have reviewed the chart and agree that the record accurately reflects my personal performance of the history, physical exam, medical decision making, and the department course for this patient. I have also personally directed, reviewed, and agree with the discharge instructions and disposition. Disposition/Present on Arrival - Present on Arrival Any Indicators Present on Arrival: No History of DVT/PE: No History of Uncontrolled Diabetes: No Urinary Catheter: No History of Decub. Ulcer: No History Surgical Site Infection Following: None - Disposition Have Diagnosis and Disposition been Completed?: No Diagnosis: Alcohol intoxication, Chest pain, Leg edema Disposition Time: 18:51 Patient Problems: Current Active Problems Problem Status Onset Chest pain Acute Alcohol intoxication Acute Leg edema Acute Condition: FAIR Discharge Instructions (ExitCare): Chest Pain (ED) Referrals: Suzi Mclean, [Primary Care Provider] - Follow up with primary Forms: [employer] (Persian)
--- NOTE | 2018-01-24 17:51 | RAD ---
HISTORY: sob COMPARISON: 01/07/2018 FINDINGS: LUNGS: No active pulmonary disease. PLEURA: No significant pleural effusion identified, no pneumothorax apparent. CARDIOVASCULAR: Normal. OSSEOUS STRUCTURES: No significant abnormalities. VISUALIZED UPPER ABDOMEN: Normal. OTHER FINDINGS: None. IMPRESSION: No active disease.
[2018-01-24 17:52] LABS: VENOUS BLOOD GAS BASE EXCESS 1.2 mmol/L (0.0-2.0); VENOUS BLOOD GAS PO2 95 mm/Hg (30-55); VENOUS BLOOD PH 7.39 (7.32-7.43)
[2018-01-24 17:54] LABS: BASO # 0.08 K/mm3 (0.0-2.0); BASO % 1.3 % (0.0-3.0); EOS # 0.4 (0.0-0.7); EOS % 6.5 % (1.5-5.0); GRAN # 2.85 (1.4-6.5); GRAN % 46.3 % (50.0-68.0); HEMOGLOBIN 12.1 g/dL (14.0-18.0); LYMPH % 32.8 % (22.0-35.0); MEAN CELL VOLUME 81.5 fl (80.0-105.0); MEAN CORPUSCULAR HGB CONC 33.2 g/dl (31.0-37.0); MEAN PLATELET VOLUME 11.7 fl (7.0-11.0); MONO # 0.8 (0.1-0.6); MONO % 13.1 % (1.0-6.0); RBC 4.48 10^6/uL (3.5-6.1); RED CELL DISTRIBUTION WIDTH 17.3 % (11.5-14.5); WHITE BLOOD COUNT 6.2 10^3/ul (4.5-11.0)
[2018-01-24 18:05] LABS: INR 1.06 (0.93-1.08); PARTIAL THROMBOPLASTIN TIME 32.3 Seconds (25.1-36.5); PROTHROMBIN TIME 12.1 SECONDS (9.4-12.5)
[2018-01-24] MEDS ORDERED: Sodium Chloride 0.9% 500 ML IV STA (18:50)
[2018-01-24 18:53] LABS: ALB/GLOB RATIO 0.9 (1.1-1.8); ALBUMIN 3.8 g/dL (3.0-4.8); ALT/SGPT 45 U/L (7-56); AST/SGOT 89 U/L (17-59); BLOOD UREA NITROGEN 6 mg/dL (7-21); CALCIUM 9.3 mg/dL (8.4-10.5); GFR AFRICAN-AMERICAN > 60; GFR NON-AFRICAN AMERICAN > 60
[2018-01-24 19:02] LABS: TROPONIN I < 0.01 ng/mL
[2018-01-24 19:19] LABS: B-TYPE NATRIURETIC PEPTIDE 20.5 pg/mL (0-450)
--- NOTE | 2018-01-24 22:29 | CP.PCM.HP ---
"History of Present Illness - History of Present Illness History of Present Illness: This patient is a 57 year old male with a PMHx of COPD, Hepatitis B & C w/ Cirrhosis, PUD, esophageal varices, pancreatitis, Chronic Lower Extremity Edema , Venous insufficiency, EtOH abuse, GI bleed, medical non-compliance, depression with suicidal ideation, and homelessness who presents with two complaints. Patient first complaint is chronic, sharp, 9/10 chest pain that radiates to his chest. Patient states he has had this pain for several months intermittently at rest. Associated with the pain is palpitations. Patient denied any chest pain at the time of examination. Patient also complains of worsening lower extremity edema and erythema. Patient states he takes only lasix once a day and has been complaint with it. He denies any fever, chills, headache, dizziness, SOB, nausea, vomiting, diarrhea, constipation, or any urinary symptoms. Of note, patient is a poor historian. Patient states he drank 3 beers before coming to the E.R ROS: As stated above. PMHx: COPD, Hepatitis B & C w/ Cirrhosis, PUD, esophageal varices, pancreatitis , Chronic Lower Extremity Edema, Venous insufficiency, EtOH abuse, GI bleed, medical non-compliance, depression with suicidal ideation, and homelessness PSHx: Right eye surgery, Nose surgery Allergies: NKDA SocialHx: PPD for 37 years, states he drinks about 3 beers daily, Denies illicit drug use Hos: Patient was admitted 01/07/2018 to [facility] for EtoH withdrawal and suicidal ideation. FamHx: Denies Medication: Lasix. Patient does not know the dose. Present on Admission - Present on Admission Any Indicators Present on Admission: No Review of Systems - Review of Systems All systems: reviewed and no additional remarkable complaints except (As per HPI ) Review of Systems: As per HPI Past Patient History - Infectious Disease Hx of Infectious Diseases: None - Tetanus Immunizations Tetanus Immunization: Up to Date - Past Medical History & Family History Past Medical History?: Yes - Past Social History Smoking Status: Heavy Smoker > 10 Cigarettes Daily - CARDIAC Hx Cardiac Disorders: Yes Hx Hypertension: Yes Hx Peripheral Edema: Yes Hx Peripheral Vascular Disease: Yes - PULMONARY Hx Respiratory Disorders: Yes Hx Chronic Obstructive Pulmonary Disease (COPD): Yes - NEUROLOGICAL Hx Neurological Disorder: No - HEENT Hx HEENT Problems: Yes Other/Comment: retina detachment - RENAL Hx Renal Failure: Yes - ENDOCRINE/METABOLIC Hx Endocrine Disorders: No - HEMATOLOGICAL/ONCOLOGICAL Hx Blood Disorders: Yes Hx Hepatitis B: Yes Hx Hepatitis C: Yes - INTEGUMENTARY Hx Dermatological Problems: Yes Hx Psoriasis: Yes - MUSCULOSKELETAL/RHEUMATOLOGICAL Hx Musculoskeletal Disorders: Yes Hx Falls: Yes Hx Fractures: Yes (NASAL SURGERY) - GASTROINTESTINAL Hx Gastrointestinal Disorders: Yes Hx Liver Failure: Yes Hx Pancreatitis: Yes Other/Comment: ascites - GENITOURINARY/GYNECOLOGICAL Hx Genitourinary Disorders: No - PSYCHIATRIC Hx Psychophysiologic Disorder: Yes Hx Anxiety: Yes Hx Bipolar Disorder: Yes Hx Depression: Yes Hx Substance Use: Yes Other/Comment: ETOH - SURGICAL HISTORY Other/Comment: TIPPS. Nasal surgery. - ANESTHESIA Hx Anesthesia: Yes Hx Anesthesia Reactions: No Hx Malignant Hyperthermia: No Meds Allergies/Adverse Reactions: Allergies Allergy/AdvReac Type Severity Reaction Status Date / Time No Known Allergies Allergy Verified 01/22/18 21:57 Physical Exam - Constitutional Appears: Well, Non-toxic, No Acute Distress - Head Exam Head Exam: ATRAUMATIC, NORMAL INSPECTION, NORMOCEPHALIC - Eye Exam Eye Exam: EOMI, Normal appearance, PERRL - ENT Exam ENT Exam: Mucous Membranes Moist - Neck Exam Neck exam: Positive for: Normal Inspection - Respiratory Exam Respiratory Exam: Clear to Auscultation Bilateral, NORMAL BREATHING PATTERN. absent: Rales - Cardiovascular Exam Cardiovascular Exam: RRR, +S1, +S2. absent: JVD - GI/Abdominal Exam GI & Abdominal Exam: Normal Bowel Sounds, Organomegaly (Hepatomegaly), Soft. absent: Distended, Firm, Rebound, Rigid, Tenderness - Extremities Exam Extremities exam: Positive for: pedal edema (3+), tenderness Additional comments: Bilateral lower extremity erythema Diminished Lower Extremity Pulses B/L. - Neurological Exam Neurological exam: Alert, CN II-XII Intact, Oriented x3 - Psychiatric Exam Psychiatric exam: Normal Affect, Normal Mood - Skin Skin Exam: Dry, Intact, Warm Results - Vital Signs Recent Vital Signs: Last Vital Signs Temp 98 F 01/24/18 19:06 Pulse 88 01/24/18 19:06 Resp 19 01/24/18 19:06 BP 135/80 01/24/18 19:06 Pulse Ox 99 01/24/18 19:06 - Labs Result Diagrams: 01/24/18 17:38 01/24/18 18:18 Assessment & Plan - Assessment and Plan (Free Text) Assessment: 57 year old male with a PMHx of COPD, Hepatitis B & C w/ Cirrhosis, PUD, esophageal varices, pancreatitis, Chronic Lower Extremity Edema, Venous insufficiency, EtOH abuse, GI bleed, medical non-compliance, depression with suicidal ideation, Plan: Chest Pain (Chronic) DDx: ACS, Costochondritis, Malingering EKG: Sinus w/ PAC's ECHO (05/13/17): Normal EF, Grade I abnormal Relaxaton, moderate Pulm HTN. ED Course: ASA, NS 500L Bolus, IV lasix Serial Troponins EKG in the Morning ECHO Cardiology Consult Lower Extremity Edema/Tenderness (Acute on Chronic) Ddx: Cellulitis, Venous insufficiency, PVD, Diastolic CHF. Aldactone 25 Once Given ECHO as stated above Daily Weights | Strict I/O's | Lower Extremity Arterial Dopplers PT Fall Precautions Podiatry Consult Vancomycin 1gm RORY daily Home Lasix 40 PO Daily Hx of HTN Home Lisinopril 10 Daily Hx of COPD Home Spiriva Hx of EtOH Abuse UDS/EtOH lvl CIWA protocol PRN Ativan Hx of Pancreatitis Amylase/Lipase Hx of Hepatitis B/C Monitor liver enzymes. Hx of Medical Non-Compliance Reinforced the importance of establishing care with primary medical physician Patient states his father recently got him a physician that will come to the hospital. He does not know this physicians name. Note: Patient is a poor historian so pharmacy may need to be called in the morning for a medication reconciliation. Patient is showing signs of malingering. Social Work consult was order for homelessness. Patient seen and discussed with Attending Tigre Adams, PGY-1"
[2018-01-24 23:26] LABS: VENOUS BLOOD GAS BASE EXCESS 4.3 mmol/L (0.0-2.0); VENOUS BLOOD GAS PO2 190 mm/Hg (30-55); VENOUS BLOOD PH 7.43 (7.32-7.43)
[2018-01-24 23:27] LABS: VENOUS BLOOD FIO2 21 %
[2018-01-25] MEDS: Vancomycin 1gm in NS 250ml 1 GM/250 ML BAG IVPB SCH ×3 (01:30→16:23)
[2018-01-25 02:21] LABS: AMYLASE 105 U/L (35-125); LIPASE 221 U/L (23-300)
[2018-01-25 02:25] LABS: TROPONIN I < 0.01 ng/mL
[2018-01-25 02:51] VITALS: BMI 37.8
[2018-01-25] MEDS ORDERED: Folic Acid 1 MG, Thiamine 100 MG, Multivitamin (MVI) 10 ML in Dextrose 5% In Water 1,00... IV SCH (03:00)
[2018-01-25] MEDS ORDERED: Folic Acid 1 MG, Thiamine 100 MG, Multivitamin (MVI) 10 ML in Dextrose 5% In Water 1,00... IV ONE (03:09)
[2018-01-25 06:54] LABS: ALB/GLOB RATIO 0.9 (1.1-1.8); ALBUMIN 3.5 g/dL (3.0-4.8); ALT/SGPT 37 U/L (7-56); AST/SGOT 80 U/L (17-59); BLOOD UREA NITROGEN 6 mg/dL (7-21); CALCIUM 8.5 mg/dL (8.4-10.5); GFR AFRICAN-AMERICAN > 60; GFR NON-AFRICAN AMERICAN > 60
[2018-01-25 07:00] LABS: BASO # 0.13 K/mm3 (0.0-2.0); BASO % 2.7 % (0.0-3.0); EOS # 0.3 (0.0-0.7); EOS % 6.5 % (1.5-5.0); GRAN # 2.37 (1.4-6.5); GRAN % 50.1 % (50.0-68.0); HEMOGLOBIN 11.9 g/dL (14.0-18.0); LYMPH # 1.4 (1.2-3.4); LYMPH % 30.2 % (22.0-35.0); MEAN CELL VOLUME 81.3 fl (80.0-105.0); MEAN CORPUSCULAR HEMOGLOBIN 26.4 pg (25.0-35.0); MEAN CORPUSCULAR HGB CONC 32.5 g/dl (31.0-37.0); MEAN PLATELET VOLUME 10.6 fl (7.0-11.0); MONO # 0.5 (0.1-0.6); MONO % 10.5 % (1.0-6.0); RBC 4.5 10^6/uL (3.5-6.1); RED CELL DISTRIBUTION WIDTH 16.6 % (11.5-14.5); WHITE BLOOD COUNT 4.7 10^3/ul (4.5-11.0)
[2018-01-25 07:01] LABS: TROPONIN I < 0.01 ng/mL
[2018-01-25 07:09] LABS: BARBITURATES, UR NEGATIVE (NEGATIVE); BENZODIAZEPINES, UR POSITIVE (NEGATIVE); OPIATES, UR NEGATIVE (NEGATIVE); PHENCYCLIDINE, UR NEGATIVE (NEGATIVE)
--- NOTE | 2018-01-25 08:05 | CP.PCM.PN ---
<Derek Chirinos - Last Filed: 01/25/18 13:22> Subjective - Date & Time of Evaluation Date of Evaluation: 01/25/18 Time of Evaluation: 07:15 - Subjective Subjective: Patient seen and evaluated this AM. Patient is resting comfortably in bed. Patient reports mid sternal chest pain that is described as needle like pain. He reports feeling slightly tremulous secondary to his etoh. Patient endorses mid epigastric discomfort which he states is due to his pancreatitis. He denies any shortness of breath. Objective - Vital Signs/Intake and Output Vital Signs (last 24 hours): Temp Pulse Resp BP Pulse Ox 97.8 F 102 H 20 140/80 93 L 01/25/18 04:43 01/25/18 06:00 01/25/18 04:43 01/25/18 04:43 01/25/18 04:43 Intake and Output: 01/25/18 01/25/18 06:59 18:59 Intake Total 420 Output Total 500 Balance -80 - Medications Medications: Current Medications Albuterol/Ipratropium (Duoneb 3 Mg/0.5 Mg (3 Ml) Ud) 3 ml IH Q4H PRN PRN Reason: Shortness of Breath Enoxaparin Sodium (Lovenox) 40 mg SC DAILY RORY PRN Reason: Protocol Folic Acid (Folic Acid) 1 mg PO DAILY RORY Furosemide (Lasix) 40 mg PO DAILY RORY Vancomycin HCl (Vancomycin 1gm) 1 gm in 250 mls @ 167 mls/hr IVPB DAILY RORY PRN Reason: Protocol Last Admin: 01/25/18 01:30 Dose: 167 mls/hr Folic Acid 1 mg/ Thiamine HCl 100 mg/ Multivitamins/Vitamin C 10 ml/ Dextrose 1 ,011.2 mls @ 75 mls/hr IV .[id number] ONE Stop: 01/25/18 16:28 Last Admin: 01/25/18 03:36 Dose: 75 mls/hr Potassium Chloride (Potassium Chloride 20 Meq/100 Ml) 20 meq in 100 mls @ 50 mls/hr IVPB Q2H RORY Stop: 01/25/18 11:44 Lisinopril (Zestril) 10 mg PO DAILY RORY Lorazepam (Ativan) 1 mg IVP Q4H PRN; Protocol PRN Reason: Symptoms of alcohol withdrawl Lorazepam (Ativan) 1 mg IVP Q6H PRN; Protocol PRN Reason: Symptoms of alcohol withdrawl - Labs Labs: 01/25/18 06:25 01/25/18 06:25 PT 12.1 SECONDS (9.4-12.5) 01/24/18 17:38 INR 1.06 (0.93-1.08) 01/24/18 17:38 APTT 32.3 Seconds (25.1-36.5) 01/24/18 17:38 - Constitutional Appears: No Acute Distress, Older Than Stated Age - Head Exam Head Exam: ATRAUMATIC, NORMAL INSPECTION, NORMOCEPHALIC - Eye Exam Eye Exam: EOMI, PERRL - Respiratory Exam Respiratory Exam: Chest Wall Tenderness (anterior mid sternal), Decreased Breath Sounds, Wheezes (expiratory minimal bilateral ), NORMAL BREATHING PATTERN. absent: Rales, Respiratory Distress, Stridor - Cardiovascular Exam Cardiovascular Exam: Tachycardia, REGULAR RHYTHM, +S1, +S2 - GI/Abdominal Exam GI & Abdominal Exam: Distended, Soft, Tenderness (mid epigastric and lower quadrant bilaterally ), Normal Bowel Sounds. absent: Firm, Guarding, Rigid - Extremities Exam Extremities Exam: Pedal Edema Additional comments: Patient with bilateral lower extremity edema 3+, erythema, warmth, to mid/upper anterior palacios - Back Exam Back Exam: absent: CVA tenderness (L), CVA tenderness (R) - Neurological Exam Neurological Exam: Alert, Awake, Oriented x3 - Psychiatric Exam Psychiatric exam: absent: Agitated, Anxious Additional comments: slightly intoxicated, normal affect for patient - Skin Skin Exam: Dry, Warm Assessment and Plan - Assessment and Plan (Free Text) Assessment: 57 year old male with a past medical history of COPD, Hepatitis B & C w/ Cirrhosis, PUD, esophageal varices, pancreatitis, Chronic Lower Extremity Edema , Venous insufficiency, EtOH abuse, GI bleed, medical non-compliance and depression who presented to [facility] ED intoxicated with EOTH level of 319 complaining of chest pain and lower extremity edema. Patient admitted to telemetry for chest pain rule out and monitoring for etoh withdrawal. Plan: ETOH intoxication/withdrawal Details: - ETOH level 319 on admission, Last drink 1600 01/25/18, "3 beers" - Chronic history of ETOH abuse - CIWA 1 this morning Plan: - pest control worker helper consult - Ativan 1mg Q4H PRN - Ativan 1mg Q6H PRN - CIWA protocol Blood Clx positive for Gram positive cocci Details: - blc clx positive G + Cocci x2 - Afebrile, tachycardic, hypertensive, no leukocytosis Plan: - Continue Vancomycin and cefazolin - ID consulted, appreciate recs Chest Pain Details: - EKG showing NSR, LAD, RVCD, unchanged from previous ekg - Cardiology consulted - Troponin negative x3 Plan: - Echocardiogram - f/u Cardiology recs Possible Cellulitis in setting of Chronic Lower extremity Edema Details: - Previous admissions for LE edema - Chronic venous insufficiency - Tender/warm on palpation, no WBC, afebrile Plan: - Lasix - Vancomyocin and cefazolin - Echocardiogram f/u HTN Details: - elevated BP 150s/80's Plan: - Continue home Lisinopril COPD: - Spiriva - O2 NC DVT ppx: Lovenox GI ppx: Pepcid Case and plan discussed with attending, Dr. Ramirez <Antonio Ramirez - Last Filed: 01/25/18 14:10> Objective - Vital Signs/Intake and Output Vital Signs (last 24 hours): Temp Pulse Resp BP Pulse Ox 97.8 F 110 H 20 140/80 93 L 01/25/18 04:43 01/25/18 10:00 01/25/18 04:43 01/25/18 04:43 01/25/18 04:43 Intake and Output: 01/25/18 01/25/18 06:59 18:59 Intake Total 420 Output Total 500 Balance -80 - Medications Medications: Current Medications Albuterol/Ipratropium (Duoneb 3 Mg/0.5 Mg (3 Ml) Ud) 3 ml IH Q4H PRN PRN Reason: Shortness of Breath Enoxaparin Sodium (Lovenox) 40 mg SC DAILY RORY PRN Reason: Protocol Last Admin: 01/25/18 09:21 Dose: 40 mg Folic Acid (Folic Acid) 1 mg PO DAILY [facility] Last Admin: 01/25/18 09:21 Dose: 1 mg Furosemide (Lasix) 40 mg PO DAILY [facility] Vancomycin HCl (Vancomycin 1gm) 1 gm in 250 mls @ 167 mls/hr IVPB DAILY RORY PRN Reason: Protocol Last Admin: 01/25/18 09:21 Dose: 167 mls/hr Folic Acid 1 mg/ Thiamine HCl 100 mg/ Multivitamins/Vitamin C 10 ml/ Dextrose 1 ,011.2 mls @ 75 mls/hr IV .[id number] ONE Stop: 01/25/18 16:28 Last Admin: 01/25/18 03:36 Dose: 75 mls/hr Cefazolin Sodium (Ancef 1gm In Ns) 1 gm in 100 mls @ 100 mls/hr IVPB Q8 RORY Lisinopril (Zestril) 10 mg PO DAILY RORY Lorazepam (Ativan) 1 mg IVP Q4H PRN; Protocol PRN Reason: Symptoms of alcohol withdrawl Last Admin: 01/25/18 09:34 Dose: 1 mg Lorazepam (Ativan) 1 mg IVP Q6H PRN; Protocol PRN Reason: Symptoms of alcohol withdrawl - Labs Labs: 01/25/18 06:25 01/25/18 06:25 PT 12.1 SECONDS (9.4-12.5) 01/24/18 17:38 INR 1.06 (0.93-1.08) 01/24/18 17:38 APTT 32.3 Seconds (25.1-36.5) 01/24/18 17:38 Attending/Attestation - Attestation I have personally seen and examined this patient.: Yes I have fully participated in the care of the patient.: Yes I have reviewed all pertinent clinical information, including history, physical exam and plan: Yes Notes (Text): 01/25/18 14:05 57 year old with past medical history of COPD, Hepatitis C, cirrhosis, esophageal varices, chronic LE edema, and chronic alcohol abuse who presented with alcohol intoxication, chest pain and LE edema/erythema. Serial cardiac enzymes were negative and ACS has been ruled out. He was evaluated by cardiology and underwent stress test today; will follow. Echocardiogram was ordered as well. He is on iv antibiotics for LE cellulitis. He is lasix as well. Recent LE dopplers were negative for DVT. Blood cultures x 2 +ve for gram positive cocci. He is on iv antibiotics as above. Repeat cultures are ordered and ID evaluation is requested. He was counselled on alcohol abstinence. Continue with banana bag. Continue with ativan prn for withdrawal symptoms. Antonio Ramirez MD Hospitalist.
--- NOTE | 2018-01-25 08:50 | CARD ---
APPROVED REPORT EKG Measurement Heart [id number] [place] [id number] <Conclusion> Sinus rhythm with premature atrial complexes Left axis deviation Clockwisw Rotation.
[2018-01-25] MEDS: Enoxaparin 40 mg Syringe SC SCH (09:21)
[2018-01-25 09:46] LABS: HDL CHOLESTEROL 54 mg/dL (29-60)
[2018-01-25 09:56] LABS: LDL CHOLESTEROL 82 mg/dL (0-129)
[2018-01-25] MEDS ORDERED: Tiotropium 18 mcg Cap For Inhalation IH SCH ×2 (10:00)
--- NOTE | 2018-01-25 10:53 | CARD ---
APPROVED REPORT EKG Measurement Heart [id number] MD [id number] <Conclusion> Sinus tachycardia Right superior axis deviation
[2018-01-25] MEDS ORDERED: Aminophylline 25 mg/ml Inj ONE (12:13)
--- NOTE | 2018-01-25 14:12 | PN ---
DATE: REASON FOR CONSULTATION AND FOLLOWUP: Cardiac evaluation, chest pain, lower extremity swelling. BRIEF CLINICAL HISTORY: This is a 57-year-old male with past medical history significant for COPD, hepatitis B and C, cirrhosis, peptic ulcer disease, esophageal varices, pancreatitis, chronic leg edema, venous insufficiency, alcohol abuse, tobacco abuse, non-compliance to the medication, came in with complaining of sharp chest pain and leg edema. The patient walks with a cane, but denies any chest pain on exertion. PAST HISTORY: Significant for peptic ulcer disease, cirrhosis, COPD, pancreatitis, chronic leg edema, chronic venous stasis, history of alcohol abuse, multiple ER admissions with the same complaint and was sent back. Denies ever having a chest pain. Denies having stress test or echo was done. PREVIOUS CARDIAC WORKUP: As follows: The patient had echo done on 08/16/2016, that shows normal valve thickness and normal motion, moderate tricuspid regurgitation, [id number] pulmonary hypertension, read by Dr. Randall. Ejection fraction calculated at 65%, RVSP 64 mmHg reported. Then, the patient had repeat echo done on 05/13/2017, that showed normal LV function, normal segmental wall motion, moderate pulmonary hypertension. Ejection fraction 73%. RV systolic pressure 57 mmHg. CURRENT MEDICATIONS: The patient at home is taking Spiriva, lisinopril, Lasix, folic acid. REVIEW OF SYSTEMS: As per HPI. Past history as mentioned, history of cirrhosis, history of hepatitis B, history of hepatitis C, peptic ulcer disease, esophageal varices, pancreatitis, alcohol abuse, tobacco abuse, chronic venous stasis, GI bleed, history of some suicidal ideation in the past, COPD, and obesity. PHYSICAL EXAMINATION: GENERAL: Height of the patient is 5 feet 9 inches, weight of the patient is 257 pounds, body mass index of 38.8 kg/m2. VITAL SIGNS: Temperature afebrile, heart rate 102, blood pressure 140/80. HEENT: PERRLA. Extraocular muscles intact. NECK: Supple. No carotid bruit or thyromegaly. CHEST: Clear to auscultation. HEART: S1 and S2, regular. ABDOMEN: Soft. EXTREMITIES: 1+ pedal edema noted. EKG shows normal sinus, heart rate of 80, left axis deviation, no acute ST-T changes noted. LABORATORY DATA: Blood workup as follows: WBC 4.7, hemoglobin 11.9, hematocrit 36.6, and platelet count 192. Chemistry shows sodium 145, potassium 3.3, chloride 107, carbon dioxide 28, anion gap of 14. BUN 6, creatinine 0.8. Troponin is 0.01 x2 negative. IMPRESSION: Atypical chest pain, so far no evidence of acute myocardial infarction, cirrhosis, hepatitis C, chronic venous stasis, peptic ulcer disease, esophageal varices, alcohol abuse, tobacco abuse, multiple vessel coronary artery disease, suggest stress test. Further recommendation after the stress test. We will follow with you. We will get the lipid profile, TSH and hemoglobin A1c. We will keep n.p.o. for stress test today. Thank you Dr. Ramirez, for providing us the opportunity in taking care of the patient, Hemant Palacios. Camila Larose MD
[2018-01-25] MEDS: ceFAZolin 1 gm in NS 1 GM/100 ML BAG IVPB SCH ×2 (14:14→21:29)
--- NOTE | 2018-01-25 15:43 | US ---
PROCEDURE: Lower extremity JAIME exam HISTORY: Peripheral vascular disease with pain and claudication. Smoker PHYSICIAN(S): Scott Aden MD. FINDINGS: The resting JAIME's are normal: right, 1.17and left, 1.14. The brachial systolic pressures are symmetric. The low thigh pressures and waveforms are relatively normal. The calf PVR waveforms augment normally. No significant gradients are noted across the thighs. The ankle and metatarsal waveforms are relatively normal and symmetric. No significant pressure gradients are noted across the lower legs. IMPRESSION: 1. Normal JAIME and PVR examination at rest.
[2018-01-25] MEDS: Vancomycin 1.5 GM in Sodium Chloride 0.9% 500 ML IVPB SCH (17:23)
--- NOTE | 2018-01-25 21:00 | CARD ---
APPROVED REPORT Protocol: LEXISCAN Test Type: Lexiscan Sestamibi Stress Test Attending Physician: Dr. Camila Underwood Referring Physician: Dr. Bossman Fowler Test Indications: Chest pain Height:5 ft 9 in Weight:256lbs Medications: Duoneb, Lovenox, Folic Acid, Lasix, Zestril Ativan, Potassium, Vanco, ASA Medical History: 57 y/o male with a history of COPD, lower extremity edema, Hep B & C, liver cirrhosis, GI bleed, ETOH abuse Target HR: 165 bpm Resting ECG: RSR. Resting Heart Rate: 98 bpm Resting Blood Pressure: 162/90mmHg Submaximum (85%): 140 bpm PROCEDURE Pharmacologic stress testing was performed using 0.4mg per 5ml of regadenoson given intravenously over 7-10 seconds. POST EXERCISE Reason for Termination: Protocol completed Target HR: No Max HR: 100 bpm 68% of Maximum Predicted HR: 165 bpm Exercise duration: 00:47 min:sec, 0 Stage Exercise capacity: 1.0METs Max Blood Pressure: 162/90mmHg Blood Pressure response to exercise: normal resting BP - appropriate response Heart Rate response to exercise: appropriate Chest Pain: No, none Angina index: 0 Arrhythmia: No, none ST Change: No, none Deviation: 0 mm TEST SUMMARY [id number]. INFUSIONDOSE 100:[id number]/.0. [id number]. INTERPRETATION Stress EKG Conclusion: IV LEXISCAN NUCLEAR STRESS TEST NEGATIVE FOR CHEST PAIN AND NEGATIVE FOR ST-T CHANGES. NUCLEAR SCAN REPORT PENDING. Signed by Camila Underwood Electronically Approved: 01/25/2018 13:41:53 EXAM: Myocardial Perfusion REST/STRESS Stress Test Type: Pharmacologic Imaging Protocol Rest Spect myocardial perfusion imaging was performed in supine position 45 minutes following the injection of 10.5 mCi of Tc-99 Myoview. At peak stress, the patient was injected intravenously with 30.9mCi of Tc-99 tetrofosmin after an infusion time of 0 minutes and 10 seconds. Gated Stress Spect was performed 65 minutes after intravenous Tc-99 Myoview injection. The images were gated to evaluate regional wall motion and calculate ventricular ejection fraction.Images were reconstructed using backfilter projection method in short horizontal and verticle long axis. Spect slices were generated. LV Perfusion The quality of the study is good. The left ventricle is mildly enlarged in size. The right ventricle is unremarkable. The lung uptake is normal. The distribution of tracer reveals moderately and diffusely decreased perfusion in the inferior wall on the stress study. The remainder of the LV myocardium is unremarkable. The rest myocardial perfusion study shows no significant change. Wall Motion Wall motion study shows good contractility of the left ventricle. LVEF = 72%. Conclusion 1. Essentially normal SPECT myocardial perfusion study. 2. Fixed, inferior defect is most likely due to diaphrgmatic attenuation. 3. Normal gated wall motion and thicknening of the left ventricle.
[2018-01-26] MEDS: Vancomycin 1.5 GM in Sodium Chloride 0.9% 500 ML IVPB SCH ×2 (04:45→16:54)
[2018-01-26] MEDS: ceFAZolin 1 gm in NS 1 GM/100 ML BAG IVPB SCH ×2 (06:02→14:07)
[2018-01-26 07:01] LABS: BASO # 0.13 K/mm3 (0.0-2.0); BASO % 2.1 % (0.0-3.0); EOS # 0.4 (0.0-0.7); GRAN # 3.53 (1.4-6.5); GRAN % 57.2 % (50.0-68.0); HEMOGLOBIN 12.3 g/dL (14.0-18.0); LYMPH # 1.1 (1.2-3.4); LYMPH % 18.5 % (22.0-35.0); MEAN CELL VOLUME 80.7 fl (80.0-105.0); MEAN CORPUSCULAR HEMOGLOBIN 26.4 pg (25.0-35.0); MEAN CORPUSCULAR HGB CONC 32.7 g/dl (31.0-37.0); MEAN PLATELET VOLUME 11.2 fl (7.0-11.0); MONO % 16.2 % (1.0-6.0); RBC 4.66 10^6/uL (3.5-6.1); RED CELL DISTRIBUTION WIDTH 16.4 % (11.5-14.5); WHITE BLOOD COUNT 6.2 10^3/ul (4.5-11.0)
[2018-01-26 07:42] LABS: ALB/GLOB RATIO 0.8 (1.1-1.8); ALBUMIN 3.4 g/dL (3.0-4.8); ALT/SGPT 28 U/L (7-56); AST/SGOT 70 U/L (17-59); BLOOD UREA NITROGEN 7 mg/dL (7-21); CALCIUM 8.5 mg/dL (8.4-10.5); GFR AFRICAN-AMERICAN > 60; GFR NON-AFRICAN AMERICAN > 60
[2018-01-26] MEDS ORDERED: Potassium Chloride 20 mEq ER Tab PO STA ×2 (08:04→12:51)
[2018-01-26] MEDS ORDERED: Magnesium Sulfate 2 GM in Sodium Chloride 0.9% 100 ML IVPB ONE ×4 (09:11→19:59)
--- NOTE | 2018-01-26 09:53 | CP.PCM.PN ---
Subjective - Date & Time of Evaluation Date of Evaluation: 01/26/18 Time of Evaluation: 09:00 - Subjective Subjective: I am okay. I have some abdominal pain, denies shortness of breath, feels tired going to the bathroom Reason for consult and follow up: Cardiac evaluation, chest pain, history of COPD,ETOH abuse Seen and examined by me and Dr. Larose Objective - Vital Signs/Intake and Output Vital Signs (last 24 hours): Temp Pulse Resp BP Pulse Ox 99.8 F H 95 H 18 124/75 92 L 01/26/18 06:00 01/26/18 06:00 01/26/18 06:00 01/26/18 06:00 01/26/18 06:00 Intake and Output: 01/26/18 01/26/18 06:59 18:59 Intake Total 1400 Output Total 1250 Balance 150 - Medications Medications: Current Medications Albuterol/Ipratropium (Duoneb 3 Mg/0.5 Mg (3 Ml) Ud) 3 ml IH Q4H PRN PRN Reason: Shortness of Breath Chlordiazepoxide (Librium) 25 mg PO BID [facility] PRN Reason: Protocol Enoxaparin Sodium (Lovenox) 40 mg SC DAILY [facility] PRN Reason: Protocol Last Admin: 01/25/18 09:21 Dose: 40 mg Folic Acid (Folic Acid) 1 mg PO DAILY [facility] Last Admin: 01/25/18 09:21 Dose: 1 mg Furosemide (Lasix) 40 mg PO DAILY [facility] Last Admin: 01/25/18 14:15 Dose: 40 mg Cefazolin Sodium (Ancef 1gm In Ns) 1 gm in 100 mls @ 100 mls/hr IVPB Q8 [facility] Last Admin: 01/26/18 06:02 Dose: 100 mls/hr Vancomycin HCl 1.5 gm/ Sodium (Chloride) 500 mls @ 167 mls/hr IVPB Q12H [facility] PRN Reason: Protocol Last Admin: 01/26/18 04:45 Dose: 167 mls/hr Potassium Chloride (Potassium Chloride 20 Meq/100 Ml) 20 meq in 100 mls @ 50 mls/hr IVPB ONCE ONE Stop: 01/26/18 10:04 Last Admin: 01/26/18 08:44 Dose: 50 mls/hr Magnesium Sulfate 2 gm/ Sodium (Chloride) 104 mls @ 102 mls/hr IVPB ONCE ONE Stop: 01/26/18 10:12 Lisinopril (Zestril) 10 mg PO DAILY [facility] Last Admin: 01/25/18 14:15 Dose: 10 mg Lorazepam (Ativan) 1 mg IVP Q6H PRN; Protocol PRN Reason: Symptoms of alcohol withdrawl Nicotine (Nicoderm Cq) 1 patch TD DAILY [facility] Last Admin: 01/25/18 16:56 Dose: 1 patch - Labs Labs: 01/26/18 06:00 01/26/18 06:00 PT 12.1 SECONDS (9.4-12.5) 01/24/18 17:38 INR 1.06 (0.93-1.08) 01/24/18 17:38 APTT 32.3 Seconds (25.1-36.5) 01/24/18 17:38 - Constitutional Appears: No Acute Distress - Head Exam Head Exam: NORMAL INSPECTION - ENT Exam ENT Exam: Mucous Membranes Moist - Respiratory Exam Respiratory Exam: Decreased Breath Sounds, Clear to Ausculation Bilateral - Cardiovascular Exam Cardiovascular Exam: REGULAR RHYTHM, +S1, +S2 - GI/Abdominal Exam GI & Abdominal Exam: Soft, Normal Bowel Sounds - Extremities Exam Extremities Exam: Normal Capillary Refill Additional comments: uses cane, 3-4+ pedal edema,venous insufficiency - Neurological Exam Neurological Exam: Alert, Awake, Oriented x3 - Psychiatric Exam Psychiatric exam: Normal Affect, Normal Mood - Skin Skin Exam: Dry, Intact, Normal Color, Warm Assessment and Plan - Assessment and Plan (Free Text) Assessment: A 57year old male who came in to the ER due to leg swelling and chest pain, liver cirrhosis, Hep C history of COPD, tobacco and ETOH abuse, lower extremity venous insufficiency, GI bleeding, pancreatitis, depression with suicidal ideation, non compliant with medications. Plan: Had Stress test yesterday- LVEF 72 %, normal result (full report in chart) No evidence of myocardial ischemia, Atypical chest pain Telemetry NSR 80's On Lasix 40 mg daily, Zestril 10 mg daily,Nicotine patch and Librium and Lorazepam PRN. Continue current treatment Continue current medications K-2.9 covered with 40 meq po KCl and 20 meq IV KCl. Will follow up Plan and treatment discussed with Dr. Larose
[2018-01-26] MEDS: Enoxaparin 40 mg Syringe SC SCH (09:57)
--- NOTE | 2018-01-26 11:50 | CP.PCM.PN ---
<Derek Chirinos - Last Filed: 01/26/18 12:44> Subjective - Date & Time of Evaluation Date of Evaluation: 01/26/18 Time of Evaluation: 07:30 - Subjective Subjective: Patient seen and examined this AM. Complains of continued chest discomfort, abdominal pain and difficulty breathing. Patient reports some improvement in his symptoms from admission and that they are chronic in nature. Patient reports poor appetite. Denies palpitations, vomiting, constipation, fever, chills. Patient indicates he has been having a few episodes of diarrhea. Objective - Vital Signs/Intake and Output Vital Signs (last 24 hours): Temp Pulse Resp BP Pulse Ox 99.8 F H 92 H 18 124/75 92 L 01/26/18 06:00 01/26/18 10:00 01/26/18 06:00 01/26/18 09:57 01/26/18 06:00 Intake and Output: 01/26/18 01/26/18 06:59 18:59 Intake Total 1400 Output Total 1250 Balance 150 - Medications Medications: Current Medications Albuterol/Ipratropium (Duoneb 3 Mg/0.5 Mg (3 Ml) Ud) 3 ml IH Q4H PRN PRN Reason: Shortness of Breath Chlordiazepoxide (Librium) 25 mg PO BID RORY PRN Reason: Protocol Enoxaparin Sodium (Lovenox) 40 mg SC DAILY [facility] PRN Reason: Protocol Last Admin: 01/26/18 09:57 Dose: 40 mg Folic Acid (Folic Acid) 1 mg PO DAILY [facility] Last Admin: 01/26/18 09:57 Dose: 1 mg Furosemide (Lasix) 40 mg PO DAILY [facility] Last Admin: 01/26/18 09:57 Dose: 40 mg Cefazolin Sodium (Ancef 1gm In Ns) 1 gm in 100 mls @ 100 mls/hr IVPB Q8 [facility] Last Admin: 01/26/18 06:02 Dose: 100 mls/hr Vancomycin HCl 1.5 gm/ Sodium (Chloride) 500 mls @ 167 mls/hr IVPB Q12H [facility] PRN Reason: Protocol Last Admin: 01/26/18 04:45 Dose: 167 mls/hr Lisinopril (Zestril) 10 mg PO DAILY [facility] Last Admin: 01/26/18 09:57 Dose: 10 mg Lorazepam (Ativan) 1 mg IVP Q6H PRN; Protocol PRN Reason: Symptoms of alcohol withdrawl Nicotine (Nicoderm Cq) 1 patch TD DAILY [facility] Last Admin: 01/26/18 09:56 Dose: 1 patch - Labs Labs: 01/26/18 06:00 01/26/18 06:00 PT 12.1 SECONDS (9.4-12.5) 01/24/18 17:38 INR 1.06 (0.93-1.08) 01/24/18 17:38 APTT 32.3 Seconds (25.1-36.5) 01/24/18 17:38 - Constitutional Appears: No Acute Distress - Head Exam Head Exam: ATRAUMATIC, NORMAL INSPECTION, NORMOCEPHALIC - Eye Exam Eye Exam: EOMI, PERRL - Respiratory Exam Respiratory Exam: Clear to Ausculation Bilateral, NORMAL BREATHING PATTERN. absent: Rales, Wheezes - Cardiovascular Exam Cardiovascular Exam: REGULAR RHYTHM, +S1, +S2 - GI/Abdominal Exam GI & Abdominal Exam: Distended, Guarding, Soft, Tenderness (mid epigastric and lower quadrant b/l) - Extremities Exam Extremities Exam: Pedal Edema Additional comments: erythematous lower extremity, improved from admission, chronic swelling noted to be 2+ on exam b/l - Neurological Exam Neurological Exam: Alert, Awake, Normal Gait, Oriented x3 - Psychiatric Exam Psychiatric exam: Normal Affect - Skin Skin Exam: Dry, Erythema (lower extremity b/l), Warm Assessment and Plan - Assessment and Plan (Free Text) Assessment: 57 year old male with a PMHx of COPD, Hepatitis B & C w/ Cirrhosis, PUD, esophageal varices, pancreatitis, Chronic Lower Extremity Edema, Venous insufficiency, EtOH abuse, GI bleed, medical non-compliance and depression who presented to [facility] ED complaining of chest pain and lower extremity edema/pain. Patient admitted for chest pain r/o ACS and ETOH withdrawal symptoms. Patient noted to have negative stress test and negative troponins. Patient currently being monitred for ETOH withdrawl and treatment for lower extremity cellulitis/ gram positive cocci blood culture. Plan: Chest Pain Details: - Cardiology consulted and following, recommending - Stress test negative - Echocardiogram pending - Troponin negative x3 - Chest pain clinically improved Plan: - Monitor - DC remote telemetry - Continue Chronic Lower Extremity Edema with suspected acute cellulitis Details: - Chronic LE edema - Gram positive cocci Positive blood culture - On Lasix at home - Afebrile without leukocytosis Plan: - Continue IV abx - Continue lasix Etoh Withdrawal Details: - Chronic history of ETOH abuse - [facility] protocol - Clinically stable Plan: - Librium 25mg PO BID - Ativan 1mg Q6h prn - Continue [facility] protocol - MV, Thiamine, Folic acid Acute Diarrhea - Diarrhea, acute - No leukocytosis, afebrile - C. Diff ordered Hypomagnesium - Likely secondary to gi loss/chronic alcohol usage - Repleted - Recheck this PM Hypokalemia - Likely secondary to gi loss/lasix/chonic alcohol usage - Repleted - Recheck this PM Case and plan discussed with attending <Antonio Ramirez - Last Filed: 01/26/18 14:49> Objective - Vital Signs/Intake and Output Vital Signs (last 24 hours): Temp Pulse Resp BP Pulse Ox 98.7 F 94 H 18 149/79 92 L 01/26/18 12:00 01/26/18 12:00 01/26/18 12:00 01/26/18 12:00 01/26/18 06:00 Intake and Output: 01/26/18 01/26/18 06:59 18:59 Intake Total 1400 Output Total 1250 Balance 150 - Medications Medications: Current Medications Albuterol/Ipratropium (Duoneb 3 Mg/0.5 Mg (3 Ml) Ud) 3 ml IH Q4H PRN PRN Reason: Shortness of Breath Chlordiazepoxide (Librium) 25 mg PO BID RORY PRN Reason: Protocol Last Admin: 01/26/18 13:55 Dose: 25 mg Enoxaparin Sodium (Lovenox) 40 mg SC DAILY [facility] PRN Reason: Protocol Last Admin: 01/26/18 09:57 Dose: 40 mg Folic Acid (Folic Acid) 1 mg PO DAILY [facility] Last Admin: 01/26/18 09:57 Dose: 1 mg Furosemide (Lasix) 40 mg PO DAILY [facility] Last Admin: 01/26/18 09:57 Dose: 40 mg Vancomycin HCl 1.5 gm/ Sodium (Chloride) 500 mls @ 167 mls/hr IVPB Q12H [facility] PRN Reason: Protocol Last Admin: 01/26/18 04:45 Dose: 167 mls/hr Ceftriaxone Sodium (Rocephin 1 Gram Ivpb) 1 gm in 100 mls @ 100 mls/hr IVPB DAILY [facility] PRN Reason: Protocol Lisinopril (Zestril) 10 mg PO DAILY [facility] Last Admin: 01/26/18 09:57 Dose: 10 mg Lorazepam (Ativan) 1 mg IVP Q6H PRN; Protocol PRN Reason: Symptoms of alcohol withdrawl Multivitamins (Thera Tab) 1 tab PO 0800 [facility] Nicotine (Nicoderm Cq) 1 patch TD DAILY [facility] Last Admin: 01/26/18 09:56 Dose: 1 patch Thiamine HCl (Vitamin B1 Tab) 50 mg PO DAILY [facility] - Labs Labs: 01/26/18 06:00 01/26/18 11:55 PT 12.1 SECONDS (9.4-12.5) 01/24/18 17:38 INR 1.06 (0.93-1.08) 01/24/18 17:38 APTT 32.3 Seconds (25.1-36.5) 01/24/18 17:38 Attending/Attestation - Attestation I have personally seen and examined this patient.: Yes I have fully participated in the care of the patient.: Yes I have reviewed all pertinent clinical information, including history, physical exam and plan: Yes Notes (Text): 01/26/18 14:46 57 year old with past medical history of COPD, Hepatitis C, cirrhosis, esophageal varices, chronic LE edema, and chronic alcohol abuse who presented with alcohol intoxication, chest pain and LE edema/erythema. Serial cardiac enzymes were negative and ACS has been ruled out. He was evaluated by cardiology and underwent stress test which was essentially negative. Echocardiogram was done yesterday with report pending. He is on iv antibiotics for LE cellulitis which is improving. He is lasix as well. Recent LE dopplers were negative for DVT. JAIME was negative as well. Blood cultures x 2 +ve for gram positive cocci. Repeat blood cultures are pending. Continue with iv antibiotics as above. ID evaluation was requested. He was counselled on alcohol abstinence. Continue with multivitamin, folic acid and thiamine. Continue with libruim taper and ativan prn for withdrawal symptoms. Will replete and repeat lytes (potassium / magnesium). Stool for cdif is ordered for complaint of diarrhea. Antonio Ramirez MD Hospitalist.
[2018-01-26 12:10] LABS: BLOOD UREA NITROGEN 6 mg/dL (7-21); CALCIUM 8.8 mg/dL (8.4-10.5); GFR AFRICAN-AMERICAN > 60; GFR NON-AFRICAN AMERICAN > 60
[2018-01-26] MEDS ORDERED: Potassium Chloride 40 mEq/30 ml LIQ UD PO ONE (12:52)
[2018-01-26 17:45] LABS: BLOOD UREA NITROGEN 6 mg/dL (7-21); CALCIUM 9.2 mg/dL (8.4-10.5); GFR AFRICAN-AMERICAN > 60; GFR NON-AFRICAN AMERICAN > 60
--- NOTE | 2018-01-26 19:30 | CARD ---
APPROVED REPORT EXAM: Two-dimensional and M-mode echocardiogram with Doppler and color Doppler. INDICATION Chest Pain 2D DIMENSIONS Left Atrium (2D)4.4 (1.6-4.0cm)IVSd1.1 (0.7-1.1cm) LVDd4.5 (3.9-5.9cm)PWd1.1 (0.7-1.1cm) LVDs2.9 (2.5-4.0cm)FS (%) 34.4 % LVEF (%)63.6 (>50%) M-Mode DIMENSIONS Aortic Root3.70 (2.2-3.7cm)Aortic Cusp Exc.1.90 (1.5-2.0cm) Aortic Valve AoV Peak Pzgxeuox850.0cm/Madhu Peak GR.8mmHg Mitral Valve E/A ratio0.0 TDI E/Lateral E'0.0E/Medial E'0.0 Pulmonary Valve PV Peak Bhuftbjj68.9cm/sPV Peak Grad.3mmHg Tricuspid Valve TR Peak [id number] [id number] Peak Gr.25mmHg [id number] LEFT VENTRICLE The left ventricle is normal size. There is normal left ventricular wall thickness. The left ventricular function is normal.EF-60-65% There is normal LV segmental wall motion. Transmitral Doppler flow pattern is Grade III-reversible restrictive diastolic dysfunction. No left ventricle thrombus noted on this study. There is no ventricular septal defect visualized. There is no left ventricular aneurysm. There is no mass noted in the left ventricle. RIGHT VENTRICLE The right ventricle is normal size. There is normal right ventricular wall thickness. The right ventricular systolic function is normal. ATRIA The left atrium is mildly dilated. The right atrium size is normal. The interatrial septum is intact with no evidence for an atrial septal defect. AORTIC VALVE The aortic valve is thickened but opens well. There is trace aortic regurgitation. There is no aortic valvular stenosis. There is no aortic valvular vegetation. MITRAL VALVE The mitral valve is thickened but opens well. Mitral regurgitation is trace to mild. There is no mitral valve stenosis. There is no evidence of mitral valve prolapse. TRICUSPID VALVE The tricuspid valve leaflets are thickened , but open well. There is trace to mild tricuspid regurgitation.RVSP-35mmof Hg There is no tricuspid valve stenosis. There is no tricuspid valve prolapse or vegetation. GREAT VESSELS The aortic root is normal in size. The ascending aorta is normal in size. The pulmonary artery is normal. The IVC is normal in size and collapses >50% with inspiration. PERICARDIAL EFFUSION There is no pleural effusion. There is no pericardial effusion. <Conclusion> The left ventricle is normal size. There is normal left ventricular wall thickness. The left ventricular function is normal.EF-60-65% There is trace aortic regurgitation. Mitral regurgitation is trace to mild. There is trace to mild tricuspid regurgitation.RVSP-35mmof Hg The IVC is normal in size and collapses >50% with inspiration. There is no pericardial effusion. no vegetation or thrombus.
[2018-01-26 22:56] VITALS: RESP 20
--- NOTE | 2018-01-26 23:33 | CON ---
DATE: 01/26/2018 LOCATION: The patient was seen in [facility], bed 1. CHIEF COMPLAINT: Weakness times several days. HISTORY OF PRESENT ILLNESS: This is a 57-year-old male with history of hypertension and history of hepatitis C and ex-intravenous drug abuser. He states he has not used intravenous drugs for several years, depression, chronic leg edema, chronic obstructive lung disease, alcoholism, coronary artery disease, and pancreatitis. I have seen this patient in 2016. The patient had a right thigh abscess and the patient also with morbid obesity with a BMI of 36 and admitted with lower extremity erythema and concerned for lower extremity cellulitis. REVIEW OF SYSTEMS: The patient did have low-grade fevers and occasional chills. No chest pain. There is mild shortness of breath and no abdominal pain, diarrhea or constipation. PAST MEDICAL HISTORY: Significant for coronary artery disease, hypertension, depression, hepatitis C, chronic obstructive lung disease, esophageal varices, seizures, anemia, pancreatitis, right thigh abscess, morbid obesity, and GI bleed. PAST SURGICAL HISTORY: Significant for nasal surgery. The patient also had tattoos and had a TIPS procedure. ALLERGIES: THE PATIENT HAS NO KNOWN ALLERGIES. MEDICATIONS AT HOME: Reviewed. PHYSICAL EXAMINATION: VITAL SIGNS: Temperature of 99, pulse of 95 to 103, respiratory rate was 18, it was up to 25 and saturation is noted at 92% saturation. LABORATORY DATA: Reveals a white count of 6.2, hemoglobin of 12, and platelets of 323. Coagulation is noted and BUN of 7, creatinine of 0.8. Alcohol level of 319. Microbiology reveals blood cultures, Gram-positive cocci in both bottles in clusters. ASSESSMENT AND PLAN: This is a 57-year-old male with depression and hypertension, ex-intravenous drug abuser, hepatitis C, chronic obstructive lung disease, esophageal varices, seizures, anemia, pancreatitis, history of right thigh abscess in 2016, morbid obesity, now with lower extremity edema, bilateral erythema, slightly more on the left leg than right leg with: 1. Severe sepsis with Gram-positive cocci in clusters, bacteremia with lower extremity cellulitis, must rule out endocarditis. Repeat cultures have been ordered and the patient is on vancomycin and cefazolin. We will check on the identification and Gram-positive cocci and we will order endocarditis, echocardiogram, sed rate and C-reactive protein. The patient should also have a near positive should have it tested for human immunodeficiency virus. We will follow with you. Harjinder Wheat MD
[2018-01-27] MEDS: Albuterol-Ipratrop 3 mg / 0.5 (3 ml) UD IH PRN ×2 (01:06→15:29)
[2018-01-27] MEDS: Vancomycin 1.5 GM in Sodium Chloride 0.9% 500 ML IVPB SCH ×2 (04:12→15:29)
[2018-01-27 07:32] LABS: BASO # 0.06 K/mm3 (0.0-2.0); BASO % 0.9 % (0.0-3.0); EOS # 0.4 (0.0-0.7); EOS % 5.4 % (1.5-5.0); GRAN # 3.9 (1.4-6.5); GRAN % 60.4 % (50.0-68.0); HEMOGLOBIN 12.2 g/dL (14.0-18.0); LYMPH # 1.4 (1.2-3.4); LYMPH % 20.9 % (22.0-35.0); MEAN CELL VOLUME 81.4 fl (80.0-105.0); MEAN CORPUSCULAR HEMOGLOBIN 26.4 pg (25.0-35.0); MEAN CORPUSCULAR HGB CONC 32.4 g/dl (31.0-37.0); MEAN PLATELET VOLUME 10.8 fl (7.0-11.0); MONO # 0.8 (0.1-0.6); MONO % 12.4 % (1.0-6.0); RBC 4.62 10^6/uL (3.5-6.1); RED CELL DISTRIBUTION WIDTH 16.5 % (11.5-14.5); WHITE BLOOD COUNT 6.5 10^3/ul (4.5-11.0)
[2018-01-27 07:50] LABS: ALB/GLOB RATIO 0.9 (1.1-1.8); ALBUMIN 3.4 g/dL (3.0-4.8); ALT/SGPT 29 U/L (7-56); AST/SGOT 56 U/L (17-59); BLOOD UREA NITROGEN 7 mg/dL (7-21); CALCIUM 8.3 mg/dL (8.4-10.5); GFR AFRICAN-AMERICAN > 60; GFR NON-AFRICAN AMERICAN > 60
[2018-01-27] MEDS ORDERED: Potassium Chloride 20 mEq ER Tab PO STA ×2 (08:23→09:01)
[2018-01-27] MEDS: Enoxaparin 40 mg Syringe SC SCH (09:44)
[2018-01-27] MEDS: cefTRIAXone 1 gm 1 GM/100 ML BAG IVPB SCH (10:00)
[2018-01-27] MEDS: Multivitamin Therapeutic Tab PO SCH (10:03)
--- NOTE | 2018-01-27 14:00 | CP.PCM.PN ---
Subjective - Date & Time of Evaluation Date of Evaluation: 01/27/18 Time of Evaluation: 12:20 - Subjective Subjective: Still with pain on both lower extremities , no fevers, not in distress. Objective - Vital Signs/Intake and Output Vital Signs (last 24 hours): Temp Pulse Resp BP Pulse Ox 98.4 F 100 H 20 142/90 98 01/27/18 08:16 01/27/18 10:02 01/27/18 08:16 01/27/18 10:02 01/27/18 08:16 Intake and Output: 01/27/18 01/27/18 06:59 18:59 Intake Total 840 Balance 840 - Medications Medications: Current Medications Albuterol/Ipratropium (Duoneb 3 Mg/0.5 Mg (3 Ml) Ud) 3 ml IH Q4H PRN PRN Reason: Shortness of Breath Last Admin: 01/27/18 01:06 Dose: 3 ml Chlordiazepoxide (Librium) 25 mg PO BID [facility] PRN Reason: Protocol Last Admin: 01/27/18 09:43 Dose: 25 mg Enoxaparin Sodium (Lovenox) 40 mg SC DAILY [facility] PRN Reason: Protocol Last Admin: 01/27/18 09:44 Dose: 40 mg Folic Acid (Folic Acid) 1 mg PO DAILY [facility] Last Admin: 01/27/18 10:01 Dose: 1 mg Furosemide (Lasix) 40 mg PO DAILY [facility] Last Admin: 01/27/18 09:58 Dose: 40 mg Vancomycin HCl 1.5 gm/ Sodium (Chloride) 500 mls @ 167 mls/hr IVPB Q12H [facility] PRN Reason: Protocol Last Admin: 01/27/18 04:12 Dose: 167 mls/hr Ceftriaxone Sodium (Rocephin 1 Gram Ivpb) 1 gm in 100 mls @ 100 mls/hr IVPB DAILY [facility] PRN Reason: Protocol Last Admin: 01/27/18 10:00 Dose: 100 mls/hr Lisinopril (Zestril) 10 mg PO DAILY [facility] Last Admin: 01/27/18 10:02 Dose: 10 mg Lorazepam (Ativan) 1 mg IVP Q6H PRN; Protocol PRN Reason: Symptoms of alcohol withdrawl Last Admin: 01/27/18 04:23 Dose: 1 mg Multivitamins (Thera Tab) 1 tab PO 0800 [facility] Last Admin: 01/27/18 10:03 Dose: 1 tab Nicotine (Nicoderm Cq) 1 patch TD DAILY [facility] Last Admin: 01/27/18 09:44 Dose: 1 patch Thiamine HCl (Vitamin B1 Tab) 50 mg PO DAILY [facility] Last Admin: 01/27/18 10:01 Dose: 50 mg - Labs Labs: 01/27/18 07:00 01/27/18 07:00 PT 12.1 SECONDS (9.4-12.5) 01/24/18 17:38 INR 1.06 (0.93-1.08) 01/24/18 17:38 APTT 32.3 Seconds (25.1-36.5) 01/24/18 17:38 - Constitutional Appears: Non-toxic, Chronically Ill - Head Exam Head Exam: NORMAL INSPECTION - ENT Exam ENT Exam: Mucous Membranes Moist - Neck Exam Neck Exam: absent: Meningismus - Respiratory Exam Respiratory Exam: Decreased Breath Sounds. absent: Rales - Cardiovascular Exam Cardiovascular Exam: +S1, +S2 - GI/Abdominal Exam GI & Abdominal Exam: Soft. absent: Tenderness - Extremities Exam Additional comments: both lower extremities with swelling and erythema Assessment and Plan - Assessment and Plan (Free Text) Plan: Assessment Sepsis due to left lower extremity skin and skin structure infection; coagulase negative staph bacteremia, R/O contamination history of right thigh skin and skin structure infection with fluid collection Morbid obesity with BMI 44 COPD history of IVDA chronic leg edema history of seizures depression history of esophageal varices chronic active hepatitis C Plan continue Vancomycin and Rocephin and will monitor clinical response of the lower extremities repeat blood cx are negative - patient without indwelling vascular catheters or hardware - more likely contamination will monitor clinically
--- NOTE | 2018-01-27 15:52 | CP.PCM.PN ---
<Derek Chirinos - Last Filed: 01/27/18 15:49> Subjective - Date & Time of Evaluation Date of Evaluation: 01/27/18 Time of Evaluation: 15:50 - Subjective Subjective: Patient seen and examined at bedside. Patient noted to have diarrhea overnight. Patient reports tremors, abdominal pain, lower extremity tenderness bilaterally. Patient reports improvement on presenting symptoms. Objective - Vital Signs/Intake and Output Vital Signs (last 24 hours): Temp Pulse Resp BP Pulse Ox 98.4 F 100 H 20 142/90 98 01/27/18 08:16 01/27/18 10:02 01/27/18 08:16 01/27/18 10:02 01/27/18 08:16 Intake and Output: 01/27/18 01/27/18 06:59 18:59 Intake Total 840 Balance 840 - Medications Medications: Current Medications Albuterol/Ipratropium (Duoneb 3 Mg/0.5 Mg (3 Ml) Ud) 3 ml IH Q4H PRN PRN Reason: Shortness of Breath Last Admin: 01/27/18 15:29 Dose: 3 ml Chlordiazepoxide (Librium) 25 mg PO DAILY [facility] PRN Reason: Protocol Enoxaparin Sodium (Lovenox) 40 mg SC DAILY [facility] PRN Reason: Protocol Last Admin: 01/27/18 09:44 Dose: 40 mg Folic Acid (Folic Acid) 1 mg PO DAILY [facility] Last Admin: 01/27/18 10:01 Dose: 1 mg Furosemide (Lasix) 40 mg PO DAILY [facility] Last Admin: 01/27/18 09:58 Dose: 40 mg Vancomycin HCl 1.5 gm/ Sodium (Chloride) 500 mls @ 167 mls/hr IVPB Q12H [facility] PRN Reason: Protocol Last Admin: 01/27/18 15:29 Dose: 167 mls/hr Ceftriaxone Sodium (Rocephin 1 Gram Ivpb) 1 gm in 100 mls @ 100 mls/hr IVPB DAILY [facility] PRN Reason: Protocol Last Admin: 01/27/18 10:00 Dose: 100 mls/hr Lisinopril (Zestril) 10 mg PO DAILY [facility] Last Admin: 01/27/18 10:02 Dose: 10 mg Lorazepam (Ativan) 1 mg IVP Q6H PRN; Protocol PRN Reason: Symptoms of alcohol withdrawl Last Admin: 01/27/18 15:28 Dose: 1 mg Multivitamins (Thera Tab) 1 tab PO 0800 [facility] Last Admin: 01/27/18 10:03 Dose: 1 tab Nicotine (Nicoderm Cq) 1 patch TD DAILY [facility] Last Admin: 01/27/18 09:44 Dose: 1 patch Thiamine HCl (Vitamin B1 Tab) 50 mg PO DAILY [facility] Last Admin: 01/27/18 10:01 Dose: 50 mg - Labs Labs: 01/27/18 07:00 01/27/18 07:00 PT 12.1 SECONDS (9.4-12.5) 01/24/18 17:38 INR 1.06 (0.93-1.08) 01/24/18 17:38 APTT 32.3 Seconds (25.1-36.5) 01/24/18 17:38 - Head Exam Head Exam: ATRAUMATIC, NORMAL INSPECTION, NORMOCEPHALIC - Eye Exam Eye Exam: EOMI, PERRL - Neck Exam Neck Exam: Full ROM - Respiratory Exam Respiratory Exam: Clear to Ausculation Bilateral, NORMAL BREATHING PATTERN. absent: Rhonchi - Cardiovascular Exam Cardiovascular Exam: REGULAR RHYTHM, +S1, +S2 - GI/Abdominal Exam GI & Abdominal Exam: Soft, Tenderness (suprapubic bilateral, mid epigastric), Normal Bowel Sounds - Extremities Exam Extremities Exam: Pedal Edema, Tenderness (circumfrential tenderness to palpatin ). absent: Calf Tenderness Additional comments: erythema appreciated bilateral improved from past 24 hours - Neurological Exam Neurological Exam: Alert, Awake, Oriented x3 - Psychiatric Exam Psychiatric exam: Normal Affect, Normal Mood - Skin Skin Exam: Dry, Erythema (bilateral lower extremity ), Warm Assessment and Plan - Assessment and Plan (Free Text) Assessment: 57 year old male with a PMHx of COPD, Hepatitis B & C w/ Cirrhosis, PUD, esophageal varices, pancreatitis, Chronic Lower Extremity Edema, Venous insufficiency, EtOH abuse, GI bleed, medical non-compliance and depression who presented to [facility] ED complaining of chest pain and lower extremity edema/pain. Patient admitted for chest pain r/o ACS and ETOH withdrawal symptoms. Patient noted to have negative stress test and negative troponins. Patient currently being monitred for ETOH withdrawl and treatment for lower extremity cellulitis/ gram positive cocci blood culture. Plan: Gram Positive blood culture - Initial blood cultures positive for gram positive cocci - Repeat cultures negative - Leukocytosis absent Chronic Lower Extremity Edema with suspected acute cellulitis Details: - Chronic LE edema - Gram positive cocci Positive blood culture - On Lasix at home - Afebrile without leukocytosis Plan: - f/u Infectious disease recommendations continued IV abx - Continue IV abx - Continue lasix Etoh Withdrawal Details: - Chronic history of ETOH abuse - [facility] protocol - Clinically stable Plan: - Librium 25mg PO daily - Ativan 1mg Q6h prn - Continue [facility] protocol - MV, Thiamine, Folic acid Acute Diarrhea - Diarrhea, acute - No leukocytosis, afebrile - Patient continues to have diarrhea - C. Diff negative Hypomagnesium - Likely secondary to gi loss/chronic alcohol usage - Repleted - Recheck this PM Hypokalemia - Likely secondary to gi loss/lasix/chonic alcohol usage - Repleted Chest Pain Details: - Cardiology consulted and following, recommending - Stress test negative - Echocardiogram pending - Troponin negative x3 - Chest pain clinically improved Plan: - Monitor - DC remote telemetry - Continue dispo: PT recommending home with services, patient home situation unstable at this time, IV abx continued for Cellulitis Case and plan discussed with attending <Antonio Ramirez - Last Filed: 01/27/18 16:46> Objective - Vital Signs/Intake and Output Vital Signs (last 24 hours): Temp Pulse Resp BP Pulse Ox 98.7 F 90 20 135/68 100 01/27/18 14:02 01/27/18 14:02 01/27/18 14:02 01/27/18 14:02 01/27/18 14:02 Intake and Output: 01/27/18 01/27/18 06:59 18:59 Intake Total 840 Balance 840 - Medications Medications: Current Medications Albuterol/Ipratropium (Duoneb 3 Mg/0.5 Mg (3 Ml) Ud) 3 ml IH Q4H PRN PRN Reason: Shortness of Breath Last Admin: 01/27/18 15:29 Dose: 3 ml Chlordiazepoxide (Librium) 25 mg PO DAILY [facility] PRN Reason: Protocol Enoxaparin Sodium (Lovenox) 40 mg SC DAILY [facility] PRN Reason: Protocol Last Admin: 01/27/18 09:44 Dose: 40 mg Folic Acid (Folic Acid) 1 mg PO DAILY [facility] Last Admin: 01/27/18 10:01 Dose: 1 mg Furosemide (Lasix) 40 mg PO DAILY [facility] Last Admin: 01/27/18 09:58 Dose: 40 mg Vancomycin HCl 1.5 gm/ Sodium (Chloride) 500 mls @ 167 mls/hr IVPB Q12H [facility] PRN Reason: Protocol Last Admin: 01/27/18 15:29 Dose: 167 mls/hr Ceftriaxone Sodium (Rocephin 1 Gram Ivpb) 1 gm in 100 mls @ 100 mls/hr IVPB DAILY [facility] PRN Reason: Protocol Last Admin: 01/27/18 10:00 Dose: 100 mls/hr Lisinopril (Zestril) 10 mg PO DAILY [facility] Last Admin: 01/27/18 10:02 Dose: 10 mg Lorazepam (Ativan) 1 mg IVP Q6H PRN; Protocol PRN Reason: Symptoms of alcohol withdrawl Last Admin: 01/27/18 15:28 Dose: 1 mg Multivitamins (Thera Tab) 1 tab PO 0800 [facility] Last Admin: 01/27/18 10:03 Dose: 1 tab Nicotine (Nicoderm Cq) 1 patch TD DAILY [facility] Last Admin: 01/27/18 09:44 Dose: 1 patch Thiamine HCl (Vitamin B1 Tab) 50 mg PO DAILY [facility] Last Admin: 01/27/18 10:01 Dose: 50 mg - Labs Labs: 01/27/18 07:00 01/27/18 07:00 PT 12.1 SECONDS (9.4-12.5) 01/24/18 17:38 INR 1.06 (0.93-1.08) 01/24/18 17:38 APTT 32.3 Seconds (25.1-36.5) 01/24/18 17:38 Attending/Attestation - Attestation I have personally seen and examined this patient.: Yes I have fully participated in the care of the patient.: Yes I have reviewed all pertinent clinical information, including history, physical exam and plan: Yes Notes (Text): 01/27/18 16:45 57 year old with past medical history of COPD, Hepatitis C, cirrhosis, esophageal varices, chronic LE edema, and chronic alcohol abuse who presented with alcohol intoxication, chest pain and LE edema/erythema. Serial cardiac enzymes were negative and ACS has been ruled out. He was evaluated by cardiology and underwent stress test which was essentially negative. Echocardiogram was reviewed which showed diastolic dysfunction without any vegetations. He is on iv antibiotics for LE cellulitis which is improving. He is lasix as well. Recent LE dopplers were negative for DVT. JAIME was negative as well. Blood cultures x 2 +ve for gram positive cocci. ?Contamination. Repeat blood cultures are negative to date. Continue with iv antibiotics as per ID. He was counselled on alcohol abstinence. Continue with multivitamin, folic acid and thiamine. Continue with libruim taper and ativan prn for withdrawal symptoms. Will replete and repeat lytes (potassium / magnesium). He complains of diarrhea however stool for CDif was negative. Continue with physical therapy. Antonio Ramirez MD Hospitalist.
--- NOTE | 2018-01-27 16:44 | PN ---
DATE: 01/27/2018 LOCATION: The patient in room 571, bed 1. REASON FOR CONSULTATION AND FOLLOWUP: Chest pain, lower extremity swelling. SUBJECTIVE: The patient is lying flat in bed without chest pain, shortness of breath, palpitation. PHYSICAL EXAMINATION: VITAL SIGNS: Blood pressure 142/90, yesterday's blood pressure 129/84; respirations 20; pulse 100; temperature 98.4. HEENT: Head is normocephalic. Eyes: Pupils normal. Conjunctivae normal. NECK: JVP low. Carotids equal. THORAX: AP diameter normal. LUNGS: Clear. CARDIOVASCULAR: S1 and S2. ABDOMEN: Soft. No organomegaly. Bowel sound normal. EXTREMITIES: No clubbing. No cyanosis. LABORATORY DATA: WBC 6.5, hemoglobin 12.2, hematocrit 37.6, platelets 167. Sodium 140, potassium 3.4, BUN 7, creatinine 0.8, total bilirubin 1.4. AST, ALT normal. Total protein and albumin normal. Magnesium 1.7. The patient had a stress test on 01/25/2018, which was negative for ischemia and ejection fraction normal, 72%. Echocardiogram also done on 01/25/2018 showed left ventricle size normal. Normal left ventricular systolic function with ejection fraction 60-65%. Trace aortic regurg, trace to mild mitral regurg, trace to mild tricuspid regurg. RVSP 35 mmHg. DIAGNOSES: Atypical chest pain. Stress test is negative. Normal left ventricular function on echocardiogram. Cirrhosis of the liver, hepatitis C, chronic venous stasis in the legs, peptic ulcer disease, esophageal varices, alcohol abuse, tobacco abuse, multivessel coronary artery disease, poor compliant patient, hypokalemia. PLAN: We will give potassium therapy. The patient is on lisinopril 10 mg daily, furosemide 40 mg p.o. daily, potassium 40 mEq has been already given today, DuoNeb hand nebulizer therapy, Lovenox 40 mg subcu daily, ceftriaxone 1 g IV daily, vancomycin 1.5 g IV every 12 hours, thiamine 50 mg daily. Repeat blood work for tomorrow already requested. We will follow with you. Camila Underwood MD [facility] # [id number]
[2018-01-28] MEDS: Vancomycin 1.5 GM in Sodium Chloride 0.9% 500 ML IVPB SCH ×2 (02:46→17:22)
[2018-01-28 07:29] LABS: HEMOGLOBIN 12.7 g/dL (14.0-18.0); MEAN CELL VOLUME 81.7 fl (80.0-105.0); MEAN CORPUSCULAR HEMOGLOBIN 26.7 pg (25.0-35.0); MEAN CORPUSCULAR HGB CONC 32.7 g/dl (31.0-37.0); MEAN PLATELET VOLUME 11.2 fl (7.0-11.0); RBC 4.75 10^6/uL (3.5-6.1); RED CELL DISTRIBUTION WIDTH 16.6 % (11.5-14.5); WHITE BLOOD COUNT 6.4 10^3/ul (4.5-11.0)
[2018-01-28 08:21] LABS: ALB/GLOB RATIO 0.8 (1.1-1.8); ALBUMIN 3.4 g/dL (3.0-4.8); ALT/SGPT 27 U/L (7-56); AST/SGOT 52 U/L (17-59); BLOOD UREA NITROGEN 9 mg/dL (7-21); CALCIUM 8.4 mg/dL (8.4-10.5); GFR AFRICAN-AMERICAN > 60; GFR NON-AFRICAN AMERICAN > 60
[2018-01-28] MEDS ORDERED: Magnesium Sulfate 2 GM in Sodium Chloride 0.9% 100 ML IVPB ONE (08:41)
[2018-01-28 09:34] VITALS: TEMP 97.9
[2018-01-28] MEDS: Multivitamin Therapeutic Tab PO SCH (10:12)
[2018-01-28] MEDS: Enoxaparin 40 mg Syringe SC SCH (10:13)
[2018-01-28] MEDS: cefTRIAXone 1 gm 1 GM/100 ML BAG IVPB SCH (10:15)
[2018-01-28] MEDS: Potassium Chloride 20 mEq ER Tab PO SCH ×2 (13:29→13:30)
--- NOTE | 2018-01-28 13:46 | CP.PCM.PN ---
Subjective - Date & Time of Evaluation Date of Evaluation: 01/28/18 Time of Evaluation: 12:40 - Subjective Subjective: Comfortable in bed but still with pains in the legs, no fevers, not in distress , legs are less swollen and feeling a little better as per patient. Objective - Vital Signs/Intake and Output Vital Signs (last 24 hours): Temp Pulse Resp BP Pulse Ox 98.7 F 90 20 135/68 100 01/27/18 14:02 01/27/18 14:02 01/27/18 14:02 01/27/18 14:02 01/27/18 14:02 Intake and Output: 01/28/18 01/28/18 06:59 18:59 Output Total 500 Balance -500 - Medications Medications: Current Medications Albuterol/Ipratropium (Duoneb 3 Mg/0.5 Mg (3 Ml) Ud) 3 ml IH Q4H PRN PRN Reason: Shortness of Breath Last Admin: 01/27/18 15:29 Dose: 3 ml Chlordiazepoxide (Librium) 25 mg PO DAILY [facility] PRN Reason: Protocol Enoxaparin Sodium (Lovenox) 40 mg SC DAILY [facility] PRN Reason: Protocol Last Admin: 01/27/18 09:44 Dose: 40 mg Folic Acid (Folic Acid) 1 mg PO DAILY [facility] Last Admin: 01/27/18 10:01 Dose: 1 mg Furosemide (Lasix) 40 mg PO DAILY [facility] Last Admin: 01/27/18 09:58 Dose: 40 mg Vancomycin HCl 1.5 gm/ Sodium (Chloride) 500 mls @ 167 mls/hr IVPB Q12H [facility] PRN Reason: Protocol Last Admin: 01/28/18 02:46 Dose: 167 mls/hr Ceftriaxone Sodium (Rocephin 1 Gram Ivpb) 1 gm in 100 mls @ 100 mls/hr IVPB DAILY [facility] PRN Reason: Protocol Last Admin: 01/27/18 10:00 Dose: 100 mls/hr Lisinopril (Zestril) 10 mg PO DAILY [facility] Last Admin: 01/27/18 10:02 Dose: 10 mg Lorazepam (Ativan) 1 mg IVP Q6H PRN; Protocol PRN Reason: Symptoms of alcohol withdrawl Last Admin: 01/27/18 22:58 Dose: 1 mg Multivitamins (Thera Tab) 1 tab PO 0800 [facility] Last Admin: 01/27/18 10:03 Dose: 1 tab Nicotine (Nicoderm Cq) 1 patch TD DAILY [facility] Last Admin: 01/27/18 09:44 Dose: 1 patch Thiamine HCl (Vitamin B1 Tab) 50 mg PO DAILY [facility] Last Admin: 01/27/18 10:01 Dose: 50 mg - Labs Labs: 01/27/18 07:00 01/27/18 07:00 PT 12.1 SECONDS (9.4-12.5) 01/24/18 17:38 INR 1.06 (0.93-1.08) 01/24/18 17:38 APTT 32.3 Seconds (25.1-36.5) 01/24/18 17:38 - Constitutional Appears: Chronically Ill - Head Exam Head Exam: NORMAL INSPECTION - Neck Exam Neck Exam: absent: Meningismus - Respiratory Exam Respiratory Exam: Decreased Breath Sounds - Cardiovascular Exam Cardiovascular Exam: +S1, +S2 - GI/Abdominal Exam GI & Abdominal Exam: Soft. absent: Tenderness - Extremities Exam Additional comments: both legs with decreasing swelling of legs Assessment and Plan - Assessment and Plan (Free Text) Plan: Assessment Sepsis due to left lower extremity skin and skin structure infection; coagulase negative staph bacteremia, R/O contamination history of right thigh skin and skin structure infection with fluid collection Morbid obesity with BMI 44 COPD history of IVDA chronic leg edema history of seizures depression history of esophageal varices chronic active hepatitis C Plan continue Vancomycin and Rocephin and will monitor clinical response of the lower extremities (day 3) - can be switched to PO Zyvox for another 7 days of therapy repeat blood cx are negative - patient without indwelling vascular catheters or hardware, 2D echo is negative for vegetations - more likely contamination
--- NOTE | 2018-01-28 14:24 | PN ---
DATE: 01/27/2018 REASON FOR CONSULTATION AND FOLLOWUP: Cardiac evaluation, chest pain, lower extremity swelling. SUBJECTIVE: The patient denies any chest pain, shortness of breath, or any palpitations. PHYSICAL EXAMINATION: GENERAL: Not in apparent distress, lying flat in the bed. VITAL SIGNS: Temperature afebrile, heart rate 82, blood pressure 114/68. HEENT: PERRLA. Extraocular muscles intact. NECK: Supple. No carotid bruit or thyromegaly. CHEST: Clear to auscultation. HEART: S1 and S2, regular. ABDOMEN: Soft. EXTREMITIES: Clubbing and cyanosis negative. LABORATORY DATA: Blood workup as follows: WBC 6.5, hemoglobin 12.7, hematocrit 38.8, platelet count 161. Chemistry shows sodium 140, potassium 3.4, chloride 107, carbon dioxide 24, anion gap of 13, BUN 9, creatinine 0.9. IMPRESSION: Obesity, increased body mass index at 36.6 kg/m2, height of the patient is 5 feet 9 inches, weight of the patient is 249 pounds; atypical chest pain, negative stress test dated 01/25/2018, was negative for ischemia, ejection fraction of 72%. The patient's echocardiography done on 01/25/2018 shows left ventricle normal size, normal left ventricular systolic function, ejection fraction 65%, trace aortic regurgitation, [id number] mitral regurgitation, [id number] tricuspid regurgitation, right ventricular systolic pressure of 35. History of cirrhosis of the liver, hepatitis C, chronic venous stasis, esophageal varices, alcohol abuse, tobacco abuse, multifactorial, but no evidence of myocardial infarction or coronary artery disease. RECOMMENDATIONS: Suggest DVT prophylaxis, supplement potassium as needed. Continue lisinopril. We will follow with you. We will supplement potassium and we will sign off and glad to follow p.r.n. Thank you, Dr. Ramirez, for providing us the opportunity in taking care of the patient, Hemant Palacios. Camila Larose MD
--- NOTE | 2018-01-28 14:26 | CP.PCM.DIS ---
<Angeline Morris - Last Filed: 01/28/18 15:47> Provider - Provider Date of Admission: 01/25/18 14:12 Attending physician: Antonio Ramirez MD Consults: ID: Francie Cardiology: Thuan Time Spent in preparation of Discharge (in minutes): 32 Hospital Course - Lab Results Lab Results: Micro Results 01/25/18 14:45 Blood-Venous Blood Culture - Preliminary NO GROWTH AFTER 48 HOURS 01/25/18 14:30 Blood-Venous Blood Culture - Preliminary NO GROWTH AFTER 48 HOURS 01/26/18 21:14 Stool C. difficile Antigen & Toxin A,B (M - Final Most Recent Lab Values WBC 6.4 10^3/ul (4.5-11.0) 01/28/18 06:40 RBC 4.75 10^6/uL (3.5-6.1) 01/28/18 06:40 Hgb 12.7 g/dL (14.0-18.0) L 01/28/18 06:40 Hct 38.8 % (42.0-52.0) L 01/28/18 06:40 MCV 81.7 fl (80.0-105.0) 01/28/18 06:40 MCH 26.7 pg (25.0-35.0) 01/28/18 06:40 MCHC 32.7 g/dl (31.0-37.0) 01/28/18 06:40 RDW 16.6 % (11.5-14.5) H 01/28/18 06:40 Plt Count 161 10^3/uL (120.0-450.0) 01/28/18 06:40 MPV 11.2 fl (7.0-11.0) H 01/28/18 06:40 Gran % 60.4 % (50.0-68.0) 01/27/18 07:00 Lymph % (Auto) 20.9 % (22.0-35.0) L 01/27/18 07:00 Ralls % (Auto) 12.4 % (1.0-6.0) H 01/27/18 07:00 Eos % (Auto) 5.4 % (1.5-5.0) H 01/27/18 07:00 Baso % (Auto) 0.9 % (0.0-3.0) 01/27/18 07:00 Gran # 3.90 (1.4-6.5) 01/27/18 07:00 Lymph # (Auto) 1.4 (1.2-3.4) 01/27/18 07:00 Ralls # (Auto) 0.8 (0.1-0.6) H 01/27/18 07:00 Eos # (Auto) 0.4 (0.0-0.7) 01/27/18 07:00 Baso # (Auto) 0.06 K/mm3 (0.0-2.0) 01/27/18 07:00 ESR 30 mm/hr (0.00-15.0) H 01/26/18 12:35 PT 12.1 SECONDS (9.4-12.5) 01/24/18 17:38 INR 1.06 (0.93-1.08) 01/24/18 17:38 APTT 32.3 Seconds (25.1-36.5) 01/24/18 17:38 pO2 190 mm/Hg (30-55) H 01/24/18 23:00 VBG pH 7.43 (7.32-7.43) 01/24/18 23:00 VBG pCO2 44.0 (40-60) 01/24/18 23:00 VBG HCO3 29.2 mmol/l (21-28) H 01/24/18 23:00 VBG Total CO2 30.6 mmol.L (22-28) H 01/24/18 23:00 VBG O2 Sat (Calc) 99.4 % (40-65) H 01/24/18 23:00 VBG Base Excess 4.3 mmol/L (0.0-2.0) H 01/24/18 23:00 VBG Potassium 3.2 mmol/L (3.6-5.2) L 01/24/18 23:00 Sodium 145.0 mmol/L (132-148) 01/24/18 23:00 Chloride 109.0 mmol/L (98-107) H 01/24/18 23:00 Glucose 98 mg/dl (75-110) 01/24/18 23:00 Lactate 1.8 mmol/L (0.7-2.1) 01/24/18 23:00 FiO2 21 % 01/24/18 23:00 Sodium 140 mmol/L (132-148) 01/28/18 06:40 Potassium 3.4 mmol/L (3.6-5.0) L 01/28/18 06:40 Chloride 107 mmol/L (98-107) 01/28/18 06:40 Carbon Dioxide 24 mmol/L (21-33) 01/28/18 06:40 Anion Gap 13 (10-20) 01/28/18 06:40 BUN 9 mg/dL (7-21) 01/28/18 06:40 Creatinine 0.9 mg/dl (0.8-1.5) 01/28/18 06:40 Est GFR ( Amer) > 60 01/28/18 06:40 Est GFR (Non-Af Amer) > 60 01/28/18 06:40 Random Glucose 80 mg/dL (70-110) 01/28/18 06:40 Hemoglobin A1c 5.4 % (4.2-6.5) 01/25/18 06:55 Calcium 8.4 mg/dL (8.4-10.5) 01/28/18 06:40 Phosphorus 3.8 mg/dL (2.5-4.5) 01/24/18 18:18 Magnesium 1.4 mg/dL (1.7-2.2) L 01/28/18 06:40 Total Bilirubin 1.2 mg/dL (0.2-1.3) 01/28/18 06:40 AST 52 U/L (17-59) 01/28/18 06:40 ALT 27 U/L (7-56) 01/28/18 06:40 Alkaline Phosphatase 99 U/L (38-126) 01/28/18 06:40 Lactate Dehydrogenase 751 U/L (333-699) H 01/24/18 18:18 Total Creatine Kinase 157 U/L (35-230) 01/24/18 18:18 Troponin I < 0.01 ng/mL 01/25/18 06:25 C-Reactive Protein 22.50 mg/L (0.0-9.9) H 01/26/18 12:35 NT-Pro-B Natriuret Pep 20.5 pg/mL (0-450) 01/24/18 18:18 Total Protein 7.4 g/dL (5.8-8.3) 01/28/18 06:40 Albumin 3.4 g/dL (3.0-4.8) 01/28/18 06:40 Globulin 4.0 gm/dL 01/28/18 06:40 Albumin/Globulin Ratio 0.8 (1.1-1.8) L 01/28/18 06:40 Triglycerides 66 mg/dL (35-160) 01/25/18 06:55 Cholesterol 156 mg/dL (130-200) 01/25/18 06:55 LDL Cholesterol Direct 82 mg/dL (0-129) 01/25/18 06:55 HDL Cholesterol 54 mg/dL (29-60) 01/25/18 06:55 Amylase 105 U/L (35-125) 01/25/18 01:55 Lipase 221 U/L (23-300) 01/25/18 01:55 25-OH Vitamin D Total 15.8 NG/ML (30.0-100.0) L 01/25/18 06:25 TSH 3rd Generation 2.58 mIU/mL (0.46-4.68) 01/25/18 06:55 Venous Blood Potassium 3.2 mmol/L (3.6-5.2) L 01/24/18 23:00 Urine Opiates Screen Negative (NEGATIVE) 01/25/18 02:29 Urine Methadone Screen Negative (NEGATIVE) 01/25/18 02:29 Ur Barbiturates Screen Negative (NEGATIVE) 01/25/18 02:29 Ur Phencyclidine Scrn Negative (NEGATIVE) 01/25/18 02:29 Ur Amphetamines Screen Negative (NEGATIVE) 01/25/18 02:29 U Benzodiazepines Scrn Positive (NEGATIVE) 01/25/18 02:29 U Oth Cocaine Metabols Negative (NEGATIVE) 01/25/18 02:29 U Cannabinoids Screen Negative (NEGATIVE) 01/25/18 02:29 Alcohol, Quantitative 319 mg/dL (0-10) H* 01/24/18 17:38 HIV 1&2 Ag/Ab, 4th Gen Nonreactive (Nonreactive) 01/26/18 12:35 - Hospital Course Hospital Course: History of Present Illness: This patient is a 57 year old male with a PMHx of COPD, Hepatitis B & C w/ Cirrhosis, PUD, esophageal varices, pancreatitis, Chronic Lower Extremity Edema , Venous insufficiency, EtOH abuse, GI bleed, medical non-compliance, depression with suicidal ideation, and homelessness who presents with two complaints. Patient first complaint is chronic, sharp, 9/10 chest pain that radiates to his chest. Patient states he has had this pain for several months intermittently at rest. Associated with the pain is palpitations. Patient denied any chest pain at the time of examination. Patient also complains of worsening lower extremity edema and erythema. Patient states he takes only lasix once a day and has been complaint with it. He denies any fever, chills, headache, dizziness, SOB, nausea, vomiting, diarrhea, constipation, or any urinary symptoms. Of note, patient is a poor historian. Patient states he drank 3 beers before coming to the [facility] Hospital Course: Patient was admitted to the hospital. Serial cardiac enzymes were negative x 3. EKG showed sinus rhythm with premature atrial complexes. Cardiology was consulted. Echo showed normal LV size, LVEF 60-65%, diastolic dysfunction without any vegetations. Patient went for stress test that showed normal myocardial perfusion study, fixed, inferior defect most likely due to diaphragmatic attenuation. ACS was ruled out. Patient is a chronic alcoholic. Alcohol level on admission 319. He was started on Librium taper and was on Ativan prn agitation. Was on folic acid, thiamine, multivitamins. Patient was counselled extensively on alcohol cessation. During hospital stay, Patient started on IV Rocephin and Vancomycin for lower extremity cellulits which is improving. Lower extremity dopplers were negative for DVT. JAIME was also negative. Blood cultures from admission grew gram positive cocci x 2. One of which was coagulase negative staph. Repeat blood cultures were negative x 48 hours. Positive culture likely contaminant. ID recommended discharging on PO Zyvox x 7 days. Patient complaining about diarrhea. Stool sent of C diff which was negative. Electrolytes were repleted as needed. Patient to follow up with PMD within 1 week of discharge. Discharge Medications at the bedside. Discharge Medications: Zyvox 600mg PO Q12 x 7 days Discharge Exam - Additional Findings Additional findings: - Head Exam Head Exam: ATRAUMATIC, NORMAL INSPECTION, NORMOCEPHALIC - Eye Exam Eye Exam: EOMI, PERRL - Neck Exam Neck Exam: Full ROM - Respiratory Exam Respiratory Exam: Clear to Ausculation Bilateral, NORMAL BREATHING PATTERN. absent: Rhonchi - Cardiovascular Exam Cardiovascular Exam: REGULAR RHYTHM, +S1, +S2 - GI/Abdominal Exam GI & Abdominal Exam: Soft, Tenderness (suprapubic bilateral, mid epigastric), Normal Bowel Sounds - Extremities Exam Extremities Exam: Improving Pedal Edema, Mild Tenderness . absent: Calf Tenderness Additional comments: erythema appreciated bilateral improved - Neurological Exam Neurological Exam: Alert, Awake, Oriented x3 - Psychiatric Exam Psychiatric exam: Normal Affect, Normal Mood - Skin Skin Exam: Dry, Erythema (bilateral lower extremity ), Warm Discharge Plan - Discharge Medications Prescriptions: Linezolid [Zyvox] 600 mg PO Q12H #14 tab - Follow Up Plan Condition: FAIR Disposition: HOME/ ROUTINE Instructions: Chest Pain (DC), Alcohol Abuse and Alcoholism (DC), Effects of Alcohol on Your Health Additional Instructions: 1. Patient is clear for discharge home 2. Please follow up with PMD within 1 week 3. Continue antibiotics as prescribed 4. If symptoms worsen, return to nearest ED <Antonio Ramirez - Last Filed: 01/28/18 16:46> Provider - Provider Date of Admission: 01/25/18 14:12 Attending physician: Antonio Ramirez MD Time Spent in preparation of Discharge (in minutes): 35 Hospital Course - Lab Results Lab Results: Micro Results 01/25/18 14:45 Blood-Venous Blood Culture - Preliminary NO GROWTH AFTER 3 DAYS 01/25/18 14:30 Blood-Venous Blood Culture - Preliminary NO GROWTH AFTER 3 DAYS 01/26/18 21:14 Stool C. difficile Antigen & Toxin A,B (M - Final Most Recent Lab Values WBC 6.4 10^3/ul (4.5-11.0) 01/28/18 06:40 RBC 4.75 10^6/uL (3.5-6.1) 01/28/18 06:40 Hgb 12.7 g/dL (14.0-18.0) L 01/28/18 06:40 Hct 38.8 % (42.0-52.0) L 01/28/18 06:40 MCV 81.7 fl (80.0-105.0) 01/28/18 06:40 MCH 26.7 pg (25.0-35.0) 01/28/18 06:40 MCHC 32.7 g/dl (31.0-37.0) 01/28/18 06:40 RDW 16.6 % (11.5-14.5) H 01/28/18 06:40 Plt Count 161 10^3/uL (120.0-450.0) 01/28/18 06:40 MPV 11.2 fl (7.0-11.0) H 01/28/18 06:40 Gran % 60.4 % (50.0-68.0) 01/27/18 07:00 Lymph % (Auto) 20.9 % (22.0-35.0) L 01/27/18 07:00 Ralls % (Auto) 12.4 % (1.0-6.0) H 01/27/18 07:00 Eos % (Auto) 5.4 % (1.5-5.0) H 01/27/18 07:00 Baso % (Auto) 0.9 % (0.0-3.0) 01/27/18 07:00 Gran # 3.90 (1.4-6.5) 01/27/18 07:00 Lymph # (Auto) 1.4 (1.2-3.4) 01/27/18 07:00 Ralls # (Auto) 0.8 (0.1-0.6) H 01/27/18 07:00 Eos # (Auto) 0.4 (0.0-0.7) 01/27/18 07:00 Baso # (Auto) 0.06 K/mm3 (0.0-2.0) 01/27/18 07:00 ESR 30 mm/hr (0.00-15.0) H 01/26/18 12:35 PT 12.1 SECONDS (9.4-12.5) 01/24/18 17:38 INR 1.06 (0.93-1.08) 01/24/18 17:38 APTT 32.3 Seconds (25.1-36.5) 01/24/18 17:38 pO2 190 mm/Hg (30-55) H 01/24/18 23:00 VBG pH 7.43 (7.32-7.43) 01/24/18 23:00 VBG pCO2 44.0 (40-60) 01/24/18 23:00 VBG HCO3 29.2 mmol/l (21-28) H 01/24/18 23:00 VBG Total CO2 30.6 mmol.L (22-28) H 01/24/18 23:00 VBG O2 Sat (Calc) 99.4 % (40-65) H 01/24/18 23:00 VBG Base Excess 4.3 mmol/L (0.0-2.0) H 01/24/18 23:00 VBG Potassium 3.2 mmol/L (3.6-5.2) L 01/24/18 23:00 Sodium 145.0 mmol/L (132-148) 01/24/18 23:00 Chloride 109.0 mmol/L (98-107) H 01/24/18 23:00 Glucose 98 mg/dl (75-110) 01/24/18 23:00 Lactate 1.8 mmol/L (0.7-2.1) 01/24/18 23:00 FiO2 21 % 01/24/18 23:00 Sodium 140 mmol/L (132-148) 01/28/18 06:40 Potassium 3.4 mmol/L (3.6-5.0) L 01/28/18 06:40 Chloride 107 mmol/L (98-107) 01/28/18 06:40 Carbon Dioxide 24 mmol/L (21-33) 01/28/18 06:40 Anion Gap 13 (10-20) 01/28/18 06:40 BUN 9 mg/dL (7-21) 01/28/18 06:40 Creatinine 0.9 mg/dl (0.8-1.5) 01/28/18 06:40 Est GFR ( Amer) > 60 01/28/18 06:40 Est GFR (Non-Af Amer) > 60 01/28/18 06:40 Random Glucose 80 mg/dL (70-110) 01/28/18 06:40 Hemoglobin A1c 5.4 % (4.2-6.5) 01/25/18 06:55 Calcium 8.4 mg/dL (8.4-10.5) 01/28/18 06:40 Phosphorus 3.8 mg/dL (2.5-4.5) 01/24/18 18:18 Magnesium 1.4 mg/dL (1.7-2.2) L 01/28/18 06:40 Total Bilirubin 1.2 mg/dL (0.2-1.3) 01/28/18 06:40 AST 52 U/L (17-59) 01/28/18 06:40 ALT 27 U/L (7-56) 01/28/18 06:40 Alkaline Phosphatase 99 U/L (38-126) 01/28/18 06:40 Lactate Dehydrogenase 751 U/L (333-699) H 01/24/18 18:18 Total Creatine Kinase 157 U/L (35-230) 01/24/18 18:18 Troponin I < 0.01 ng/mL 01/25/18 06:25 C-Reactive Protein 22.50 mg/L (0.0-9.9) H 01/26/18 12:35 NT-Pro-B Natriuret Pep 20.5 pg/mL (0-450) 01/24/18 18:18 Total Protein 7.4 g/dL (5.8-8.3) 01/28/18 06:40 Albumin 3.4 g/dL (3.0-4.8) 01/28/18 06:40 Globulin 4.0 gm/dL 01/28/18 06:40 Albumin/Globulin Ratio 0.8 (1.1-1.8) L 01/28/18 06:40 Triglycerides 66 mg/dL (35-160) 01/25/18 06:55 Cholesterol 156 mg/dL (130-200) 01/25/18 06:55 LDL Cholesterol Direct 82 mg/dL (0-129) 01/25/18 06:55 HDL Cholesterol 54 mg/dL (29-60) 01/25/18 06:55 Amylase 105 U/L (35-125) 01/25/18 01:55 Lipase 221 U/L (23-300) 01/25/18 01:55 25-OH Vitamin D Total 15.8 NG/ML (30.0-100.0) L 01/25/18 06:25 TSH 3rd Generation 2.58 mIU/mL (0.46-4.68) 01/25/18 06:55 Venous Blood Potassium 3.2 mmol/L (3.6-5.2) L 01/24/18 23:00 Urine Opiates Screen Negative (NEGATIVE) 01/25/18 02:29 Urine Methadone Screen Negative (NEGATIVE) 01/25/18 02:29 Ur Barbiturates Screen Negative (NEGATIVE) 01/25/18 02:29 Ur Phencyclidine Scrn Negative (NEGATIVE) 01/25/18 02:29 Ur Amphetamines Screen Negative (NEGATIVE) 01/25/18 02:29 U Benzodiazepines Scrn Positive (NEGATIVE) 01/25/18 02:29 U Oth Cocaine Metabols Negative (NEGATIVE) 01/25/18 02:29 U Cannabinoids Screen Negative (NEGATIVE) 01/25/18 02:29 Alcohol, Quantitative 319 mg/dL (0-10) H* 01/24/18 17:38 HIV 1&2 Ag/Ab, 4th Gen Nonreactive (Nonreactive) 01/26/18 12:35 Attending/Attestation - Attestation I have personally seen and examined this patient.: Yes I have fully participated in the care of the patient.: Yes I have reviewed all pertinent clinical information, including history, physical exam and plan: Yes Notes (Text): 01/28/18 16:41 57 year old with past medical history of COPD, Hepatitis C, cirrhosis, esophageal varices, chronic LE edema, and chronic alcohol abuse who presented with alcohol intoxication, chest pain and LE edema/erythema. Serial cardiac enzymes were negative and ACS has been ruled out. He was evaluated by cardiology and underwent stress test which was essentially negative. Echocardiogram was reviewed which showed diastolic dysfunction without any vegetations. He is on iv antibiotics for LE cellulitis and lasix for LE edema. Recent LE dopplers were negative for DVT. JAIME was negative as well. Cellulitis improved. He was being followed by ID who recommended po zyvox. Blood cultures x 2 were positive for gram positive cocci. Possible contamination and repeat blood cultures were negative to date. He was counselled on alcohol abstinence. He was on multivitamin, folic acid and thiamine. He was on libruim taper and ativan prn for withdrawal symptoms. He complained of diarrhea initially but CDIF study was negative. He was seen by physical therapy and medical social worker. Overall patient's symptoms have improved. He is discharged home to follow up with his pmd. Counselled on alcohol cessation. Antonio Ramirez MD Hospitalist.
[2018-01-28 15:15] VITALS: BP 123/77; PULSE 90; O2SAT 96
== END 2018-01-28 16:31 | disposition home or self-care (01) | DRG 901 ==
LOC: ED 16:25 → ERH 19:09 → 2RNO 01-25 01:12 → OBSVTOIN 01-25 14:12 → 5RSO 01-26 12:54
PROVIDERS: ADMIT Hospitalist; ATTEND Internal Medicine
DX: A41.89 Other specified sepsis (principal); B18.2 Chronic viral hepatitis C; E87.6 Hypokalemia; I07.1 Rheumatic tricuspid insufficiency; J44.9 Chronic obstructive pulmonary disease, unspecified; K74.60 Unspecified cirrhosis of liver; L02.415 Cutaneous abscess of right lower limb; L03.119 Cellulitis of unspecified part of limb; R18.8 Other ascites; R56.9 Unspecified convulsions; R65.20 Severe sepsis without septic shock; B95.7 Other staphylococcus as the cause of diseases classified elsewhere; D64.9 Anemia, unspecified; E66.01 Morbid (severe) obesity due to excess calories; F10.129 Alcohol abuse with intoxication, unspecified; F19.11 Other psychoactive substance abuse, in remission; F31.9 Bipolar disorder, unspecified; I10 Essential (primary) hypertension; I25.10 Atherosclerotic heart disease of native coronary artery without angina pectoris; I27.20 Pulmonary hypertension, unspecified; I49.1 Atrial premature depolarization; I73.9 Peripheral vascular disease, unspecified; I85.00 Esophageal varices without bleeding; I87.2 Venous insufficiency (chronic) (peripheral); I87.8 Other specified disorders of veins; K27.9 Peptic ulcer, site unspecified, unspecified as acute or chronic, without hemorrhage or perforation; Z87.19 Personal history of other diseases of the digestive system; Z68.36 Body mass index [BMI] 36.0-36.9, adult; Z72.0 Tobacco use; Z87.11 Personal history of peptic ulcer disease; Z91.14 Patient's other noncompliance with medication regimen; Z91.19 Patient's noncompliance with other medical treatment and regimen

== ENCOUNTER 2018-02-05 02:39 | Emergency (ER) | payer MEDICAID ==
[2018-02-05 02:43] VITALS: BMI 37.8
--- NOTE | 2018-02-05 03:25 | ED PDOC ---
Arrival/HPI - General Chief Complaint: Chest Pain Time Seen by Provider: 02/05/18 02:48 Historian: Patient - History of Present Illness Narrative History of Present Illness (Text): 02/05/18 03:20 57 year old male, with past medical history of alcohol abuse, liver cirrhosis, Hepatitis C and chronic leg edema, presents to the Emergency department complaining of chest discomfort which began this evening. No associated shortness of breath. Patient admits to drinking alcohol all night.Has nowhere to stay. Patient denies any abdominal pain, fever, chills, nausea, vomiting, abdominal pain or any other complaints.. Currently, he states he is feeling better and just wants to sleep. Patient was recently admitted two weeks ago for chest pain work-up with negative stress test. Time/Duration: Prior to Arrival Symptom Onset: Gradual Symptom Course: Unchanged Activities at Onset: Other (Drinking) Past Medical History - Provider Review Nursing Documentation Reviewed: Yes - Infectious Disease Hx of Infectious Diseases: None - Tetanus Immunization Tetanus Immunization: Up to Date - Past Medical History Past Medical History: No Previous - Cardiac Hx Cardiac Disorders: Yes Hx Hypertension: Yes Hx Peripheral Edema: Yes Hx Peripheral Vascular Disease: Yes - Pulmonary Hx Chronic Obstructive Pulmonary Disease (COPD): Yes - Neurological Hx Neurological Disorder: No - HEENT Hx HEENT Disorder: Yes Other/Comment: retina detachment - Renal Hx Renal Failure: Yes - Endocrine/Metabolic Hx Endocrine Disorders: No - Hematological/Oncological Hx Blood Disorders: Yes Hx Hepatitis B: Yes Hx Hepatitis C: Yes - Integumentary Hx Dermatological Disorder: Yes Hx Psoriasis: Yes - Musculoskeletal/Rheumatological Hx Musculoskeletal Disorders: Yes Hx Falls: Yes Hx Fractures: Yes (NASAL SURGERY) - Gastrointestinal Hx Gastrointestinal Disorders: Yes Hx Liver Failure: Yes Hx Pancreatitis: Yes Other/Comment: ascites - Genitourinary/Gynecological Hx Genitourinary Disorders: No - Psychiatric Hx Psychophysiologic Disorder: Yes Hx Anxiety: Yes Hx Bipolar Disorder: Yes Hx Depression: Yes Hx Substance Use: Yes Other/Comment: ETOH - Past Surgical History Past Surgical History: No Previous - Surgical History Other/Comment: TIPPS. Nasal surgery. - Anesthesia Hx Anesthesia: Yes Hx Anesthesia Reactions: No Hx Malignant Hyperthermia: No - Suicidal Assessment Feels Threatened In Home Enviroment: No Family/Social History - Physician Review Nursing Documentation Reviewed: Yes Family/Social History: No Known Family HX Smoking Status: Heavy Smoker > 10 Cigarettes Daily Hx Alcohol Use: Yes Amount per day: 3 Hx Substance Use: Yes Hx Substance Use Treatment: No Allergies/Home Meds Allergies/Adverse Reactions: Allergies No Known Allergies Allergy (Verified 02/05/18 03:04) Home Medications: Home Meds Medication Instructions Recorded Confirmed No Known Home Med 02/05/18 02/05/18 Review of Systems - Physician Review All systems were reviewed & negative as marked: Yes - Review of Systems Constitutional: absent: Fevers Respiratory: absent: SOB Cardiovascular: Chest Pain Gastrointestinal: absent: Abdominal Pain, Nausea, Vomiting Psychiatric: Other (Alcohol Intoxication) Physical Exam Vital Signs Reviewed: Yes Vital Signs Temp Pulse Resp BP Pulse Ox 02/05/18 02:50 98 F 85 17 129/83 95 Temperature: Afebrile Blood Pressure: Normal Pulse: Regular Respiratory Rate: Normal Appearance: Positive for: Well-Appearing Pain Distress: None Mental Status: Positive for: other (Intoxicated but arousable) - Systems Exam Head: Present: Atraumatic, Normocephalic Pupils: Present: PERRL Extroacular Muscles: Present: EOMI Conjunctiva: Present: Normal Ears: Present: NORMAL TM Pharnyx: Present: Normal Neck: Present: Normal Range of Motion Respiratory/Chest: Present: Clear to Auscultation, Good Air Exchange, Tender to Palpation. No: Respiratory Distress, Accessory Muscle Use Cardiovascular: Present: Regular Rate and Rhythm, Normal S1, S2. No: Murmurs Abdomen: No: Tenderness, Distention, Peritoneal Signs Upper Extremity: Present: Normal Inspection. No: Cyanosis, Edema Lower Extremity: Present: Other (Chronic bilateral lower leg edema(unchanged from previous)). No: Edema Neurological: Present: GCS=15, CN II-XII Intact Skin: Present: Warm, Dry, Normal Color. No: Rashes Psychiatric: Present: Alert, Intoxicated Medical Decision Making ED Course and Treatment: 02/05/18 03:32 Impression: 57 year old male presents to the Emergency department for chest discomfort and alcohol intoxication. Differential Diagnosis included but are not limited to: alcohol intoxication Plan: -- EKG -- Labs -- CXR -- Reassess and disposition Progress Notes: 02/05/18 03:35 EKG: Ordered, reviewed, and independently interpreted the EKG. Rate : 86 BPM Rhythm : NSR Interpretation : Left axis deviation. No acute changes. 02/05/18 04:43 Chest X-ray reviewed, shows no acute processes. - Lab Interpretations Lab Results: 02/05/18 03:25 02/05/18 03:25 Lab Results 02/05/18 03:25: WBC 4.9 D, RBC 4.59, Hgb 12.5 L, Hct 37.7 L, MCV 82.1, MCH 27.2 , MCHC 33.2, RDW 16.7 H, Plt Count 165, MPV 10.0 02/05/18 03:25: Alcohol, Quantitative 256 H 02/05/18 03:25: Sodium 150 H, Potassium 3.9, Chloride 112 H, Carbon Dioxide 24, Anion Gap 18, BUN 6 L, Creatinine 0.9, Est GFR ( Amer) > 60, Est GFR (Non -Af Amer) > 60, Random Glucose 97, Calcium 9.0, Total Bilirubin 0.6, AST 80 H D , ALT 39, Alkaline Phosphatase 90, Lactate Dehydrogenase 622, Total Creatine Kinase 182, Troponin I < 0.01, Total Protein 8.1, Albumin 3.9, Globulin 4.2, Albumin/Globulin Ratio 0.9 L - RAD Interpretation Radiology Orders: 02/05/18 03:12 CHEST PORTABLE [RAD] Stat Account Coordinator: ED Physician - EKG Interpretation Interpreted by ED Physician: Yes Type: 12 lead EKG - Transfer of Care Patient signed out to Dr:: Kelsea Other: pending sobriety/final disposition - Scribe Statement The provider has reviewed the documentation as recorded by the Scribe Maggie Lott. All medical record entries made by the Scribe were at my direction and personally dictated by me. I have reviewed the chart and agree that the record accurately reflects my personal performance of the history, physical exam, medical decision making, and the department course for this patient. I have also personally directed, reviewed, and agree with the discharge instructions and disposition. Disposition/Present on Arrival - Present on Arrival Any Indicators Present on Arrival: No History of DVT/PE: No History of Uncontrolled Diabetes: No Urinary Catheter: No History of Decub. Ulcer: No History Surgical Site Infection Following: None - Disposition Have Diagnosis and Disposition been Completed?: No Diagnosis: Alcohol intoxication, Musculoskeletal chest pain Disposition Time: 07:00 Patient Problems: Current Active Problems Problem Status Onset Alcohol intoxication Acute Musculoskeletal chest pain Acute Condition: STABLE Discharge Instructions (ExitCare): Chest Pain (ED) Referrals: Kaleb Guidry DO [Primary Care Provider] - Follow up with primary Forms: [employer] ([place]o)
[2018-02-05 03:34] LABS: HEMOGLOBIN 12.5 g/dL (14.0-18.0); MEAN CELL VOLUME 82.1 fl (80.0-105.0); MEAN CORPUSCULAR HEMOGLOBIN 27.2 pg (25.0-35.0); MEAN CORPUSCULAR HGB CONC 33.2 g/dl (31.0-37.0); RBC 4.59 10^6/uL (3.5-6.1); RED CELL DISTRIBUTION WIDTH 16.7 % (11.5-14.5); WHITE BLOOD COUNT 4.9 10^3/ul (4.5-11.0)
[2018-02-05 04:11] LABS: ALB/GLOB RATIO 0.9 (1.1-1.8); ALBUMIN 3.9 g/dL (3.0-4.8); ALT/SGPT 39 U/L (7-56); AST/SGOT 80 U/L (17-59); BLOOD UREA NITROGEN 6 mg/dL (7-21); GFR AFRICAN-AMERICAN > 60; GFR NON-AFRICAN AMERICAN > 60
[2018-02-05 04:20] LABS: TROPONIN I < 0.01 ng/mL
--- NOTE | 2018-02-05 07:28 | ED PDOC ---
Physical Exam Vital Signs Reviewed: Yes Vital Signs Temp Pulse Resp BP Pulse Ox 02/05/18 13:18 81 18 129/75 95 02/05/18 11:08 98.3 F 81 18 126/76 94 L 02/05/18 10:00 77 18 120/72 94 L 02/05/18 07:40 98.6 F 86 18 133/69 94 L 02/05/18 02:50 98 F 85 17 129/83 95 Temperature: Afebrile Blood Pressure: Normal Pulse: Regular Respiratory Rate: Normal Appearance: Positive for: Well-Appearing, Non-Toxic, Comfortable Pain Distress: None Mental Status: Positive for: Alert and Oriented X 3 Medical Decision Making ED Course and Treatment: 02/05/18 07:02 Patient signed out to me by Dr. Perez at this time. I reviewed patient's results and re-examined patient. On my exam patient states he does not have any chest pain or shortness of breath. He is resting comfortably, oxygen saturations noted 97%. Patient's cxr reading noted. His BNP is unremarkable. He has no crackles or jvd on exam. Leg edema is chornic. I have instructed continuing lasix. His recent admission was reviewed. He recent was admitted with cardiology consultation and had echo and stress test done within past month reportedly which was negative. As he has been observed for several hours in ED, with no tremulousness, no chest pain, no sob, AND he states he has cardiology follow-up this week, he will be discharged with instructions. He is alert, oriented, appropriate and clinically sober on re-evaluation. He understands risks of alcohol abuse as reviewed with him. He is not tachycardic or tremulous. 02/05/18 14:28 - Lab Interpretations Lab Results: 02/05/18 03:25 02/05/18 03:25 Lab Results 02/05/18 11:22: Troponin I < 0.01, NT-Pro-B Natriuret Pep 20.9 02/05/18 03:25: WBC 4.9 D, RBC 4.59, Hgb 12.5 L, Hct 37.7 L, MCV 82.1, MCH 27.2 , MCHC 33.2, RDW 16.7 H, Plt Count 165, MPV 10.0 02/05/18 03:25: Alcohol, Quantitative 256 H 02/05/18 03:25: Sodium 150 H, Potassium 3.9, Chloride 112 H, Carbon Dioxide 24, Anion Gap 18, BUN 6 L, Creatinine 0.9, Est GFR ( Amer) > 60, Est GFR (Non -Af Amer) > 60, Random Glucose 97, Calcium 9.0, Total Bilirubin 0.6, AST 80 H D , ALT 39, Alkaline Phosphatase 90, Lactate Dehydrogenase 622, Total Creatine Kinase 182, Troponin I < 0.01, Total Protein 8.1, Albumin 3.9, Globulin 4.2, Albumin/Globulin Ratio 0.9 L - RAD Interpretation Narrative RAD Interpretations (Text): 02/05/2018 08:34:15 Chest X-ray FINDINGS: LUNGS: No active pulmonary disease. PLEURA: No significant pleural effusion identified, no pneumothorax apparent. CARDIOVASCULAR: Mild cardiomegaly mild vascular congestion OSSEOUS STRUCTURES: No significant abnormalities. VISUALIZED UPPER ABDOMEN: Normal. OTHER FINDINGS: None. IMPRESSION: Mild vascular congestion Radiology Orders: 02/05/18 03:12 CHEST PORTABLE [RAD] Stat - Scribe Statement The provider has reviewed the documentation as recorded by the Dionibe Jb James Provider Scribe Attestation: All medical record entries made by the Scribe were at my direction and personally dictated by me. I have reviewed the chart and agree that the record accurately reflects my personal performance of the history, physical exam, medical decision making, and the department course for this patient. I have also personally directed, reviewed, and agree with the discharge instructions and disposition. Disposition/Present on Arrival - Present on Arrival Any Indicators Present on Arrival: No History of DVT/PE: No History of Uncontrolled Diabetes: No Urinary Catheter: No History of Decub. Ulcer: No History Surgical Site Infection Following: None - Disposition Have Diagnosis and Disposition been Completed?: Yes Diagnosis: Alcohol intoxication, Musculoskeletal chest pain Disposition: HOME/ ROUTINE Disposition Time: 14:32 Patient Plan: Discharge Patient Problems: Current Active Problems Problem Status Onset Alcohol intoxication Acute Musculoskeletal chest pain Acute Condition: GOOD Discharge Instructions (ExitCare): Chest Pain (ED), Alcohol Abuse and Alcoholism (DC) Additional Instructions: For any chest pain, any shortness of breath, any abdominal pain, any numbness or tingling, any fevers, any coughing/spitting blood, any persistent or worsening of symptoms, get rechecked. 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 Referrals: Kaleb Guidry DO [Primary Care Provider] - Follow up with primary Forms: [employer] ([place])
--- NOTE | 2018-02-05 08:35 | RAD ---
HISTORY: chest pain COMPARISON: 01/24/2018 FINDINGS: LUNGS: No active pulmonary disease. PLEURA: No significant pleural effusion identified, no pneumothorax apparent. CARDIOVASCULAR: Mild cardiomegaly mild vascular congestion OSSEOUS STRUCTURES: No significant abnormalities. VISUALIZED UPPER ABDOMEN: Normal. OTHER FINDINGS: None. IMPRESSION: Mild vascular congestion
[2018-02-05 11:08] VITALS: RESP 18
[2018-02-05 11:50] LABS: B-TYPE NATRIURETIC PEPTIDE 20.9 pg/mL (0-450); TROPONIN I < 0.01 ng/mL
[2018-02-05 13:19] VITALS: O2SAT 95
[2018-02-05 14:48] VITALS: BP 136/75; PULSE 88; TEMP 98.6
--- NOTE | 2018-02-05 15:14 | CARD ---
APPROVED REPORT EKG Measurement Heart [id number] <Conclusion> Normal sinus rhythm Left axis deviation Cannot rule out Inferior infarct, age undetermined Abnormal ECG
== END 2018-02-05 15:33 | disposition home or self-care (01) ==
LOC: ED 02:39
DX: R07.89 Other chest pain (principal); F10.129 Alcohol abuse with intoxication, unspecified; Y90.8 Blood alcohol level of 240 mg/100 ml or more; I10 Essential (primary) hypertension; B19.20 Unspecified viral hepatitis C without hepatic coma; F17.210 Nicotine dependence, cigarettes, uncomplicated

== ENCOUNTER 2018-02-08 20:02 | Inpatient (IN) | payer MEDICAID ==
[2018-02-08] MEDS ORDERED: Naloxone 0.4 mg/ml Inj (Adult) ONE (20:13)
[2018-02-08] MEDS ORDERED: Succinylcholine 200 mg/10 ml Inj IV ONE (20:14)
[2018-02-08] MEDS ORDERED: Naloxone 0.4 mg/ml Inj (Adult) IVP STA (20:37)
[2018-02-08 21:00] LABS: BASO # 0.22 K/mm3 (0.0-2.0); BASO % 2.1 % (0.0-3.0); EOS # 0.6 (0.0-0.7); EOS % 5.8 % (1.5-5.0); GRAN # 3.58 (1.4-6.5); HEMOGLOBIN 14.4 g/dL (14.0-18.0); LYMPH # 4.8 (1.2-3.4); LYMPH % 46.6 % (22.0-35.0); MEAN CELL VOLUME 82.1 fl (80.0-105.0); MEAN CORPUSCULAR HEMOGLOBIN 27.4 pg (25.0-35.0); MEAN CORPUSCULAR HGB CONC 33.4 g/dl (31.0-37.0); MEAN PLATELET VOLUME 10.3 fl (7.0-11.0); MONO # 1.1 (0.1-0.6); MONO % 10.5 % (1.0-6.0); RBC 5.25 10^6/uL (3.5-6.1); RED CELL DISTRIBUTION WIDTH 17.2 % (11.5-14.5); WHITE BLOOD COUNT 10.3 10^3/ul (4.5-11.0)
[2018-02-08 21:04] LABS: ALB/GLOB RATIO 0.9 (1.1-1.8); BLOOD UREA NITROGEN 7 mg/dL (7-21); GFR AFRICAN-AMERICAN > 60; GFR NON-AFRICAN AMERICAN > 60; INR 1.12 (0.93-1.08); PARTIAL THROMBOPLASTIN TIME 33.2 Seconds (25.1-36.5); PROTHROMBIN TIME 12.8 SECONDS (9.4-12.5)
[2018-02-08 21:11] LABS: TROPONIN I < 0.01 ng/mL
[2018-02-08 21:20] LABS: ALBUMIN 4.6 g/dL (3.0-4.8); ALT/SGPT 43 U/L (7-56); AST/SGOT 114 U/L (17-59); CALCIUM 9.4 mg/dL (8.4-10.5)
[2018-02-08 21:22] LABS: CK-MB 1.4 ng/mL (0.0-3.6)
--- NOTE | 2018-02-08 21:23 | ED PDOC ---
Arrival/HPI - General Chief Complaint: Alcohol Ingestion Time Seen by Provider: 02/08/18 20:10 Historian: EMS - History of Present Illness Narrative History of Present Illness (Text): 02/08/18 21:22 Hemant Palacios is a 57 year old male, whose past medical history includes COPD, Hepatitis C, cirrhosis, TIPS procedure, alcohol abuse, PUD, esophageal varices, pancreatitis, chronic lower extremity edema, hypertension, and anemia, who presents to the ED brought in by EMS for altered mental status. Patient was found outside intoxicated by EMS, noted to be lethargic. Limited HPI and ROS secondary to patient's altered mental status. Symptom Onset: Gradual Symptom Course: Unchanged Activities at Onset: Light Context: Street Past Medical History - Provider Review Nursing Documentation Reviewed: Yes - Infectious Disease Hx of Infectious Diseases: None - Tetanus Immunization Tetanus Immunization: Up to Date - Past Medical History Past Medical History: No Previous - Cardiac Hx Cardiac Disorders: Yes Hx Hypertension: Yes Hx Peripheral Edema: Yes Hx Peripheral Vascular Disease: Yes - Pulmonary Hx Chronic Obstructive Pulmonary Disease (COPD): Yes - Neurological Hx Neurological Disorder: No - HEENT Hx HEENT Disorder: Yes Other/Comment: retina detachment - Renal Hx Renal Failure: Yes - Endocrine/Metabolic Hx Endocrine Disorders: No - Hematological/Oncological Hx Blood Disorders: Yes Hx Hepatitis B: Yes Hx Hepatitis C: Yes - Integumentary Hx Dermatological Disorder: Yes Hx Psoriasis: Yes - Musculoskeletal/Rheumatological Hx Musculoskeletal Disorders: Yes Hx Falls: Yes Hx Fractures: Yes (NASAL SURGERY) - Gastrointestinal Hx Gastrointestinal Disorders: Yes Hx Liver Failure: Yes Hx Pancreatitis: Yes Other/Comment: ascites - Genitourinary/Gynecological Hx Genitourinary Disorders: No - Psychiatric Hx Psychophysiologic Disorder: Yes Hx Anxiety: Yes Hx Bipolar Disorder: Yes Hx Depression: Yes Hx Substance Use: Yes Other/Comment: ETOH - Past Surgical History Past Surgical History: No Previous - Surgical History Other/Comment: TIPPS. Nasal surgery. - Anesthesia Hx Anesthesia: Yes Hx Anesthesia Reactions: No Hx Malignant Hyperthermia: No - Suicidal Assessment Feels Threatened In Home Enviroment: No Family/Social History - Physician Review Nursing Documentation Reviewed: Yes Family/Social History: Unknown Family HX Smoking Status: Heavy Smoker > 10 Cigarettes Daily Hx Alcohol Use: Yes Amount per day: 3 Hx Substance Use: Yes Hx Substance Use Treatment: No Allergies/Home Meds Allergies/Adverse Reactions: Allergies No Known Allergies Allergy (Verified 02/08/18 20:29) Home Medications: Home Meds Medication Instructions Recorded Confirmed No Known Home Med 02/05/18 02/08/18 Review of Systems - Review of Systems Systems not reviewed;Unavailable: Altered Mental Status Physical Exam Vital Signs Reviewed: Yes Vital Signs Pulse Resp BP Pulse Ox 02/09/18 04:13 104 H 20 154/82 H 92 L 02/09/18 02:42 97 H 16 148/84 88 L 02/09/18 01:42 94 H 16 137/89 90 L 02/09/18 00:43 98 H 16 130/71 92 L 02/08/18 23:42 97 H 16 128/77 95 02/08/18 22:42 97 H 14 133/78 94 L 02/08/18 21:43 94 H 14 127/75 98 02/08/18 20:28 106 H 20 145/65 98 02/08/18 20:23 114 H 10 L 146/95 H 81 L Temperature: Afebrile Blood Pressure: Normal Pulse: Tachycardic Appearance: No: Non-Toxic Pain Distress: None Mental Status: Positive for: Lethargic - Systems Exam Head: Present: Atraumatic, Normocephalic Pupils: Present: PERRL Extroacular Muscles: Present: EOMI Conjunctiva: Present: Normal Mouth: Present: Moist Mucous Membranes Neck: Present: Normal Range of Motion Respiratory/Chest: Present: Clear to Auscultation, Good Air Exchange. No: Respiratory Distress, Accessory Muscle Use Cardiovascular: Present: Regular Rate and Rhythm, Normal S1, S2. No: Murmurs Abdomen: No: Tenderness, Distention, Peritoneal Signs Upper Extremity: Present: Normal Inspection. No: Cyanosis, Edema Neurological: Present: CN II-XII Intact Skin: Present: Warm, Dry, Normal Color. No: Rashes Psychiatric: Present: Lethargic Medical Decision Making ED Course and Treatment: 02/08/18 21:23 Impression: 57 year old male brought in for alcohol intoxication, noted to be lethargic. Plan: -- CT Head w/o contrast -- EKG -- CXR -- Labs, ABG, cardiac enzymes, ammonia level, alcohol level, caridac enzymes -- UA, urine drug screen -- Narcan -- Reassess and disposition Progress Notes: Reviewed EKG, NSR at [address]AFB. Non-specific ST/T wave changes. 02/09/18 00:12 Chest X-ray reviewed, shows infiltrate in left lower lobe. 02/09/18 02:30 CT Head shows: BRAIN: Multiple focal areas of low density in the left basal ganglia, most compatible with multiple old/chronic lacunar infarcts. Areas of low density in the periventricular white matter bilaterally, most likely representing mild chronic small vessel ischemic changes. No significant acute abnormality identified. No acute hemorrhage seen within the brain. No acute extra-axial fluid collections visualized. No evidence of significant mass effect within the brain. VENTRICLES: No evidence of significant hydrocephalus. BONES/JOINTS: No acute fractures or other acute bony abnormality noted. SOFT TISSUES: No acute abnormality of the visualized soft tissues is seen. SINUSES: Visualized paranasal sinuses appear clear. MASTOID AIR CELLS: Mastoid air cells appear clear. IMPRESSION: - No acute findings seen within the brain. - See above for remaining findings. CTA Chest shows: LIMITATIONS: Streak artifact from the patient's arms. PULMONARY ARTERIES: Main pulmonary artery segment again appears enlarged, a finding which can be seen with pulmonary hypertension. Exam is somewhat limited for the detection of pulmonary emboli secondary to streak artifact. Allowing for this, no definite pulmonary emboli are seen. AORTA: No evidence of aortic dissection. LUNGS: Multifocal areas of dense consolidation in the lung bases bilaterally. These abut the diaphragms bilaterally, and are suspicious for bi-basilar pneumonia, less likely diffuse compressive/dependent atelectasis. Lung volumes are somewhat low. No evidence of diffuse pulmonary vascular congestion. PLEURAL SPACE: No pneumothorax or pleural effusions seen. HEART: Heart appears mildly enlarged. MEDIASTINUM: Small hiatal hernia. BONES/JOINTS: No acute bony abnormality identified. SOFT TISSUES: Bilateral gynecomastia. LYMPH NODES: No evidence of diffuse lymphadenopathy. TUBES, LINES AND DEVICES: TIPS shunt again seen in the liver. IMPRESSION: - Consolidation in the lung bases bilaterally, suspicious for bibasilar pneumonia, less likely atelectasis. - Otherwise, no evidence of significant acute process. No evidence of pulmonary embolism. - See above for remaining findings. 02/09/18 02:[address] Lizama, automation control technician, who is aware and agrees to evaluate pt. - Lab Interpretations Lab Results: 02/08/18 20:34 02/08/18 20:34 Lab Results 02/09/18 01:21: Urine Opiates Screen Negative, Urine Methadone Screen Negative, Ur Barbiturates Screen Negative, Ur Phencyclidine Scrn Negative, Ur Amphetamines Screen Negative, U Benzodiazepines Scrn Positive, U Oth Cocaine Metabols Negative, U Cannabinoids Screen Negative 02/09/18 01:21: Urine Color Yellow, Urine Appearance Clear, Urine pH 6.0, Ur Specific Mcnabb 1.020, Urine Protein 100 H, Urine Glucose (UA) Negative, Urine Ketones Negative, Urine Blood Trace-intact H, Urine Nitrate Negative, Urine Bilirubin Negative, Urine Urobilinogen 0.2, Ur Leukocyte Esterase Negative, Urine RBC 0 - 2, Urine WBC 0 - 2, Ur Epithelial Cells 0 - 2 02/08/18 22:36: pCO2 44, pO2 135.0 H, HCO3 23.7, ABG pH 7.34 L, ABG Total CO2 25.1, ABG O2 Saturation 99.6 H, ABG Base Excess -2.2 L, ABG Potassium 2.8 L, Glucose 102, Lactate 1.7, FiO2 100.0, Sodium 144.0, Chloride 111.0 H, Arterial Blood Potassium 2.8 L 02/08/18 21:47: Ammonia 40 H 02/08/18 20:34: Procalcitonin 0.05 L 02/08/18 20:34: Alcohol, Quantitative 245 H 02/08/18 20:34: Sodium 152 H, Potassium 3.9, Chloride 107, Carbon Dioxide 23, Anion Gap 26 H, BUN 7, Creatinine 1.0, Est GFR ( Amer) > 60, Est GFR (Non -Af Amer) > 60, Random Glucose 109, Calcium 9.4, Phosphorus 4.5, Magnesium 1.2 L , Total Bilirubin 1.2, AST 114 H D, ALT 43, Alkaline Phosphatase 135 H D, Lactate Dehydrogenase 926 H, Total Creatine Kinase 231 H, CK-MB (CK-2) 1.4, CK- MB (CK-2) % Cancelled, Troponin I < 0.01, Total Protein 9.6 H, Albumin 4.6, Globulin 5.0, Albumin/Globulin Ratio 0.9 L 02/08/18 20:34: PT 12.8 H, INR 1.12 H, APTT 33.2 02/08/18 20:34: WBC 10.3 D, RBC 5.25, Hgb 14.4, Hct 43.1, MCV 82.1, MCH 27.4, MCHC 33.4, RDW 17.2 H, Plt Count 244, MPV 10.3, Gran % 35.0 L, Lymph % (Auto) 46.6 H, Loup % (Auto) 10.5 H, Eos % (Auto) 5.8 H, Baso % (Auto) 2.1, Gran # 3.58 , Lymph # (Auto) 4.8 H, Loup # (Auto) 1.1 H, Eos # (Auto) 0.6, Baso # (Auto) 0.22 02/08/18 20:34: POC Glucose (mg/dL) 85 I have reviewed the lab results: Yes - RAD Interpretation Radiology Orders: 02/08/18 20:35 HEAD W/O CONTRAST [CT] Stat 02/08/18 20:36 CHEST PORTABLE [RAD] Stat 02/09/18 00:15 ANGIO CHEST PE PROTOCOL [CT] Stat Vice President Business Development: ED Physician, Radiologist - EKG Interpretation Interpreted by ED Physician: Yes Type: 12 lead EKG - Medication Orders Current Medication Orders: Discontinued Medications Albuterol/Ipratropium (Duoneb 3 Mg/0.5 Mg (3 Ml) Ud) 3 ml IH STAT STA Stop: 02/09/18 02:51 Last Admin: 02/09/18 03:12 Dose: 3 ml Albuterol/Ipratropium (Duoneb 3 Mg/0.5 Mg (3 Ml) Ud) 3 ml IH [id number] RORY Last Admin: 02/11/18 07:31 Dose: 3 ml Chlordiazepoxide (Librium) 25 mg PO BID RORY PRN Reason: Protocol Last Admin: 02/09/18 10:26 Dose: 25 mg Behavioural Document 02/09/18 10:26 LM (Rec: 02/09/18 10:26 LM [id number]) Maintenance Maintenance Dose Yes Chlordiazepoxide (Librium) 25 mg PO TID RORY PRN Reason: Protocol Last Admin: 02/10/18 09:28 Dose: 25 mg Behavioural Document 02/10/18 09:28 SG (Rec: 02/10/18 09:28 SG [id number]) Maintenance Maintenance Dose Yes Nonmedicinal Nonmedicinal Interventions Redirect Therapeutic Communication Activity Give food/fluids See nurse's notes Behavior Behavior for Medication: Anxiety Re-Assess: Reassess Psych Meds Document 02/10/18 10:28 SG (Rec: 02/10/18 11:06 SG [id number]) Reassess Psych Med Effective Chlordiazepoxide (Librium) 25 mg PO BID [facility] PRN Reason: Protocol Last Admin: 02/10/18 17:22 Dose: 25 mg Behavioural Document 02/10/18 17:22 SG (Rec: 02/10/18 17:23 SG [id number]) Maintenance Maintenance Dose Yes Nonmedicinal Nonmedicinal Interventions Redirect Therapeutic Communication Activity Give food/fluids See nurse's notes Behavior Behavior for Medication: Anxiety Doxycycline Hyclate (Doryx) 100 mg PO Q12 RORY PRN Reason: Protocol Last Admin: 02/10/18 22:15 Dose: 100 mg Folic Acid (Folic Acid) 1 mg PO DAILY [facility] Last Admin: 02/10/18 09:28 Dose: 1 mg Heparin Sodium (Porcine) (Heparin) 5,000 units SC Q8 RORY PRN Reason: Protocol Last Admin: 02/11/18 06:05 Dose: 5,000 units Subcutaneous Administrations Document 02/11/18 06:05 CDL (Rec: 02/11/18 06:05 CDL [id number]) Injection Site MAR Injection Site Left Abdomen Charges for Administration # of Subcutaneous Administrations 1 Sodium Chloride (Sodium Chloride 0.9%) 1,000 mls @ 80 mls/hr IV .[id number] [facility] Last Admin: 02/08/18 22:16 Dose: 80 mls/hr eMAR Start Stop Document 02/08/18 22:16 SS (Rec: 02/08/18 22:19 SS [facility] [id number]) Intravenous Solution Start Date 02/08/18 Start Time 22:19 Vancomycin HCl (Vancomycin 1gm) 1 gm in 250 mls @ 167 mls/hr IVPB STAT STA PRN Reason: Protocol Stop: 02/09/18 02:54 Piperacillin Sod/Tazobactam Sod (Zosyn 3.375 In Ns 100ml) 100 mls @ 200 mls/hr IVPB STAT STA PRN Reason: Protocol Stop: 02/09/18 01:55 Last Admin: 02/09/18 01:58 Dose: 200 mls/hr eMAR Start Stop Document 02/09/18 01:58 SS (Rec: 02/09/18 01:58 SS [id number]) Intravenous Solution Start Date 02/09/18 Start Time 01:58 End Date 02/09/18 End time 02:28 Total Infusion Time 30 Folic Acid 1 mg/ Thiamine HCl 100 mg/ Multivitamins/Vitamin C 10 ml/ Dextrose 1 ,011.2 mls @ 100 mls/hr IV .Q10H7M RORY Stop: 02/09/18 23:13 Last Admin: 02/09/18 18:11 Dose: 100 mls/hr eMAR Start Stop Document 02/09/18 18:11 LM (Rec: 02/09/18 18:11 LM [id number]) Intravenous Solution Start Date 02/09/18 Start Time 18:11 Magnesium Sulfate 2 gm/ Sodium (Chloride) 104 mls @ 102 mls/hr IVPB ONCE ONE Stop: 02/09/18 04:02 Last Admin: 02/09/18 03:28 Dose: 102 mls/hr eMAR Start Stop Document 02/09/18 03:28 SS (Rec: 02/09/18 03:28 SS [id number]) Intravenous Solution Start Date 02/09/18 Start Time 03:28 End Date 02/09/18 End time 04:28 Total Infusion Time 60 Potassium Chloride (Potassium Chloride 20 Meq/100 Ml) 20 meq in 100 mls @ 50 mls/hr IVPB ONCE ONE Stop: 02/09/18 08:59 Last Admin: 02/09/18 08:45 Dose: 50 mls/hr eMAR Start Stop Document 02/09/18 08:45 LM (Rec: 02/09/18 08:46 LM [id number]) Intravenous Solution Start Date 02/09/18 Start Time 08:46 Vancomycin HCl (Vancomycin 1gm) 1 gm in 250 mls @ 167 mls/hr IVPB DAILY RORY PRN Reason: Protocol Piperacillin Sod/Tazobactam Sod (Zosyn 3.375 In Ns 100ml) 100 mls @ 200 mls/hr IVPB Q6 RORY PRN Reason: Protocol Stop: 02/16/18 12:01 Last Admin: 02/11/18 06:05 Dose: 200 mls/hr eMAR Start Stop Document 02/11/18 06:05 CDL (Rec: 02/11/18 06:05 CDL [id number]) Intravenous Solution Start Date 02/11/18 Start Time 06:05 End Date 02/11/18 End time 06:35 Total Infusion Time 30 Vancomycin HCl (Vancomycin 1gm) 1 gm in 250 mls @ 167 mls/hr IVPB Q12 RORY PRN Reason: Protocol Last Admin: 02/10/18 22:14 Dose: 167 mls/hr eMAR Start Stop Document 02/10/18 22:14 CDL (Rec: 02/10/18 22:15 CDL [id number]) Intravenous Solution Start Date 02/10/18 Start Time 22:14 End Date 02/10/18 End time 23:44 Total Infusion Time 90 Magnesium Sulfate 2 gm/ Sodium (Chloride) 104 mls @ 102 mls/hr IVPB ONCE ONE Stop: 02/10/18 08:47 Last Admin: 02/10/18 09:29 Dose: 102 mls/hr eMAR Start Stop Document 02/10/18 09:29 SG (Rec: 02/10/18 09:30 SG [id number]) Intravenous Solution Start Date 02/10/18 Start Time 09:30 End Date 02/10/18 End time 10:32 Total Infusion Time 62 Magnesium Sulfate 2 gm/ Sodium (Chloride) 104 mls @ 102 mls/hr IVPB ONCE ONE Stop: 02/10/18 18:07 Last Admin: 02/10/18 18:15 Dose: 102 mls/hr eMAR Start Stop Document 02/10/18 18:15 SG (Rec: 02/10/18 18:15 SG [id number]) Intravenous Solution Start Date 02/10/18 Start Time 18:15 End Date 02/10/18 End time 19:17 Total Infusion Time 62 Lactulose (Enulose) 10 gm PO ONCE ONE Stop: 02/09/18 06:45 Last Admin: 02/09/18 07:50 Dose: Not Given Non-Admin Reason: NPO Lisinopril (Zestril) 10 mg PO DAILY [facility] Last Admin: 02/10/18 09:34 Dose: 10 mg MAR Pulse and Blood Pressure Document 02/10/18 09:34 SG (Rec: 02/10/18 09:35 SG [id number]) Pulse Pulse Rate (60-90) 89 Blood Pressure Blood Pressure (100/60-150/90) 152/80 Lorazepam (Ativan) 1 mg IVP Q4H PRN; Protocol PRN Reason: Symptoms of alcohol withdrawl Last Admin: 02/11/18 06:06 Dose: 1 mg IVP Administration Document 02/11/18 06:06 CDL (Rec: 02/11/18 06:06 CDL [id number]) Charges for Administration # of IVP Administrations 1 Behavioural Document 02/11/18 06:06 CDL (Rec: 02/11/18 06:06 CDL [id number]) Maintenance Maintenance Dose Yes Behavior Behavior for Medication: Anxiety Methylprednisolone (Solu-Medrol) 40 mg IVP Q12 [facility] Last Admin: 02/10/18 22:15 Dose: 40 mg IVP Administration Document 02/10/18 22:15 CDL (Rec: 02/10/18 22:15 CDL [id number]) Charges for Administration # of IVP Administrations 1 Multivitamins (Thera Tab) 1 tab PO DAILY [facility] Last Admin: 02/10/18 09:28 Dose: 1 tab Naloxone HCl (Narcan) 0.8 mg IVP STAT STA Stop: 02/08/18 20:38 Last Admin: 02/08/18 20:37 Dose: 0.8 mg IVP Administration Document 02/08/18 20:37 SS (Rec: 02/08/18 22:14 SS [id number]) Charges for Administration # of IVP Administrations 1 Pantoprazole Sodium (Protonix Inj) 40 mg IVP DAILY [facility] Last Admin: 02/09/18 10:27 Dose: 40 mg IVP Administration Document 02/09/18 10:27 LM (Rec: 02/09/18 10:27 LM [id number]) Charges for Administration # of IVP Administrations 1 Pantoprazole Sodium (Protonix Ec Tab) 40 mg PO ACB RORY Pantoprazole Sodium (Protonix Ec Tab) 40 mg PO ACB [facility] Last Admin: 02/11/18 06:58 Dose: 40 mg Potassium Chloride (K-Dur 20 Meq Er Tab) 40 meq PO STAT STA Stop: 02/09/18 11:59 Last Admin: 02/09/18 12:26 Dose: 40 meq Potassium Phos/Sodium Phos (Neutra-Phos) 1 pkt PO ONCE ONE Stop: 02/10/18 07:49 Last Admin: 02/10/18 08:24 Dose: 1 pkt Prednisone (Prednisone Tab) 40 mg PO DAILY RORY Stop: 02/16/18 10:01 Sodium Polystyrene Sulfonate (Kayexalate Susp) 15 gm PO STAT STA Stop: 02/09/18 03:02 Last Admin: 02/09/18 04:26 Dose: 15 gm Thiamine HCl (Vitamin B1 Tab) 100 mg PO DAILY RORY Last Admin: 02/10/18 09:32 Dose: 100 mg - Dionibe Statement The provider has reviewed the documentation as recorded by the Dionibgloria Bernstein All medical record entries made by the Domitila were at my direction and personally dictated by me. I have reviewed the chart and agree that the record accurately reflects my personal performance of the history, physical exam, medical decision making, and the department course for this patient. I have also personally directed, reviewed, and agree with the discharge instructions and disposition. Disposition/Present on Arrival - Present on Arrival Any Indicators Present on Arrival: No History of DVT/PE: No History of Uncontrolled Diabetes: No Urinary Catheter: No History of Decub. Ulcer: No History Surgical Site Infection Following: None - Disposition Have Diagnosis and Disposition been Completed?: Yes Diagnosis: Pneumonia Disposition: HOSPITALIZED Disposition Time: 02:35 Condition: GUARDED
[2018-02-08] MEDS ORDERED: Sodium Chloride 0.9% 1,000 ML IV SCH (22:15)
[2018-02-08 22:39] LABS: ARTERIAL BLOOD GAS HCO3 23.7 mmol/L (21-28); ARTERIAL BLOOD GAS O2 SAT 99.6 % (95-98); ARTERIAL BLOOD GAS PCO2 44 mm/Hg (35-45); ARTERIAL BLOOD GAS PH 7.34 (7.35-7.45); ARTERIAL BLOOD GAS TCO2 25.1 mmol.L (22-28)
[2018-02-09] MEDS ORDERED: Iodixanol 320 MG/ML 100 ML BOTTLE IV ONE (00:36)
[2018-02-09] MEDS ORDERED: Vancomycin 1gm in NS 250ml 1 GM/250 ML BAG IVPB STA (01:25)
[2018-02-09] MEDS ORDERED: Piperacillin/Tazobact 3.375 gm 100 ML IVPB STA (01:26)
[2018-02-09 02:07] LABS: URINE BILIRUBIN NEGATIVE (NEGATIVE); URINE BLOOD TRACE-INTACT (NEGATIVE); URINE GLUCOSE (UA) NEGATIVE (NEGATIVE); URINE LEUKOCYTE ESTERASE NEGATIVE Leu/uL (NEGATIVE); URINE PROTEIN 100 mg/dL (<30 mg/dL); URINE UROBILINOGEN 0.2 E.U./dL (<1 E.U./dL)
[2018-02-09 02:08] LABS: URINE COLOR YELLOW (YELLOW)
[2018-02-09 02:09] LABS: URINE APPEARANCE CLEAR (CLEAR)
--- NOTE | 2018-02-09 02:16 | CT ---
EXAM: CT Head Without Intravenous Contrast EXAM DATE/TIME: 02/08/2018 8:35 PM CLINICAL HISTORY: 57 years old, male; Signs and symptoms; Altered mental status/memory loss; Additional info: AMS TECHNIQUE: Axial computed tomography images of the head/brain without intravenous contrast. All CT scans at this facility use one or more dose reduction techniques, viz.: automated exposure control; ma/kV adjustment per patient size (including targeted exams where dose is matched to indication; i.e. head); or iterative reconstruction technique. Coronal and sagittal reformatted images were created and reviewed. COMPARISON: Prior head CT of 2017-12-31 FINDINGS: BRAIN: Multiple focal areas of low density in the left basal ganglia, most compatible with multiple old/chronic lacunar infarcts. Areas of low density in the periventricular white matter bilaterally, most likely representing mild chronic small vessel ischemic changes. No significant acute abnormality identified. No acute hemorrhage seen within the brain. No acute extra-axial fluid collections visualized. No evidence of significant mass effect within the brain. VENTRICLES: No evidence of significant hydrocephalus. BONES/JOINTS: No acute fractures or other acute bony abnormality noted. SOFT TISSUES: No acute abnormality of the visualized soft tissues is seen. SINUSES: Visualized paranasal sinuses appear clear. MASTOID AIR CELLS: Mastoid air cells appear clear. IMPRESSION: - No acute findings seen within the brain. - See above for remaining findings.
[2018-02-09 02:21] LABS: BARBITURATES, UR NEGATIVE (NEGATIVE); BENZODIAZEPINES, UR POSITIVE (NEGATIVE); OPIATES, UR NEGATIVE (NEGATIVE); PHENCYCLIDINE, UR NEGATIVE (NEGATIVE)
[2018-02-09 02:24] LABS: URINE EPITHELIAL CELLS 0 - 2 /hpf (0-5); URINE RBC 0 - 2 /hpf (0-2); URINE WBC 0 - 2 /hpf (0-6)
--- NOTE | 2018-02-09 02:28 | CT ---
EXAM: CT Angiography Chest With Intravenous Contrast EXAM DATE/TIME: 02/09/2018 12:15 AM CLINICAL HISTORY: 57 years old, male; Signs and symptoms; Shortness of breath; Additional info: R/O pe TECHNIQUE: Axial computed tomographic angiography images of the chest with intravenous contrast using pulmonary embolism protocol. All CT scans at this facility use one or more dose reduction techniques, viz.: automated exposure control; ma/kV adjustment per patient size (including targeted exams where dose is matched to indication; i.e. head); or iterative reconstruction technique. MIP reconstructed images were created and reviewed. Coronal and sagittal reformatted images were created and reviewed. CONTRAST: 96 mL of VISI 320 administered intravenously. COMPARISON: Prior CT chest of 2017-11-05 FINDINGS: LIMITATIONS: Streak artifact from the patient's arms. PULMONARY ARTERIES: Main pulmonary artery segment again appears enlarged, a finding which can be seen with pulmonary hypertension. Exam is somewhat limited for the detection of pulmonary emboli secondary to streak artifact. Allowing for this, no definite pulmonary emboli are seen. AORTA: No evidence of aortic dissection. LUNGS: Multifocal areas of dense consolidation in the lung bases bilaterally. These abut the diaphragms bilaterally, and are suspicious for bi-basilar pneumonia, less likely diffuse compressive/dependent atelectasis. Lung volumes are somewhat low. No evidence of diffuse pulmonary vascular congestion. PLEURAL SPACE: No pneumothorax or pleural effusions seen. HEART: Heart appears mildly enlarged. MEDIASTINUM: Small hiatal hernia. BONES/JOINTS: No acute bony abnormality identified. SOFT TISSUES: Bilateral gynecomastia. LYMPH NODES: No evidence of diffuse lymphadenopathy. TUBES, LINES AND DEVICES: TIPS shunt again seen in the liver. IMPRESSION: - Consolidation in the lung bases bilaterally, suspicious for bibasilar pneumonia, less likely atelectasis. - Otherwise, no evidence of significant acute process. No evidence of pulmonary embolism. - See above for remaining findings.
[2018-02-09] MEDS ORDERED: Albuterol-Ipratrop 3 mg / 0.5 (3 ml) UD IH STA (02:50)
[2018-02-09] MEDS ORDERED: Sod Polystyrene Sulf 15 gm/60 ml Susp PO STA (03:01)
[2018-02-09] MEDS ORDERED: Magnesium Sulfate 2 GM in Sodium Chloride 0.9% 100 ML IVPB ONE (03:01)
[2018-02-09] MEDS ORDERED: Sod Polystyrene Sulf 15 gm/60 ml Susp PR STA (03:01)
--- NOTE | 2018-02-09 03:12 | CP.PCM.HP ---
History of Present Illness - History of Present Illness History of Present Illness: CC: ETOH HPI: 57 year old male with past medical history that includes COPD, Hepatitis C, cirrhosis, TIPS procedure, alcohol abuse/withdrawal, PUD, esophageal varices, pacreatitis, chronic lower extremity edema, hypertension, anemia who presented to [facility] [place] [place] ED via EMS with AMS. Patient found in public intoxicated and noted to be lethargic. Patient intoxicated at time of interview, HPI is limited due to patient's AMS. HPI and history gathered from speaking with patient and chart review. Patient reports he does not recall what brought him into the hospital. He reports drinking a few beers today. He reports some difficulty with breathing , denies abominal pain, diarrhea, fever, chills, night sweats, nausea, vomiting. PMH: COPD, Hepatitis B & C w/ Cirrhosis, PUD, esophageal varices, pancreatitis, Chronic Lower Extremity Edema, Venous insufficiency, EtOH abuse, GI bleed, medical non-compliance, depression with suicidal ideation, and homelessness PSH: Right eye surgery, Nose surgery SOCHX: PPD for 37 years, states he drinks about 3 beers daily, Denies illicit drug use FMH: Denies ALL: NKDA Medication: Denies Present on Admission - Present on Admission Any Indicators Present on Admission: No Review of Systems - Review of Systems All systems: reviewed and no additional remarkable complaints except (as mentioned in HPI) Past Patient History - Infectious Disease Hx of Infectious Diseases: None - Tetanus Immunizations Tetanus Immunization: Up to Date - Past Medical History & Family History Past Medical History?: Yes - Past Social History Smoking Status: Heavy Smoker > 10 Cigarettes Daily - CARDIAC Hx Cardiac Disorders: Yes Hx Hypertension: Yes Hx Peripheral Edema: Yes Hx Peripheral Vascular Disease: Yes - PULMONARY Hx Chronic Obstructive Pulmonary Disease (COPD): Yes - NEUROLOGICAL Hx Neurological Disorder: No - HEENT Hx HEENT Problems: Yes Other/Comment: retina detachment - RENAL Hx Renal Failure: Yes - ENDOCRINE/METABOLIC Hx Endocrine Disorders: No - HEMATOLOGICAL/ONCOLOGICAL Hx Blood Disorders: Yes Hx Hepatitis B: Yes Hx Hepatitis C: Yes - INTEGUMENTARY Hx Dermatological Problems: Yes Hx Psoriasis: Yes - MUSCULOSKELETAL/RHEUMATOLOGICAL Hx Musculoskeletal Disorders: Yes Hx Falls: Yes Hx Fractures: Yes (NASAL SURGERY) - GASTROINTESTINAL Hx Gastrointestinal Disorders: Yes Hx Liver Failure: Yes Hx Pancreatitis: Yes Other/Comment: ascites - GENITOURINARY/GYNECOLOGICAL Hx Genitourinary Disorders: No - PSYCHIATRIC Hx Psychophysiologic Disorder: Yes Hx Anxiety: Yes Hx Bipolar Disorder: Yes Hx Depression: Yes Hx Substance Use: Yes Other/Comment: ETOH - SURGICAL HISTORY Other/Comment: TIPPS. Nasal surgery. - ANESTHESIA Hx Anesthesia: Yes Hx Anesthesia Reactions: No Hx Malignant Hyperthermia: No Meds Allergies/Adverse Reactions: Allergies Allergy/AdvReac Type Severity Reaction Status Date / Time No Known Allergies Allergy Verified 02/08/18 20:29 Physical Exam - Constitutional Additional comments: lethargic, somnolent, with non-rebreather in place - Head Exam Head Exam: ATRAUMATIC, NORMAL INSPECTION, NORMOCEPHALIC - Eye Exam Eye Exam: EOMI - Respiratory Exam Respiratory Exam: Decreased Breath Sounds, Rhonchi, Wheezes (minimal expiratory ). absent: Rales, Respiratory Distress - Cardiovascular Exam Cardiovascular Exam: REGULAR RHYTHM, +S1, +S2 - GI/Abdominal Exam GI & Abdominal Exam: Soft. absent: Tenderness - Extremities Exam Extremities exam: Positive for: pedal edema Additional comments: lower extremity edema b/l, scarring and skin discolaration b/l appreciated - Neurological Exam Neurological exam: Altered (somnolent, lethargic) Additional comments: motor and sensory grossly intact, spontaneous moving all four extremities, unable to follow commands due to intoxication - Psychiatric Exam Additional comments: lethargic - Skin Skin Exam: Dry Additional comments: scarring and skin discoloration of lower extremities Results - Vital Signs Recent Vital Signs: Last Vital Signs Temp Pulse 106 H 02/08/18 20:28 Resp 20 02/08/18 20:28 BP 145/65 02/08/18 20:28 Pulse Ox 98 02/08/18 20:28 - Labs Result Diagrams: 02/08/18 20:34 02/08/18 20:34 Labs: Laboratory Results - last 24 hr 02/08/18 02/08/18 02/08/18 20:34 20:34 20:34 WBC 10.3 D RBC 5.25 Hgb 14.4 Hct 43.1 MCV 82.1 MCH 27.4 MCHC 33.4 RDW 17.2 H Plt Count 244 MPV 10.3 Gran % 35.0 L Lymph % (Auto) 46.6 H Ows[place] % (Auto) 10.5 H Eos % (Auto) 5.8 H Baso % (Auto) 2.1 Gran # 3.58 Lymph # (Auto) 4.8 H [place] # (Auto) 1.1 H Eos # (Auto) 0.6 Baso # (Auto) 0.22 PT 12.8 H INR 1.12 H APTT 33.2 pCO2 pO2 HCO3 ABG pH ABG Total CO2 ABG O2 Saturation ABG Base Excess ABG Potassium Glucose Lactate FiO2 Sodium Potassium Chloride Carbon Dioxide Anion Gap BUN Creatinine Est GFR ( Amer) Est GFR (Non-Af Amer) POC Glucose (mg/dL) 85 Random Glucose Calcium Phosphorus Magnesium Total Bilirubin AST ALT Alkaline Phosphatase Ammonia Lactate Dehydrogenase Total Creatine Kinase CK-MB (CK-2) CK-MB (CK-2) % Troponin I Total Protein Albumin Globulin Albumin/Globulin Ratio Arterial Blood Potassium Urine Color Urine Appearance Urine pH Ur Specific [place] Urine Protein Urine Glucose (UA) Urine Ketones Urine Blood Urine Nitrate Urine Bilirubin Urine Urobilinogen Ur Leukocyte Esterase Urine RBC Urine WBC Ur Epithelial Cells Urine Opiates Screen Urine Methadone Screen Ur Barbiturates Screen Ur Phencyclidine Scrn Ur Amphetamines Screen U Benzodiazepines Scrn U Oth Cocaine Metabols U Cannabinoids Screen Alcohol, Quantitative 02/08/18 02/08/18 02/08/18 20:34 20:34 21:47 WBC RBC Hgb Hct MCV MCH MCHC RDW Plt Count MPV Gran % Lymph % (Auto) [place] % (Auto) Eos % (Auto) Baso % (Auto) Gran # Lymph # (Auto) [place] # (Auto) Eos # (Auto) Baso # (Auto) PT INR APTT pCO2 pO2 HCO3 ABG pH ABG Total CO2 ABG O2 Saturation ABG Base Excess ABG Potassium Glucose Lactate FiO2 Sodium 152 H Potassium 3.9 Chloride 107 Carbon Dioxide 23 Anion Gap 26 H BUN 7 Creatinine 1.0 Est GFR ( Amer) > 60 Est GFR (Non-Af Amer) > 60 POC Glucose (mg/dL) Random Glucose 109 Calcium 9.4 Phosphorus 4.5 Magnesium 1.2 L Total Bilirubin 1.2 AST 114 H D ALT 43 Alkaline Phosphatase 135 H D Ammonia 40 H Lactate Dehydrogenase 926 H Total Creatine Kinase 231 H CK-MB (CK-2) 1.4 CK-MB (CK-2) % Cancelled Troponin I < 0.01 Total Protein 9.6 H Albumin 4.6 Globulin 5.0 Albumin/Globulin Ratio 0.9 L Arterial Blood Potassium Urine Color Urine Appearance Urine pH Ur Specific [place] Urine Protein Urine Glucose (UA) Urine Ketones Urine Blood Urine Nitrate Urine Bilirubin Urine Urobilinogen Ur Leukocyte Esterase Urine RBC Urine WBC Ur Epithelial Cells Urine Opiates Screen Urine Methadone Screen Ur Barbiturates Screen Ur Phencyclidine Scrn Ur Amphetamines Screen U Benzodiazepines Scrn U Oth Cocaine Metabols U Cannabinoids Screen Alcohol, Quantitative 245 H 02/08/18 02/09/18 02/09/18 22:36 01:21 01:21 WBC RBC Hgb Hct MCV MCH MCHC RDW Plt Count MPV Gran % Lymph % (Auto) [place] % (Auto) Eos % (Auto) Baso % (Auto) Gran # Lymph # (Auto) [place] # (Auto) Eos # (Auto) Baso # (Auto) PT INR APTT pCO2 44 pO2 135.0 H HCO3 23.7 ABG pH 7.34 L ABG Total CO2 25.1 ABG O2 Saturation 99.6 H ABG Base Excess -2.2 L ABG Potassium 2.8 L Glucose 102 Lactate 1.7 FiO2 100.0 Sodium 144.0 Potassium Chloride 111.0 H Carbon Dioxide Anion Gap BUN Creatinine Est GFR ( Amer) Est GFR (Non-Af Amer) POC Glucose (mg/dL) Random Glucose Calcium Phosphorus Magnesium Total Bilirubin AST ALT Alkaline Phosphatase Ammonia Lactate Dehydrogenase Total Creatine Kinase CK-MB (CK-2) CK-MB (CK-2) % Troponin I Total Protein Albumin Globulin Albumin/Globulin Ratio Arterial Blood Potassium 2.8 L Urine Color Yellow Urine Appearance Clear Urine pH 6.0 Ur Specific [place] 1.020 Urine Protein 100 H Urine Glucose (UA) Negative Urine Ketones Negative Urine Blood Trace-intact H Urine Nitrate Negative Urine Bilirubin Negative Urine Urobilinogen 0.2 Ur Leukocyte Esterase Negative Urine RBC 0 - 2 Urine WBC 0 - 2 Ur Epithelial Cells 0 - 2 Urine Opiates Screen Negative Urine Methadone Screen Negative Ur Barbiturates Screen Negative Ur Phencyclidine Scrn Negative Ur Amphetamines Screen Negative U Benzodiazepines Scrn Positive U Oth Cocaine Metabols Negative U Cannabinoids Screen Negative Alcohol, Quantitative Assessment & Plan - Assessment and Plan (Free Text) Assessment: 57 year old male with a PMHx of COPD, Hepatitis B & C w/ Cirrhosis, PUD, esophageal varices, pancreatitis, Chronic Lower Extremity Edema, Venous insufficiency, EtOH abuse, GI bleed, medical non-compliance presented for AMS and etoh intoxication. Patient admitted for observation for alcohol withdrawal and further management Plan: Alcohol Intoxication/withdrawal - Ativan 1mg Q4HPrn - Librium 25 BID - CIWA, seizure, fall precaution, aspiration precauation - Thiamine, Folic Acid, Multivitamin ?Left lower lobe infiltrate - CXR showing ?LLL infiltrate - Chest CT showing negative for acute PE, bibasilar consildation suspicious for pna, less likely atelectasis - Hypoxia on admission 81, placed on non-rebreather - BiPAP - NC 4L with goal SaO2 >92% - Levaquin 750mg for suspected HAP v. CAP - Procal Hx of chronic lower extremity edemea - Likely venous insufficneity, PVD, diastolic CHF - ECHO (01/25/18): Normal EF, trace AR, MR, TR, RVSP 35mmHG, no vegetation - Monitor Elevated Ammonia - Ammonia 40 - Patient lethargic likely 2/2 ETOH, no tremors appreciated - Kayexalate Electrolyte abn - Hypomagnesium - replete - Hypernatremia - D5W Banana bag, recheck in AM - Potassium stable, with kayexalate will look to replete K Hx of HTN - Continue Lisinopril 10mg DVT ppx: Heparin GI ppx: Protonix Case and plan discussed with attending - Date & Time Date: 02/09/18 Time: 03:15
[2018-02-09] MEDS: Folic Acid 1 MG, Thiamine 100 MG, Multivitamin (MVI) 10 ML in Dextrose 5% In Water 1,00... IV SCH ×3 (03:28→18:11)
[2018-02-09] MEDS: Albuterol-Ipratrop 3 mg / 0.5 (3 ml) UD IH SCH ×6 (04:26→23:32)
[2018-02-09 05:58] VITALS: BMI 34.7
[2018-02-09 08:42] LABS: ALB/GLOB RATIO 0.9 (1.1-1.8); ALBUMIN 3.6 g/dL (3.0-4.8); ALT/SGPT 41 U/L (7-56); AST/SGOT 90 U/L (17-59); BLOOD UREA NITROGEN 6 mg/dL (7-21); CALCIUM 8.4 mg/dL (8.4-10.5); GFR AFRICAN-AMERICAN > 60; GFR NON-AFRICAN AMERICAN > 60
--- NOTE | 2018-02-09 09:14 | RAD ---
HISTORY: ams COMPARISON: Portable chest 02/05/2018. FINDINGS: LUNGS: Bibasilar atelectasis is favored over infiltrates. Inspiratory volume remains somewhat limited. PLEURA: No significant pleural effusion identified, no pneumothorax apparent. CARDIOVASCULAR: Cardiomediastinal silhouette appears stable. No pulmonary vascular derangement. OSSEOUS STRUCTURES: No significant abnormalities. VISUALIZED UPPER ABDOMEN: Normal. OTHER FINDINGS: None. IMPRESSION: Bibasilar atelectasis favored over infiltrates. Further clinical correlation advised. Inspiratory volume remains somewhat limited.
[2018-02-09] MEDS ORDERED: Vancomycin 1gm in NS 250ml 1 GM/250 ML BAG IVPB SCH (10:00)
[2018-02-09] MEDS ORDERED: levoFLOXacin 750 mg in D5W 750 MG/150 ML BAG IVPB SCH (10:00)
--- NOTE | 2018-02-09 10:24 | CARD ---
APPROVED REPORT EKG Measurement Heart [id number] <Conclusion> Normal sinus rhythm Possible Left atrial enlargement Low voltage QRS Left anterior fascicular block Possible Inferior infarct, age undetermined PRWP V 1 - 6 Prolonged QTc No change
[2018-02-09] MEDS: Vancomycin 1gm in NS 250ml 1 GM/250 ML BAG IVPB SCH ×2 (11:52→22:28)
[2018-02-09] MEDS ORDERED: Potassium Chloride 20 mEq ER Tab PO STA (11:58)
--- NOTE | 2018-02-09 12:04 | CP.PCM.CON ---
History of Present Illness - History of Present Illness History of Present Illness: 57 year old male with COPD, seizure disorder, history of hepatitis B and C, S/P TIPS procedure, history of esophageal varices, chronic alcohol use, history of pancreatitis, chronic lower extremity edema was brought in to [facility] after the patient was noted to be intoxicated in public and lethargic. He started waking up in the ED, and was complaining of shortness of breath and cough, but denies fevers, no nausea or vomiting, no headache or dizziness, no chest pain, no abdominal pain, no diarrhea, no dysuria. CXR was done and chest CT as well and it is showing bilateral lower lobe infiltrates. Infectious diseases consult is requested to further evaluate and manage. Review of Systems - Review of Systems All systems: reviewed and no additional remarkable complaints except (as per HPI ) Past Patient History - Infectious Disease Hx of Infectious Diseases: None - Tetanus Immunizations Tetanus Immunization: Up to Date - Past Medical History & Family History Past Medical History?: Yes - Past Social History Smoking Status: Light Smoker < 10 Cigarettes Daily - CARDIAC Hx Cardiac Disorders: Yes Hx Angina: No Hx Cardia Arrhythmia: Yes Hx Circulatory Problems: No Hx Congestive Heart Failure: No Hx Heart Murmur: No Hx Heart Transplant: No Hx Hypercholesterolemia: No Hx Hypertension: Yes Hx Internal Defibrillator: No Hx Mitral Valve Prolapse: No Hx Pacemaker: No Hx Peripheral Edema: No Hx Peripheral Vascular Disease: No - PULMONARY Hx Respiratory Disorders: Yes Hx Asthma: Yes Hx Bronchitis: No Hx Chronic Obstructive Pulmonary Disease (COPD): Yes Hx Emphysema: No Hx Pneumonia: Yes Hx Respiratory Aspiration: No Hx Respiratory Tract Infection: No Hx Sleep Apnea: No Hx Tuberculosis: No - NEUROLOGICAL Hx Neurological Disorder: Yes Hx Alzheimer's Disease: No HX Cerebrovascular Accident: No Hx Dementia: No Hx Dizziness: Yes Hx Meningitis: No Hx Migraine: No Hx Parkinson's Disease: No Hx Seizures: Yes Hx Transient Ischemic Attacks (TIA): No - HEENT Hx HEENT Problems: Yes (Retina problems) Hx Blind: No Hx Cataracts: No Hx Deafness: No Hx Difficulty Chewing: No Hx Epistaxis: No Hx Glaucoma: No Hx Macular Degeneration: No - RENAL Hx Chronic Kidney Disease: No Hx Dialysis: No Hx Kidney Stones: No Hx Neurogenic Bladder: No Hx Pyelonephritis: No Hx Renal (Kidney) Cancer: No Hx Renal Failure: No - ENDOCRINE/METABOLIC Hx Endocrine Disorders: No Hx Adrenal Cancer: No Hx Diabetes Insipidus: No Hx Diabetes Mellitus Type 1: No Hx Diabetes Mellitus Type 2: No Hx Hyperthyroidism: No Hx Hypothyroidism: No Hx Systemic Lupus Erythematosus: No - HEMATOLOGICAL/ONCOLOGICAL Hx Blood Disorders: No Hx AIDS: No Hx Anemia: No Hx Cancer: No Hx Chemotherapy: No Hx Cirrhosis: Yes Hx Hemophilia: No Hx Hepatitis A: No Hx Hepatitis B: Yes Hx Hepatitis C: Yes Hx Human Immunodeficiency Virus (HIV): No Hx Metastesis: No Hx Shingles: No Hx Sickle Cell Disease: No Hx Unexplained Bleeding: No - INTEGUMENTARY Hx Dermatological Problems: No Hx Basil Cell: No Hx Eczema: No Hx Melanoma: No Hx Psoriasis: No Hx Squamous Cell: No - MUSCULOSKELETAL/RHEUMATOLOGICAL Hx Musculoskeletal Disorders: No Hx Arthritis: No Hx Back Pain: No Hx Degenerative Joint Disease: No Hx Falls: Yes Hx Fractures: No Hx Gout: No Hx Herniated Disk: No Hx Myasthenia Gravis: No Hx Osteoarthritis: No Hx Osteomyelitis: No Hx Osteoporosis: No Hx Rhabdomyolysis: No Hx Spinal Stenosis: No Hx Unsteady Gait: Yes - GASTROINTESTINAL Hx Gastrointestinal Disorders: Yes Hx Colostomy: No Hx Crohn's Disease: No Hx Diverticulitis: No Hx Gastroesophageal Reflux: Yes Hx Ileostomy: No Hx Liver Failure: No Hx Pancreatitis: No HX Swallowing Problems: No Hx Ulcer: No - GENITOURINARY/GYNECOLOGICAL Hx Genitourinary Disorders: No Hx Hematuria: No Hx Incontinence: No Hx Prostate Problems: No Hx Sexually Transmitted Disorders: No Hx Urinary Tract Infection: No - PSYCHIATRIC Hx Psychophysiologic Disorder: Yes (ETOH) Hx Anxiety: No Hx Bipolar Disorder: No Hx Depression: No Hx Emotional Abuse: No Hx Hallucinations: No Hx Panic Symptoms: No Hx Paranoia: No Hx Post Traumatic Stress Disorder: No Hx Psychosis: No Hx Physical Abuse: No Hx Schizophrenia: No Hx Sexual Abuse: No Hx Substance Use: No - SURGICAL HISTORY Hx Surgeries: No Hx Amputation: No Hx Appendectomy: No Hx Cardiac Catheterization: No Hx Cholecystectomy: No Hx Coronary Stent: No Hx Gastric Bypass Surgery: No Hx Hysterectomy: No Hx Joint Replacement: No Hx Kidney Transplant: No Hx Liver Transplant: No Hx Mastectomy: No Hx Musculoskeletal Surgery: No Hx Open Heart Surgery: No Hx Orthopedic Surgery: No Hx Splenectomy: No Hx Valve Replacement: No - ANESTHESIA Hx Anesthesia: Yes Hx Anesthesia Reactions: No Hx Malignant Hyperthermia: No Meds Allergies/Adverse Reactions: Allergies Allergy/AdvReac Type Severity Reaction Status Date / Time No Known Allergies Allergy Verified 02/08/18 20:29 - Medications Medications: Current Medications Albuterol/Ipratropium (Duoneb 3 Mg/0.5 Mg (3 Ml) Ud) 3 ml [facility] [id number] [facility] Last Admin: 02/09/18 07:43 Dose: 3 ml Chlordiazepoxide (Librium) 25 mg PO BID RORY PRN Reason: Protocol Heparin Sodium (Porcine) (Heparin) 5,000 units SC Q8 RORY PRN Reason: Protocol Last Admin: 02/09/18 06:57 Dose: 5,000 units Folic Acid 1 mg/ Thiamine HCl 100 mg/ Multivitamins/Vitamin C 10 ml/ Dextrose 1 ,011.2 mls @ 100 mls/hr IV .Q10H7M [facility] Last Admin: 02/09/18 03:28 Dose: 100 mls/hr Vancomycin HCl (Vancomycin 1gm) 1 gm in 250 mls @ 167 mls/hr IVPB DAILY [facility] PRN Reason: Protocol Piperacillin Sod/Tazobactam Sod (Zosyn 3.375 In Ns 100ml) 100 mls @ 200 mls/hr IVPB Q6 RORY PRN Reason: Protocol Stop: 02/09/18 18:29 Lisinopril (Zestril) 10 mg PO DAILY RORY Lorazepam (Ativan) 1 mg IVP Q4H PRN; Protocol PRN Reason: Symptoms of alcohol withdrawl Last Admin: 02/09/18 08:45 Dose: 1 mg Pantoprazole Sodium (Protonix Inj) 40 mg IVP DAILY [facility] Physical Exam - Constitutional Appears: Chronically Ill - Head Exam Head Exam: NORMAL INSPECTION - ENT Exam ENT Exam: Mucous Membranes Moist - Neck Exam Neck exam: Negative for: Lymphadenopathy, Meningismus - Respiratory Exam Respiratory Exam: Decreased Breath Sounds - Cardiovascular Exam Cardiovascular Exam: +S1, +S2 - GI/Abdominal Exam GI & Abdominal Exam: Soft. absent: Tenderness Results - Vital Signs Recent Vital Signs: Last Vital Signs Temp 98.8 F 02/09/18 06:00 Pulse 105 H 02/09/18 06:00 Resp 20 02/09/18 06:00 BP 155/80 H 02/09/18 06:00 Pulse Ox 94 L 02/09/18 06:00 - Labs Result Diagrams: 02/08/18 20:34 02/09/18 08:00 Labs: Laboratory Results - last 24 hr 02/09/18 02/09/18 02/09/18 05:30 08:00 08:00 APTT 29.1 Sodium 147 Potassium 3.0 L Chloride 107 Carbon Dioxide 26 Anion Gap 17 BUN 6 L Creatinine 0.9 Est GFR ( Amer) > 60 Est GFR (Non-Af Amer) > 60 Random Glucose 87 Calcium 8.4 Magnesium 1.4 L Total Bilirubin 1.1 AST 90 H D ALT 41 Alkaline Phosphatase 113 Ammonia 36 H Total Protein 7.4 Albumin 3.6 Globulin 3.9 Albumin/Globulin Ratio 0.9 L Assessment & Plan - Assessment and Plan (Free Text) Plan: Assessment consider bilateral lower lobe aspiration pneumonia history of sepsis due to left lower extremity skin and skin structure infection history of right thigh skin and skin structure infection with fluid collection Morbid obesity with BMI 44 COPD history of IVDA chronic leg edema history of seizures depression history of esophageal varices chronic active hepatitis C Plan started patient on Vancomycin, Zosyn and Doxycycline pending blood, sputum cx, PCT, urine Legionella Ag; reviewed CT chest will monitor clinically
[2018-02-09 12:17] LABS: ARTERIAL BLOOD GAS HCO3 27.7 mmol/L (21-28); ARTERIAL BLOOD GAS HEMOGLOBIN 11.8 g/dL (11.7-17.4); ARTERIAL BLOOD GAS O2 CAPACITY 16.3 mL/dl (16-24); ARTERIAL BLOOD GAS O2 CONTENT 16.2 ML/dl (15-23); ARTERIAL BLOOD GAS O2 SAT 99.2 % (95-98); ARTERIAL BLOOD GAS PCO2 39 mm/Hg (35-45); ARTERIAL BLOOD GAS PH 7.46 (7.35-7.45); ARTERIAL BLOOD GAS TCO2 28.9 mmol.L (22-28)
[2018-02-09] MEDS: Piperacillin/Tazobact 3.375 gm 100 ML IVPB SCH ×2 (14:13→18:33)
--- NOTE | 2018-02-09 15:02 | CP.PCM.CON ---
History of Present Illness - History of Present Illness History of Present Illness: PULMONARY CONSULT NOTE REASON FOR CONSULT: HYPOXIA, PNA HPI: Patient is 57yo male with PMHx of COPD, Hep C, Cirrhosis, TIPS, EtOH abuse, smoker 40pk years, PUD, esophaeal varices, pancreatitis, HTN, anemia, presented to the ER via EMS with AMS. As per records patient was found to be publicly intoxicated, noted ot be lethargic. Pt found to have bilaeral lower PNA on CT CHest with IV Contrast, and hypoxic on supp O2. Currently afebrile, HD stable, comfortable on NRB mask. Pt notes mild SOB with non productive cough. Denies fever, chills, chest pain, palpitations, GOMEZ, dizziness. PMH: COPD, Hepatitis B & C w/ Cirrhosis, PUD, esophageal varices, pancreatitis, Chronic Lower Extremity Edema, Venous insufficiency, EtOH abuse, GI bleed, medical non-compliance, depression with suicidal ideation, and homelessness PSH: Right eye surgery, Nose surgery SOCHX: PPD for 37 years, 3 beers daily, Denies illicit drug use FMH: DNC ALL: NKDA Medication: Denies Review of Systems - Review of Systems Review of Systems: as per HPI Past Patient History - Infectious Disease Hx of Infectious Diseases: None - Tetanus Immunizations Tetanus Immunization: Up to Date - Past Medical History & Family History Past Medical History?: Yes - Past Social History Smoking Status: Light Smoker < 10 Cigarettes Daily - CARDIAC Hx Cardiac Disorders: Yes Hx Angina: No Hx Cardia Arrhythmia: Yes Hx Circulatory Problems: No Hx Congestive Heart Failure: No Hx Heart Murmur: No Hx Heart Transplant: No Hx Hypercholesterolemia: No Hx Hypertension: Yes Hx Internal Defibrillator: No Hx Mitral Valve Prolapse: No Hx Pacemaker: No Hx Peripheral Edema: No Hx Peripheral Vascular Disease: No - PULMONARY Hx Respiratory Disorders: Yes Hx Asthma: Yes Hx Bronchitis: No Hx Chronic Obstructive Pulmonary Disease (COPD): Yes Hx Emphysema: No Hx Pneumonia: Yes Hx Respiratory Aspiration: No Hx Respiratory Tract Infection: No Hx Sleep Apnea: No Hx Tuberculosis: No - NEUROLOGICAL Hx Neurological Disorder: Yes Hx Alzheimer's Disease: No HX Cerebrovascular Accident: No Hx Dementia: No Hx Dizziness: Yes Hx Meningitis: No Hx Migraine: No Hx Parkinson's Disease: No Hx Seizures: Yes Hx Transient Ischemic Attacks (TIA): No - HEENT Hx HEENT Problems: Yes (Retina problems) Hx Blind: No Hx Cataracts: No Hx Deafness: No Hx Difficulty Chewing: No Hx Epistaxis: No Hx Glaucoma: No Hx Macular Degeneration: No - RENAL Hx Chronic Kidney Disease: No Hx Dialysis: No Hx Kidney Stones: No Hx Neurogenic Bladder: No Hx Pyelonephritis: No Hx Renal (Kidney) Cancer: No Hx Renal Failure: No - ENDOCRINE/METABOLIC Hx Endocrine Disorders: No Hx Adrenal Cancer: No Hx Diabetes Insipidus: No Hx Diabetes Mellitus Type 1: No Hx Diabetes Mellitus Type 2: No Hx Hyperthyroidism: No Hx Hypothyroidism: No Hx Systemic Lupus Erythematosus: No - HEMATOLOGICAL/ONCOLOGICAL Hx Blood Disorders: No Hx AIDS: No Hx Anemia: No Hx Cancer: No Hx Chemotherapy: No Hx Cirrhosis: Yes Hx Hemophilia: No Hx Hepatitis A: No Hx Hepatitis B: Yes Hx Hepatitis C: Yes Hx Human Immunodeficiency Virus (HIV): No Hx Metastesis: No Hx Shingles: No Hx Sickle Cell Disease: No Hx Unexplained Bleeding: No - INTEGUMENTARY Hx Dermatological Problems: No Hx Basil Cell: No Hx Eczema: No Hx Melanoma: No Hx Psoriasis: No Hx Squamous Cell: No - MUSCULOSKELETAL/RHEUMATOLOGICAL Hx Musculoskeletal Disorders: No Hx Arthritis: No Hx Back Pain: No Hx Degenerative Joint Disease: No Hx Falls: Yes Hx Fractures: No Hx Gout: No Hx Herniated Disk: No Hx Myasthenia Gravis: No Hx Osteoarthritis: No Hx Osteomyelitis: No Hx Osteoporosis: No Hx Rhabdomyolysis: No Hx Spinal Stenosis: No Hx Unsteady Gait: Yes - GASTROINTESTINAL Hx Gastrointestinal Disorders: Yes Hx Colostomy: No Hx Crohn's Disease: No Hx Diverticulitis: No Hx Gastroesophageal Reflux: Yes Hx Ileostomy: No Hx Liver Failure: No Hx Pancreatitis: No HX Swallowing Problems: No Hx Ulcer: No - GENITOURINARY/GYNECOLOGICAL Hx Genitourinary Disorders: No Hx Hematuria: No Hx Incontinence: No Hx Prostate Problems: No Hx Sexually Transmitted Disorders: No Hx Urinary Tract Infection: No - PSYCHIATRIC Hx Psychophysiologic Disorder: Yes (ETOH) Hx Anxiety: No Hx Bipolar Disorder: No Hx Depression: No Hx Emotional Abuse: No Hx Hallucinations: No Hx Panic Symptoms: No Hx Paranoia: No Hx Post Traumatic Stress Disorder: No Hx Psychosis: No Hx Physical Abuse: No Hx Schizophrenia: No Hx Sexual Abuse: No Hx Substance Use: No - SURGICAL HISTORY Hx Surgeries: No Hx Amputation: No Hx Appendectomy: No Hx Cardiac Catheterization: No Hx Cholecystectomy: No Hx Coronary Stent: No Hx Gastric Bypass Surgery: No Hx Hysterectomy: No Hx Joint Replacement: No Hx Kidney Transplant: No Hx Liver Transplant: No Hx Mastectomy: No Hx Musculoskeletal Surgery: No Hx Open Heart Surgery: No Hx Orthopedic Surgery: No Hx Splenectomy: No Hx Valve Replacement: No - ANESTHESIA Hx Anesthesia: Yes Hx Anesthesia Reactions: No Hx Malignant Hyperthermia: No Meds Allergies/Adverse Reactions: Allergies Allergy/AdvReac Type Severity Reaction Status Date / Time No Known Allergies Allergy Verified 02/08/18 20:29 - Medications Medications: Current Medications Albuterol/Ipratropium (Duoneb 3 Mg/0.5 Mg (3 Ml) Ud) 3 ml IH [id number] [facility] Last Admin: 02/09/18 11:47 Dose: 3 ml Chlordiazepoxide (Librium) 25 mg PO TID [facility] PRN Reason: Protocol Last Admin: 02/09/18 14:13 Dose: 25 mg Doxycycline Hyclate (Doryx) 100 mg PO Q12 [facility] PRN Reason: Protocol Last Admin: 02/09/18 10:26 Dose: 100 mg Heparin Sodium (Porcine) (Heparin) 5,000 units SC Q8 [facility] PRN Reason: Protocol Last Admin: 02/09/18 14:12 Dose: 5,000 units Folic Acid 1 mg/ Thiamine HCl 100 mg/ Multivitamins/Vitamin C 10 ml/ Dextrose 1 ,011.2 mls @ 100 mls/hr IV .Q10H7M [facility] Last Admin: 02/09/18 13:59 Dose: Not Given Piperacillin Sod/Tazobactam Sod (Zosyn 3.375 In Ns 100ml) 100 mls @ 200 mls/hr IVPB Q6 [facility] PRN Reason: Protocol Stop: 02/16/18 12:01 Last Admin: 02/09/18 14:13 Dose: 200 mls/hr Vancomycin HCl (Vancomycin 1gm) 1 gm in 250 mls @ 167 mls/hr IVPB Q12 [facility] PRN Reason: Protocol Last Admin: 02/09/18 11:52 Dose: 167 mls/hr Lisinopril (Zestril) 10 mg PO DAILY [facility] Last Admin: 02/09/18 10:26 Dose: 10 mg Lorazepam (Ativan) 1 mg IVP Q4H PRN; Protocol PRN Reason: Symptoms of alcohol withdrawl Last Admin: 02/09/18 12:26 Dose: 1 mg Pantoprazole Sodium (Protonix Inj) 40 mg IVP DAILY [facility] Last Admin: 02/09/18 10:27 Dose: 40 mg Physical Exam - Constitutional Appears: Non-toxic, No Acute Distress Additional comments: Obese - Head Exam Head Exam: NORMAL INSPECTION - Eye Exam Eye Exam: Normal appearance - ENT Exam ENT Exam: Mucous Membranes Moist - Neck Exam Neck exam: Positive for: Full Rom - Respiratory Exam Respiratory Exam: NORMAL BREATHING PATTERN Additional comments: decreased breath sounds at the bases - Cardiovascular Exam Cardiovascular Exam: REGULAR RHYTHM, +S1, +S2 - GI/Abdominal Exam GI & Abdominal Exam: Normal Bowel Sounds, Soft - Neurological Exam Neurological exam: Alert, Oriented x3 - Psychiatric Exam Psychiatric exam: Anxious Results - Vital Signs Recent Vital Signs: Last Vital Signs Temp 98.2 F 02/09/18 12:00 Pulse 95 H 02/09/18 12:00 Resp 20 02/09/18 12:00 BP 151/86 H 02/09/18 12:00 Pulse Ox 94 L 02/09/18 06:00 - Labs Result Diagrams: 02/08/18 20:34 02/09/18 08:00 Labs: Laboratory Results - last 24 hr 02/09/18 02/09/18 02/09/18 05:30 08:00 08:00 APTT 29.1 pCO2 pO2 HCO3 ABG pH ABG Total CO2 ABG O2 Saturation ABG O2 Content ABG Base Excess ABG Hemoglobin ABG Carboxyhemoglobin POC ABG HHb (Measured) ABG Methemoglobin ABG O2 Capacity Hgb O2 Saturation FiO2 Sodium 147 Potassium 3.0 L Chloride 107 Carbon Dioxide 26 Anion Gap 17 BUN 6 L Creatinine 0.9 Est GFR ( Amer) > 60 Est GFR (Non-Af Amer) > 60 Random Glucose 87 Calcium 8.4 Magnesium 1.4 L Total Bilirubin 1.1 AST 90 H D ALT 41 Alkaline Phosphatase 113 Ammonia 36 H Total Protein 7.4 Albumin 3.6 Globulin 3.9 Albumin/Globulin Ratio 0.9 L 02/09/18 12:08 APTT pCO2 39 pO2 97.0 HCO3 27.7 ABG pH 7.46 H ABG Total CO2 28.9 H ABG O2 Saturation 99.2 H ABG O2 Content 16.2 ABG Base Excess 3.7 H ABG Hemoglobin 11.8 ABG Carboxyhemoglobin 1.7 H POC ABG HHb (Measured) 0.8 ABG Methemoglobin 0.6 ABG O2 Capacity 16.3 Hgb O2 Saturation 96.9 FiO2 100.0 Sodium Potassium Chloride Carbon Dioxide Anion Gap BUN Creatinine Est GFR ( Amer) Est GFR (Non-Af Amer) Random Glucose Calcium Magnesium Total Bilirubin AST ALT Alkaline Phosphatase Ammonia Total Protein Albumin Globulin Albumin/Globulin Ratio - Imaging and Cardiology CT scan - chest Status: Image reviewed by me, Report reviewed by me Chest x-ray Status: Image reviewed by me, Report reviewed by me Assessment & Plan - Assessment and Plan (Free Text) Assessment: 57yo male a/w PNA, Hypoxia PNA COPD SOB Hypoxia - currently abfebrile, HD stable, comfortable in NAD, on NRB mask, ABG noted - would switch to high flow 50LPM, titrate to goal sat 92% - cont with antibiotics as per ID - start Solumedrol 40mg IV q12hr - check urine Legionella, Strep - Duonebs q4hr PRN - DVT ppx - GI ppx - Tele monitoring
[2018-02-09] MEDS: MethylPREDNISolone 40 mg Vial IVP SCH (22:29)
[2018-02-09 23:58] VITALS: RESP 20
[2018-02-10] MEDS: Piperacillin/Tazobact 3.375 gm 100 ML IVPB SCH ×4 (00:39→17:23)
[2018-02-10] MEDS: Albuterol-Ipratrop 3 mg / 0.5 (3 ml) UD IH SCH ×6 (04:42→23:43)
[2018-02-10 06:38] LABS: MEAN CELL VOLUME 80.7 fl (80.0-105.0); MEAN CORPUSCULAR HEMOGLOBIN 26.5 pg (25.0-35.0); MEAN CORPUSCULAR HGB CONC 32.9 g/dl (31.0-37.0); RBC 4.6 10^6/uL (3.5-6.1); RED CELL DISTRIBUTION WIDTH 16.6 % (11.5-14.5); WHITE BLOOD COUNT 3.6 10^3/ul (4.5-11.0)
[2018-02-10] MEDS: Pantoprazole 40 mg EC Tab PO SCH ×2 (06:45→08:21)
[2018-02-10 06:46] LABS: HEMOGLOBIN 12.2 g/dL (14.0-18.0)
[2018-02-10] MEDS ORDERED: Pantoprazole 40 mg EC Tab PO SCH (07:30)
[2018-02-10 07:36] LABS: ALB/GLOB RATIO 0.8 (1.1-1.8); ALBUMIN 3.3 g/dL (3.0-4.8); ALT/SGPT 31 U/L (7-56); AST/SGOT 66 U/L (17-59); BLOOD UREA NITROGEN 7 mg/dL (7-21); CALCIUM 7.9 mg/dL (8.4-10.5); GFR AFRICAN-AMERICAN > 60; GFR NON-AFRICAN AMERICAN > 60
[2018-02-10] MEDS ORDERED: Magnesium Sulfate 2 GM in Sodium Chloride 0.9% 100 ML IVPB ONE ×2 (07:46→17:06)
[2018-02-10] MEDS ORDERED: Potassium & Sodium Phosphate PO ONE (07:48)
[2018-02-10] MEDS: MethylPREDNISolone 40 mg Vial IVP SCH ×2 (09:28→22:15)
--- NOTE | 2018-02-10 09:53 | CP.PCM.PN ---
<Allie Cadet - Last Filed: 02/10/18 10:53> Subjective - Date & Time of Evaluation Date of Evaluation: 02/10/18 Time of Evaluation: 09:53 - Subjective Subjective: Allie Cadet, PGY1, Progress Note for Dr Ramirez: Patient seen and examined at bedside. Pt agitated overnight, given 1 mg IV ativan. Pt remains on HFNC, saturating well. Denies fever, chills, nausea, vomiting, auditory/visual hallucinations, dipahoresis. + tremors. CIWA 5. Objective - Vital Signs/Intake and Output Vital Signs (last 24 hours): Temp Pulse Resp BP Pulse Ox 98.0 F 89 20 152/80 H 93 L 02/10/18 06:00 02/10/18 09:34 02/10/18 06:00 02/10/18 09:34 02/10/18 06:00 - Medications Medications: Current Medications Albuterol/Ipratropium (Duoneb 3 Mg/0.5 Mg (3 Ml) Ud) 3 ml IH [id number] [facility] Last Admin: 02/10/18 08:14 Dose: 3 ml Chlordiazepoxide (Librium) 25 mg PO BID [facility] PRN Reason: Protocol Doxycycline Hyclate (Doryx) 100 mg PO Q12 [facility] PRN Reason: Protocol Last Admin: 02/10/18 09:29 Dose: 100 mg Folic Acid (Folic Acid) 1 mg PO DAILY [facility] Last Admin: 02/10/18 09:28 Dose: 1 mg Heparin Sodium (Porcine) (Heparin) 5,000 units SC Q8 [facility] PRN Reason: Protocol Last Admin: 02/10/18 06:45 Dose: 5,000 units Piperacillin Sod/Tazobactam Sod (Zosyn 3.375 In Ns 100ml) 100 mls @ 200 mls/hr IVPB Q6 [facility] PRN Reason: Protocol Stop: 02/16/18 12:01 Last Admin: 02/10/18 06:44 Dose: 200 mls/hr Vancomycin HCl (Vancomycin 1gm) 1 gm in 250 mls @ 167 mls/hr IVPB Q12 [facility] PRN Reason: Protocol Last Admin: 02/09/18 22:28 Dose: 167 mls/hr Lisinopril (Zestril) 10 mg PO DAILY [facility] Last Admin: 02/10/18 09:34 Dose: 10 mg Lorazepam (Ativan) 1 mg IVP Q4H PRN; Protocol PRN Reason: Symptoms of alcohol withdrawl Last Admin: 02/10/18 00:40 Dose: 1 mg Methylprednisolone (Solu-Medrol) 40 mg IVP Q12 [facility] Last Admin: 02/10/18 09:28 Dose: 40 mg Multivitamins (Thera Tab) 1 tab PO DAILY [facility] Last Admin: 02/10/18 09:28 Dose: 1 tab Pantoprazole Sodium (Protonix Ec Tab) 40 mg PO ACB [facility] Last Admin: 02/10/18 08:21 Dose: Not Given Thiamine HCl (Vitamin B1 Tab) 100 mg PO DAILY [facility] Last Admin: 02/10/18 09:32 Dose: 100 mg - Labs Labs: 02/10/18 05:30 02/10/18 06:00 PT 12.8 SECONDS (9.4-12.5) H 02/08/18 20:34 INR 1.12 (0.93-1.08) H 02/08/18 20:34 APTT 29.4 Seconds (25.1-36.5) 02/10/18 05:30 - Constitutional Appears: Non-toxic, No Acute Distress - Head Exam Head Exam: ATRAUMATIC, NORMOCEPHALIC - Eye Exam Eye Exam: EOMI, PERRL. absent: Conjunctival injection, Nystagmus, Scleral icterus Pupil Exam: NORMAL ACCOMODATION, PERRL. absent: Fixed, Irregular, Unequal - ENT Exam ENT Exam: Mucous Membranes Moist - Neck Exam Neck Exam: Full ROM - Respiratory Exam Respiratory Exam: Clear to Ausculation Bilateral, NORMAL BREATHING PATTERN. absent: Accessory Muscle Use, Rhonchi, Wheezes, Respiratory Distress, Stridor - Cardiovascular Exam Cardiovascular Exam: RRR, +S1, +S2. absent: Murmur - GI/Abdominal Exam GI & Abdominal Exam: Soft, Normal Bowel Sounds. absent: Distended, Guarding, Rigid, Tenderness, Mass, Organomegaly, Rebound - Extremities Exam Extremities Exam: Normal Inspection. absent: Calf Tenderness, Pedal Edema - Back Exam Back Exam: NORMAL INSPECTION - Neurological Exam Neurological Exam: Alert, Awake, Oriented x3 - Psychiatric Exam Psychiatric exam: Normal Affect, Normal Mood - Skin Skin Exam: Dry, Normal Color, Warm Assessment and Plan - Assessment and Plan (Free Text) Assessment: 57 year old male with a PMHx of COPD, Hepatitis B & C w/ Cirrhosis, PUD, esophageal varices, pancreatitis, Chronic Lower Extremity Edema, Venous insufficiency, EtOH abuse, GI bleed, medical non-compliance, admitted for hypoxia 2/2 likely bilateral PNA, alcohol withdrawal: Hypoxia: 2/2 bilateral pneumonia (HCAP, vs aspiration in alcoholic), COPD - On HFNC, will wean down to 30%FiO2/30 L/min - CT chest shows bibasilar consildation suspicious for pna, less likely atelectasis; neg for PE - ID on board. appreciate recs - On vanco, zosyn, doxy - solumedrol 40 IV BID - Duoneb - Maintain O2 sat>92% - Pulm consulted. F/u recs. - Procal low Alcohol Intoxication/withdrawal - Ativan 1mg Q4HPrn - Librium 25 BID - CIWA, seizure, fall precaution, aspiration precauation - Thiamine, Folic Acid, Multivitamin Hx of chronic lower extremity edemea - Likely venous insufficneity, PVD, diastolic CHF - ECHO (01/25/18): Normal EF, trace AR, MR, TR, RVSP 35mmHG, no vegetation - Monitor Electrolyte abnormalities: - Hypomagnesemia - repleted - [hypophosphatemia - repleted - Recheck Mag in the afternoon Hx of HTN - Continue Lisinopril 10mg DVT ppx: Heparin GI ppx: Protonix Case and plan discussed with attending Dr Ramirez. Allie Cadet, PGY1 <Antonio Ramirez - Last Filed: 02/10/18 13:42> Objective - Vital Signs/Intake and Output Vital Signs (last 24 hours): Temp Pulse Resp BP Pulse Ox 98.0 F 89 20 152/80 H 93 L 02/10/18 06:00 02/10/18 09:34 02/10/18 06:00 02/10/18 09:34 02/10/18 06:00 - Medications Medications: Current Medications Albuterol/Ipratropium (Duoneb 3 Mg/0.5 Mg (3 Ml) Ud) 3 ml IH [id number] [facility] Last Admin: 02/10/18 11:22 Dose: 3 ml Chlordiazepoxide (Librium) 25 mg PO BID [facility] PRN Reason: Protocol Last Admin: 02/10/18 11:05 Dose: Not Given Doxycycline Hyclate (Doryx) 100 mg PO Q12 [facility] PRN Reason: Protocol Last Admin: 02/10/18 09:29 Dose: 100 mg Folic Acid (Folic Acid) 1 mg PO DAILY [facility] Last Admin: 02/10/18 09:28 Dose: 1 mg Heparin Sodium (Porcine) (Heparin) 5,000 units SC Q8 [facility] PRN Reason: Protocol Last Admin: 02/10/18 06:45 Dose: 5,000 units Piperacillin Sod/Tazobactam Sod (Zosyn 3.375 In Ns 100ml) 100 mls @ 200 mls/hr IVPB Q6 [facility] PRN Reason: Protocol Stop: 02/16/18 12:01 Last Admin: 02/10/18 06:44 Dose: 200 mls/hr Vancomycin HCl (Vancomycin 1gm) 1 gm in 250 mls @ 167 mls/hr IVPB Q12 [facility] PRN Reason: Protocol Last Admin: 02/10/18 11:02 Dose: 167 mls/hr Lisinopril (Zestril) 10 mg PO DAILY [facility] Last Admin: 02/10/18 09:34 Dose: 10 mg Lorazepam (Ativan) 1 mg IVP Q4H PRN; Protocol PRN Reason: Symptoms of alcohol withdrawl Last Admin: 02/10/18 00:40 Dose: 1 mg Methylprednisolone (Solu-Medrol) 40 mg IVP Q12 [facility] Last Admin: 02/10/18 09:28 Dose: 40 mg Multivitamins (Thera Tab) 1 tab PO DAILY [facility] Last Admin: 02/10/18 09:28 Dose: 1 tab Pantoprazole Sodium (Protonix Ec Tab) 40 mg PO ACB [facility] Last Admin: 02/10/18 08:21 Dose: Not Given Thiamine HCl (Vitamin B1 Tab) 100 mg PO DAILY [facility] Last Admin: 02/10/18 09:32 Dose: 100 mg - Labs Labs: 02/10/18 05:30 02/10/18 06:00 PT 12.8 SECONDS (9.4-12.5) H 02/08/18 20:34 INR 1.12 (0.93-1.08) H 02/08/18 20:34 APTT 29.4 Seconds (25.1-36.5) 02/10/18 05:30 Attending/Attestation - Attestation I have personally seen and examined this patient.: Yes I have fully participated in the care of the patient.: Yes I have reviewed all pertinent clinical information, including history, physical exam and plan: Yes Notes (Text): 02/10/18 13:37 57 year old male with past medical history of COPD, hepatitis C, PUD, esophageal varices, ETOH abuse, and noncompliance who presented with hypoxia and alcohol intoxication / withdrawal. He was found to have bilateral lower lobe pneumonia. Continue with iv antibiotics as per ID. Continue with iv steroids and duonebs. Pulmonary evaluation was appreciated. Continue to taper oxygen as tolerated. Continue with librium and ativan taper. Continue with multivitamin, folic acid and thiamine. He was counselled on smoking and alcohol cessation. Will replete and repeat lytes. Antonio Ramirez MD Hospitalist.
[2018-02-10] MEDS ORDERED: Multivitamin Therapeutic Tab PO SCH (10:00)
[2018-02-10] MEDS: Vancomycin 1gm in NS 250ml 1 GM/250 ML BAG IVPB SCH ×2 (11:02→22:14)
--- NOTE | 2018-02-10 11:35 | CP.PCM.PN ---
Subjective - Date & Time of Evaluation Date of Evaluation: 02/10/18 Time of Evaluation: 10:10 - Subjective Subjective: Resting comfortably in bed, no fevers, not in distress. Objective - Vital Signs/Intake and Output Vital Signs (last 24 hours): Temp Pulse Resp BP Pulse Ox 99.3 F 99 H 20 142/78 100 02/09/18 23:57 02/10/18 06:00 02/09/18 23:57 02/09/18 23:57 02/09/18 23:57 Intake and Output: 02/09/18 02/10/18 18:59 06:59 Intake Total 1950 Balance 1950 - Medications Medications: Current Medications Albuterol/Ipratropium (Duoneb 3 Mg/0.5 Mg (3 Ml) Ud) 3 ml IH [id number] [facility] Last Admin: 02/10/18 04:42 Dose: 3 ml Chlordiazepoxide (Librium) 25 mg PO TID [facility] PRN Reason: Protocol Last Admin: 02/09/18 18:32 Dose: 25 mg Doxycycline Hyclate (Doryx) 100 mg PO Q12 [facility] PRN Reason: Protocol Last Admin: 02/09/18 22:29 Dose: 100 mg Folic Acid (Folic Acid) 1 mg PO DAILY [facility] Heparin Sodium (Porcine) (Heparin) 5,000 units SC Q8 [facility] PRN Reason: Protocol Last Admin: 02/09/18 22:29 Dose: 5,000 units Piperacillin Sod/Tazobactam Sod (Zosyn 3.375 In Ns 100ml) 100 mls @ 200 mls/hr IVPB Q6 [facility] PRN Reason: Protocol Stop: 02/16/18 12:01 Last Admin: 02/10/18 00:39 Dose: 200 mls/hr Vancomycin HCl (Vancomycin 1gm) 1 gm in 250 mls @ 167 mls/hr IVPB Q12 [facility] PRN Reason: Protocol Last Admin: 02/09/18 22:28 Dose: 167 mls/hr Lisinopril (Zestril) 10 mg PO DAILY [facility] Last Admin: 02/09/18 10:26 Dose: 10 mg Lorazepam (Ativan) 1 mg IVP Q4H PRN; Protocol PRN Reason: Symptoms of alcohol withdrawl Last Admin: 02/10/18 00:40 Dose: 1 mg Methylprednisolone (Solu-Medrol) 40 mg IVP Q12 [facility] Last Admin: 02/09/18 22:29 Dose: 40 mg Multivitamins (Thera Tab) 1 tab PO DAILY [facility] Pantoprazole Sodium (Protonix Ec Tab) 40 mg PO ACB [facility] Thiamine HCl (Vitamin B1 Tab) 100 mg PO DAILY [facility] - Labs Labs: 02/09/18 08:00 PT 12.8 SECONDS (9.4-12.5) H 02/08/18 20:34 INR 1.12 (0.93-1.08) H 02/08/18 20:34 APTT 29.1 Seconds (25.1-36.5) 02/09/18 05:30 - Constitutional Appears: Chronically Ill - Head Exam Head Exam: NORMAL INSPECTION - ENT Exam ENT Exam: Mucous Membranes Moist - Neck Exam Neck Exam: absent: Lymphadenopathy, Meningismus - Respiratory Exam Respiratory Exam: Decreased Breath Sounds - Cardiovascular Exam Cardiovascular Exam: +S1, +S2 - GI/Abdominal Exam GI & Abdominal Exam: Soft. absent: Tenderness Assessment and Plan - Assessment and Plan (Free Text) Plan: Assessment consider bilateral lower lobe aspiration pneumonia history of sepsis due to left lower extremity skin and skin structure infection history of right thigh skin and skin structure infection with fluid collection Morbid obesity with BMI 44 COPD history of IVDA chronic leg edema history of seizures depression history of esophageal varices chronic active hepatitis C Plan continue Vancomycin, Zosyn and Doxycycline day 2; blood cx are negative; PCT is <0.05; reviewed CT chest; if cultures continue to be negative, will de-escalate to PO antibiotics by tomorrow will continue to monitor clinically
[2018-02-10] MEDS ORDERED: A C T ELECTRONICS XX ONE (13:57)
--- NOTE | 2018-02-10 15:45 | CP.PCM.PN ---
Subjective - Date & Time of Evaluation Date of Evaluation: 02/10/18 Time of Evaluation: 11:00 - Subjective Subjective: Patient seen and examined. Resting in bed comfortably, reports mild SOB and cough. Denies fever, chills. Started on high flow O2 yesterday, tolerating it well, 50%, 50LPM. Objective - Vital Signs/Intake and Output Vital Signs (last 24 hours): Temp Pulse Resp BP Pulse Ox 98.4 F 88 20 151/83 H 93 L 02/10/18 12:00 02/10/18 12:00 02/10/18 12:00 02/10/18 12:00 02/10/18 06:00 - Medications Medications: Current Medications Albuterol/Ipratropium (Duoneb 3 Mg/0.5 Mg (3 Ml) Ud) 3 ml IH [id number] [facility] Last Admin: 02/10/18 11:22 Dose: 3 ml Chlordiazepoxide (Librium) 25 mg PO BID [facility] PRN Reason: Protocol Last Admin: 02/10/18 11:05 Dose: Not Given Doxycycline Hyclate (Doryx) 100 mg PO Q12 [facility] PRN Reason: Protocol Last Admin: 02/10/18 09:29 Dose: 100 mg Folic Acid (Folic Acid) 1 mg PO DAILY [facility] Last Admin: 02/10/18 09:28 Dose: 1 mg Heparin Sodium (Porcine) (Heparin) 5,000 units SC Q8 [facility] PRN Reason: Protocol Last Admin: 02/10/18 13:38 Dose: 5,000 units Piperacillin Sod/Tazobactam Sod (Zosyn 3.375 In Ns 100ml) 100 mls @ 200 mls/hr IVPB Q6 [facility] PRN Reason: Protocol Stop: 02/16/18 12:01 Last Admin: 02/10/18 13:38 Dose: 200 mls/hr Vancomycin HCl (Vancomycin 1gm) 1 gm in 250 mls @ 167 mls/hr IVPB Q12 [facility] PRN Reason: Protocol Last Admin: 02/10/18 11:02 Dose: 167 mls/hr Lisinopril (Zestril) 10 mg PO DAILY [facility] Last Admin: 02/10/18 09:34 Dose: 10 mg Lorazepam (Ativan) 1 mg IVP Q4H PRN; Protocol PRN Reason: Symptoms of alcohol withdrawl Last Admin: 02/10/18 00:40 Dose: 1 mg Methylprednisolone (Solu-Medrol) 40 mg IVP Q12 [facility] Last Admin: 02/10/18 09:28 Dose: 40 mg Multivitamins (Thera Tab) 1 tab PO DAILY [facility] Last Admin: 02/10/18 09:28 Dose: 1 tab Pantoprazole Sodium (Protonix Ec Tab) 40 mg PO ACB [facility] Last Admin: 02/10/18 08:21 Dose: Not Given Thiamine HCl (Vitamin B1 Tab) 100 mg PO DAILY [facility] Last Admin: 02/10/18 09:32 Dose: 100 mg - Labs Labs: 02/10/18 05:30 02/10/18 06:00 PT 12.8 SECONDS (9.4-12.5) H 02/08/18 20:34 INR 1.12 (0.93-1.08) H 02/08/18 20:34 APTT 29.4 Seconds (25.1-36.5) 02/10/18 05:30 - Constitutional Appears: Non-toxic, No Acute Distress - Head Exam Head Exam: NORMAL INSPECTION - Eye Exam Eye Exam: Normal appearance - ENT Exam ENT Exam: Mucous Membranes Moist - Respiratory Exam Respiratory Exam: Clear to Ausculation Bilateral, NORMAL BREATHING PATTERN - GI/Abdominal Exam GI & Abdominal Exam: Soft, Normal Bowel Sounds - Back Exam Back Exam: NORMAL INSPECTION - Neurological Exam Neurological Exam: Alert, Awake, Oriented x3 - Skin Skin Exam: Normal Color, Warm Assessment and Plan - Assessment and Plan (Free Text) Assessment: 57yo male a/w PNA, Hypoxia PNA COPD SOB Hypoxia - currently abfebrile, HD stable, comfortable in NAD, on high flow O2, 50%, 50LPM - titrate down FiO2, goal sat 92% - cont with antibiotics as per ID, if cultures continue to be negative would switch to PO Abx - taper Solumedrol 40mg IV q12hr to Prednisone 40mg PO daily x 5 days - Duonebs q4hr PRN - DVT ppx - GI ppx - stable, cont tele monitoring
[2018-02-10 23:55] VITALS: BP 146/90; TEMP 98.2; O2SAT 96
[2018-02-11] MEDS: Piperacillin/Tazobact 3.375 gm 100 ML IVPB SCH ×2 (00:06→06:05)
[2018-02-11] MEDS: Albuterol-Ipratrop 3 mg / 0.5 (3 ml) UD IH SCH ×2 (04:05→07:31)
[2018-02-11 05:23] VITALS: PULSE 85
[2018-02-11] MEDS: Pantoprazole 40 mg EC Tab PO SCH (06:58)
--- NOTE | 2018-02-11 19:29 | CP.PCM.DIS ---
<Allie Cadet - Last Filed: 02/11/18 19:26> Provider - Provider Date of Admission: 02/09/18 03:41 Attending physician: Antonio Ramirez MD Consults: Gemini Kyle Time Spent in preparation of Discharge (in minutes): 60 Diagnosis - Discharge Diagnosis (1) COPD exacerbation Status: Acute (2) Aspiration pneumonia Status: Acute (3) Alcohol intoxication Status: Acute (4) Alcohol withdrawal syndrome Status: Acute Hospital Course - Lab Results Lab Results: Micro Results 02/09/18 10:00 Blood-Venous Blood Culture - Preliminary NO GROWTH AFTER 48 HOURS 02/09/18 10:20 Blood-Venous Blood Culture - Preliminary NO GROWTH AFTER 48 HOURS Most Recent Lab Values WBC 3.6 10^3/ul (4.5-11.0) L D 02/10/18 05:30 RBC 4.60 10^6/uL (3.5-6.1) 02/10/18 05:30 Hgb 12.2 g/dL (14.0-18.0) L D 02/10/18 05:30 Hct 37.1 % (42.0-52.0) L 02/10/18 05:30 MCV 80.7 fl (80.0-105.0) 02/10/18 05:30 MCH 26.5 pg (25.0-35.0) 02/10/18 05:30 MCHC 32.9 g/dl (31.0-37.0) 02/10/18 05:30 RDW 16.6 % (11.5-14.5) H 02/10/18 05:30 Plt Count 134 10^3/uL (120.0-450.0) 02/10/18 05:30 MPV 11.0 fl (7.0-11.0) 02/10/18 05:30 Gran % 35.0 % (50.0-68.0) L 02/08/18 20:34 Lymph % (Auto) 46.6 % (22.0-35.0) H 02/08/18 20:34 Chambers % (Auto) 10.5 % (1.0-6.0) H 02/08/18 20:34 Eos % (Auto) 5.8 % (1.5-5.0) H 02/08/18 20:34 Baso % (Auto) 2.1 % (0.0-3.0) 02/08/18 20:34 Gran # 3.58 (1.4-6.5) 02/08/18 20:34 Lymph # (Auto) 4.8 (1.2-3.4) H 02/08/18 20:34 Chambers # (Auto) 1.1 (0.1-0.6) H 02/08/18 20:34 Eos # (Auto) 0.6 (0.0-0.7) 02/08/18 20:34 Baso # (Auto) 0.22 K/mm3 (0.0-2.0) 02/08/18 20:34 PT 12.8 SECONDS (9.4-12.5) H 02/08/18 20:34 INR 1.12 (0.93-1.08) H 02/08/18 20:34 APTT 29.4 Seconds (25.1-36.5) 02/10/18 05:30 pCO2 39 mm/Hg (35-45) 02/09/18 12:08 pO2 97.0 mm/Hg (80-100) 02/09/18 12:08 HCO3 27.7 mmol/L (21-28) 02/09/18 12:08 ABG pH 7.46 (7.35-7.45) H 02/09/18 12:08 ABG Total CO2 28.9 mmol.L (22-28) H 02/09/18 12:08 ABG O2 Saturation 99.2 % (95-98) H 02/09/18 12:08 ABG O2 Content 16.2 ML/dl (15-23) 02/09/18 12:08 ABG Base Excess 3.7 mmol/L (-2.0-3.0) H 02/09/18 12:08 ABG Hemoglobin 11.8 g/dL (11.7-17.4) 02/09/18 12:08 ABG Carboxyhemoglobin 1.7 % (0.5-1.5) H 02/09/18 12:08 POC ABG HHb (Measured) 0.8 % (0-5) 02/09/18 12:08 ABG Methemoglobin 0.6 % (0.0-3.0) 02/09/18 12:08 ABG O2 Capacity 16.3 mL/dl (16-24) 02/09/18 12:08 ABG Potassium 2.8 mmol/L (3.6-5.2) L 02/08/18 22:36 Hgb O2 Saturation 96.9 % (95.0-98.0) 02/09/18 12:08 Sodium 144.0 mmol/L (132-148) 02/08/18 22:36 Chloride 111.0 mmol/L (98-107) H 02/08/18 22:36 Glucose 102 mg/dl (75-110) 02/08/18 22:36 Lactate 1.7 mmol/L (0.7-2.1) 02/08/18 22:36 FiO2 100.0 % 02/09/18 12:08 Sodium 142 mmol/L (132-148) 02/10/18 06:00 Potassium 3.9 mmol/L (3.6-5.0) 02/10/18 06:00 Chloride 104 mmol/L (98-107) 02/10/18 06:00 Carbon Dioxide 26 mmol/L (21-33) 02/10/18 06:00 Anion Gap 16 (10-20) 02/10/18 06:00 BUN 7 mg/dL (7-21) 02/10/18 06:00 Creatinine 0.8 mg/dl (0.8-1.5) 02/10/18 06:00 Est GFR ( Amer) > 60 02/10/18 06:00 Est GFR (Non-Af Amer) > 60 02/10/18 06:00 POC Glucose (mg/dL) 85 mg/dL (65-110) 02/08/18 20:34 Random Glucose 129 mg/dL (70-110) H 02/10/18 06:00 Calcium 7.9 mg/dL (8.4-10.5) L 02/10/18 06:00 Phosphorus 2.4 mg/dL (2.5-4.5) L 02/10/18 06:00 Magnesium 1.5 mg/dL (1.7-2.2) L 02/10/18 15:30 Total Bilirubin 2.1 mg/dL (0.2-1.3) H 02/10/18 06:00 AST 66 U/L (17-59) H D 02/10/18 06:00 ALT 31 U/L (7-56) 02/10/18 06:00 Alkaline Phosphatase 111 U/L (38-126) 02/10/18 06:00 Ammonia 36 umol/L (9-33) H 02/09/18 08:00 Lactate Dehydrogenase 926 U/L (333-699) H 02/08/18 20:34 Total Creatine Kinase 231 U/L (35-230) H 02/08/18 20:34 CK-MB (CK-2) 1.4 ng/mL (0.0-3.6) 02/08/18 20:34 CK-MB (CK-2) % Cancelled 02/08/18 20:34 Troponin I < 0.01 ng/mL 02/08/18 20:34 Total Protein 7.3 g/dL (5.8-8.3) 02/10/18 06:00 Albumin 3.3 g/dL (3.0-4.8) 02/10/18 06:00 Globulin 4.0 gm/dL 02/10/18 06:00 Albumin/Globulin Ratio 0.8 (1.1-1.8) L 02/10/18 06:00 Procalcitonin < 0.05 NG/ML (0.19-0.49) L 02/09/18 10:00 Arterial Blood Potassium 2.8 mmol/L (3.6-5.2) L 02/08/18 22:36 Urine Color Yellow (YELLOW) 02/09/18 01:21 Urine Appearance Clear (CLEAR) 02/09/18 01:21 Urine pH 6.0 (4.7-8.0) 02/09/18 01:21 Ur Specific F[place] 1.020 (1.005-1.035) 02/09/18 01:21 Urine Protein 100 mg/dL (<30 mg/dL) H 02/09/18 01:21 Urine Glucose (UA) Negative mg/dL (NEGATIVE) 02/09/18 01:21 Urine Ketones Negative mg/dL (NEGATIVE) 02/09/18 01:21 Urine Blood Trace-intact (NEGATIVE) H 02/09/18 01:21 Urine Nitrate Negative (NEGATIVE) 02/09/18 01:21 Urine Bilirubin Negative (NEGATIVE) 02/09/18 01:21 Urine Urobilinogen 0.2 E.U./dL (<1 E.U./dL) 02/09/18 01:21 Ur Leukocyte Esterase Negative Mendel/uL (NEGATIVE) 02/09/18 01:21 Urine RBC 0 - 2 /hpf (0-2) 02/09/18 01:21 Urine WBC 0 - 2 /hpf (0-6) 02/09/18 01:21 Ur Epithelial Cells 0 - 2 /hpf (0-5) 02/09/18 01:21 Urine Opiates Screen Negative (NEGATIVE) 02/09/18 01:21 Urine Methadone Screen Negative (NEGATIVE) 02/09/18 01:21 Ur Barbiturates Screen Negative (NEGATIVE) 02/09/18 01:21 Ur Phencyclidine Scrn Negative (NEGATIVE) 02/09/18 01:21 Ur Amphetamines Screen Negative (NEGATIVE) 02/09/18 01:21 U Benzodiazepines Scrn Positive (NEGATIVE) 02/09/18 01:21 U Oth Cocaine Metabols Negative (NEGATIVE) 02/09/18 01:21 U Cannabinoids Screen Negative (NEGATIVE) 02/09/18 01:21 Alcohol, Quantitative 245 mg/dL (0-10) H 02/08/18 20:34 Ur L.pneumophila Ag Negative (NEGATIVE) 02/09/18 18:16 - Hospital Course Hospital Course: 57 year old male with past medical history that includes COPD, Hepatitis C, cirrhosis, TIPS procedure, alcohol abuse/withdrawal, PUD, esophageal varices, pacreatitis, chronic lower extremity edema, hypertension, anemia who presented to [facility] ED via EMS with AMS. Pt found to be hypoxic initially 2/2 bilateral aspiration pneumonia. Pt treated empirically with IV antibiotics, IV solumedrol and duonebs for COPD exacerbation. Pt initially placed on bipap. weaned down to HFNC, then to room air (saturating well). Pt also treated for alcohol withdrawal. Today, pt was doing well, then became agitated as he was not given additional pain medications, stated that he wants to leave AMA. Pt advised the risks of leaving and benefits of getting treatment. States that he understands. Case seen and discussed with Dr Ramirez. Allie Cadet, PGY1 Discharge Exam - Head Exam Head Exam: NORMAL INSPECTION - Eye Exam Eye Exam: EOMI, PERRL. absent: Conjunctival injection, Nystagmus, Periorbital swelling, Scleral icterus Pupil Exam: NORMAL ACCOMODATION, PERRL. absent: Fixed, Irregular, Unequal - ENT Exam ENT Exam: Mucous Membranes Moist - Neck Exam Neck exam: Full Rom - Respiratory Exam Respiratory Exam: Clear to PA & Lateral, NORMAL BREATHING PATTERN. absent: Accessory Muscle Use, Chest Wall Tenderness, Respiratory Distress, Stridor - GI/Abdominal Exam GI & Abdominal Exam: Normal Bowel Sounds, Soft. absent: Distended, Firm, Mass, Rebound, Rigid, Tenderness - Extremities Exam Extremities exam: normal inspection - Back Exam Back exam: NORMAL INSPECTION - Neurological Exam Neurological exam: Alert, Oriented x3 - Psychiatric Exam Psychiatric exam: Agitated - Skin Skin Exam: Dry, Normal Color, Warm Discharge Plan - Follow Up Plan Condition: GUARDED Disposition: AGAINST MEDICAL ADVICE Patient education suggested?: Yes Instructions: Alcohol Withdrawal, Alcohol Abuse and Alcoholism (DC), Alcohol Intoxication (DC), Alcohol Use Disorder (DC) Referrals: [facility], [Non-Staff] - <Antonio Ramirez - Last Filed: 02/12/18 07:47> Provider - Provider Date of Admission: 02/09/18 03:41 Attending physician: Antonio Ramirez MD Hospital Course - Lab Results Lab Results: Micro Results 02/09/18 10:00 Blood-Venous Blood Culture - Preliminary NO GROWTH AFTER 48 HOURS 02/09/18 10:20 Blood-Venous Blood Culture - Preliminary NO GROWTH AFTER 48 HOURS Most Recent Lab Values WBC 3.6 10^3/ul (4.5-11.0) L D 02/10/18 05:30 RBC 4.60 10^6/uL (3.5-6.1) 02/10/18 05:30 Hgb 12.2 g/dL (14.0-18.0) L D 02/10/18 05:30 Hct 37.1 % (42.0-52.0) L 02/10/18 05:30 MCV 80.7 fl (80.0-105.0) 02/10/18 05:30 MCH 26.5 pg (25.0-35.0) 02/10/18 05:30 MCHC 32.9 g/dl (31.0-37.0) 02/10/18 05:30 RDW 16.6 % (11.5-14.5) H 02/10/18 05:30 Plt Count 134 10^3/uL (120.0-450.0) 02/10/18 05:30 MPV 11.0 fl (7.0-11.0) 02/10/18 05:30 Gran % 35.0 % (50.0-68.0) L 02/08/18 20:34 Lymph % (Auto) 46.6 % (22.0-35.0) H 02/08/18 20:34 Chambers % (Auto) 10.5 % (1.0-6.0) H 02/08/18 20:34 Eos % (Auto) 5.8 % (1.5-5.0) H 02/08/18 20:34 Baso % (Auto) 2.1 % (0.0-3.0) 02/08/18 20:34 Gran # 3.58 (1.4-6.5) 02/08/18 20:34 Lymph # (Auto) 4.8 (1.2-3.4) H 02/08/18 20:34 Chambers # (Auto) 1.1 (0.1-0.6) H 02/08/18 20:34 Eos # (Auto) 0.6 (0.0-0.7) 02/08/18 20:34 Baso # (Auto) 0.22 K/mm3 (0.0-2.0) 02/08/18 20:34 PT 12.8 SECONDS (9.4-12.5) H 02/08/18 20:34 INR 1.12 (0.93-1.08) H 02/08/18 20:34 APTT 29.4 Seconds (25.1-36.5) 02/10/18 05:30 pCO2 39 mm/Hg (35-45) 02/09/18 12:08 pO2 97.0 mm/Hg (80-100) 02/09/18 12:08 HCO3 27.7 mmol/L (21-28) 02/09/18 12:08 ABG pH 7.46 (7.35-7.45) H 02/09/18 12:08 ABG Total CO2 28.9 mmol.L (22-28) H 02/09/18 12:08 ABG O2 Saturation 99.2 % (95-98) H 02/09/18 12:08 ABG O2 Content 16.2 ML/dl (15-23) 02/09/18 12:08 ABG Base Excess 3.7 mmol/L (-2.0-3.0) H 02/09/18 12:08 ABG Hemoglobin 11.8 g/dL (11.7-17.4) 02/09/18 12:08 ABG Carboxyhemoglobin 1.7 % (0.5-1.5) H 02/09/18 12:08 POC ABG HHb (Measured) 0.8 % (0-5) 02/09/18 12:08 ABG Methemoglobin 0.6 % (0.0-3.0) 02/09/18 12:08 ABG O2 Capacity 16.3 mL/dl (16-24) 02/09/18 12:08 ABG Potassium 2.8 mmol/L (3.6-5.2) L 02/08/18 22:36 Hgb O2 Saturation 96.9 % (95.0-98.0) 02/09/18 12:08 Sodium 144.0 mmol/L (132-148) 02/08/18 22:36 Chloride 111.0 mmol/L (98-107) H 02/08/18 22:36 Glucose 102 mg/dl (75-110) 02/08/18 22:36 Lactate 1.7 mmol/L (0.7-2.1) 02/08/18 22:36 FiO2 100.0 % 02/09/18 12:08 Sodium 142 mmol/L (132-148) 02/10/18 06:00 Potassium 3.9 mmol/L (3.6-5.0) 02/10/18 06:00 Chloride 104 mmol/L (98-107) 02/10/18 06:00 Carbon Dioxide 26 mmol/L (21-33) 02/10/18 06:00 Anion Gap 16 (10-20) 02/10/18 06:00 BUN 7 mg/dL (7-21) 02/10/18 06:00 Creatinine 0.8 mg/dl (0.8-1.5) 02/10/18 06:00 Est GFR ( Amer) > 60 02/10/18 06:00 Est GFR (Non-Af Amer) > 60 02/10/18 06:00 POC Glucose (mg/dL) 85 mg/dL (65-110) 02/08/18 20:34 Random Glucose 129 mg/dL (70-110) H 02/10/18 06:00 Calcium 7.9 mg/dL (8.4-10.5) L 02/10/18 06:00 Phosphorus 2.4 mg/dL (2.5-4.5) L 02/10/18 06:00 Magnesium 1.5 mg/dL (1.7-2.2) L 02/10/18 15:30 Total Bilirubin 2.1 mg/dL (0.2-1.3) H 02/10/18 06:00 AST 66 U/L (17-59) H D 02/10/18 06:00 ALT 31 U/L (7-56) 02/10/18 06:00 Alkaline Phosphatase 111 U/L (38-126) 02/10/18 06:00 Ammonia 36 umol/L (9-33) H 02/09/18 08:00 Lactate Dehydrogenase 926 U/L (333-699) H 02/08/18 20:34 Total Creatine Kinase 231 U/L (35-230) H 02/08/18 20:34 CK-MB (CK-2) 1.4 ng/mL (0.0-3.6) 02/08/18 20:34 CK-MB (CK-2) % Cancelled 02/08/18 20:34 Troponin I < 0.01 ng/mL 02/08/18 20:34 Total Protein 7.3 g/dL (5.8-8.3) 02/10/18 06:00 Albumin 3.3 g/dL (3.0-4.8) 02/10/18 06:00 Globulin 4.0 gm/dL 02/10/18 06:00 Albumin/Globulin Ratio 0.8 (1.1-1.8) L 02/10/18 06:00 Procalcitonin < 0.05 NG/ML (0.19-0.49) L 02/09/18 10:00 Arterial Blood Potassium 2.8 mmol/L (3.6-5.2) L 02/08/18 22:36 Urine Color Yellow (YELLOW) 02/09/18 01:21 Urine Appearance Clear (CLEAR) 02/09/18 01:21 Urine pH 6.0 (4.7-8.0) 02/09/18 01:21 Ur Specific [place] 1.020 (1.005-1.035) 02/09/18 01:21 Urine Protein 100 mg/dL (<30 mg/dL) H 02/09/18 01:21 Urine Glucose (UA) Negative mg/dL (NEGATIVE) 02/09/18 01:21 Urine Ketones Negative mg/dL (NEGATIVE) 02/09/18 01:21 Urine Blood Trace-intact (NEGATIVE) H 02/09/18 01:21 Urine Nitrate Negative (NEGATIVE) 02/09/18 01:21 Urine Bilirubin Negative (NEGATIVE) 02/09/18 01:21 Urine Urobilinogen 0.2 E.U./dL (<1 E.U./dL) 02/09/18 01:21 Ur Leukocyte Esterase Negative Mendel/uL (NEGATIVE) 02/09/18 01:21 Urine RBC 0 - 2 /hpf (0-2) 02/09/18 01:21 Urine WBC 0 - 2 /hpf (0-6) 02/09/18 01:21 Ur Epithelial Cells 0 - 2 /hpf (0-5) 02/09/18 01:21 Urine Opiates Screen Negative (NEGATIVE) 02/09/18 01:21 Urine Methadone Screen Negative (NEGATIVE) 02/09/18 01:21 Ur Barbiturates Screen Negative (NEGATIVE) 02/09/18 01:21 Ur Phencyclidine Scrn Negative (NEGATIVE) 02/09/18 01:21 Ur Amphetamines Screen Negative (NEGATIVE) 02/09/18 01:21 U Benzodiazepines Scrn Positive (NEGATIVE) 02/09/18 01:21 U Oth Cocaine Metabols Negative (NEGATIVE) 02/09/18 01:21 U Cannabinoids Screen Negative (NEGATIVE) 02/09/18 01:21 Alcohol, Quantitative 245 mg/dL (0-10) H 02/08/18 20:34 Ur L.pneumophila Ag Negative (NEGATIVE) 02/09/18 18:16 Discharge Plan - Follow Up Plan Patient education suggested?: Yes Attending/Attestation - Attestation I have personally seen and examined this patient.: Yes I have fully participated in the care of the patient.: Yes I have reviewed all pertinent clinical information, including history, physical exam and plan: Yes Notes (Text): 02/11/18 57 year old male with past medical history of COPD, hepatitis C, PUD, esophageal varices, ETOH abuse, and noncompliance who presented with hypoxia and alcohol intoxication / withdrawal. He was also found to have bilateral lower lobe pneumonia and started on iv antiotics, steroids and duonebs. His symptoms began to improved and his oxygen was tapered. He was also on librium and ativan taper for alcohol withdrawal and multivitamin , folic acid and thiamine. He was counselled on smoking and alcohol cessation. This morning patient was seen and examined. He was demanding pain medications but seemed comfortable. Patient signed out AMA shortly after. He refused further care or medications. Antonio Ramirez MD Hospitalist.
== END 2018-02-11 09:06 | disposition left against medical advice (07) | DRG 540 ==
LOC: ED 20:02 → ERH 02-09 03:41 → 2RNO 02-09 04:59
PROVIDERS: ADMIT Internal Medicine; ATTEND Internal Medicine
DX: J69.0 Pneumonitis due to inhalation of food and vomit (principal); I50.30 Unspecified diastolic (congestive) heart failure; J44.1 Chronic obstructive pulmonary disease with (acute) exacerbation; F10.239 Alcohol dependence with withdrawal, unspecified; B18.2 Chronic viral hepatitis C; I11.0 Hypertensive heart disease with heart failure; K74.60 Unspecified cirrhosis of liver; R09.02 Hypoxemia; R18.8 Other ascites; B19.10 Unspecified viral hepatitis B without hepatic coma; E83.42 Hypomagnesemia; E83.39 Other disorders of phosphorus metabolism; F31.9 Bipolar disorder, unspecified; G40.909 Epilepsy, unspecified, not intractable, without status epilepticus; I73.9 Peripheral vascular disease, unspecified; I87.2 Venous insufficiency (chronic) (peripheral); K21.9 Gastro-esophageal reflux disease without esophagitis; K44.9 Diaphragmatic hernia without obstruction or gangrene; K86.1 Other chronic pancreatitis; N62 Hypertrophy of breast; Y95 Nosocomial condition; Z53.20 Procedure and treatment not carried out because of patient's decision for unspecified reasons; Z79.899 Other long term (current) drug therapy; Z87.01 Personal history of pneumonia (recurrent); F17.210 Nicotine dependence, cigarettes, uncomplicated; Z87.11 Personal history of peptic ulcer disease; Z91.19 Patient's noncompliance with other medical treatment and regimen; Z59.0 Homelessness; L40.9 Psoriasis, unspecified; E66.01 Morbid (severe) obesity due to excess calories; Z68.41 Body mass index [BMI] 40.0-44.9, adult; F19.11 Other psychoactive substance abuse, in remission

== ENCOUNTER 2018-02-14 01:21 | Emergency (ER) | payer MEDICAID ==
[2018-02-14 01:22] VITALS: BMI 34.7
[2018-02-14 01:44] VITALS: BP 118/81; PULSE 92; RESP 20; TEMP 98.3; O2SAT 94
--- NOTE | 2018-02-14 05:54 | ED PDOC ---
Arrival/HPI - General Chief Complaint: Medical Clearance Time Seen by Provider: 02/14/18 01:24 Historian: Patient - History of Present Illness Narrative History of Present Illness (Text): Patient is a 57 year old male who presents to the Emergency department stating "he has water in his left lung". Patient AMA'd emergency department from hospital 3 days ago for pneumonia. Patient has not taken any medications. Patient mentions that he has an appointment with his PMD today. He denies any fever, cough, sob, chest pain, or any other complaints at this time. Time/Duration: < week Symptom Course: Unchanged Context: Home Past Medical History - Provider Review Nursing Documentation Reviewed: Yes - Infectious Disease Hx of Infectious Diseases: None - Tetanus Immunization Tetanus Immunization: Up to Date - Past Medical History Past Medical History: No Previous - Cardiac Hx Cardiac Disorders: Yes Hx Hypertension: Yes Hx Peripheral Edema: Yes Hx Peripheral Vascular Disease: Yes - Pulmonary Hx Bronchitis: Yes Hx Chronic Obstructive Pulmonary Disease (COPD): Yes Hx Pneumonia: Yes - Neurological Hx Neurological Disorder: No - HEENT Hx HEENT Disorder: Yes Other/Comment: retina detachment - Renal Hx Renal Failure: Yes - Endocrine/Metabolic Hx Endocrine Disorders: No - Hematological/Oncological Hx Blood Disorders: Yes Hx Hepatitis B: Yes Hx Hepatitis C: Yes - Integumentary Hx Dermatological Disorder: Yes Hx Psoriasis: Yes - Musculoskeletal/Rheumatological Hx Musculoskeletal Disorders: Yes Hx Falls: Yes Hx Fractures: Yes (NASAL SURGERY) - Gastrointestinal Hx Gastrointestinal Disorders: Yes Hx Liver Failure: Yes Hx Pancreatitis: Yes Other/Comment: ascites - Genitourinary/Gynecological Hx Genitourinary Disorders: No - Psychiatric Hx Psychophysiologic Disorder: Yes Hx Anxiety: Yes Hx Bipolar Disorder: Yes Hx Depression: Yes Hx Substance Use: Yes Other/Comment: ETOH - Past Surgical History Past Surgical History: No Previous - Surgical History Other/Comment: TIPPS. Nasal surgery. - Anesthesia Hx Anesthesia: Yes Hx Anesthesia Reactions: No Hx Malignant Hyperthermia: No - Suicidal Assessment Feels Threatened In Home Enviroment: No Family/Social History - Physician Review Nursing Documentation Reviewed: Yes Family/Social History: No Known Family HX Smoking Status: Heavy Smoker > 10 Cigarettes Daily Hx Alcohol Use: Yes Frequency of alcohol use: Daily Amount per day: 3 Hx Substance Use: Yes Hx Substance Use Treatment: No Allergies/Home Meds Allergies/Adverse Reactions: Allergies No Known Allergies Allergy (Verified 02/14/18 01:40) Review of Systems - Physician Review All systems were reviewed & negative as marked: Yes - Review of Systems Constitutional: absent: Fevers Respiratory: absent: SOB, Cough Cardiovascular: absent: Chest Pain Physical Exam Vital Signs Reviewed: Yes Vital Signs Temp Pulse Resp BP Pulse Ox 02/14/18 01:40 98.3 F 92 H 20 118/81 94 L Temperature: Afebrile Blood Pressure: Normal Pulse: Regular Respiratory Rate: Normal Appearance: Positive for: Well-Appearing Pain Distress: None Mental Status: Positive for: Alert and Oriented X 3 - Systems Exam Head: Present: Atraumatic, Normocephalic Pupils: Present: PERRL Extroacular Muscles: Present: EOMI Conjunctiva: Present: Normal Mouth: Present: Moist Mucous Membranes Neck: Present: Normal Range of Motion Respiratory/Chest: Present: Clear to Auscultation, Good Air Exchange. No: Respiratory Distress, Accessory Muscle Use Cardiovascular: Present: Regular Rate and Rhythm, Normal S1, S2. No: Murmurs Abdomen: No: Tenderness, Distention, Peritoneal Signs Back: Present: Normal Inspection Upper Extremity: Present: Normal Inspection. No: Cyanosis, Edema Lower Extremity: Present: Normal Inspection. No: Edema Neurological: Present: GCS=15, CN II-XII Intact, Speech Normal Skin: Present: Warm, Dry, Normal Color. No: Rashes Psychiatric: Present: Alert, Oriented x 3, Normal Insight, Normal Concentration Medical Decision Making ED Course and Treatment: Impression: Patient is a 57 year old male complaining of fluid in his left lung. Plan: --Levaquin -- Reassess and disposition Prior Visits: Notes and results from previous visits were reviewed. Patient was last seen in the emergency department on 02/11/18 for pneumonia and left the hospital AMA. Progress Notes: 02/14/18 02:10 Reevaluation: On reevaluation the patient feels better and is in no acute distress. I have discussed the results and plan with the patient, who expresses understanding. Patient given the opportunity to ask question, all questions were answered and there is agreement with the plan to discharge the patient home with prescription for Levaquin. Patient is stable for discharge. Patient was instructed to follow up with physician/clinic in 1-2 days or return if symptoms persist/worsen or new concerning symptoms arise. - Scribe Statement The provider has reviewed the documentation as recorded by the Dionibe Clayton Milly Provider Scribe Attestation: All medical record entries made by the Scribe were at my direction and personally dictated by me. I have reviewed the chart and agree that the record accurately reflects my personal performance of the history, physical exam, medical decision making, and the department course for this patient. I have also personally directed, reviewed, and agree with the discharge instructions and disposition. Disposition/Present on Arrival - Present on Arrival Any Indicators Present on Arrival: No History of DVT/PE: No History of Uncontrolled Diabetes: No Urinary Catheter: No History of Decub. Ulcer: No History Surgical Site Infection Following: None - Disposition Have Diagnosis and Disposition been Completed?: Yes Diagnosis: Lower resp. tract infection Disposition: HOME/ ROUTINE Disposition Time: 02:10 Condition: GOOD Discharge Instructions (ExitCare): Acute Bronchitis, Adult (DC) Additional Instructions: Thank you for letting us take care of you today. The emergency medical care you received today was directed at your acute symptoms. If you were prescribed any medication, please fill it and take as directed. It may take several days for your symptoms to resolve. Return to the Emergency Department if your symptoms worsen, do not improve, or if you have any other problems. Please contact your doctor or call one of the physicians/clinics you have been referred to that are listed on the Patient Visit Information form that is included in your discharge packet. Bring any paperwork you were given at discharge with you along with any medications you are taking to your follow up visit. Our treatment cannot replace ongoing medical care by a primary care provider (PCP) outside of the emergency department. Thank you for allowing the [facility] team to be part of your care today. Follow up with your primary doctor tomorrow morning as scheduled for re- evaluation and further management. Prescriptions: Levofloxacin [Levaquin] 750 mg PO DAILY #5 tablet Referrals: Anastasiya Card MD [Primary Care Provider] - Follow up with primary Forms: [employer] (Romansh)
== END 2018-02-14 02:20 | disposition home or self-care (01) ==
LOC: ED 01:21
DX: J22 Unspecified acute lower respiratory infection (principal); F17.210 Nicotine dependence, cigarettes, uncomplicated; I10 Essential (primary) hypertension

== ENCOUNTER 2018-02-14 12:55 | Emergency (ER) | payer MEDICAID ==
[2018-02-14 12:55] VITALS: BMI 34.7
[2018-02-14 13:12] VITALS: TEMP 98
--- NOTE | 2018-02-14 14:30 | PCM.PROC ---
Procedures Attestation:: I certify that I have explained the specified Operation(s) or Procedure(s), risks, benefits and reasonable alternatives to the Patient and/or other person responsible. The opportunity was given to ask questions and all questions answered - Laceration lidocaine 1% simple, single layer linear irrigated extensively right lip 5- 0 vicryl local infiltration simple, interrupted Site: lip (one internal one external) Side (if applicable): right Size (cm): 1 Description: linear Depth: simple, single layer Anesthesia used: lidocaine 1% Anesthesia technique: local infiltration Amount (mLs): 1 Pre-repair: irrigated extensively Skin layer closed with: vicryl Size: 5-0 Number of sutures: 3 Technique: simple, interrupted
[2018-02-14 14:58] LABS: ALB/GLOB RATIO 0.9 (1.1-1.8); ALBUMIN 3.3 g/dL (3.0-4.8); ALT/SGPT 33 U/L (7-56); AST/SGOT 70 U/L (17-59); BASO # 0.06 K/mm3 (0.0-2.0); BLOOD UREA NITROGEN 13 mg/dL (7-21); CALCIUM 9.4 mg/dL (8.4-10.5); EOS # 0.4 (0.0-0.7); GFR AFRICAN-AMERICAN > 60; GFR NON-AFRICAN AMERICAN > 60; GRAN # 2.12 (1.4-6.5); GRAN % 35.1 % (50.0-68.0); HEMOGLOBIN 11.9 g/dL (14.0-18.0); LYMPH # 2.6 (1.2-3.4); LYMPH % 42.2 % (22.0-35.0); MEAN CELL VOLUME 79.6 fl (80.0-105.0); MEAN CORPUSCULAR HEMOGLOBIN 26.6 pg (25.0-35.0); MEAN CORPUSCULAR HGB CONC 33.4 g/dl (31.0-37.0); MEAN PLATELET VOLUME 10.5 fl (7.0-11.0); MONO % 15.7 % (1.0-6.0); RBC 4.47 10^6/uL (3.5-6.1); RED CELL DISTRIBUTION WIDTH 17.1 % (11.5-14.5)
[2018-02-14 15:12] LABS: INR 1.1 (0.93-1.08); PARTIAL THROMBOPLASTIN TIME 29.1 Seconds (25.1-36.5); PROTHROMBIN TIME 12.6 SECONDS (9.4-12.5)
[2018-02-14] MEDS ORDERED: TDAP Vaccine 0.5 mL Syr IM ONE ×2 (15:41→17:55)
[2018-02-14] MEDS ORDERED: Sodium Chloride 0.9% 500 ML IV STA (15:41)
--- NOTE | 2018-02-14 15:44 | ED PDOC ---
Arrival/HPI - General Chief Complaint: Trauma Time Seen by Provider: 02/14/18 13:22 Historian: Patient - History of Present Illness Narrative History of Present Illness (Text): 02/14/18 15:40 57-year-old male presents today with headache and facial pain and abdominal pain status post fall. Patient states he tripped and fell landing on his face sustaining a laceration to the mucosa of the upper lip. Patient denies loss of consciousness. Patient denies fevers or chills. Patient is complaining of left- sided upper abdominal pain. Patient states when he fell he landed on the curb. Patient denies chest pain or shortness of breath. Patient states he just got a prescription today for antibiotics for pneumonia. Patient denies dizziness or weakness. Patient denies nausea vomiting diarrhea or constipation. No other complaints. Time/Duration: Prior to Arrival Symptom Onset: Sudden Past Medical History - Provider Review Nursing Documentation Reviewed: Yes - Travel History Have you recently traveled outside [place] w/in the past 3 mons?: No - Infectious Disease Hx of Infectious Diseases: None - Tetanus Immunization Tetanus Immunization: Up to Date - Past Medical History Past Medical History: No Previous - Cardiac Hx Cardiac Disorders: Yes Hx Hypertension: Yes Hx Peripheral Edema: Yes Hx Peripheral Vascular Disease: Yes - Pulmonary Hx Respiratory Disorders: Yes Hx Bronchitis: Yes Hx Chronic Obstructive Pulmonary Disease (COPD): Yes Hx Pneumonia: Yes - Neurological Hx Neurological Disorder: No - HEENT Hx HEENT Disorder: Yes Other/Comment: retina detachment - Renal Hx Renal Disorder: Yes Hx Renal Failure: Yes - Endocrine/Metabolic Hx Endocrine Disorders: No - Hematological/Oncological Hx Blood Disorders: Yes Hx Hepatitis B: Yes Hx Hepatitis C: Yes - Integumentary Hx Dermatological Disorder: Yes Hx Psoriasis: Yes - Musculoskeletal/Rheumatological Hx Musculoskeletal Disorders: Yes Hx Falls: Yes Hx Fractures: Yes (NASAL SURGERY) - Gastrointestinal Hx Gastrointestinal Disorders: Yes Hx Liver Failure: Yes Hx Pancreatitis: Yes Other/Comment: ascites - Genitourinary/Gynecological Hx Genitourinary Disorders: No - Psychiatric Hx Psychophysiologic Disorder: Yes Hx Anxiety: Yes Hx Bipolar Disorder: Yes Hx Depression: Yes Hx Substance Use: Yes Other/Comment: ETOH - Past Surgical History Past Surgical History: No Previous - Surgical History Other/Comment: TIPPS. Nasal surgery. - Anesthesia Hx Anesthesia: Yes Hx Anesthesia Reactions: No Hx Malignant Hyperthermia: No - Suicidal Assessment Feels Threatened In Home Enviroment: No Family/Social History - Physician Review Nursing Documentation Reviewed: Yes Family/Social History: Unknown Family HX Smoking Status: Heavy Smoker > 10 Cigarettes Daily Hx Alcohol Use: Yes Frequency of alcohol use: Few days per week Amount per day: 3 Hx Substance Use: Yes Hx Substance Use Treatment: No Allergies/Home Meds Allergies/Adverse Reactions: Allergies No Known Allergies Allergy (Verified 02/14/18 01:40) Review of Systems - Review of Systems Constitutional: absent: Fatigue, Fevers Eyes: absent: Vision Changes, Photophobia, Eye Pain ENT: absent: Sore Throat, Sinus Congestion Respiratory: absent: SOB, Cough Cardiovascular: absent: Chest Pain, Palpitations Gastrointestinal: Abdominal Pain. absent: Constipation, Diarrhea, Nausea, Vomiting Genitourinary Male: absent: Dysuria, Frequency, Hematuria Musculoskeletal: Arthralgias, Neck Pain Skin: Laceration. absent: Rash, Pruritis Neurological: Headache, Dizziness Physical Exam Vital Signs Reviewed: Yes Vital Signs Temp Pulse Resp BP Pulse Ox 02/14/18 17:19 78 17 120/72 99 02/14/18 15:14 121/62 02/14/18 15:09 85 16 121/62 92 L 02/14/18 13:11 98.0 F 96 H 18 104/55 L 90 L Temperature: Afebrile Blood Pressure: Normal Pulse: Tachycardic Respiratory Rate: Normal Appearance: Positive for: Well-Appearing, Non-Toxic, Comfortable Pain Distress: None Mental Status: Positive for: Alert and Oriented X 3 - Systems Exam Head: No: Tenderness, Contusion, Swelling Mouth: Present: Moist Mucous Membranes, Other (there is a 1.5cm linear laceration noted to the mucosa of the mouth and small 0.5cc laceration noted to upper lip. no active bleeding. no edema.) Pharnyx: Present: Normal Nose (External): Present: Atraumatic Nose (Internal): Present: Normal Inspection. No: Septal Deviation, Septal Hematoma, Epistaxis Neck: Present: Normal Range of Motion, Paraspinal Tenderness, Trachea Midline. No: MIDLINE TENDERNESS Respiratory/Chest: Present: Clear to Auscultation, Good Air Exchange. No: Respiratory Distress, Accessory Muscle Use, Wheezes, Rhonchi, Tachypneic Cardiovascular: Present: Regular Rate and Rhythm. No: Tachycardic Abdomen: Present: Tenderness (+ luq tenderness), Normal Bowel Sounds, Other ( there is ecchymosis noted to the lower abdomen (pt states ecchymosis is old due to sq injections while hospitalized)). No: Distention, Peritoneal Signs, Rebound, Guarding Back: Present: Normal Inspection. No: Midline Tenderness, Paraspinal Tenderness Upper Extremity: Present: Normal ROM Lower Extremity: Present: Edema (b/l), Normal ROM Neurological: Present: GCS=15, Speech Normal Skin: Present: Warm, Dry, Normal Color Psychiatric: Present: Alert, Oriented x 3 Medical Decision Making ED Course and Treatment: 02/14/18 15:51 57yr old male with abd pain, headache, facial pain s/p fall. cbc; wnl cmp; k;3.4 ast; 70 ct head:FINDINGS: HEMORRHAGE: No intracranial hemorrhage. BRAIN: No mass effect or edema. No atrophy or chronic microvascular ischemic changes. VENTRICLES: Unremarkable. No hydrocephalus. CALVARIUM: Unremarkable. PARANASAL SINUSES: Unremarkable as visualized. No significant inflammatory changes. MASTOID AIR CELLS: Unremarkable as visualized. No inflammatory changes. OTHER FINDINGS: None. IMPRESSION: No acute findings ct neck: FINDINGS: VERTEBRAE: No fracture. Normal alignment. No destructive bony lesion. DISCS/SPINAL CANAL/NEURAL FORAMINA: No significant central canal or neural foraminal stenosis. There is disc degeneration an osteophyte formation at C5-6 with foraminal stenosis but no significant central stenosis. PARASPINAL SOFT TISSUES: Unremarkable. OTHER FINDINGS: None. IMPRESSION: No acute findings ct maxillofacial: FINDINGS: NASAL BONES: Unremarkable. ORBITS: Unremarkable. PARANASAL SINUSES/ MASTOIDS: Clear. MAXILLA: Unremarkable. MANDIBLE/ TEMPOROMANDIBULAR JOINTS: Unremarkable. SKULL BASE: Unremarkable. TEMPORAL BONES: Middle ears and mastoid grossly unremarkable. OTHER FINDINGS: None. IMPRESSION: Unremarkable non contrast enhanced CT of the maxillofacial bones. ct chest/abd/pelvis: FINDINGS: CT CHEST WITH CONTRAST: LUNGS: Clear. No nodule, mass or consolidation. MEDIASTINUM: Unremarkable. Normal caliber aorta and pulmonary arterial trunk. No aortic dissection. Normal size heart. LYMPH NODES: Unremarkable. PLEURA: Unremarkable. No pneumothorax. No pleural fluid. BONES: Unremarkable. OTHER FINDINGS: None. CT ABDOMEN AND PELVIS: LIVER: There is a portosystemic shunt in the liver. This appears to be patent. There are no secondary signs of cirrhosis or portal hypertension. GALLBLADDER AND BILE DUCTS: Unremarkable. PANCREAS: Unremarkable. No gross lesion or ductal dilatation. SPLEEN: Unremarkable. ADRENALS: Unremarkable. No mass. KIDNEYS AND URETERS: Unremarkable. No hydronephrosis. No solid mass. VASCULATURE: Unremarkable. No aortic aneurysm. BOWEL: Unremarkable. No obstruction. No gross mural thickening. APPENDIX: Normal appendix. PERITONEUM: Unremarkable. No free fluid. No free air. LYMPH NODES: Unremarkable. No enlarged lymph nodes. BLADDER: Unremarkable. REPRODUCTIVE: Unremarkable. BONES: No acute fracture. OTHER FINDINGS: None. IMPRESSION: No acute findings wound cleaned and irrigated using high pressure irrigation; laceration repaired by dr. aguilar resident; (see procedure note) augmentin given PO tetanus pt reassessment; pt non toxic well appearing; no distress. alert and oriented. no distress. stable vitals. ambulating with steady gait. i discussed all results in depth with patient; advised f/u with PMD. pt states he has appointment tomorrow. advised taking abx as prescribed. advised immediate return if signs of infection develop. Patient verbalizes understanding of discharge instructions and need for immediate followup. all aspects of this case were discussed the attending of record. Impression: Head injury, laceration mouth/lip, abdominal pain, facial contusion Augmentin twice daily 7 days Follow-up with the primary care physician within the next 2 days Increase fluids Keep wounds clean and dry. Return immediately if symptoms worsen or persist or if new concerning symptoms develop: High fevers, increasing pain, increasing redness, increasing swelling, purulent discharge or if any other concerning symptoms develop - Lab Interpretations Lab Results: 02/14/18 14:35 02/14/18 14:35 Lab Results 02/14/18 14:35: WBC 6.0 D, RBC 4.47, Hgb 11.9 L, Hct 35.6 L, MCV 79.6 L, MCH 26.6, MCHC 33.4, RDW 17.1 H, Plt Count 169, MPV 10.5, Gran % 35.1 L, Lymph % ( Auto) 42.2 H, [place] % (Auto) 15.7 H, Eos % (Auto) 6.0 H, Baso % (Auto) 1.0, Gran # 2.12, Lymph # (Auto) 2.6, [place] # (Auto) 1.0 H, Eos # (Auto) 0.4, Baso # (Auto ) 0.06 02/14/18 14:35: Sodium 144, Potassium 3.4 L, Chloride 106, Carbon Dioxide 25, Anion Gap 16, BUN 13, Creatinine 1.1, Est GFR ( Amer) > 60, Est GFR (Non- Af Amer) > 60, Random Glucose 99, Calcium 9.4, Total Bilirubin 0.9, AST 70 H, ALT 33, Alkaline Phosphatase 98, Total Protein 7.0, Albumin 3.3, Globulin 3.7, Albumin/Globulin Ratio 0.9 L 02/14/18 14:35: PT 12.6 H, INR 1.10 H, APTT 29.1 - RAD Interpretation Radiology Orders: 02/14/18 14:11 CERVICAL SPINE W/O CONTRAST [CT] Stat CHEST,ABD,PEL W/IV CONT ONLY [CT] Stat HEAD W/O CONTRAST [CT] Stat 02/14/18 14:12 MAXILLOFACIAL W/O CONTRAST [CT] Stat - Medication Orders Current Medication Orders: Discontinued Medications Sodium Chloride (Sodium Chloride 0.9%) 500 mls @ 999 mls/hr IV .Q31M STA Stop: 02/14/18 16:11 Last Admin: 02/14/18 15:45 Dose: 999 mls/hr eMAR Start Stop Document 02/14/18 15:45 SF (Rec: 02/14/18 17:22 SF [facility] [id number]) Intravenous Solution Start Date 02/14/18 Start Time 15:45 End Date 02/14/18 End time 16:15 Total Infusion Time 30 Disposition/Present on Arrival - Present on Arrival Any Indicators Present on Arrival: No History of DVT/PE: No History of Uncontrolled Diabetes: No Urinary Catheter: No History of Decub. Ulcer: No History Surgical Site Infection Following: None - Disposition Have Diagnosis and Disposition been Completed?: Yes Diagnosis: Head injury, Laceration of mouth, Laceration of lip, Abdominal pain Disposition: HOME/ ROUTINE Disposition Time: 18:04 Patient Plan: Discharge Condition: GOOD Discharge Instructions (ExitCare): Closed Head Injury (DC), Acute Abdomen ( Belly Pain), Laceration Repair Additional Instructions: Augmentin twice daily 7 days Follow-up with the primary care physician within the next 2 days Increase fluids Keep wounds clean and dry. Return immediately if symptoms worsen or persist or if new concerning symptoms develop: High fevers, increasing pain, increasing redness, increasing swelling, purulent discharge or if any other concerning symptoms develop Prescriptions: Amoxicillin/Clavulanate [Augmentin 875 MG-125 MG] 1 tab PO BID #14 tab Referrals: Suzi Mclean, [Primary Care Provider] - Follow up with primary Anastasiya Card MD [Non-Staff] - Follow up with primary [facility] at [facility] [place] [facility] [Outside] - Follow up with primary Forms: [employer] ([place]i)
--- NOTE | 2018-02-14 15:48 | CT ---
PROCEDURE: CT HEAD WITHOUT CONTRAST. HISTORY: headache COMPARISON: None available. TECHNIQUE: Axial computed tomography images were obtained through the head/brain without intravenous contrast. Radiation dose: Total exam DLP = 931 mGy-cm. This CT exam was performed using one or more of the following dose reduction techniques: Automated exposure control, adjustment of the mA and/or kV according to patient size, and/or use of iterative reconstruction technique. FINDINGS: HEMORRHAGE: No intracranial hemorrhage. BRAIN: No mass effect or edema. No atrophy or chronic microvascular ischemic changes. VENTRICLES: Unremarkable. No hydrocephalus. CALVARIUM: Unremarkable. PARANASAL SINUSES: Unremarkable as visualized. No significant inflammatory changes. MASTOID AIR CELLS: Unremarkable as visualized. No inflammatory changes. OTHER FINDINGS: None. IMPRESSION: No acute findings
--- NOTE | 2018-02-14 15:50 | CT ---
PROCEDURE: CT Cervical Spine without contrast HISTORY: neck pain COMPARISON: 10/29/2013 TECHNIQUE: Axial computed tomography images were obtained of the cervical spine without the use of intravenous contrast. Coronal and sagittal reformatted images were created and reviewed. Radiation dose: Total exam DLP = 855 mGy-cm. This CT exam was performed using one or more of the following dose reduction techniques: Automated exposure control, adjustment of the mA and/or kV according to patient size, and/or use of iterative reconstruction technique. FINDINGS: VERTEBRAE: No fracture. Normal alignment. No destructive bony lesion. DISCS/SPINAL CANAL/NEURAL FORAMINA: No significant central canal or neural foraminal stenosis. There is disc degeneration an osteophyte formation at C5-6 with foraminal stenosis but no significant central stenosis. PARASPINAL SOFT TISSUES: Unremarkable. OTHER FINDINGS: None. IMPRESSION: No acute findings
--- NOTE | 2018-02-14 15:53 | CT ---
PROCEDURE: CT MAXILLOFACIAL BONES WITHOUT CONTRAST HISTORY: fall, facial pain COMPARISON: None TECHNIQUE: Contiguous axial CT images of the maxillofacial bones were obtained. Coronal and sagittal reformats were generated. Radiation dose: Total exam DLP = 773 mGy-cm. This CT exam was performed using one or more of the following dose reduction techniques: Automated exposure control, adjustment of the mA and/or kV according to patient size, and/or use of iterative reconstruction technique. FINDINGS: NASAL BONES: Unremarkable. ORBITS: Unremarkable. PARANASAL SINUSES/ MASTOIDS: Clear. MAXILLA: Unremarkable. MANDIBLE/ TEMPOROMANDIBULAR JOINTS: Unremarkable. SKULL BASE: Unremarkable. TEMPORAL BONES: Middle ears and mastoid grossly unremarkable. OTHER FINDINGS: None. IMPRESSION: Unremarkable non contrast enhanced CT of the maxillofacial bones.
--- NOTE | 2018-02-14 16:15 | CT ---
PROCEDURE: CT Chest, Abdomen and Pelvis with intravenous contrast HISTORY: fall, luq abd pain COMPARISON: None. TECHNIQUE: IV dose administered: 150 cc of Omni 350 Radiation dose: Total exam DLP = 1693 mGy-cm. This CT exam was performed using one or more of the following dose reduction techniques: Automated exposure control, adjustment of the mA and/or kV according to patient size, and/or use of iterative reconstruction technique. FINDINGS: CT CHEST WITH CONTRAST: LUNGS: Clear. No nodule, mass or consolidation. MEDIASTINUM: Unremarkable. Normal caliber aorta and pulmonary arterial trunk. No aortic dissection. Normal size heart. LYMPH NODES: Unremarkable. PLEURA: Unremarkable. No pneumothorax. No pleural fluid. BONES: Unremarkable. OTHER FINDINGS: None. CT ABDOMEN AND PELVIS: LIVER: There is a portosystemic shunt in the liver. This appears to be patent. There are no secondary signs of cirrhosis or portal hypertension. GALLBLADDER AND BILE DUCTS: Unremarkable. PANCREAS: Unremarkable. No gross lesion or ductal dilatation. SPLEEN: Unremarkable. ADRENALS: Unremarkable. No mass. KIDNEYS AND URETERS: Unremarkable. No hydronephrosis. No solid mass. VASCULATURE: Unremarkable. No aortic aneurysm. BOWEL: Unremarkable. No obstruction. No gross mural thickening. APPENDIX: Normal appendix. PERITONEUM: Unremarkable. No free fluid. No free air. LYMPH NODES: Unremarkable. No enlarged lymph nodes. BLADDER: Unremarkable. REPRODUCTIVE: Unremarkable. BONES: No acute fracture. OTHER FINDINGS: None. IMPRESSION: No acute findings
[2018-02-14 17:20] VITALS: RESP 17; O2SAT 99
[2018-02-14] MEDS ORDERED: Amoxicillin-Clav 875-125 mg Tab PO STA (17:48)
[2018-02-14 18:33] VITALS: BP 121/80; PULSE 70
== END 2018-02-14 18:30 | disposition home or self-care (01) ==
LOC: ED 12:55
DX: S01.511A Laceration without foreign body of lip, initial encounter (principal); S01.512A Laceration without foreign body of oral cavity, initial encounter; S09.90XA Unspecified injury of head, initial encounter; W01.0XXA Fall on same level from slipping, tripping and stumbling without subsequent striking against object, initial encounter; Z23 Encounter for immunization; R10.9 Unspecified abdominal pain
CPT/HCPCS: 12011; 70450; 70486; 71260; 72125; 74177; 80053; 85025; 85610; 85730; 90471; 90715; 99285; J7040; Q9967